=== PATIENT | male | born 1950 | race African-American/Black ===

== ENCOUNTER 2020-09-27 10:42 | Outpatient (CLI) | payer MEDICARE, OTHER, SELFPAY ==
--- NOTE | ~2020-09-27 | XR_ITS ---
EXAMINATION: XR hip RT min 2V DATE: 09/27/2020 11:05 INDICATION: Lumbar radiculopathy. TECHNIQUE: 2 views of right hip were obtained. COMPARISON: None. FINDINGS: Bone alignment is normal. No fracture. There is severe right hip osteoarthritis. IMPRESSION: 1. Severe right hip osteoarthritis. Reviewed, dictated and finalized at location A. KILN WORKER
--- NOTE | ~2020-09-27 | XR_ITS ---
EXAMINATION: XR lumbar spine min 4V DATE: 09/27/2020 11:05 INDICATION: Lumbar radiculopathy TECHNIQUE: Anteroposterior, lateral, and bilateral oblique views of the lumbar spine, and cone-down l ateral view of the lumbosacral junction were obtained. COMPARISON: None. FINDINGS: There is no fracture. There are 3 mm of anterolisthesis of L2 on L3 and 5 mm of anterolisth esis of L3 on L4. There is advanced loss of intervertebral disc space height at L4-5 and L5-S1 and mo derate loss of disc space height throughout the remainder of the lumbar spine. The vertebral body hei ghts are maintained. There is moderate multilevel facet osteoarthritis. Small degenerative osteophyte s project from the anterior endplates of multiple vertebral bodies. Advanced osteoarthritis is noted in the right hip. There is mild left hip osteoarthritis. IMPRESSION: 1. Moderate lumbar spondylosis without acute findings. 2. Advanced right hip osteoarthritis. Reviewed, dictated and finalized at location A. S MANAGER
== END 2020-09-27 10:43 | disposition home or self-care (01) ==
PROVIDERS: PCP Physician Assistant; Visit Provider Physician Assistant
DX: M16.11 Unilateral primary osteoarthritis, right hip (principal); M47.26 Other spondylosis with radiculopathy, lumbar region
CPT/HCPCS: 72110; 73502

== ENCOUNTER 2022-02-02 10:56 | Outpatient (CLI) | payer MEDICARE, OTHER, SELFPAY ==
[2022-02-02 11:25] LABS: Cholesterol 172 mg/dL (0-200); HDL Direct 93 mg/dL; Triglycerides 104 mg/dL (<150)
[2022-02-02 11:36] LABS: LDL Cholesterol Direct 44 mg/dL
== END 2022-02-02 10:57 | disposition home or self-care (01) ==
LOC: ANHLAB 11:00
PROVIDERS: PCP Family Medicine; Visit Provider Internal Medicine Cardiovascular Disease
DX: Z13.220 Encounter for screening for lipoid disorders (principal)
CPT/HCPCS: 36415; 80061

== ENCOUNTER 2022-06-29 00:10 | Emergency (ER) | payer MEDICARE, OTHER, SELFPAY ==
[2022-06-29] VITALS (24 sets, daily range): BP systolic 103–132; BP diastolic 61–80; PULSE 67–96; RESP 18–22; TEMP 36.8; O2SAT 93–100
--- NOTE | ~2022-06-29 | XR_ITS ---
EXAMINATION: XR chest 2V DATE: 06/29/2022 01:23 INDICATION: Dyspnea. Cough. TECHNIQUE: Frontal and lateral views of the chest were obtained. COMPARISON: Chest single view 11/20/2017, chest CT 06/29/2022 FINDINGS: There are airspace opacities in the lower lung zones. No pleural effusion or pneumothorax. Cardiomegaly is noted. There is a left chest wall pacer with leads in the right atrium and right vent ricle. IMPRESSION: 1. Airspace opacities in the lower lung zones, consistent with pneumonia. 2. Cardiomegaly. Reviewed, dictated and finalized at location A. RANCE ADVISOR
--- NOTE | ~2022-06-29 | CT_ITS ---
EXAMINATION: CTA chest PE protocol DATE: 06/29/2022 03:24 INDICATION: Shortness of breath. TECHNIQUE: Computed tomography angiography (CTA) of the chest was performed with 100 mL Omnipaque-350 intravenous contrast timed to evaluate the pulmonary arteries. Coronal maximum intensity projection 3D-reconstructions were created by the technologist. Automated exposure control and iterative reconst ruction technique were employed. The dose-length product was 689.44 mGy-cm. COMPARISON: Chest CT 07/09/17 FINDINGS: There are patchy airspace and groundglass opacities in right middle lobe and the lower lobe s, consistent with pneumonia. There is mild atelectasis in lingula. There is mild bronchiectasis in l ingula. A calcified left lung nodule and calcified left hilar and mediastinal lymph nodes are consist ent with old granulomatous disease. There is a trace left pleural effusion. Cardiomegaly is noted. Th ere are coronary artery calcifications. No pericardial effusion. There is a left chest pacer with marci ds in right atrium and right ventricle. There is no pulmonary embolus. There is ectasia of ascending aorta measuring 4.6 cm. There is a suture anchor in left humeral head. There are bridging endplate os teophytes at multiple levels in the spine, consistent with diffuse idiopathic skeletal hyperostosis ( DISH). IMPRESSION: 1. No pulmonary embolus. 2. Pneumonia involving the lower lobes and right middle lobe. Reviewed, dictated and finalized at location A. OFF WORKER
--- NOTE | 2022-06-29 00:13 | ECG_ITS ---
Measurements Intervals [place] Rate: 83 P: 67 IA: 255 QRS: -54 QRSD: 153 T: 72 QT: 406 QTc: 478 Interpretive Statements SINUS RHYTHM WITH FIRST DEGREE AV BLOCK WITH OCCASIONAL VENTRICULAR PREMATURE COMPLEXES LEFT AXIS DEVIATION [QRS AXIS < -30] LEFT BUNDLE BRANCH BLOCK [120+ ms QRS DURATION, 80+ ms Q/S IN V1/V2, 85+ ms R IN I/aVL/V5/V6] NO PREVIOUS ECG AVAILABLE FOR COMPARISON Electronically Signed On 06-29-2022 6:23:26 FERTILIZER LOADER by Nuno Varner M.D.
--- NOTE | 2022-06-29 00:21 | ED.SOB ---
HPI - SOB/Dyspnea General Chief Complaint: Shortness of Breath/Dyspnea Stated Complaint: SOB WHILE COUGHING Source: RN notes reviewed History of Present Illness HPI Narrative: Patient presents emergency department from home via EMS for shortness of breath. Patient states symptoms began yesterday. States he developed a cough this been nonproductive. He states that when he begins to cough she will get into coughing spells only can feel short of breath. He also notes some shortness of breath with activity he denies any fevers or chills sore throat, chest pain, abdominal pain nausea vomiting or any other symptoms. States he has been taking cough drops for the symptoms with minimal relief. The patient is currently on apixaban which he has been taking Related Data Home Medications Medication Instructions Recorded Confirmed carvedilol 25 mg tablet 25 mg PO BID 05/24/19 02/23/22 sacubitril 49 mg-valsartan 51 mg 1 tablet PO BID 03/05/21 02/23/22 tablet (Entresto) apixaban 5 mg tablet (Eliquis) 5 mg PO BID 11/11/21 02/23/22 Allergies Allergy/AdvReac Type Severity Reaction Status Date / Time No Known Allergies Allergy Verified 02/23/22 11:05 Review of Systems Review of Systems: Gen.: Denies fevers or chills ENT: Denies congestion Respiratory: See HPI CV: Denies chest pain or palpitations GI: Denies abdominal pain nausea, emesis or diarrhea denies burning, urgency, frequency or hematuria Musculoskeletal: Denies back pain or muscle pain Neuro: Denies numbness, tingling, weakness or focal weakness Skin: Denies rash Except as documented, all other systems reviewed and negative [facility] Past Medical History Medical History Cardiomyopathy CHF (congestive heart failure) Hx of angiography ICD (implantable cardioverter-defibrillator) in place Mixed hyperlipidemia Obesity (BMI 30-39.9) Surgical History Surgical History S/P cardiac cath Family History Family History Mother Diabetes mellitus Hypertension Social History Social History (Updated 02/23/22 @ 12:45 by Angely Ordonez PA-C) Smoking status: Light tobacco smoker Tobacco type: cigars Second hand tobacco smoke exposure: No Additional smoking assessment comments: Cigars on occassion. Alcohol intake: current Drinks per week: 15 Substance use: current Substance use type: marijuana Other substance usage details: 2xweek Exam Narrative: APPEARANCE: No acute distress, nontoxic, resting in bed EYES: EOMI HEENT: Normocephalic, atraumatic, OMM airway patent no erythema or exudate posterior pharynx RESPIRATORY: No respiratory distress mild wheezing upper lung george no rhonchi or rales CARDIOVASCULAR: Regular rate and rhythm without murmurs rubs or gallops. ABDOMINAL: Soft, nontender, nondistended, no rebound or guarding MUSCULOSKELETAl: Moves all extremities. No clubbing, cyanosis or edema. NEURO: Awake and alert. Following commands, speech normal, no focal deficits SKIN:: Warm, dry. No rashes lesions or abrasions PSYCHIATRIC: Normal affect/mood, Course Course Emergency Course: Patient states he is feeling much better following breathing treatment repeat lung exam clear to auscultation bilaterally. Discussed with patient his lab results and work-up he states he is had no swelling in his legs no change in shortness of breath with laying flat I believe with mild elevation of white blood cell count and CT of the chest this is more likely a pneumonia than congestive heart failure the patient does have Lasix 40 mg daily which she takes and he will take at home I will start him on antibiotics and given albuterol breathing treatment as he is feeling better following these the patient was able to get up and ambulate in the emergency department with O2 saturations of 95% on room ai
[2022-06-29 00:26] LABS: Basophils Percent Auto 0.2 % (0.2-1.2); Eosinophils Percent Auto 0.1 % (0-4.4); Hematocrit 37.9 % (42.0-52.0); Hemoglobin 12.4 g/dL (14.0-18.0); Immature Granulocyte Absolute 0.06 K/mm3 (0.00-0.031); Immature Granulocyte Percent A 0.5 % (0-0.5); Lymphocytes Absolute Auto 0.64 K/mm3 (0.9-3.2); Lymphocytes Percent Auto 5.7 % (18.3-44.2); Mean Corpuscular HGB Conc 32.7 g/dl (32-36); Mean Corpuscular Hemoglobin 31.6 pg (26-34); Mean Corpuscular Volume 96.4 fl (80-100); Mean Platelet Volume 9.3 fl (7.4-10.4); Monocytes Absolute Auto 0.6 K/mm3 (0.1-0.6); Monocytes Percent Auto 5.6 % (2.6-8.5); Neutrophils Absolute Auto 9.8 K/mm3 (1.3-6.7); Neutrophils Percent Auto 87.9 % (45.5-73.1); Platelet Count Result 230 k/mm3 (150-375); Red Blood Count 3.93 M/mm3 (4.6-6.20); White Blood Count 11.2 K/mm3 (4.5-10.0)
[2022-06-29] MEDS: IPRATROPIUM BR 0.02% INH SOLN 0.5 MG/2.5 ML VIAL INHALATION (00:39)
[2022-06-29 00:40] LABS: Alanine Aminotransferase 12 U/L (6-50); Albumin Level 4.5 g/dL (3.5-5.1); Alkaline Phosphatase 81 U/L (38-126); Anion Gap 7 mmol/L (8-16); Aspartate Amino Transferase 30 U/L (17-59); Bilirubin,Total 1.4 mg/dL (0.2-1.3); Blood Urea Nitrogen 10 mg/dL (9-20); Calcium 9.1 mg/dL (8.4-10.2); Carbon Dioxide 30 mmol/L (22-30); Chloride 101 mmol/L (98-107); Estimated CRCL calculation 93 ml/min; Estimated Glomerular Filt Rate > 60; Glucose 123 mg/dL (65-110); INR 1.4; Potassium 3.3 mmol/L (3.4-5.0); Prothrombin Time 16.3 Seconds (11.1-14.7); Sodium 138 mmol/L (137-145)
[2022-06-29] MEDS: ALBUTEROL SULFATE NEB 2.5 MG/3 ML INH 5 MG INHALATION (00:40)
[2022-06-29 00:41] LABS: Partial Thromboplastin Time 36.4 SECONDS (22.3-36.8)
[2022-06-29 00:51] LABS: NT Pro B Type Natriuretic Pept 2250 pg/mL (5-100); Troponin I 0.018 ng/mL (0.000-0.034)
[2022-06-29 01:02] LABS: Influenza A QL RT-PCR Negative (Negative); Influenza B QL RT-PCR Negative (Negative); RSV RNA, RT-PCR Negative (Negative); SARS-CoV-2 RNA PCR Negative
--- NOTE | 2022-06-29 03:25 | PC.NURSE ---
Assumed care of pt at this time .
[2022-06-29 04:11] LABS: Troponin I 0.017 ng/mL (0.000-0.034)
[2022-06-29] MEDS: POTASSIUM CHLORIDE 20 MEQ TABLET PO (05:40)
[2022-06-29] MEDS: DOXYCYCLINE HYCLATE 100 MG TABLET PO (05:40)
== END 2022-06-29 05:48 | disposition home or self-care (01) ==
PROVIDERS: Emergency Provider Emergency Medicine; PCP Family Medicine
DX: J18.9 Pneumonia, unspecified organism (principal); I50.9 Heart failure, unspecified; E78.2 Mixed hyperlipidemia; F17.290 Nicotine dependence, other tobacco product, uncomplicated; Z20.822 Contact with and (suspected) exposure to COVID-19
CPT/HCPCS: 36415; 71046; 71275; 80053; 83880; 84484; 85025; 85380; 85610; 85730; 87637; 93005; 94640; 99284; A9270; Q9967

== ENCOUNTER 2022-08-04 10:50 | Outpatient (CLI) | payer MEDICARE, OTHER, SELFPAY ==
--- NOTE | ~2022-08-04 | XR_ITS ---
XR chest 2V DATE: 08/04/2022 11:07 INDICATION: Pneumonia TECHNIQUE: PA and lateral views COMPARISON: 06/29/2022 CT pulmonary scan: Pneumonia involving the middle lobe and both lower lobes wa s reported FINDINGS: Cardiomegaly. Left AICD/pacemaker device with leads overlying right atrium and right ventri hitesh. There is thoracic aortic aneurysm and unfolding. No pulmonary infiltrate or consolidation, pleural effusion or pulmonary vascular congestion or pneumo thorax is detected. [place] devices noted overlying the left humeral head. Degenerative spurring of the thoracic and lumbar spine. IMPRESSION: Cardiomegaly Left dual-lead AICD/pacemaker device Thoracic aortic aneurysm and unfolding No active pulmonary disease Reviewed, dictated and finalized at location L. ING OFFICER
== END 2022-08-04 10:51 | disposition home or self-care (01) ==
PROVIDERS: PCP Family Medicine; Visit Provider Physician Assistant
DX: J18.9 Pneumonia, unspecified organism (principal); I51.7 Cardiomegaly; Z95.0 Presence of cardiac pacemaker; I71.20 Thoracic aortic aneurysm, without rupture, unspecified
CPT/HCPCS: 71046

== ENCOUNTER 2022-08-09 11:43 | Emergency (ER) | payer MEDICARE, OTHER, SELFPAY ==
--- NOTE | ~2022-08-09 | XR_ITS ---
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 RESULT: Lines, tubes, and devices: Left chest pacer/AICD with intact leads. Left humeral head soft tissue an chor. Lungs and pleura: Clear. Cardiomediastinal silhouette: Stable. Other: No acute osseous or upper abdominal finding. IMPRESSION: No acute cardiopulmonary process. Reviewed, dictated and finalized at location K. STMAS TREE GRADER
[2022-08-09 12:42] VITALS: BP 130/88; PULSE 97; RESP 16; TEMP 36.4; O2SAT 98
--- NOTE | 2022-08-09 14:55 | ED.URI ---
HPI - URI/Sore Throat General Chief Complaint: Upper Respiratory Infection Stated Complaint: cough Time Seen by Provider: 08/09/22 14:26 Source: patient Mode of arrival: ambulatory Limitations: no limitations History of Present Illness HPI Narrative: This is a 72 year old male that presents to the ER for cough ongoing over the last couple of days. Reports a nonproductive cough, worse at night. Reports he has been unable to sleep due to the cough. He has not taken anything for the cough. Reports some congestion. Denies fevers or shortness of breath. Related Data Home Medications Medication Instructions Recorded Confirmed carvedilol 25 mg tablet 25 mg PO BID 05/24/19 07/02/22 sacubitril 49 mg-valsartan 51 mg 1 tablet PO BID 03/05/21 07/02/22 tablet (Entresto) apixaban 5 mg tablet (Eliquis) 5 mg PO BID 11/11/21 07/02/22 Allergies Allergy/AdvReac Type Severity Reaction Status Date / Time No Known Allergies Allergy Verified 08/09/22 12:44 Review of Systems Review of Systems: CONSTITUTIONAL: Denies fever ENT: Reports congestion. Denies sore throat CARDIOVASCULAR: Denies chest pain, or edema. RESPIRATORY: Reports cough. Denies dyspnea. All systems reviewed & are unremarkable except as noted in HPI and below PMFSH Past Medical History Medical History Cardiomyopathy CHF (congestive heart failure) Hx of angiography ICD (implantable cardioverter-defibrillator) in place Mixed hyperlipidemia Obesity (BMI 30-39.9) Surgical History Surgical History S/P cardiac cath Family History Family History Mother Diabetes mellitus Hypertension Social History Social History Smoking status: Light tobacco smoker Tobacco type: cigars Second hand tobacco smoke exposure: No Additional smoking assessment comments: Cigars on occassion. Alcohol intake: current Drinks per week: 15 Substance use: current Substance use type: marijuana Other substance usage details: 2xweek Exam Narrative: GENERAL: Well-appearing, well-nourished, and in no acute distress. HEAD: Normocephalic, atraumatic. EYES: EOMI. ENT: Nares clear, no rhinorrhea or epistaxis. Mucous membranes moist. Oropharynx without tonsillar hypertrophy exudate or other lesions. Bilateral TMs pearly hickman non-bulging NECK: Supple. No adenopathy or masses. CHEST: Clear to auscultation. No respiratory distress. No wheezes rales or rhonchi HEART: Regular rate and rhythm. No murmur heard. Normal peripheral pulses. EXTREMITIES: Normal range of motion. No edema. SKIN: Warm, dry, no rash. NEURO: No focal deficits. Alert and oriented x3. PSYCH: Normal mood and affect Course Course Emergency Course: Patient and family updated on workup and agree with plan of care Vital Signs Vital signs: Vital Signs Temperature 97.5 F L 08/09/22 12:42 Pulse Rate 97 08/09/22 12:42 Respiratory Rate 16 08/09/22 12:42 Blood Pressure 130/88 08/09/22 12:42 Pulse Oximetry 98 08/09/22 12:42 Temperature 97.5 F L 08/09/22 12:42 Pulse Rate 68 08/09/22 15:33 Respiratory Rate 18 08/09/22 15:33 Blood Pressure 130/88 08/09/22 12:42 Pulse Oximetry 98 08/09/22 12:42 MDM - URI/Sore Throat MDM Narrative Medical decision making narrative: Patient presents to the emergency department for a nonproductive cough ongoing over the last couple of days. Reports it has been keeping him up at night. He has not taken anything for cough. He is afebrile and nontoxic-appearing. His lungs are clear on exam. Oxygen saturation is normal on room air. He denies any shortness of breath. CBC is without leukocytosis. Metabolic panel without concerning findings. Influenza and COVID screens are negative. Chest x-ray without acute cardiopu
[2022-08-09 15:02] LABS: Basophils Percent Auto 0.2 % (0.2-1.2); Eosinophils Absolute Auto 0.1 K/mm3 (0-0.3); Eosinophils Percent Auto 1.5 % (0-4.4); Hemoglobin 11.9 g/dL (14.0-18.0); Immature Granulocyte Absolute 0.01 K/mm3 (0.00-0.031); Immature Granulocyte Percent A 0.2 % (0-0.5); Lymphocytes Absolute Auto 0.61 K/mm3 (0.9-3.2); Lymphocytes Percent Auto 13.1 % (18.3-44.2); Mean Corpuscular HGB Conc 32.2 g/dl (32-36); Mean Corpuscular Hemoglobin 30.7 pg (26-34); Mean Corpuscular Volume 95.6 fl (80-100); Mean Platelet Volume 9.5 fl (7.4-10.4); Monocytes Absolute Auto 0.4 K/mm3 (0.1-0.6); Neutrophils Absolute Auto 3.6 K/mm3 (1.3-6.7); Platelet Count Result 166 k/mm3 (150-375); Red Blood Count 3.87 M/mm3 (4.6-6.20); Red Cell Distribution Width 15.6 % (11.5-14.5); White Blood Count 4.6 K/mm3 (4.5-10.0)
[2022-08-09 15:13] LABS: Anion Gap 6 mmol/L (8-16); Blood Urea Nitrogen 11 mg/dL (9-20); Calcium 8.8 mg/dL (8.4-10.2); Carbon Dioxide 30 mmol/L (22-30); Chloride 104 mmol/L (98-107); Estimated CRCL calculation 90 ml/min; Estimated Glomerular Filt Rate > 60; Glucose 100 mg/dL (65-110); Potassium 3.7 mmol/L (3.4-5.0); Sodium 140 mmol/L (137-145)
[2022-08-09] MEDS: ALBUTEROL SULFATE NEB 2.5 MG/3 ML INH 5 MG INHALATION (15:15)
[2022-08-09 15:16] VITALS: PULSE 60; RESP 18
[2022-08-09] MEDS: IPRATROPIUM BR 0.02% INH SOLN 0.5 MG/2.5 ML VIAL INHALATION (15:16)
[2022-08-09 15:33] VITALS: PULSE 68; RESP 18
[2022-08-09 15:38] LABS: Influenza A QL RT-PCR Negative (Negative); Influenza B QL RT-PCR Negative (Negative); SARS-CoV-2 RNA PCR Negative
[2022-08-09 16:00] VITALS: BP 126/78; PULSE 59; RESP 18; O2SAT 98
== END 2022-08-09 16:00 | disposition home or self-care (01) ==
PROVIDERS: Emergency Provider Physician Assistant; PCP Family Medicine
DX: R05.9 Cough, unspecified (principal); Z20.822 Contact with and (suspected) exposure to COVID-19; I50.9 Heart failure, unspecified; I42.9 Cardiomyopathy, unspecified; E78.2 Mixed hyperlipidemia; E66.9 Obesity, unspecified; Z68.30 Body mass index [BMI] 30.0-30.9, adult; Z95.810 Presence of automatic (implantable) cardiac defibrillator; F17.290 Nicotine dependence, other tobacco product, uncomplicated
CPT/HCPCS: 36415; 71046; 80048; 85025; 87636; 94640; 99283

== ENCOUNTER 2022-10-04 19:27 | Emergency (ER) | payer MEDICARE, OTHER, SELFPAY ==
--- NOTE | ~2022-10-04 | XR_ITS ---
EXAMINATION: XR chest 2V Exam Date/Time: 10/04/2022 20:15 CDT HISTORY: SOB, cough X 1 DAY HX CHF Comparison: 08/09/2022, 07/06/2017; CTPA 06/29/2022. RESULT: Lines, tubes, and devices: Left humeral head soft tissue anchor. Left chest AICD.. Lungs and pleura: Senescent change. Prominent pulmonary vessels. Nodular opacity projecting over the posterior costophrenic sulcus, stable since 2016. Cardiomediastinal silhouette: Stable. Other: No acute osseous or upper abdominal finding. IMPRESSION: No acute cardiopulmonary process. Reviewed, dictated and finalized at location K.
[2022-10-04 19:50] VITALS: BP 144/89; PULSE 74; RESP 20; TEMP 37.4; O2SAT 97
--- NOTE | 2022-10-04 19:53 | ECG_ITS ---
Measurements Intervals [place] Rate: 67 P: 53 NE: 258 QRS: -57 QRSD: 154 T: 50 QT: 423 QTc: 447 Interpretive Statements SINUS RHYTHM WITH FIRST DEGREE AV BLOCK VENTRICULAR PREMATURE COMPLEX LEFT AXIS DEVIATION LEFT BUNDLE BRANCH BLOCK ABNORMAL ECG COMPARED TO ECG 06/29/2022 00:15:59 NO SIGNIFICANT CHANGES Electronically Signed On 10-04-2022 21:34:19 CDT by Jase Simental D.O.
[2022-10-04 20:32] LABS: Basophils Percent Auto 0.1 % (0.2-1.2); Eosinophils Absolute Auto 0.1 K/mm3 (0-0.3); Eosinophils Percent Auto 1.7 % (0-4.4); Hematocrit 37.8 % (42.0-52.0); Hemoglobin 12.2 g/dL (14.0-18.0); Immature Granulocyte Absolute 0.03 K/mm3 (0.00-0.031); Immature Granulocyte Percent A 0.4 % (0-0.5); Lymphocytes Absolute Auto 0.47 K/mm3 (0.9-3.2); Lymphocytes Percent Auto 6.6 % (18.3-44.2); Mean Corpuscular HGB Conc 32.3 g/dl (32-36); Mean Corpuscular Hemoglobin 31.2 pg (26-34); Mean Corpuscular Volume 96.7 fl (80-100); Mean Platelet Volume 9.5 fl (7.4-10.4); Monocytes Absolute Auto 0.4 K/mm3 (0.1-0.6); Monocytes Percent Auto 6.1 % (2.6-8.5); Neutrophils Absolute Auto 6.1 K/mm3 (1.3-6.7); Neutrophils Percent Auto 85.1 % (45.5-73.1); Platelet Count Result 166 k/mm3 (150-375); Red Blood Count 3.91 M/mm3 (4.6-6.20); Red Cell Distribution Width 15.9 % (11.5-14.5); White Blood Count 7.2 K/mm3 (4.5-10.0)
[2022-10-04 20:46] LABS: Alanine Aminotransferase 15 U/L (6-50); Albumin Level 4.6 g/dL (3.5-5.1); Alkaline Phosphatase 57 U/L (38-126); Anion Gap 6 mmol/L (8-16); Aspartate Amino Transferase 33 U/L (17-59); Bilirubin,Total 1.7 mg/dL (0.2-1.3); Blood Urea Nitrogen 14 mg/dL (9-20); Calcium 9.1 mg/dL (8.4-10.2); Carbon Dioxide 28 mmol/L (22-30); Chloride 107 mmol/L (98-107); Estimated CRCL calculation 90 ml/min; Estimated Glomerular Filt Rate > 60; Glucose 113 mg/dL (65-110); Potassium 4.2 mmol/L (3.4-5.0); Sodium 141 mmol/L (137-145)
[2022-10-04 23:23] VITALS: BP 127/81; PULSE 69; RESP 18; O2SAT 96
[2022-10-05] VITALS (20 sets, daily range): BP systolic 108–120; BP diastolic 71–85; PULSE 63–83; RESP 15–24; TEMP 36.7; O2SAT 96–100
--- NOTE | 2022-10-05 02:06 | ED.GENADULT ---
HPI - General Adult General Chief complaint: Shortness of Breath/Dyspnea Stated complaint: shortness of breath Time Seen by Provider: 10/05/22 00:38 History of Present Illness HPI narrative: is a 72-year-old male presenting ED with chief complaint of shortness of breath. Over the last several months patient has had worsening shortness of breath. Starting last night he started to have coughing with shortness of breath. It did not improve when he awoke and he came to the emergency department. He was diagnosed with pneumonia since then he has been having wheezing and coughing. Patient has been in using an inhaler intermittently with some improvement in his symptoms. Patient denies fever, chills, chest pain, URI symptoms, nausea vomiting diarrhea or abdominal pain. Denies lower extremity edema and has been compliant with his Lasix And other heart failure medications. Patient is unsure of his medical history. Related Data Home Medications Medication Instructions Recorded Confirmed carvedilol 25 mg tablet 25 mg PO BID 05/24/19 07/02/22 sacubitril 49 mg-valsartan 51 mg 1 tablet PO BID 03/05/21 07/02/22 tablet (Entresto) apixaban 5 mg tablet (Eliquis) 5 mg PO BID 11/11/21 07/02/22 Allergies Allergy/AdvReac Type Severity Reaction Status Date / Time No Known Allergies Allergy Verified 10/04/22 19:27 [facility] Past Medical History Medical History Cardiomyopathy CHF (congestive heart failure) Hx of angiography ICD (implantable cardioverter-defibrillator) in place Mixed hyperlipidemia Obesity (BMI 30-39.9) Surgical History Surgical History S/P cardiac cath Family History Family History Mother Diabetes mellitus Hypertension Social History Social History Smoking status: Light tobacco smoker Tobacco type: cigars Second hand tobacco smoke exposure: No Additional smoking assessment comments: Cigars on occassion. Alcohol intake: current Drinks per week: 15 Substance use: current Substance use type: marijuana Other substance usage details: 2xweek Exam Narrative: APPEARANCE: No apparent distress. Head: atraumatic. EYES: EOMI, NOSE: Atraumatic NECK: Trachea midline RESPIRATORY: No increased rate of breathing , expiratory wheezing in all george, speaking in full sentences CARDIOVASCULAR: RRR, no peripheral edema ABDOMINAL: Non-distended soft nontender no guarding or rebound MUSCULOSKELETAl: No obvious deformities NEURO: Alert. Moving 4/4 extremities SKIN:: Warm, dry. Normal color PSYCHIATRIC: Normal affect Course Vital Signs Vital signs: Vital Signs Temperature 99.4 F 10/04/22 19:50 Pulse Rate 74 10/04/22 19:50 Respiratory Rate 20 10/04/22 19:50 Blood Pressure 144/89 H 10/04/22 19:50 Pulse Oximetry 97 10/04/22 19:50 Oxygen Delivery Room Air 10/04/22 19:50 Temperature 98.1 F 10/05/22 00:34 Pulse Rate 63 10/05/22 03:01 Respiratory Rate 15 10/05/22 03:01 Blood Pressure 118/71 10/05/22 03:01 Pulse Oximetry 99 10/05/22 03:01 Oxygen Delivery Room Air 10/05/22 00:38 Medical Decision Making MDM Narrative Medical decision making narrative: -Presentation: 72-year-old male with history of systolic heart failure with AICD and lifelong cigar use presenting with gradually worsening shortness of breath and wheezing. 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
[2022-10-05] MEDS: methylPREDNISolone SOD SUCC 125 MG VIAL IV PUSH (02:13)
[2022-10-05] MEDS: MAGNESIUM SULF 2 GM/WATER 50ML 2 GM/50 ML BAG IVPB (02:13)
[2022-10-05] MEDS: ALBUTEROL SULFATE NEB 2.5 MG/3 ML INH 5 MG INHALATION (02:24)
[2022-10-05] MEDS: IPRATROPIUM BR 0.02% INH SOLN 0.5 MG/2.5 ML VIAL 1 MG INHALATION (02:25)
--- NOTE | 2022-10-05 03:04 | PC.NURSE ---
Patients repeatedly comes to desk stating she wants to leave, states take his IV out, we are leaving. This nurse informed her that he is still getting his breathing treatment and magnesium. she states I don't care, we are leaving, we have been here long enough. ERP and charge manager notified. Patients IV removed. Patient took breathing treatment off before it was finished.
--- NOTE | 2022-10-05 03:20 | PC.NURSE ---
Patient demanding to leave, cause I've been here for so long and I am leaving. Patient and his demanded to have IV taken out, IV mag was still infusing and a small amount of breathing treatment left. Patient took his breathing treatment offon his own. ERP notified. ERP stated patient is not discharged yet. Patient and his educated that they are not discharged yet but still stated they were leaving. Patient had IV removed. Patient left before discharge paper were ready. campus safety officer and ERP notified.
== END 2022-10-05 03:21 | disposition left against medical advice (07) ==
PROVIDERS: Emergency Provider Emergency Medicine; PCP Family Medicine
DX: R06.00 Dyspnea, unspecified (principal); R06.2 Wheezing; F17.290 Nicotine dependence, other tobacco product, uncomplicated; I50.9 Heart failure, unspecified; E78.5 Hyperlipidemia, unspecified; Z95.810 Presence of automatic (implantable) cardiac defibrillator
CPT/HCPCS: 36415; 71046; 80053; 85025; 93005; 94640; 96365; 96375; 99284; J2930; J3475

== ENCOUNTER 2022-10-15 12:11 | Outpatient (CLI) | payer MEDICARE, OTHER, SELFPAY ==
--- NOTE | ~2022-10-15 | XR_ITS ---
EXAMINATION: XR finger 2nd LT min 2V INDICATION: Right second finger swelling TECHNIQUE: Four views of the right second finger are obtained. COMPARISON: None available FINDINGS: Bone alignment is normal. There is no fracture. There is moderate to severe osteoarthritis at the proximal interphalangeal joint. Mild osteoarthritis is noted in the distal interphalangeal sheryl nt. There is soft tissue swelling of the second finger. IMPRESSION: 1. Moderate to severe osteoarthritis of the proximal interphalangeal joint and soft tissue swelling o f the second finger without acute osseous findings. Reviewed, dictated and finalized at location F. IMPRESSION: 1. Moderate to severe osteoarthritis of the proximal interphalangeal joint and soft tissue swelling of the second finger without acute osseous findings.
== END 2022-10-15 12:12 | disposition home or self-care (01) ==
LOC: ANHIMG 12:18
PROVIDERS: PCP Family Medicine; Visit Provider Physician Assistant
DX: M19.042 Primary osteoarthritis, left hand (principal)
CPT/HCPCS: 73140

== ENCOUNTER 2022-11-03 10:20 | Outpatient (CLI) | payer MEDICARE, OTHER, SELFPAY ==
--- NOTE | 2022-11-04 13:37 | WPDPFTINT ---
PFT Procedure Performed PFT Procedure Performed Plethysmography (Lung Vol) Diffusing Cap (DLCO) Flow Vol Loop Spirometry w/o Bronchodil PFT Interpretation Lung volumes were measured with the body plethysmography method. The borderline total lung capacity and vital capacity could be due to underlying restrictive respiratory disease. Spirometry showed diminished expiratory flow rates and a normal FEV1 to FVC ratio 75% also compatible with restrictive respiratory disease. No post bronchodilator study carried out. Lung diffusion capacity is mildly reduced at 63% predicted. Impression: Probable mild restrictive respiratory disease. Mild reduction in lung diffusion capacity.
== END 2022-11-03 10:21 | disposition home or self-care (01) ==
LOC: ANHPFT 10:22
PROVIDERS: PCP Family Medicine; Visit Provider Physician Assistant
DX: R06.02 Shortness of breath (principal); R94.2 Abnormal results of pulmonary function studies
CPT/HCPCS: 94375; 94726; 94729

== ENCOUNTER 2023-08-10 14:26 | Outpatient (CLI) | payer MEDICARE, OTHER, SELFPAY ==
--- NOTE | 2023-08-11 08:43 | P.PCNPFT_ITS ---
PFT Procedure Performed PFT Procedure Performed Spirometry with Pre/Post Bronchodilator Plethysmography (Lung Vol) Diffusing Cap (DLCO) Flow Vol Loop PFT Interpretation Lung volumes were measured with the body plethysmography method. The hoauws-yci-sycpa diminished lung volumes are indicative of restrictive r espiratory disease. Spirometry showed diminished expiratory flow rates and a normal FEV1 to FVC ratio 70%, also consistent with restrictive respiratory disease. Following administration of a bronchodilator there was no significant increase in expiratory flow rates. Lung diffusion capacity is moderately reduced at 55% predicted. Considering the normal alveolar volume, this diminished lung diffusion capacity could be related to pulmonary vascular abnormality like pulmonary hypertension, early interstitial lung disease or anemia. Clinical correlation advised. The flow-volume loop is unremarkable. In comparison to previous study done in October of 2022, the post bronchodilator FVC and FEV 1 are each lower by approximately 0.5 L. Total lung capacity is also lower by approximately 2 L whereas the lung diffusion capacity has decreased from a 63% predicted to 55% predicted value. Impression: Moderate restrictive respiratory disease. Moderately reduced lung diffusion capacity. Pulmonary function tests were interpreted on the basis of recent ERS/ats guidelines published in 2021. Pulmonary Function Tests (PFTs) play a crucial role in evaluating respiratory function and offering insights into respiratory physiology. However, they may not always accurately diagnose specific clinical conditions. Similarly, normal PFT results do not necessarily rule out the presence of a lung disease or condition. Therefore, the diagnostic utility of PFTs should be approached with caution, as the results in isolation do not yield absolute determinations.
--- NOTE | 2023-08-11 08:57 | WPDSIXMINUTE ---
Six Minute Walk Procedure Procedure Performed Pulmonary Stress Test (6 min walk) Six Minute Walk Six Minute Walk: This 6 minute walk test was carried out with the patient breathing ambient air. The baseline pre-walk oxyhemoglobin saturation was 98%. The patient walked approximately 305 m with no stops during testing. During the walk the oxyhemoglobin saturation remained in the range of 96%-98%. Impression: No evidence of oxyhemoglobin desaturation on this testing.
== END 2023-08-10 14:27 | disposition home or self-care (01) ==
LOC: ANHPFT 14:27
PROVIDERS: PCP Family Medicine; Visit Provider Nurse Practitioner Family
DX: R06.09 Other forms of dyspnea (principal); R05.9 Cough, unspecified; R94.2 Abnormal results of pulmonary function studies
CPT/HCPCS: 94060; 94618; 94726; 94729

== ENCOUNTER 2023-08-26 11:53 | Outpatient (CLI) | payer MEDICARE, OTHER, SELFPAY ==
--- NOTE | ~2023-08-26 | CT_ITS ---
EXAMINATION: CT diagnostic chest wo con DATE: 08/26/2023 12:19 INDICATION: Cough and shortness of breath TECHNIQUE: Computed tomography (CT) of the chest was performed without intravenous contrast. The dose -length product (DLP) was 389.91 mGy-cm. Automated exposure control and iterative reconstruction tech RIB Software were employed. COMPARISON: 06/29/2022 FINDINGS: The lungs are free of acute opacities. There is mild atelectasis. Cardiomegaly is noted. A dual-lead cardiac pacemaker of the left chest wall ends with leads in expected locations. No pleural effusion or pneumothorax. There is chronic mild mediastinal lymphadenopathy, likely reactive. Calcifi ed coronary artery atherosclerosis is noted. There are bridging osteophytes at multiple levels in the spine, consistent with diffuse idiopathic skeletal hyperostosis (DISH). There is questionable wall t hickening of the gallbladder. There is stable fusiform enlargement of the ascending aorta which measu res up to 4.6 cm. IMPRESSION: 1. Cardiomegaly. 2. Possible wall thickening of the gallbladder, nonspecific. Recommend correlation for right upper qu adrant pain Reviewed, dictated and finalized at location L. MIXER OPERATOR IMPRESSION: 1. Cardiomegaly. 2. Possible wall thickening of the gallbladder, nonspecific. Recommend correlat ion for right upper quadrant pain
== END 2023-08-26 11:54 | disposition home or self-care (01) ==
PROVIDERS: PCP Physician Assistant; Visit Provider Nurse Practitioner Family
DX: J98.4 Other disorders of lung (principal); R05.3 Chronic cough; R06.09 Other forms of dyspnea; I51.7 Cardiomegaly
CPT/HCPCS: 71250

== ENCOUNTER 2024-01-06 00:32 | Day surgery (SDC) | payer MEDICARE, OTHER, SELFPAY ==
[2024-01-05 15:30] VITALS: BMI 27.1
[2024-01-06] VITALS (11 sets, daily range): BP systolic 96–118; BP diastolic 73–94; PULSE 59–71; RESP 14–24; TEMP 36.2–36.3; O2SAT 99–100
--- NOTE | 2024-01-06 08:30 | ECG_ITS ---
Test Date: 2024-01-06 08:49:05 Measurements Intervals [place] Rate: 70 P: 0 DC: 0 QRS: -69 QRSD: 239 T: 107 QT: 529 QTc: 574 Interpretive Statements ELECTRONIC VENTRICULAR PACEMAKER ATYPICAL ECG No previous ECG available for comparison Electronically Signed On 01-06-2024 15:50:29 CDT by Santy Christensen M.D.
[2024-01-06 09:35] LABS: Anion Gap 8 mmol/L (4-12); Blood Urea Nitrogen 22 mg/dL (9-20); Calcium 9.6 mg/dL (8.4-10.2); Carbon Dioxide 28 mmol/L (22-30); Chloride 105 mmol/L (98-107); Estimated CRCL calculation 54 ml/min; Estimated Glomerular Filt Rate > 60; Glucose 104 mg/dL (65-110); Magnesium 1.7 mg/dL (1.6-2.3); Potassium 3.5 mmol/L (3.4-5.0); Sodium 141 mmol/L (137-145)
--- NOTE | 2024-01-06 10:00 | ECG_ITS ---
Test Date: 2024-01-06 11:52:37 Measurements Intervals [place] Rate: 61 P: -26 UT: 337 QRS: -67 QRSD: 172 T: 107 QT: 530 QTc: 538 Interpretive Statements ELECTRONIC ATRIAL AND VENTRICULAR PACEMAKER ATYPICAL ECG ATRIAL PACING NOW PRESENT Electronically Signed On 01-06-2024 16:03:38 CDT by Santy Christensen M.D.
--- NOTE | 2024-01-06 10:53 | ECG_ITS ---
Test Date: 2024-01-06 10:56:42 Measurements Intervals [place] Rate: 70 P: 0 MI: 0 QRS: -71 QRSD: 236 T: 106 QT: 530 QTc: 572 Interpretive Statements ELECTRONIC VENTRICULAR PACEMAKER ATYPICAL ECG Compared to ECG 01/06/2024 08:49:05 No significant changes Electronically Signed On 01-06-2024 15:57:46 CDT by Santy Christensen M.D.
--- NOTE | 2024-01-06 13:39 | WPDHPUPDATE1 ---
History and Physical Update Update Date/Time: 01/06/24 13:39 History and Physical has been reviewed, including an updated exam of the patient. There are NO changes in the patient's condition. Risks, benefits, and alternatives have been discussed and questions answered. Patient agrees to proceed with procedure.
--- NOTE | 2024-01-06 13:39 | WPDMODSED ---
Moderate Sedation Note-Pt Data Patient Data Diagnosis: Atrial fibrillation Present Complaint: Atrial fibrillation Procedure to be performed/Plan: Synchronized electrical cardioversion Allergies Allergy/AdvReac Type Severity Reaction Status Date / Time No Known Allergies Allergy Verified 01/06/24 09:03 Home Medications Medication Instructions Recorded Confirmed Type sacubitril 49 mg-valsartan 51 mg 1 tablet PO BID 03/05/21 01/06/24 History tablet (Entresto) apixaban 5 mg tablet (Eliquis) 5 mg PO BID 11/11/21 01/06/24 History albuterol sulfate 2.5 mg/3 mL 2.5 mg (3 mL) inhalation Q4-6H PRN 11/12/22 01/05/24 Rx (0.083 %) solution for nebulization wheezing #180 mL furosemide 40 mg tablet 40 mg PO QAM #90 tabs 05/30/23 01/06/24 Rx allopurinol 100 mg tablet 100 mg PO DAILY #90 tabs 07/16/23 01/06/24 Rx metoprolol succinate 100 mg 100 mg PO DAILY 01/05/24 01/06/24 History tablet,extended release 24 hr pantoprazole 20 mg tablet,delayed 20 mg PO DAILY 01/05/24 01/06/24 History release spironolactone 25 mg tablet 25 mg PO DAILY 01/05/24 01/06/24 History Current Medications: Active Medications Sodium Chloride (Normal Saline Iv) 1,000 mls @ 30 mls/hr IV CONT .Q24H DIONICIO Sedation/Anesthesia: No previous sedation/anesthesia problems (including family history). [facility] Past Medical History Medical History Cardiomyopathy CHF (congestive heart failure) Hx of angiography ICD (implantable cardioverter-defibrillator) in place Mixed hyperlipidemia Obesity (BMI 30-39.9) Surgical History Surgical History S/P cardiac cath Family History Family History Mother Diabetes mellitus Hypertension Cancer Social History Social History Smoking status: Former smoker Tobacco type: cigars Second hand tobacco smoke exposure: No Additional smoking assessment comments: smoked 1 cigar per day Alcohol intake: never Drinks per week: 15 Substance use: never Substance use type: does not use Other substance usage details: 2xweek Living arrangements: with family Spiritual care concerns: No Mod Sed Physical Exam Physical Exam Pre Procedural Exam: Normal: Appearance, Lungs, Neuro Exam, Abdomen, Extremities and Skin and Variation: Heart Rate (Atrial fibrillation, ventricular paced rhythm) and Heart Rhythm (Atrial fibrillation, ventricular paced rhythm ) Hours since solid foods: 12 Hours since liquid intake: 8 Mallampati Classification: class III Internal Medicine - PN: Obj Da Vital Signs Vital Signs: Vital Signs - 24 hr 01/06/24 09:13 01/06/24 11:36 01/06/24 11:50 Temperature 36.3 C L Pulse Rate 70 71 60 Respiratory Rate 20 22 H 22 H Blood Pressure 110/89 118/94 H 100/75 Pulse Oximetry 100 99 100 Oxygen Delivery Room Air Nasal Cannula Nasal Cannula Oxygen Flow Rate 3 3 01/06/24 12:00 01/06/24 11:40 01/06/24 11:45 Temperature Pulse Rate 62 71 71 Respiratory Rate 15 21 H 24 H Blood Pressure 104/73 117/91 H 99/84 L Pulse Oximetry 100 99 100 Oxygen Delivery Nasal Cannula Nasal Cannula Nasal Cannula Oxygen Flow Rate 3 3 3 01/06/24 11:55 01/06/24 12:15 01/06/24 12:30 Temperature Pulse Rate 66 60 60 Respiratory Rate 15 15 15 Blood Pressure 96/73 L 103/79 108/85 Pulse Oximetry 100 100 100 Oxygen Delivery Nasal Cannula Nasal Cannula Room Air Oxygen Flow Rate 3 3 01/06/24 12:45 Temperature Pulse Rate 62 Respiratory Rate 16 Blood Pressure 106/84 Pulse Oximetry 99 Oxygen Delivery Room Air Oxygen Flow Rate Meds/Results Medications: Active Medications Generic Name Dose Route Start Last Admin Trade Name Freq PRN Reason Stop Dose Admin Sodium Chloride 1,000 mls @ 30 mls/hr 01/06/24 08:30 Normal Saline Iv IV CONT .Q24H DIONICIO Labs 12/18
--- NOTE | 2024-01-06 13:43 | P.PCNCVR_ITS ---
Cardioversion Cardioversion Date of procedure: 01/06/24 Procedure: Synchronized electrical cardioversion Pre-op diagnosis: Atrial fibrillation Post-op diagnosis: Other (Successful cardioversion resulting in atrial paced, ventricular paced rhythm ) Indications: Atrial fibrillation Description of procedure: Written informed consent obtained. Defibrillator pads placed in an AP position. Time out performed by RIAZ Ackerman. Total of Propofol 110mg IV was administered by me. Once patient was adequately sedated, synchronized electrical cardioversion was performed with 1 shock at 250 joules, which converted patient to an atrial-paced ventricular-paced rhythm. Patient's respiratory status and hemodynamics were monitored throughout the procedure. No periprocedural complications. Sedation: Total of Propofol 110mg IV was administered by me. Findings: Successful synchronized electrical cardioversion to an atrial-paced ventricular- paced rhythm with 1 shock at 250 joules. Conclusion: Successful synchronized electrical cardioversion to an atrial-paced ventricular- paced rhythm with 1 shock at 250 joules.
== END 2024-01-06 14:00 | disposition home or self-care (01) ==
PROVIDERS: PCP Physician Assistant; Visit Provider Internal Medicine
PROC: 5A2204Z Restoration of Cardiac Rhythm, Single (ICD-10-PCS; principal; 2024-01-06 10:00)
DX: I48.91 Unspecified atrial fibrillation (principal); E78.2 Mixed hyperlipidemia; I42.9 Cardiomyopathy, unspecified; I50.9 Heart failure, unspecified; Z95.810 Presence of automatic (implantable) cardiac defibrillator; Z79.01 Long term (current) use of anticoagulants; Z79.51 Long term (current) use of inhaled steroids; Z87.891 Personal history of nicotine dependence
CPT/HCPCS: 36415; 80048; 83735; 92960; 93005; J2704; J7030

== ENCOUNTER 2024-02-23 11:15 | Outpatient (RCR) | payer MEDICARE, OTHER, SELFPAY ==
[2023-10-26 11:48] VITALS: PULSE 79
== END 2024-02-23 23:59 | disposition home or self-care (01) ==
LOC: ANHCPREHAB 11:15
PROVIDERS: PCP Family Medicine; Visit Provider Internal Medicine Cardiovascular Disease
DX: I50.89 Other heart failure (principal)
CPT/HCPCS: 93798

== ENCOUNTER 2024-03-06 11:15 | Outpatient (RCR) | payer MEDICARE, OTHER, SELFPAY | END 2024-03-06 14:24 | disposition home or self-care (01) | LOC: ANHCPREHAB 11:15 | PROVIDERS: PCP Physician Assistant; Visit Provider Internal Medicine Cardiovascular Disease | DX: I50.9 Heart failure, unspecified (principal) | CPT/HCPCS: 93798 ==

== ENCOUNTER 2024-06-27 11:30 | Outpatient (CLI) | payer MEDICARE, SELFPAY ==
[2024-06-27 12:19] LABS: Basophils Percent Auto 0.5 % (0.2-1.2); Eosinophils Absolute Auto 0.1 K/mm3 (0-0.3); Eosinophils Percent Auto 2.9 % (0-4.4); Hematocrit 35.4 % (42.0-52.0); Hemoglobin 10.8 g/dL (14.0-18.0); Immature Granulocyte Absolute 0.01 K/mm3 (0.00-0.031); Immature Granulocyte Percent A 0.3 % (0-0.5); Lymphocytes Absolute Auto 0.84 K/mm3 (0.9-3.2); Mean Corpuscular HGB Conc 30.5 g/dl (32-36); Mean Corpuscular Volume 85.3 fl (80-100); Monocytes Absolute Auto 0.6 K/mm3 (0.1-0.6); Monocytes Percent Auto 15.2 % (2.6-8.5); Neutrophils Absolute Auto 2.3 K/mm3 (1.3-6.7); Neutrophils Percent Auto 59.1 % (45.5-73.1); Platelet Count Result 197 k/mm3 (150-375); Red Blood Count 4.15 M/mm3 (4.6-6.20); Red Cell Distribution Width 15.6 % (11.5-14.5); White Blood Count 3.8 K/mm3 (4.5-10.0)
[2024-06-27 12:30] LABS: Alanine Aminotransferase 26 U/L (6-50); Albumin Level 3.9 g/dL (3.5-5.1); Alkaline Phosphatase 92 U/L (38-126); Anion Gap 3 mmol/L (4-12); Aspartate Amino Transferase 37 U/L (17-59); Bilirubin,Total 2.3 mg/dL (0.2-1.3); Blood Urea Nitrogen 28 mg/dL (9-20); Calcium 8.7 mg/dL (8.4-10.2); Carbon Dioxide 30 mmol/L (22-30); Chloride 106 mmol/L (98-107); Cholesterol 142 mg/dL (0-200); Estimated Glomerular Filt Rate 56; Glucose 107 mg/dL (65-110); HDL Direct 53 mg/dL; Potassium 3.8 mmol/L (3.4-5.0); Sodium 139 mmol/L (137-145); Triglycerides 82 mg/dL (<150)
[2024-06-27 12:38] LABS: NT Pro B Type Natriuretic Pept 6710 pg/mL (19.9-100)
[2024-06-27 12:42] LABS: LDL Cholesterol Direct 60 mg/dL
[2024-06-27 13:00] LABS: Prostate Specific Antigen 0.7 ng/mL (< OR = 4.0)
== END 2024-06-27 11:31 | disposition home or self-care (01) ==
PROVIDERS: PCP Family Medicine; Visit Provider Family Medicine
DX: R06.00 Dyspnea, unspecified (principal); R53.83 Other fatigue; E78.2 Mixed hyperlipidemia; I10 Essential (primary) hypertension; I50.9 Heart failure, unspecified; Z12.5 Encounter for screening for malignant neoplasm of prostate
CPT/HCPCS: 36415; 80053; 80061; 83880; 84153; 84443; 85025; G0103

== ENCOUNTER 2024-08-16 11:22 | Outpatient (CLI) | payer MEDICARE, SELFPAY ==
[2024-08-16 11:50] LABS: Basophils Percent Auto 0.6 % (0.2-1.2); Eosinophils Absolute Auto 0.1 K/mm3 (0-0.3); Hematocrit 35.9 % (42.0-52.0); Hemoglobin 11.1 g/dL (14.0-18.0); Immature Granulocyte Absolute 0.01 K/mm3 (0.00-0.031); Immature Granulocyte Percent A 0.2 % (0-0.5); Lymphocytes Absolute Auto 0.87 K/mm3 (0.9-3.2); Lymphocytes Percent Auto 17.9 % (18.3-44.2); Mean Corpuscular HGB Conc 30.9 g/dl (32-36); Mean Corpuscular Hemoglobin 25.2 pg (26-34); Mean Corpuscular Volume 81.6 fl (80-100); Mean Platelet Volume 10.3 fl (7.4-10.4); Monocytes Absolute Auto 0.7 K/mm3 (0.1-0.6); Monocytes Percent Auto 13.6 % (2.6-8.5); Neutrophils Absolute Auto 3.2 K/mm3 (1.3-6.7); Neutrophils Percent Auto 66.7 % (45.5-73.1); Platelet Count Result 235 k/mm3 (150-375); Red Cell Distribution Width 18.6 % (11.5-14.5); White Blood Count 4.9 K/mm3 (4.5-10.0)
[2024-08-16 12:03] LABS: Anion Gap 11 mmol/L (4-12); Blood Urea Nitrogen 34 mg/dL (9-20); Calcium 9.1 mg/dL (8.4-10.2); Carbon Dioxide 27 mmol/L (22-30); Chloride 106 mmol/L (98-107); Estimated Glomerular Filt Rate 40; Glucose 102 mg/dL (65-110); Potassium 4.4 mmol/L (3.4-5.0); Sodium 144 mmol/L (137-145)
[2024-08-16 12:14] LABS: NT Pro B Type Natriuretic Pept 16100 pg/mL (19.9-100)
--- OUTSIDE RECORDS SUMMARY | 2024-08-16 12:42 | XMS_ITS | Referral Summary ---
Author Organization [facility] Address [address] [place] [address] Care Team Providers Care Data Governance Analyst Name Role Phone Miscellaneous, Not In File Unavailable Unava Toya Gonzalez Primary Care Provider [phone] Encounters Date Type Department Care Team Description 08/16/2024 10:30 AM ARCGIS DEVELOPER Office Visit [facility] Cardiology [address] [place] [address] Jessie Garcia NP Nonischemic cardiomyopathy (CMS/HCC) (HCC) (Primary Dx); Pulmonary HTN (HCC); Hypertension, unspecified type; ICD (implantable cardioverter-defibrill ator), dual, in situ; Aneurysm of ascending aorta without rupture (HCC); Non-rheumatic tricuspid valve insufficiency; Paroxysmal atrial fibrillation (CMS/HCC) (HCC); CHF (congestive heart failure), NYHA class II, acute on chronic, diastolic (HCC) 07/22/2024 2:40 PM ARCGIS DEVELOPER - 07/22/2024 6:43 PM [facility] Emergency [facility] Emergency Department [address] [place] [address] June Crabtree MD Acute on chronic diastolic congestive heart failure (CMS/HCC) (HCC) (Primary Dx); Dizziness; Shortness of breath Discharge Disposition: Discharge to home or self care 07/05/2024 Telephone [facility] Cardiology [address] [place] [address] Mona Petty MD lab orders 06/27/2024 11:15 AM ARCGIS DEVELOPER Procedure visit [facility] Cardiology [address] [facility] [address] [place] [address] Dyspnea, unspecified type 06/13/2024 8:30 AM ARCGIS DEVELOPER Ancillary Procedure [facility] Cardiology [facility] [address] [place] [phone] Atrial fibrillation, unspecified type (HCC) [I48.91] (Primary Dx); Nonischemic cardiomyopathy (CMS/HCC) (HCC); ICD (implantable cardioverter-defibrill ator), dual, in situ [Z95.810] 05/29/2024 12:00 PM ARCGIS DEVELOPER Office Visit [facility] Cardiology [address] [facility] [address] [place] [phone] Mona Petty MD Nonischemic cardiomyopathy (CMS/HCC) (HCC) (Primary Dx); Paroxysmal atrial fibrillation (CMS/HCC) (HCC); Primary hypertension; ICD (implantable cardioverter-defibrill ator), dual, in situ from Last 3 Months Allergies No known active allergies Medications allopurinoL (ZYLOPRIM) 100 mg tablet Take 1 tablet (100 mg total) by mouth daily Active spironolactone (ALDACTONE) 25 mg tablet Take 1 tablet (25 mg total) by mouth daily 30 tablet 11 2024 Active albuterol 2.5 mg /3 mL (0.083 %) nebulizer solution Take 3 mL (2.5 mg total) by nebulization every 4 (four) hours as needed Active Eliquis 5 mg tablet TAKE 1 TABLET BY MOUTH TWICE A DAY 60 tablet 11 Active Entresto 49-51 mg tabletIndications :Acute on chronic systolic congestive heart failure (CMS/HCC) (HCC) TAKE 1 TABLET BY MOUTH TWICE A DAY 90 tablet 3 Active tadalafiL (CIALIS) 20 mg tablet TAKE 1 TABLET BY MOUTH NEEDED FOR SEXUAL ACTIVITY, 1 HOUR PRIOR TO INTERCOURSE NEEDED Active hydrOXYzine (ATARAX) 25 mg tablet Take 1 tablet (25 mg total) by mouth every 4 (four) hours as needed Active metoprolol XL (TOPROL-XL) 100 mg 24 hr tabletIndications :Nonischemic cardiomyopathy (CMS/HCC) (HCC) Take 0.5 tablets (50 mg total) by mouth daily 15 tablet 1 025 2024 Active furosemide (LASIX) 40 mg tabletIndications :Nonischemic cardiomyopathy (CMS/HCC) (HCC),CHF (congestive heart failure), NYHA class II, acute on chronic, diastolic (HCC) Take 1 tablet (40 mg total) by mouth 2 (two) times a day 60 tablet 1 Active metOLazone (ZAROXOLYN) 2.5 mg tabletIndications :CHF (congestive heart failure), NYHA class II, acute on chronic, diastolic (HCC) Take 1 tablet (2.5 mg total) by mouth daily for 10 doses 10 tablet 025 2024 Active furosemide (LASIX) 40 mg tablet Take 1 tablet (40 mg total) by mouth daily 2024 Discontinued metoprolol XL (TOPROL-XL) 100 mg 24 hr tablet Take 1 tablet (100 mg total) by mouth daily 024 2024 Discontinued furosemide (LASIX) 40 mg tablet Take 1.5 tablets (60 mg total) by mouth daily 45 tablet 025 2024 Discontinued(R eorder) Active Problems Problem Noted Date Diagnosed Date KATHRYN (acute kidney injury) 10/08/2023 Anemia 10/08/2023 Moderate protein-calorie malnutrition (CMS/HCC) 10/08/2023 Hypokalemia 09/21/2023 Assessment & Plan (09/21/2023 10:41 AM ARCGIS DEVELOPER): Replaced Monitor BMP with IV lasix BID RSV infection 09/21/2023 Assessment & Plan (09/24/2023 2:26 PM ARCGIS DEVELOPER): Supportive care Diurese for HFrEF exacerbation Acute bronchitis due to respiratory syncytial vi justice (RSV) 09/21/2023 Assessment & Plan (09/21/2023 10:42 AM ARCGIS DEVELOPER): Supportive care. No history of lung disease Not hypoxic monitor for worsening respiratory status CHF (congestive heart failur e), NYHA class II, acute on chronic, diastolic 09/20/2023 Atrial fibrillation ([facility]/HCC) 09/15/2023 Assessment & Plan (09/21/2023 10:37 AM ARCGIS DEVELOPER): Presented with RVR 2/2 RSV infection Rate now controlled 80s with V pacing Continue Eliquis Diuresing with IV lasix for fluid overload 2/2 to RVR last few days Cardiology consulted continue metoprolol PAYAN (dyspnea on exertion) 08/12/2023 Pain in joint of left shoulder 12/24/2021 Raynaud's phenomenon without gangrene 08/04/2021 Paroxysmal atrial fibrillation ([facility]/HCC) 021 Chronic anticoagulation 04/23/2021 Ascending aortic aneurysm ([facility]) 07/22/2020 ICD (implantable cardioverter-defibrillator), brian rosado, in situ 05/23/2020 Overview (03/02/2024): Cardoza Dual Fortify Assura ICD implanted on 05/23/20 for NICM. Shama Vela Non-rheumatic tricuspid valve insufficiency 11/16 Nonischemic cardiomyopathy ([facility]/HCC) 07/09/2017 Pulmonary HTN 07/09/2017 HTN (hypertension) 07/09/2017 Resolved Problems Problem Noted Date Diagnosed Date Resolved Date Hypotension 10/07/2023 05/29/2024 Abnormal echocardiogram 07/09/201705/19 Acute on chronic systolic co ngestive heart failure ([facility]/HCC) 07/09/2017 05/29/2024 Assessment & Plan (09/24/2023 2:25 PM ARCGIS DEVELOPER): Exacerbated by Afib RVR. NT proBNP 8043. EKG AFib RVR my independent interpretation. CXR cardiomegaly, small bilateral effusions my independent interpretation. IV Lasix cardiology consulted Daily weights. TTE last in July 2022 Mild concentric left ventricular hypertrophy. Severe enlargement of left ventricle cavity. Severe global left ventricular systolic dysfunction. There is pseudonormal diastolic dysfunction Grade II. Ejection fraction is visually estimated at 25-30 %. Ejection fraction is measured at 24 %. Repeat TTE shows slightly worse EF 10-15% compared to July Continue GDMT. Add SGLT2 inhibitor and Aldactone if can tolerate and affordable/accessible Discussed with Cardiology recommend continued aggressive IV diuresis 80 mg BID likely able to discharge home with oral regimen over the weekend Immunizations Name Administration Dates Next Due Influenza, Quad, Adjuvantated, Intramuscular 07/2019 Influenza, Quadrivalent, Peyton l Culture-based MDCK, Antibiotic Free, Intramuscular 04/18/2018 Pneumococcal Conjugate PCV 13 03/04/2017 Pneumococcal Polysaccharide PPV23 03/02/2016 Tdap 11/25/2011 Social History Tobacco Use Types Packs/Day Years Used Date Smoking Tobacco: Former Cigars Smokeless Tobacco: Never Tobacco Cessation:Counseling Given: Not Answered Comments:occassional use Alcohol Use Standard Drinks/Week Comments Yes 14 (1 standard drink = 0.6 oz pu re alcohol) [facility] Philtroities Answer Date Recorded In the past 12 months has [employer], [employer] or water [employer] threatened to shut off services in your home? No 09/22/2023 Social Connection and Isolat ion Panel [NHANES] Answer Date Recorded In a typical week, how many times do you talk on the phone with family, friends, or neighbors? More than three times a week 09/22/2023 How often do you get togethe r with friends or relatives? More than three times a week 09/22/2023 How often do you attend chur ch or restorationist services? Never 09/22/2023 Do you belong to any clubs o r organizations such as mu-ism groups, unions, fraternal or athletic groups, or school groups? No 09/22/2023 How often do you attend meet ings of the clubs or organizations you belong to? Never 09/22/2023 Are you , , di vorced, , never , or living with a partner? 09/22/2023 Overall Financial Resource Strain (CARDIA) Answe r Date Recorded How hard is it for you to pa y for the very basics like food, housing, medical care, and heating? Not hard at all 09/22/2023 Hunger Vital Sign Answer Date Recorded Within the past 12 months, y ou worried that your food would run out before you got the money to buy more. Never true 09/22/19 24 Within the past 12 months, t he food you bought just didn't last and you didn't have money to get more. Never true 09/22/2023 PRAPARE - Transportation Answer Date Re corded In the past 12 months, has l ack of transportation kept you from medical appointments or from getting medications? No 12/2023 In the past 12 months, has l ack of transportation kept you from meetings, work, or from getting things needed for daily living? No 09/22/2023 Housing Stability Vital Sign Answer Onur e Recorded In the last 12 months, was t here a time when you were not able to pay the mortgage or rent on time? No 09/22/2023 In the last 12 months, how many places have you lived? 1 09/22/2023 In the last 12 months, was t here a time when you did not have a steady place to sleep or slept in a nursing home (including now)? No 09/22/2023 Personal Safety Answer Date Recorded Have you ever been in or are you currently in a harmful physical or emotional relationship or is someone making you feel afraid or unsafe? Denies 07/22/2024 Sex and Gender Information Value Date Recorded Sex Assigned at Not on file Legal Sex Male 12:42 PM CDT Gender Identity Not on file Sexual Orientation Not on file Last Filed Vital Signs Vital Sign Reading Time Taken Comments Blood Pressure 92/74 08/16/2024 10:22 AM ARCGIS DEVELOPER Pulse 72 08/16/2024 10:22 AM ARCGIS DEVELOPER Temperature 35.6 ??C (96.1 ??F) 07/22/2024 2:16 PM CS T Respiratory Rate 16 07/22/2024 6:30 PM ARCGIS DEVELOPER Oxygen Saturation 93% 08/16/2024 10:22 AM ARCGIS DEVELOPER Inhaled Oxygen Concentration - - Weight 103 kg (227 lb) 08/16/2024 10:22 AM ARCGIS DEVELOPER Height 182.9 cm (6') 08/16/2024 10:22 AM ARCGIS DEVELOPER Body Mass Index 30.79 08/16/2024 10:22 AM ARCGIS DEVELOPER Plan of Treatment Not on file Medical Devices Implanted Type Area [employer] Device Identifier Shelf Expiration Date Model / Serial / Lot [employer] [id number] Fortify Assura [id number] 2 Chamber Df4 Is-1 Connector [id number] - [id number] - [id number] Implanted:Qty: 1 on 05/23/2020 by Salbador Sesay MD at [facility] ICD [employer] [id number] 04/17/2022 [id number] / [id number] / [employer] 7120q/65 Durata 7fr 65cm 2 Coil Df-4 True Bipolar Active Fixation - [id number] - [id number] Implanted:Qty: 1 on 05/23/2020 by Salbador Sesay MD at [facility] Lead [employer] [id number] 02/15/2023 7120Q/65 / [id number] / [employer] 2088tc/52 Tendril Sts 6fr 52cm Is-1 Connector Active Fixation Bipolar Soft - [id number] - [id number] Implanted:Qty: 1 on 05/23/2020 by Salbador Sesay MD at [facility] Lead [employer] [id number] 04/17/2023 2088TC/52 / [id number] / Procedures Procedure Name Priority Date/Time Associated Diagnosis Comments TROPONIN T HIGH-SENSITIVITY 4-HR Timed 07/22/2024 6:09 PM ARCGIS DEVELOPER TROPONIN T HIGH-SENSITIVITY 2-HOUR Timed 07/22/2024 4:45 PM ARCGIS DEVELOPER XR CHEST PA LATERAL 2 VIEWS ED 07/22/2024 3:25 PM ARCGIS DEVELOPER RESPIRATORY PATHOGEN PANEL Routine 07/22/2024 3:25 PM ARCGIS DEVELOPER EGFR STAT 07/22/2024 2:28 PM ARCGIS DEVELOPER DIFFERENTIAL AUTO STAT 07/22/2024 2:2 8 PM ARCGIS DEVELOPER PRO B-TYPE NATRIURETIC PEPTIDE STAT 07/22/2024 2:28 PM ARCGIS DEVELOPER TROPONIN T HIGH-SENSITIVITY SERIES (BASELINE, 2HR, 4HR, 6HR) STAT 07/22/2024 2:28 PM ARCGIS DEVELOPER CBC WITH AUTO DIFFERENTIAL STAT 07/22/2024 2:28 PM ARCGIS DEVELOPER COMPREHENSIVE METABOLIC PANEL STAT 07/22/2024 2:28 PM ARCGIS DEVELOPER ECG 12-LEAD STAT 07/22/2024 2:13 PM ARCGIS DEVELOPER ECG 12-LEAD Routine 06/27/2024 1:17 PM ARCGIS DEVELOPER Dyspnea, unspecified type ECG 12-LEAD Routine 05/29/2024 1:02 PM ARCGIS DEVELOPER Paroxysmal atrial fibrillation (CMS/HCC) (HCC) Primary hypertension CT ABDOMEN WO CONTRAST Schedule Routine, Read Routine (OP Routine) 01/12/2018 8:43 AM CDT Hypertensive encephalopathy from Last 3 Months or Most Recently Relevant to Health Maintenance Results * (ABNORMAL) Troponin T high-sensitivity 4-hour (07/22/2024 6:09 PM ARCGIS DEVELOPER) Trop T hs 31(H) <=22 ng/L Comment: Interpretive Data For further hscTnT resources including the diagnostic algorithm and an aid in interpretation, copy and paste this link: https://nrl.testcatalog.org/show/hsTrop Current Interpretive Data last revised 2020. Trop T hs delta -5 ng/L [facility] Trop T hs interp Equivocal [facility] Blood 07/22/2024 6:09 PM ARCGIS DEVELOPER 07/22/2024 6:36 PM ARCGIS DEVELOPER us Suzette Orellana DO LAB BLOOD ORDERABLES Final Result [facility] [address] Department [place] [address] * (ABNORMAL) Troponin T high-sensitivity 2-hour (07/22/2024 4:45 PM ARCGIS DEVELOPER) Trop T hs 34(H) <=22 ng/L Comment: Interpretive Data For further hscTnT resources including the diagnostic algorithm and an aid in interpretation, copy and paste this link: https://nrl.testcatalog.org/show/hsTrop Current Interpretive Data last revised 2020. Trop T hs delta -2 ng/L [facility] Trop T hs interp Insignificant [facility] Blood 07/22/2024 4:45 PM ARCGIS DEVELOPER 07/22/2024 4:45 PM ARCGIS DEVELOPER us Suzette Orellana DO LAB BLOOD ORDERABLES Final Result [facility] [address] Department [place] [address] * XR Chest PA Lateral 2 Views (07/22/2024 3:25 PM ARCGIS DEVELOPER) Anatomical Region Laterality Modality Body, Chest N/A Computed Radiogr aphy 07/22/2024 4:40 PM ARCGIS DEVELOPER Impressions 07/22/2024 4:40 PM ARCGIS DEVELOPER Comparison is made to prior examination 10/07/2023. Left subclavian approach pacemaker defibrillator leads terminate in the right atrium and right ventricle. ??No focal consolidation. Nodular opacities in the lung bases without definite correlate on the lateral radiograph appear to been present on prior examinations and are favored to represent nipple shadows. ??This can be further evaluated with nonurgent chest CT if clinically indicated. ??Mild pulmonary edema. ??Likely trace bilateral pleural effusions. ??No pneumothorax. ??Moderate cardiomegaly. ??Unchanged healed fracture of the left clavicle. Electronically signed by: Demetrius Bourgeois M.D. Narrative 07/22/2024 4:40 PM ARCGIS DEVELOPER EXAMINATION: XR CHEST PA LATERAL 2 VIEWS Procedure Note Demetrius Bourgeois MD - 07/22/2024 EXAMINATION: XR CHEST PA LATERAL 2 VIEWS IMPRESSION: Comparison is made to prior examination 10/07/2023. Left subclavian approach pacemaker defibrillator leads terminate in the right atrium and right ventricle. No focal consolidation. Nodular opacities in the lung bases without definite correlate on the lateral radiograph appear to been present on prior examinations and are favored to represent nipple shadows. This can be further evaluated with nonurgent chest CT if clinically indicated. Mild pulmonary edema. Likely trace bilateral pleural effusions. No pneumothorax. Moderate cardiomegaly. Unchanged healed fracture of the left clavicle. Electronically signed by: Demetrius Bourgeois M.D. June Crabtree MD IMG XR PROCEDURES Final Result * Respiratory pathogen panel Nasopharyngeal (07/22/2024 3:25 PM ARCGIS DEVELOPER) Influenza A RNA Not Detected Not Detected [facility] Influenza B RNA Not Detected Not Detected [facility] RSV RNA Not Detected Not Detected [facility] COVID-19 RNA Not Detected Not Detected [facility] Coronavirus 229E RNA Not Detected Not Detected [facility] Coronavirus HKU1 RNA Not Detected Not Detected [facility] Coronavirus NL63 RNA Not Detected Not Detected [facility] Coronavirus OC43 RNA Not Detected Not Detected [facility] Adenovirus DNA Not Detected Not Detected [facility] Metapneumovirus RNA Not Detected Not Detected [facility] Rhinovirus/Enterov irus RNA Not Detected Not Detected [facility] Parainfluenza 1 RNA Not Detected Not Detected [facility] Parainfluenza 2 RNA Not Detected Not Detected [facility] Parainfluenza 3 RNA Not Detected Not Detected [facility] Parainfluenza 4 RNA Not Detected Not Detected [facility] B. pertussis DNA Not Detected Not Detected [facility] B. parapertussis DNA Not Detected Not Detected [facility] C. pneumoniae DNA Not Detected Not Detected [facility] M. pneumoniae DNA Not Detected Not Detected [facility] Comment: Interpretive Data The [employer] FilmArray Respiratory Panel (RP2.1) assay is a multiplexed real-time PCR based nucleic acid test capable of simultaneous qualitative detection and identification of multiple respiratory viral and bacterial nucleic acids, including SARS Coronavirus 2 (the causative agent of COVID-19). The following bacteria, viruses and virus subtypes can be identified using the FilmArray RP2.1 assay: Bordetella pertussis, Bordetella parapertussis, Chlamydia pneumoniae, Mycoplasma pneumoniae, Adenovirus, SARS Coronavirus 2, seasonal coronaviruses (Coronavirus HKU1, Coronavirus NL63, Coronavirus 229E, and Coronavirus OC43), Influenza A, Influenza A subtype H1, Influenza A subtype H3, Influenza A subtype 2009 H1, Influenza B, Metapneumovirus, Parainfluenza 1, Parainfluenza 2, Parainfluenza 3, Parainfluenza 4, RSV, Rhinovirus/Enterovirus. Due to the genetic similarity between human Rhinovirus and Enterovirus, the FilmArray RP2.1 assay cannot reliably differentiate them. Coronavirus OC43 may cross-react with some isolates of Coronavirus HKU1. ??A dual positive result may be due to cross-reactivity or may indicate a co-infection. The detection and identification of specific viral and bacterial nucleic acids from individuals exhibiting signs and symptoms of a respiratory infection aids in the diagnosis of respiratory infection if used in conjunction with other clinical and epidemiological information. ??The results of this test should not be used as the sole basis for diagnosis, treatment, or other management decisions. ??Negative results in the setting of a respiratory illness may be due to infection with pathogens that are not detected by this test. ??Positive results do not rule out infection/co-infection with other organisms. ??The agent(s) detected by the FilmArray RP2.1 may not be the definite cause of disease. ??Additional testing (lab, imaging, etc.) may be necessary when evaluating a patient with possible respiratory tract infection. The FilmArray RP2.1 assay has FDA clearance for testing of RHEOLOGIST swabs. ??The performance characteristics of this assay have been determined by [facility]. Current interpretive data was last revised on 2021. Nasopharyngeal 07/22/2024 3: 25 PM ARCGIS DEVELOPER 07/22/2024 4:05 PM ARCGIS DEVELOPER Silvino [facility] - 07/22/2024 5:00 PM ARCGIS DEVELOPER Is the Patient experiencing symptoms consistent with COVID?->Yes Surveillance testing for transplant patient?->No June Crabtree MD LAB MICROBIOLOGY - GENER AL ORDERABLES Final Result Performing Organization Address City/State/[facility] de Phone Number [facility] [address] Department [place] [address] MBC * (ABNORMAL) Troponin T high-sensitivity series (baseline, 2hr, 4hr, 6hr) (07/22/2024 2:28 PM ARCGIS DEVELOPER) Trop T hs 36(H) <=22 ng/L Comment: Interpretive Data For further hscTnT resources including the diagnostic algorithm and an aid in interpretation, copy and paste this link: https://nrl.testcatalog.org/show/hsTrop Current Interpretive Data last revised 2020. Blood 07/22/2024 2:28 PM ARCGIS DEVELOPER 07/22/2024 2:44 PM ARCGIS DEVELOPER June Crabtree MD LAB BLOOD ORDERABLES Fin al Result Performing Organization Address [facility] de Phone Number [facility] [address] Department [place] [address] * (ABNORMAL) eGFR (07/22/2024 2:28 PM ARCGIS DEVELOPER) Pathologist [facility] eGFR 35(L) >=60 mL/min/1. 73 m2 Comment: Interpretive Data Reference Interval Normal ?>/= 90 mL/min/1.73m2 Mildly decreased* ? 60 - 89 mL/min/1.73m2 Mildly to moderately decreased ?45 - 59 mL/min/1.73m2 Moderately to severely decreased ??30 - 44 mL/min/1.73m2 Severely decreased ?15 - 29 mL/min/1.73m2 Kidney Failure ?< 15 ??mL/min/1.73m2 *Relative to young adult level Estimated glomerular filtration rate is determined by the 2020 CKD-EPI equation recommended by the National Kidney Foundation (A Unifying Approach to GFR Estimation: Recommendations of the NKF-ASK Task Force on Reassessing the Inclusion of Race in Diagnosing Kidney Disease, JASN 2020). The CKD-EPI equation should not be used for patients with unstable renal function and has not been validated in children and those over 70. Current interpretive data was last reviewed 2021. Blood 07/22/2024 2:28 PM ARCGIS DEVELOPER 07/22/2024 2:44 PM ARCGIS DEVELOPER us Suzette Orellana DO LAB BLOOD ORDERABLES Final Result [facility] [address] Department [place] [address] * Differential, auto (07/22/2024 2:28 PM ARCGIS DEVELOPER) Neutrophil abs 2.2 1.5 - 6.5 K/cumm Imm gran abs 0.0 0.0 - 0.1 K/cumm [facility] Lymphocyte abs 0.8 0.8 - 3.3 K/cumm [facility] Monocyte abs 0.4 0.2 - 0.8 K/cumm [facility] Eosinophil abs 0.0 0.0 - 0.5 K/cumm [facility] Basophil abs 0.0 0.0 - 0.1 K/cumm [facility] Neutrophil pct 63.7 % [facility] Comment: Interpretive Data Percent cell count reference ranges are not reported, since discordance with absolute values may lead to misinterpretation of CBC data. Current Interpretive Data was last revised on 2017. Imm gran pct 0.3 % [facility] Comment: Interpretive Data Percent cell count reference ranges are not reported, since discordance with absolute values may lead to misinterpretation of CBC data. Current Interpretive Data was last revised on 2017. Lymphocyte pct 22.1 % [facility] Comment: Interpretive Data Percent cell count reference ranges are not reported, since discordance with absolute values may lead to misinterpretation of CBC data. Current Interpretive Data was last revised on 2017. Monocyte pct 11.7 % [facility] Comment: Interpretive Data Percent cell count reference ranges are not reported, since discordance with absolute values may lead to misinterpretation of CBC data. Current Interpretive Data was last revised on 2017. Eosinophil pct 1.1 % [facility] Comment: Interpretive Data Percent cell count reference ranges are not reported, since discordance with absolute values may lead to misinterpretation of CBC data. Current Interpretive Data was last revised on 2017. Basophil pct 1.1 % [facility] Comment: Interpretive Data Percent cell count reference ranges are not reported, since discordance with absolute values may lead to misinterpretation of CBC data. Current Interpretive Data was last revised on 2017. Blood 07/22/2024 2:28 PM ARCGIS DEVELOPER 07/22/2024 2:43 PM ARCGIS DEVELOPER us June Crabtree MD LAB BLOOD ORDERABLES Fin al Result [facility] [address] Department [place] [address] * (ABNORMAL) Pro B-type natriuretic peptide (07/22/2024 2:28 PM ARCGIS DEVELOPER) NT-proBNP 19,433(H) <=300 pg/mL Comment: Interpretive Comments: A. Dyspnea in Acute Care Setting All Ages: ?< 300 pg/ml, acute heart failure unlikely. < 50 yrs: ?300 - 450 pg/ml, further investigation warranted. ? > 450 pg/ml, acute heart failure likely. 50 - 74 yrs: ? 300 - 900 pg/ml, further investigation warranted. ? > 900 pg/ml, acute heart failure likely . > or = 75 yrs: ? 450 - 1800 pg/ml, further investigation warranted. ? > 1800 pg/ml, acute heart failure likely. B. Non-acute Setting < 75 yrs ? < 125 pg/ml, rules out heart failure. ? > or = 125 pg/ml, further investigation warranted. > or = 75 yrs ?< 450 pg/ml, rules out heart failure. ? > or = 450 pg/ml, further investigation warranted. - Knowledge of each individual patient's NT-proBNP range may be more useful than using similar cut-points for every patient. Please note that marked elevations in NT-proBNP levels may be observed in state other than Left Ventricular Congestive Failure, including: acute coronary syndromes, right heart strain/failure (including pulmonary embolism and cor pulmonale), critical illness, renal failure, as well as advanced age. - References: 1. Kristan RUSSO et.al. Eur Heart J. 2006:27:330-337. 2. Corrine RW, Alan JULIAN. J. AM Liliya Cardiol: Cardiovasc Imag. 2009;2: 216- 225. Interpretive Data Last Revised Date: 2018. Blood 07/22/2024 2:28 PM ARCGIS DEVELOPER 07/22/2024 2:44 PM ARCGIS DEVELOPER us June Crabtree MD LAB BLOOD ORDERABLES Fin al Result [facility] [address] Department [place] [address] * (ABNORMAL) CBC with auto differential (07/22/2024 2:28 PM ARCGIS DEVELOPER) WBC 3.5(L) 3.8 - 9.9 K/cumm Hgb 10.9(L) 13.0 - 17.5 g/dL [facility] Hct 35.6(L) 38.9 - 50.3 % [facility] Plt 284 150 - 400 K/cumm [facility] MPV 11.7 9.1 - 12.3 fL [facility] RBC 4.19(L) 4.30 - 5.80 M/cumm [facility] MCV 85.0 81.3 - 96.4 fL [facility] MCH 26.0(L) 27.1 - 33.3 pg [facility] MCHC 30.6(L) 32.3 - 35.7 g/dL [facility] RDW CV 17.4(H) 11.1 - 14.9 % [facility] RDW SD 52.1(H) 35.7 - 48.1 fL [facility] NRBC abs 0.00 0.00 - 0.01 K/cumm [facility] Blood 07/22/2024 2:28 PM ARCGIS DEVELOPER 07/22/2024 2:43 PM ARCGIS DEVELOPER us June Crabtree MD LAB BLOOD ORDERABLES Fin al Result [facility] [address] Department [place] [address] * (ABNORMAL) Comprehensive metabolic panel (07/22/2024 2:28 PM ARCGIS DEVELOPER) Sodium 137 135 - 145 mmol/L Potassium, pl 4.1 3.3 - 4.9 mmol/L [facility] Comment:Hemolyzed; potassium value may be falsely elevated by as much as 0.3 - 0.5 mmol/L. Suggest redraw and reanalysis Chloride 100 97 - 110 mmol/L [facility] CO2 23 22 - 32 mmol/L [facility] Anion gap 14 2 - 15 mmol/L [facility] BUN 31(H) 6 - 25 mg/dL [facility] Creatinine 1.97(H) 0.80 - 1.30 mg/dL [facility] Glucose 121 70 - 199 mg/dL [facility] Comment: Interpretive Data Fasting glucose >/= 126 mg/dl is diagnostic for diabetes. ?? Fasting is defined as no caloric intake for at least 8 hours. Fasting glucose between 100 mg/dl to 125 mg/dl is diagnostic of prediabetes. In a patient with classic symptoms of hyperglycemia or hyperglycemic crisis, a random glucose >/= 200 mg/dl is diagnostic for diabetes. In the absence of unequivocal hyperglycemia, results should be confirmed by repeat testing. The classification and Diagnosis of Diabetes Diabetes Care 2021; 46: S19-S40. Current interpretive data was last revised 2022. Calcium 9.5 8.5 - 10.3 mg/dL [facility] Bilirubin, total 2.4(H) 0.1 - 1.2 mg/dL [facility] Protein, pl 7.7 6.5 - 8.5 g/dL [facility] Albumin 3.9 3.5 - 5.0 g/dL [facility] Alk phos 98 40 - 130 Units/L [facility] ALT 24 7 - 55 Units/L [facility] AST 46 10 - 50 Units/L [facility] Comment:Slightly Hemolyzed S pecimen Blood 07/22/2024 2:28 PM ARCGIS DEVELOPER 07/22/2024 2:44 PM ARCGIS DEVELOPER June Crabtree MD LAB BLOOD ORDERABLES Fin al Result Performing Organization Address City/[facility]/ZIP Co de Phone Number [facility] [address] Department [place] [address] * ECG 12 lead (07/22/2024 2:13 PM ARCGIS DEVELOPER) 07/22/2024 2:13 PM ARCGIS DEVELOPER Narrative [facility] - 07/23/2024 10:26 AM ARCGIS DEVELOPER Vent Rate: 71 bpm RR Interval: 841 msec GA Interval: 172 msec QRS Duration: 174 msec QT Interval: 497 msec QTC Interval: 519 msec P-R-T [place]: -83 - 188 - 11 degrees IMPRESSION: ELECTRONIC VENTRICULAR PACEMAKER ABNORMAL RHYTHM ECG Electronically Signed By: Jovon Judd MD us June Crabtree MD ECG ORDERABLES Final Re sult [facility] [employer] [facility] * ECG 12 lead (06/27/2024 1:17 PM ARCGIS DEVELOPER) Radha Toro MD ECG ORDERABLES Final Result * ECG 12 lead (05/29/2024 1:02 PM ARCGIS DEVELOPER) Mona Petty MD ECG ORDERABLES Gunjan esparza Result * CT Abdomen WO Contrast (01/12/2018 8:43 AM CDT) Anatomical Region Laterality Modality Body N/A Computed Tomogra phy 01/12/2018 8:51 AM CDT Impressions 01/12/2018 8:[address] OF THE ABDOMEN. Electronically signed by: Griffin Esteves M.D. Narrative 01/12/2018 8:55 AM CDT RESULT: HISTORY: Portal hypertension. EXAMINATION: CT ABDOMEN WO CONTRAST DATE: 01/12/2018 7:30 AM TECHNIQUE: Transaxial computed tomographic images of the abdomen were obtained using oral contrast material only. ??Multiplanar coronal and sagittal images were reformatted. COMPARISON: None FINDINGS: Scans through the lung bases are clear. ??No evidence of a pleural effusion. ??The liver, gallbladder, pancreas and spleen appear normal. No evidence of free air or free fluid in the abdomen. ??The kidneys and adrenal glands appear normal. ??No evidence of retroperitoneal adenopathy. ??The abdominal aorta is unremarkable. ??No evidence of bowel obstruction. ??No ??inflammatory lesion is seen. Procedure Note Griffin Esteves MD - 01/12/2018 RESULT: HISTORY: Portal hypertension. EXAMINATION: CT ABDOMEN WO CONTRAST DATE: 01/12/2018 7:30 AM TECHNIQUE: Transaxial computed tomographic images of the abdomen were obtained using oral contrast material only. Multiplanar coronal and sagittal images were reformatted. COMPARISON: None FINDINGS: Scans through the lung bases are clear. No evidence of a pleural effusion. The liver, gallbladder, pancreas and spleen appear normal. No evidence of free air or free fluid in the abdomen. The kidneys and adrenal glands appear normal. No evidence of retroperitoneal adenopathy. The abdominal aorta is unremarkable. No evidence of bowel obstruction. No inflammatory lesion is seen. IMPRESSION: UNREMARKABLE CT OF THE ABDOMEN. Electronically signed by: Griffin Esteves M.D. Marcus Bob MD IMG CT PROCEDURES Final Resul t from Last 3 Months or Most Recently Relevant to Health Maintenance Insurance [employer] Member Subscriber Plan / Payer (Ef fective 2020-Present) Name:Montrell Thomas Relation to Subscriber:Self Name:Montrell Thomas Payer ID:[id number] Group ID:Not on file Type:[place] Address: [facility] [address] [place], [place] [employer] Member Subscriber Plan / Payer ( fective 2020-Present) Name:Montrell Thomas Relation to Subscriber:Self Name:Montrell Thomas Payer ID:[id number] Group ID:Not on file Type:COMMERCIAL Address: [facility] [address] [place], [place] MEDICARE MEDICARE [employer] Advance Directives For more information, please contact: [phone] * Full Code (Latest Code Status on File) Date Activated Date Inactivated Comments 10/08/2023 7:07 AM 10/08/2023 6:02 PM * Full Code Date Activated Date Inactivated Comments 09/20/2023 6:32 PM 09/24/2023 10:27 PM Care Teams Data Governance Analyst Relationship Specialty Start Date End Date Toya Sauceda PA [address] [place] [address] PCP - General Physician Foil Wrapper 08/12/23 Miscellaneous, Not In File 05/23/20
--- OUTSIDE RECORDS SUMMARY | 2024-08-16 12:42 | XMS_ITS | Encounter Summary ---
Author Organization [facility] Healthcare Address [address] [place] [address] Care Team Providers Care Electric Tape Slitter Name Role Phone Miscellaneous, Not In File Unavailable Unava ilToya Renteria Primary Care Provider [phone] Reason for Referral * Consultation (Routine) - Authorized Specialty Diagnoses / Procedures Referred By Contac t Referred To Contact Cardiology Diagnoses Nonischemic cardiomyopathy (CMS/HCC) (HCC) Jessie Garcia NP [address] [place] [address] Phone: tel: fax: Campos Delatorre MD [address] [facility] [address] [place] [address] Phone: tel: fax: Referral ID Status Reason Start Date Expiration Date Visits Requested Visits Authorized [id number] Authorized Specialty Services Required 08/16/2024 09/15/2025 1 1 Question Answer Please select the performing region: [facility] (All Locations) [[id number]] Is this referral for the Valve Clinic? No Is this referral for the Renal Denervation Clinic? No To provider: CAMPOS DELATORRE [[id number]] # of visits: 1 Comments Advanced HF clinic, EF 10-15% [employer] Reason for Visit * Reason Comments Follow-up 2 mo Encounter Details Date Type Department Care Team (Latest Contact Info) Description 08/16/2024 10:30 AM [employer] Office Visit [facility] Cardiology [address] [place] [address] Jessie Garcia NP [address] [place] [address] Nonischemic cardiomyopathy (CMS/HCC) (HCC) (Primary Dx); Pulmonary HTN (HCC); Hypertension, unspecified type; ICD (implantable cardioverter-defibrilla tor), dual, in situ; Aneurysm of ascending aorta without rupture (HCC); Non-rheumatic tricuspid valve insufficiency; Paroxysmal atrial fibrillation (CMS/HCC) (HCC); CHF (congestive heart failure), NYHA class II, acute on chronic, diastolic (HCC) Social History Tobacco Use Types Packs/Day Years Used Date Smoking Tobacco: Former Cigars Smokeless Tobacco: Never Tobacco Cessation:Counseling Given: Not Answered Comments:occassional use Alcohol Use Standard Drinks/Week Comments Yes 14 (1 standard drink = 0.6 oz pu re alcohol) [facility] Utilities Answer Date Recorded In the past 12 months has [facility], gas, oil, or water [employer] threatened to shut off services in your [...] often do you attend chur ch or restoration services? Never 09/22/2023 Do you belong to any clubs o r organizations such as scientology groups, unions, fraternal or athletic groups, or [...] place to sleep or slept in a care home (including now)? No 09/22/2023 Personal Safety [...] on file Sexual Orientation Not on file documented as of this encounter Last Filed Vital Signs Vital Sign Reading Time Taken Comments Blood Pressure 92/74 08/16/2024 10:22 AM [employer] Pulse 72 08/16/2024 10:22 AM [employer] Temperature - - Respiratory Rate - - Oxygen Saturation 93% 08/16/2024 10:22 AM [employer] Inhaled Oxygen Concentration - - Weight 103 kg (227 lb) 08/16/2024 10:22 AM [employer] Height 182.9 cm (6') 08/16/2024 10:22 AM [employer] Body Mass Index 30.79 08/16/2024 10:22 AM [employer] documented in this encounter Patient Instructions * Patient Instructions* Jessie Garcia NP - 08/16/2024 10:30 AM [employer] There are changes that could mean you are having congestive heart failure. Usually someone experiences 2 or more of the following changes: 1. Shortness of breath (usually occurs with activity, with laying flat, and/or wakes you from sleep) 2. Swelling (usually in feet, ankles, legs, abdomen, or overall rapid weight gain) 3. Persistent coughing or wheezing (sometimes with white or pink mucus) 4. Feeling more tired or fatigued with routine activities 5. Poor appetite, feeling full or bloated, or nauseated DECREASE METOPROLOL TO 50MG DAILY FOR NOW METOLAZONE ONCE DAILY X 3 DAYS PRIOR TO MORNING LASIX DOSE INCREASE LASIX TO 40MG TWICE DAILY MONITOR BLOOD PRESSURE DAILY, ABOUT 1 HR AFTER MORNING MEDICATIONS. CALL THE OFFICE WITH CONSISTENTREADINGS OF TOP NUMBER LESS THAN 95. CALL THE OFFICE ON WEDNESDAY WITH UPDATE ON SWELLING, BREATHING, AND WEIGHT. PLEASE CHECK YOUR WEIGHT DAILY IN THE MORNING BEFORE YOU EAT OR DRINK ANYTHING [employer] documented in this encounter Ordered Prescriptions Prescription Sig Dispense Quantity Refills Last Filled Start Date End Date metOLazone (ZAROXOLYN) 2.5 mg tabletIndications:CH F (congestive heart failure), NYHA class II, acute on chronic, diastolic (HCC) Take 1 tablet (2.5 mg total) by mouth daily for 10 doses 10 tablet 08/16/2024 5 furosemide (LASIX) 40 mg tabletIndications:No nischemic cardiomyopathy (CMS/HCC) (HCC),CHF (congestive heart failure), NYHA class II, acute on chronic, diastolic (HCC) Take 1 tablet (40 mg total) by mouth 2 (two) times a day 60 tablet 1 08/16/2024 metoprolol XL (TOPROL-XL) 100 mg 24 hr tabletIndications:No nischemic cardiomyopathy (CMS/HCC) (HCC) Take 0.5 tablets (50 mg total) by mouth daily 15 tablet 1 08/16/2024 5 documented in this encounter Plan of Treatment Scheduled Orders Name Type Priority Associated Diagnoses Orde r Schedule Basic metabolic panel Lab Routine CHF (congestive heart failure), NYHA class II, acute on chronic, diastolic (HCC) Expected: 08/16/2024, Expires: 08/16/2025 CBC with auto differential Lab Routine CHF (congestive heart failure), NYHA class II, acute on chronic, diastolic (HCC) Expected: 08/16/2024, Expires: 08/16/2025 Pro B-type natriuretic peptide Lab Routine CHF (congestive heart failure), NYHA class II, acute on chronic, diastolic (HCC) Expected: 08/16/2024, Expires: 08/16/2025 Scheduled Referrals Name Type Priority Associated Diagnoses Orde r Schedule Ambulatory referral to Cardiology Outpatient Referral Routine Nonischemic cardiomyopathy (CMS/HCC) (HCC) Expected: 08/30/2024 (Approximate), Expires: 08/16/2025 documented as of this encounter Visit Diagnoses Diagnosis Nonischemic cardiomyopathy (CMS/HCC) (HCC)- Primary Other primary cardiomyopathies Pulmonary HTN (HCC) Hypertension, unspecified type ICD (implantable cardioverter-defibrillator), dual, in situ Aneurysm of ascending aorta without rupture (HCC) Non-rheumatic tricuspid valve insufficiency Paroxysmal atrial fibrillation (CMS/HCC) (HCC) Atrial fibrillation CHF (congestive heart failure), NYHA class II, acute on chronic, diastolic (HCC) documented in this encounter Discontinued Medications Medication Sig Discontinue Reason Start Date End Da te metoprolol XL (TOPROL-XL) 100 mg 24 hr tablet Take 1 tablet (100 mg total) by mouth daily 10/08/2023 08/16/2024 furosemide (LASIX) 40 mg tablet Take 1.5 tablets (60 mg total) by mouth daily Reorder 07/22/2024 08/16/2024 documented as of this encounter Historical Medications * This list may reflect changes made after this encounter. hydrOXYzine (ATARAX) 25 mg tablet Take 1 tablet (25 mg total) by mouth every 4 (four) hours as needed 08/02/2024 tadalafiL (CIALIS) 20 mg tablet TAKE 1 TABLET BY MOUTH NEEDED FOR SEXUAL ACTIVITY, 1 HOUR PRIOR TO INTERCOURSE NEEDED 06/21/2024 added in this encounter Care Teams Electric Tape Slitter Relationship Specialty Start Date End Date Toya Sauceda PA [facility] [place] [address] PCP - General Physician Septic Tank Cleaner 08/12/23 Miscellaneous, Not In File 05/23/20 documented as of this encounter
--- OUTSIDE RECORDS SUMMARY | 2024-08-16 12:42 | XMS_ITS | Clinical Summary ---
Author Organization [facility] Address [address] [place], [address] [address] Phone Care Team Providers Care Molding Machine Setter Name Role Phone Juan Miguel Washington MD Primary Care Provider [phone] Ken Jarvsi DO Unavailable [phone] Allergies No known active allergies Medications Diltiazem HCl Coated Beads 360 MG CAPSULE SR 24 HR Take 360 mg by mouth daily. Active doxazosin (CARDURA) 4 MG Tablet Take 4 mg by mouth daily. Active allopurinol (ZYLOPRIM) 300 MG Tablet Take 300 mg by mouth daily. Active Multiple Vitamins-Mineral s (CENTRUM SILVER PO) Take by mouth daily. 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 Gender Identity Not on file Sexual Orientation Not on file Plan of Treatment Health Maintenance Due Date Last Done Comments Hepatitis C Virus (HCV) Screening 1950 Cologuard 2000 Immunochemical Fecal Occult Blood 2000 Zoster Immunization (1 of 2) 2000 Influenza Immunization (#1) 2024 10/0 07/2019, 04/18/2018 SARS-COV-2 Immunization ( season) 2024 07/08/2021, 10/12/2020, 09/14/2020 Respiratory Syncytial Virus (RSV) Immunization (Adult) (1 - 1-dose 75+ series) 2025 Colonoscopy 08/28/2025 08/28/2015 Colorectal Cancer Screening 08/28/2025 08/28/2015 DTaP/Tdap/Td Immunization Discontinued 11/25/2011 TdaP Immunization Completed 11/25/2011 Pneumococcal Immunization (5 0+ years) Completed 03/04/2017, 03/02/2016 Pneumococcal Immunization Combined Discontinued 03/04/2017, 03/02/2016 Hepatitis B Immunization Aged Out No longer eligible based on patient's age to complete this topic Meningococcal Immunization (ACWY) Aged Out No longer eligible based on patient's age to complete this topic Rotavirus Immunization Aged Out No lo nger eligible based on patient's age to complete this topic Procedures Procedure Name Priority Date/Time Associated Diagnosis Comments COLONOSCOPY Routine 08/28/2015 from Last 3 Months or Most Recently Relevant to Health Maintenance Results * COLONOSCOPY (08/28/2015) Juan Miguel Washington MD PROCEDURE/MINOR SURGICAL ORDE RABLES Final Result from Last 3 Months or Most Recently Relevant to Health Maintenance Care Teams Molding Machine Setter Relationship Specialty Start Date End Date Juan Miguel Washington MD [address] [place] [address] PCP - General Family Medicine 08/28/15 Ken Jarvis DO [address] [place] [address] Gastroenterology 08/28/15
--- OUTSIDE RECORDS SUMMARY | 2024-08-16 12:42 | XMS_ITS | Clinical Summary ---
Author Organization [facility] Address [address] [place] [address] Care Team Providers Care Store Stock Associate Name Role Phone Miscellaneous, Not In File Unavailable Unava Toya Gonzalez Primary Care Provider [phone] Allergies No known active allergies Medications allopurinoL (ZYLOPRIM) 100 mg tablet Take 1 tablet (100 mg total) by mouth daily 023 Active spironolactone (ALDACTONE) 25 mg tablet Take 1 tablet (25 mg total) by mouth daily 30 tablet 11 024 2024 Active albuterol 2.5 mg /3 mL (0.083 %) nebulizer solution Take 3 mL (2.5 mg total) by nebulization every 4 (four) hours as needed 024 Active Eliquis 5 mg tablet TAKE 1 TABLET BY MOUTH TWICE A DAY 60 tablet 11 024 Active Entresto 49-51 mg tabletIndications :Acute on chronic systolic congestive heart failure (CMS/HCC) (HCC) TAKE 1 TABLET BY MOUTH TWICE A DAY 90 tablet 3 024 Active tadalafiL (CIALIS) 20 mg tablet TAKE 1 TABLET BY MOUTH NEEDED FOR SEXUAL ACTIVITY, 1 HOUR PRIOR TO INTERCOURSE NEEDED 024 Active hydrOXYzine (ATARAX) 25 mg tablet Take 1 tablet (25 mg total) by mouth every 4 (four) hours as needed 025 Active metoprolol XL (TOPROL-XL) 100 mg 24 [...] (two) times a day 60 tablet 1 025 Active metOLazone (ZAROXOLYN) 2.5 mg tabletIndications :CHF [...] 09/21/2023 Assessment & Plan (09/21/2023 10:41 AM TAPE CUTTING MACHINE OPERATOR): Replaced Monitor BMP with IV lasix BID RSV infection 09/21/2023 Assessment & Plan (09/24/2023 2:26 PM TAPE CUTTING MACHINE OPERATOR): Supportive care Diurese for HFrEF exacerbation Acute bronchitis due to respiratory syncytial vi justice (RSV) 09/21/2023 Assessment & Plan (09/21/2023 10:42 AM TAPE CUTTING MACHINE OPERATOR): Supportive care. No history of lung disease Not hypoxic monitor for worsening respiratory status CHF (congestive heart failur e), NYHA class II, acute on chronic, diastolic 09/20/2023 Atrial fibrillation ([facility]/HCC) 09/15/2023 Assessment & Plan (09/21/2023 10:37 AM TAPE CUTTING MACHINE OPERATOR): Presented with RVR 2/2 RSV infection Rate now controlled 80s with V pacing Continue Eliquis Diuresing with IV lasix for fluid overload 2/2 to RVR last few days Cardiology consulted continue metoprolol PAYAN (dyspnea on exertion) 08/12/2023 Pain in joint of left shoulder 12/24/2021 Raynaud's phenomenon without gangrene 08/04/2021 Paroxysmal atrial fibrillation ([facility]/HCC) 021 Chronic anticoagulation 04/23/2021 Ascending aortic aneurysm ([facility]/HCC) 07/22/2020 ICD (implantable cardioverter-defibrillator), brian rosado, in situ 05/23/2020 Overview (03/02/2024): Cardoza Dual Fortify Assura ICD implanted on 05/23/20 for NICM. Shama Vela Non-rheumatic tricuspid valve insufficiency 11/16 Nonischemic cardiomyopathy (CMS/HCC) 07/09/2017 Pulmonary HTN 07/09/2017 HTN (hypertension) 07/09/2017 Resolved Problems Problem Noted Date Diagnosed Date Resolved Date Hypotension 10/07/2023 05/29/2024 Abnormal echocardiogram 07/09/201705/19 Acute on chronic systolic co ngestive heart failure ([facility]/HCC) 07/09/2017 05/29/2024 Assessment & Plan (09/24/2023 2:25 PM TAPE CUTTING MACHINE OPERATOR): Exacerbated by Afib RVR. NT proBNP 8043. [...] home with oral regimen over the weekend Encounters Date Type Department Care Team Description 08/16/2024 10:30 AM TAPE CUTTING MACHINE OPERATOR Office Visit [facility] Cardiology [address] [place] [address] [place] [phone] Jessie Garcia NP Nonischemic cardiomyopathy (CMS/HCC) (HCC) (Primary Dx); Pulmonary HTN (HCC); Hypertension, unspecified type; ICD (implantable cardioverter-defibrill ator), dual, in situ; Aneurysm of ascending aorta without rupture (HCC); Non-rheumatic tricuspid valve insufficiency; Paroxysmal atrial fibrillation (CMS/HCC) (HCC); CHF (congestive heart failure), NYHA class II, acute on chronic, diastolic (HCC) 07/22/2024 2:40 PM TAPE CUTTING MACHINE OPERATOR - 07/22/2024 6:43 PM TAPE CUTTING MACHINE OPERATOR Emergency [facility] Emergency Department [address] [place] [address] June Crabtree MD Acute on chronic diastolic congestive heart failure (CMS/HCC) (HCC) (Primary Dx); Dizziness; Shortness of breath Discharge Disposition: Discharge to home or self care 07/05/2024 Telephone [facility] Cardiology [address] [place] [address] [place] [phone] Mona Petty MD lab orders 06/27/2024 11:15 AM TAPE CUTTING MACHINE OPERATOR Procedure visit [facility] Cardiology [address] [place] [address] [place] [phone] Dyspnea, unspecified type 06/13/2024 8:30 AM TAPE CUTTING MACHINE OPERATOR Ancillary Procedure [facility] Cardiology [address] [facility] [address] [place] [phone] Atrial fibrillation, unspecified type (HCC) [I48.91] (Primary Dx); Nonischemic cardiomyopathy (CMS/HCC) (HCC); ICD (implantable cardioverter-defibrill ator), dual, in situ [Z95.810] 05/29/2024 12:00 PM TAPE CUTTING MACHINE OPERATOR Office Visit [facility] Cardiology [facility] [address] [place] [address] Mona Petty MD Nonischemic cardiomyopathy (CMS/HCC) (HCC) (Primary Dx); Paroxysmal atrial fibrillation (CMS/HCC) (HCC); Primary hypertension; ICD (implantable cardioverter-defibrill ator), dual, in situ from Last 3 Months Immunizations Name Administration Dates Next Due Influenza, Quad, Adjuvantated, Intramuscular 07/2019 Influenza, Quadrivalent, Peyton l Culture-based MDCK, Antibiotic Free, Intramuscular 04/18/2018 Pneumococcal Conjugate PCV 13 03/04/2017 Pneumococcal Polysaccharide PPV23 03/02/2016 Tdap 11/25/2011 Surgical History Surgery Date Site/Laterality Comments CARDIOVERSION 12/18/2023 - 01/16/2024 Medical History Medical History Date Comments Hypertension Gout Cardiomyopathy (HCC) CHF (congestive heart failure) (CMS/HCC) (HCC) Family History Medical History Relation Name Comments Cancer Mother Relation Name Status Comments Father (Age 74) Mother (Age 77) Social History Tobacco Use Types Packs/Day Years Used Date Smoking Tobacco: Former Cigars Smokeless Tobacco: Never Tobacco Cessation:Counseling Given: Not Answered Comments:occassional use Alcohol Use Standard Drinks/Week Comments Yes 14 (1 standard drink = 0.6 oz pu re alcohol) [facility] Utilities Answer Date Recorded In the past 12 months has e electric, gas, oil, or water [employer] (formerly [employer]) threatened to shut off services in your [...] often do you attend chur ch or rastafarian services? Never 09/22/2023 Do you belong to any clubs o r organizations such as sabianism groups, unions, fraternal or athletic groups, or [...] place to sleep or slept in a longterm (including now)? No 09/22/2023 Personal Safety Answer [...] on file Sexual Orientation Not on file Obstetrics History Last Filed Vital Signs Vital Sign Reading Time Taken Comments Blood Pressure 92/74 08/16/2024 10:22 AM TAPE CUTTING MACHINE OPERATOR Pulse 72 08/16/2024 10:22 AM TAPE CUTTING MACHINE OPERATOR Temperature 35.6 ??C (96.1 ??F) 07/22/2024 2:16 PM CS T Respiratory Rate 16 07/22/2024 6:30 PM TAPE CUTTING MACHINE OPERATOR Oxygen Saturation 93% 08/16/2024 10:22 AM TAPE CUTTING MACHINE OPERATOR Inhaled Oxygen Concentration - - Weight 103 kg (227 lb) 08/16/2024 10:22 AM TAPE CUTTING MACHINE OPERATOR Height 182.9 cm (6') 08/16/2024 10:22 AM TAPE CUTTING MACHINE OPERATOR Body Mass Index 30.79 08/16/2024 10:22 AM TAPE CUTTING MACHINE OPERATOR Plan of Treatment Health Maintenance Due Date Last Done Comments Colon Cancer Screening-Colonoscopy 1950 Depression Screening 1950 Hepatitis C Screening 1950 Prostate Cancer Screening-PSA 1950 Hepatitis B Screening 1968 Zoster Vaccine (1 of 2) 2000 Well Visit 65+ 2015 DTaP/Tdap/Td Vaccine (2 - Td or Tdap) 11/24/202103/2012 Covid-19 Vaccine (3 - season) 2024, 09/14/2020 Influenza Vaccine (#1) 2024 04/18/2020, 2017 Fall Risk Assessment 10/07/2024 10/08/2023 Pneumococcal vaccine 65+ Completed 03/04/2017, 02/16 Abdominal Aortic Aneurysm (AAA) Screen Completed Medical Devices Implanted Type Area Yard Coordinator Device Identifier Shelf Expiration Date Model / Serial / Lot [employer] [id number] Fortify Assura [id number] 2 Chamber Df4 Is-1 Connector [id number] - [id number] - [id number] Implanted:Qty: 1 on 05/23/2020 by Salbador Sesay MD at [facility] ICD [employer] [id number] 04/17/2022 [id number] / [id number] / [employer] 7120q/65 Durata 7fr 65cm 2 Coil Df-4 True Bipolar Active Fixation - [id number] - [id number] Implanted:Qty: 1 on 05/23/2020 by Salbador Sesay MD at [facility] Lead [employer] [id number] 02/15/2023 [id number]/65 / [id number] / [employer] 2088tc/52 Tendril Sts 6fr 52cm Is-1 Connector Active Fixation Bipolar Soft - [id number] - [id number] Implanted:Qty: 1 on 05/23/2020 by Salbador Sesay MD at [facility] Lead [employer] [id number] 04/17/2023 [id number]/52 / [id number] / Procedures Procedure Name Priority Date/Time Associated Diagnosis Comments TROPONIN T HIGH-SENSITIVITY 4-HR Timed 07/22/2024 6:09 PM TAPE CUTTING MACHINE OPERATOR TROPONIN T HIGH-SENSITIVITY 2-HOUR Timed 07/22/2024 4:45 PM TAPE CUTTING MACHINE OPERATOR XR CHEST PA LATERAL 2 VIEWS ED 07/22/2024 3:25 PM TAPE CUTTING MACHINE OPERATOR RESPIRATORY PATHOGEN PANEL Routine 07/22/2024 3:25 PM TAPE CUTTING MACHINE OPERATOR EGFR STAT 07/22/2024 2:28 PM TAPE CUTTING MACHINE OPERATOR DIFFERENTIAL AUTO STAT 07/22/2024 2:2 8 PM TAPE CUTTING MACHINE OPERATOR PRO B-TYPE NATRIURETIC PEPTIDE STAT 07/22/2024 2:28 PM TAPE CUTTING MACHINE OPERATOR TROPONIN T HIGH-SENSITIVITY SERIES (BASELINE, 2HR, 4HR, 6HR) STAT 07/22/2024 2:28 PM TAPE CUTTING MACHINE OPERATOR CBC WITH AUTO DIFFERENTIAL STAT 07/22/2024 2:28 PM TAPE CUTTING MACHINE OPERATOR COMPREHENSIVE METABOLIC PANEL STAT 07/22/2024 2:28 PM TAPE CUTTING MACHINE OPERATOR ECG 12-LEAD STAT 07/22/2024 2:13 PM TAPE CUTTING MACHINE OPERATOR ECG 12-LEAD Routine 06/27/2024 1:17 PM TAPE CUTTING MACHINE OPERATOR Dyspnea, unspecified type ECG 12-LEAD Routine 05/29/2024 1:02 PM TAPE CUTTING MACHINE OPERATOR Paroxysmal atrial fibrillation (CMS/HCC) (HCC) Primary hypertension CT ABDOMEN WO CONTRAST Schedule Routine, Read Routine (OP Routine) 01/12/2018 8:43 AM CDT Hypertensive encephalopathy from Last 3 Months or Most Recently Relevant to Health Maintenance Results * (ABNORMAL) Troponin T high-sensitivity 4-hour (07/22/2024 6:09 PM TAPE CUTTING MACHINE OPERATOR) Trop T hs 31(H) <=22 ng/L Comment: Interpretive Data For further hscTnT resources including the diagnostic algorithm and an aid in interpretation, copy and paste this link: https://nrl.testAnagear.org/show/hsTrop Current Interpretive Data last revised 2020. Trop T hs delta -5 ng/L [facility] Trop T hs interp Equivocal [facility] Blood 07/22/2024 6:09 PM TAPE CUTTING MACHINE OPERATOR 07/22/2024 6:36 PM TAPE CUTTING MACHINE OPERATOR us Suzette Orellana DO LAB BLOOD ORDERABLES Final Result Performing Organization Address [facility] Co de Phone Number [facility] [address] [place] [address] * (ABNORMAL) Troponin T high-sensitivity 2-hour (07/22/2024 4:45 PM TAPE CUTTING MACHINE OPERATOR) Trop T hs 34(H) <=22 ng/L Comment: Interpretive Data For further hscTnT resources including the diagnostic algorithm and an aid in interpretation, copy and paste this link: https://nrl.Ning.org/show/hsTrop Current Interpretive Data last revised 2020. Trop T hs delta -2 ng/L [facility] Trop T hs interp Insignificant [facility] Blood 07/22/2024 4:45 PM TAPE CUTTING MACHINE OPERATOR 07/22/2024 4:45 PM TAPE CUTTING MACHINE OPERATOR us Suzette Orellana DO LAB BLOOD ORDERABLES Final Result Performing Organization Address City/[facility]/ZIP Co de Phone Number [facility] [address] [place] [address] * XR Chest PA Lateral 2 Views (07/22/2024 3:25 PM TAPE CUTTING MACHINE OPERATOR) Anatomical Region Laterality Modality Body, Chest N/A Computed Radiogr aphy 07/22/2024 4:40 PM TAPE CUTTING MACHINE OPERATOR Impressions 07/22/2024 4:40 PM TAPE CUTTING MACHINE OPERATOR Comparison is made to prior examination 10/07/2023. [...] Demetrius Bourgeois M.D. Narrative 07/22/2024 4:40 PM TAPE CUTTING MACHINE OPERATOR EXAMINATION: XR CHEST PA LATERAL 2 VIEWS [...] Respiratory pathogen panel Nasopharyngeal (07/22/2024 3:25 PM TAPE CUTTING MACHINE OPERATOR) Influenza A RNA Not Detected Not Detected [facility] Influenza B RNA Not Detected Not Detected [facility] RSV RNA Not Detected Not Detected [facility] COVID-19 RNA Not Detected Not Detected [facility] Coronavirus 229E RNA Not Detected Not Detected [facility] Coronavirus HKU1 RNA Not Detected Not Detected [facility] Coronavirus NL63 RNA Not Detected Not Detected [facility] Coronavirus OC43 RNA Not Detected Not Detected [facility] Adenovirus DNA Not Detected Not Detected [facility] Metapneumovirus RNA Not Detected Not Detected [facility] Rhinovirus/Enterov irus RNA Not Detected Not Detected [facility] Parainfluenza 1 RNA Not Detected Not Detected [facility] Parainfluenza 2 RNA Not Detected Not Detected [facility] Parainfluenza 3 RNA Not Detected Not Detected [facility] Parainfluenza 4 RNA Not Detected Not Detected [facility] B. pertussis DNA Not Detected Not Detected [facility] B. parapertussis DNA Not Detected Not Detected [facility] C. pneumoniae DNA Not Detected Not Detected [facility] M. pneumoniae DNA Not Detected Not Detected [facility] Comment: Interpretive Data The [employer] FilmArray Respiratory Panel (RP2.1) assay is a [...] assay has FDA clearance for testing of GUIDE VISITOR swabs. ??The performance characteristics of this assay have been determined by [facility]. Current interpretive data was last revised on 2021. Nasopharyngeal 07/22/2024 3: 25 PM TAPE CUTTING MACHINE OPERATOR 07/22/2024 4:05 PM TAPE CUTTING MACHINE OPERATOR Narrative [facility] - 07/22/2024 5:00 PM TAPE CUTTING MACHINE OPERATOR Is the Patient experiencing symptoms consistent with COVID?->Yes Surveillance testing for transplant patient?->No June Crabtree MD LAB MICROBIOLOGY - GENER AL ORDERABLES Final Result Performing Organization Address [facility] de Phone Number [facility] [address] Department [place] [address] MBC * (ABNORMAL) Troponin T high-sensitivity series (baseline, 2hr, 4hr, 6hr) (07/22/2024 2:28 PM TAPE CUTTING MACHINE OPERATOR) Trop T hs 36(H) <=22 ng/L Comment: Interpretive Data For further hscTnT resources including the diagnostic algorithm and an aid in interpretation, copy and paste this link: https://nrl.testcatalog.org/show/hsTrop Current Interpretive Data last revised 2020. Blood 07/22/2024 2:28 PM TAPE CUTTING MACHINE OPERATOR 07/22/2024 2:44 PM TAPE CUTTING MACHINE OPERATOR June Crabtree MD LAB BLOOD ORDERABLES Fin al Result Performing Organization Address City/[facility] Co de Phone Number [facility] [address] Department [place] [address] * (ABNORMAL) eGFR (07/22/2024 2:28 PM TAPE CUTTING MACHINE OPERATOR) [facility] eGFR 35(L) >=60 mL/min/1. 73 m2 Comment: [...] last reviewed 2021. Blood 07/22/2024 2:28 PM TAPE CUTTING MACHINE OPERATOR 07/22/2024 2:44 PM TAPE CUTTING MACHINE OPERATOR us Suzette Orellana DO LAB BLOOD ORDERABLES Final Result [facility] [address] Department [place] [address] * Differential, auto (07/22/2024 2:28 PM TAPE CUTTING MACHINE OPERATOR) [facility] Neutrophil abs 2.2 1.5 - 6.5 K/cumm Imm gran abs 0.0 0.0 - 0.1 K/cumm [facility] Lymphocyte abs 0.8 0.8 - 3.3 K/cumm [facility] Monocyte abs 0.4 0.2 - 0.8 K/cumm [facility] Eosinophil abs 0.0 0.0 - 0.5 K/cumm [facility] Basophil abs 0.0 0.0 - 0.1 K/cumm [facility] Neutrophil pct 63.7 % [facility] Comment: Interpretive Data Percent cell count reference ranges are not reported, since discordance with absolute values may lead to misinterpretation of CBC data. Current Interpretive Data was last revised on 2017. Imm gran pct 0.3 % [facility] Comment: Interpretive Data Percent cell count reference ranges are not reported, since discordance with absolute values may lead to misinterpretation of CBC data. Current Interpretive Data was last revised on 2017. Lymphocyte pct 22.1 % [facility] Comment: Interpretive Data Percent cell count reference ranges are not reported, since discordance with absolute values may lead to misinterpretation of CBC data. Current Interpretive Data was last revised on 2017. Monocyte pct 11.7 % [facility] Comment: Interpretive Data Percent cell count reference ranges are not reported, since discordance with absolute values may lead to misinterpretation of CBC data. Current Interpretive Data was last revised on 2017. Eosinophil pct 1.1 % [facility] Comment: Interpretive Data Percent cell count reference ranges are not reported, since discordance with absolute values may lead to misinterpretation of CBC data. Current Interpretive Data was last revised on 2017. Basophil pct 1.1 % [facility] Comment: Interpretive Data Percent cell count reference ranges are not reported, since discordance with absolute values may lead to misinterpretation of CBC data. Current Interpretive Data was last revised on 2017. Blood 07/22/2024 2:28 PM TAPE CUTTING MACHINE OPERATOR 07/22/2024 2:43 PM TAPE CUTTING MACHINE OPERATOR us June Crabtree MD LAB BLOOD ORDERABLES Fin al Result [facility] [address] Department of Laboratories [place], [place] [id number] * (ABNORMAL) Pro B-type natriuretic peptide (07/22/2024 2:28 PM TAPE CUTTING MACHINE OPERATOR) NT-proBNP 19,433(H) <=300 pg/mL Comment: Interpretive Comments: [...] Revised Date: 2018. Blood 07/22/2024 2:28 PM TAPE CUTTING MACHINE OPERATOR 07/22/2024 2:44 PM TAPE CUTTING MACHINE OPERATOR June Crabtree MD LAB BLOOD ORDERABLES Fin al Result Performing Organization Address [facility] Co de Phone Number [facility] [address] [employer] [place], [place] [id number] * (ABNORMAL) CBC with auto differential (07/22/2024 2:28 PM TAPE CUTTING MACHINE OPERATOR) [facility] WBC 3.5(L) 3.8 - 9.9 K/cumm Hgb 10.9(L) 13.0 - 17.5 g/dL [facility] Hct 35.6(L) 38.9 - 50.3 % [facility] Plt 284 150 - 400 K/cumm [facility] MPV 11.7 9.1 - 12.3 fL [facility] RBC 4.19(L) 4.30 - 5.80 M/cumm [facility] MCV 85.0 81.3 - 96.4 fL [facility] MCH 26.0(L) 27.1 - 33.3 pg [facility] MCHC 30.6(L) 32.3 - 35.7 g/dL [facility] RDW CV 17.4(H) 11.1 - 14.9 % [facility] RDW SD 52.1(H) 35.7 - 48.1 fL [facility] NRBC abs 0.00 0.00 - 0.01 K/cumm [facility] Blood 07/22/2024 2:28 PM TAPE CUTTING MACHINE OPERATOR 07/22/2024 2:43 PM TAPE CUTTING MACHINE OPERATOR June Crabtree MD LAB BLOOD ORDERABLES Fin al Result Performing Organization Address [facility]/ZIP Co de Phone Number [facility] [address] [employer] [place], [place] [id number] * (ABNORMAL) Comprehensive metabolic panel (07/22/2024 2:28 PM TAPE CUTTING MACHINE OPERATOR) Sodium 137 135 - 145 mmol/L Potassium, pl 4.1 3.3 - 4.9 mmol/L [facility] Comment:Hemolyzed; potassium value may be falsely elevated by as much as 0.3 - 0.5 mmol/L. Suggest redraw and reanalysis Chloride 100 97 - 110 mmol/L [facility] CO2 23 22 - 32 mmol/L [facility] Anion gap 14 2 - 15 mmol/L [facility] BUN 31(H) 6 - 25 mg/dL [facility] Creatinine 1.97(H) 0.80 - 1.30 mg/dL [facility] Glucose 121 70 - 199 mg/dL [facility] Comment: Interpretive Data Fasting glucose >/= 126 [...] classification and Diagnosis of Diabetes Diabetes Care 202; 46: S19-S40. Current interpretive data was last revised 2022. Calcium 9.5 8.5 - 10.3 mg/dL [facility] Bilirubin, total 2.4(H) 0.1 - 1.2 mg/dL [facility] Protein, pl 7.7 6.5 - 8.5 g/dL [facility] Albumin 3.9 3.5 - 5.0 g/dL [facility] Alk phos 98 40 - 130 Units/L [facility] ALT 24 7 - 55 Units/L [facility] AST 46 10 - 50 Units/L [facility] Comment:Slightly Hemolyzed S pecimen Blood 07/22/2024 2:28 PM TAPE CUTTING MACHINE OPERATOR 07/22/2024 2:44 PM TAPE CUTTING MACHINE OPERATOR June Crabtree MD LAB BLOOD ORDERABLES Fin al Result Performing Organization Address City/State/[facility] Co de Phone Number [facility] [address] Department [place] [address] * ECG 12 lead (07/22/2024 2:13 PM TAPE CUTTING MACHINE OPERATOR) 07/22/2024 2:13 PM TAPE CUTTING MACHINE OPERATOR Narrative [facility] - 07/23/2024 10:26 AM TAPE CUTTING MACHINE OPERATOR Vent Rate: 71 bpm RR Interval: 841 msec [place] Interval: 172 msec QRS Duration: 174 msec QT Interval: 497 msec QTC Interval: 519 msec P-R-T [facility]: -83 - 188 - 11 degrees IMPRESSION: ELECTRONIC VENTRICULAR PACEMAKER ABNORMAL RHYTHM ECG Electronically Signed By: Jovon Judd MD us June Crabtree MD ECG ORDERABLES Final Re sult Performing Organization Address [facility] de Phone Number [facility] * ECG 12 lead (06/27/2024 1:17 PM TAPE CUTTING MACHINE OPERATOR) us Radha Toro MD ECG ORDERABLES Final Result * ECG 12 lead (05/29/2024 1:02 PM TAPE CUTTING MACHINE OPERATOR) us Mona Petty MD ECG ORDERABLES Gunjan l Result * CT Abdomen WO Contrast (01/12/2018 [...] Most Recently Relevant to Health Maintenance Insurance MEDICARE [facility] Member Subscriber Plan / Payer (Ef fective 2020-Present) Name:Montrell Thomas Relation to Subscriber:Self Name:Montrell Thomas Payer ID:[id number] Group ID:Not on file Type:COMMERCIAL Address: [facility] [address] [place], [place] Member Subscriber Plan / Payer (Ef fective 2020-Present) Name:Montrell Thomas Relation to Subscriber:Self Name:Montrell Thomas Payer ID:[id number] Group ID:Not on file Type:COMMERCIAL Address: [facility] [address] [place], [place] MEDICARE MEDICARE [employer] Member Subscriber Plan / Payer (Ef fective 2020-Present) Name:Montrell Thomas Relation to Subscriber:Self Name:Montrell Thomas Payer ID:[id number] Group ID:Not on file Type:COMMERCIAL Address: [facility] [address] [place] Advance Directives For more information, please contact: [phone] * Full Code (Latest Code Status on File) Date Activated Date Inactivated Comments 10/08/2023 7:07 AM 10/08/2023 6:02 PM * Full Code Date Activated Date Inactivated Comments 09/20/2023 6:32 PM 09/24/2023 10:27 PM Care Teams Store Stock Associate Relationship Specialty Start Date End Date Toya Sauceda PA [address] [place] [id number] PCP - General Physician Chick Sexer 08/12/23 Miscellaneous, Not In File 05/23/20
== END 2024-08-16 11:23 | disposition home or self-care (01) ==
PROVIDERS: PCP Family Medicine; Visit Provider Nurse Practitioner
DX: I50.33 Acute on chronic diastolic (congestive) heart failure (principal)
CPT/HCPCS: 36415; 80048; 83880; 85025

== ENCOUNTER 2024-08-30 14:15 | Outpatient (CLI) | payer MEDICARE, SELFPAY ==
--- OUTSIDE RECORDS SUMMARY | 2024-08-30 14:21 | XMS_ITS | Encounter Summary ---
Author Organization [facility] Healthcare Address [address] [place] [address] Care Team Providers Care Program/Music Director Name Role Phone Miscellaneous, Not In File Unavailable Unava Toya Gonzalez Primary Care Provider [phone] Reason for Visit * Reason Comments Follow-up 2 wk Encounter Details Date Type Department Care Team (Latest Contact Info) Description 08/30/2024 1:30 PM CRUSHER LOADER OPERATOR Office Visit [facility] Medical Group Cardiology [address] [place] [address] Jessie Garcia NP [address] [place] [address] Lipid screening (Primary Dx); Nonischemic cardiomyopathy (CMS/HCC) (HCC); CHF (congestive heart failure), NYHA class II, acute on chronic, systolic Social History Tobacco Use Types Packs/Day Years Used Date Smoking Tobacco: Former Cigars Smokeless Tobacco: Never Tobacco Cessation:Counseling Given: Not Answered Comments:occassional use Alcohol Use Standard Drinks/Week Comments Yes 14 (1 standard drink = 0.6 oz pu re alcohol) [facility] Utilities Answer Date Recorded In the past 12 months has [employer]Dialog, gas, oil, or water [employer] threatened to shut off services in your [...] often do you attend chur ch or hoahaoism services? Never 09/22/2023 Do you belong to any clubs o r organizations such as shinto groups, unions, fraternal or athletic groups, or [...] place to sleep or slept in a jail (including now)? No 09/22/2023 Personal Safety Answer [...] Sign Reading Time Taken Comments Blood Pressure 90/46 08/30/2024 1:36 PM CRUSHER LOADER OPERATOR Pulse 74 08/30/2024 1:36 PM CRUSHER LOADER OPERATOR Temperature - - Respiratory Rate - - Oxygen Saturation - - Inhaled Oxygen Concentration - - Weight 90.7 kg (200 lb) 08/30/2024 1:36 PM CRUSHER LOADER OPERATOR Height 182.9 cm (6') 08/30/2024 1:36 PM CRUSHER LOADER OPERATOR Body Mass Index 27.12 08/30/2024 1:36 PM CRUSHER LOADER OPERATOR documented in this encounter Patient Instructions * Patient Instructions* Jessie Garcia NP - 08/30/2024 1:30 PM CRUSHER LOADER OPERATOR There are changes that could mean you [...] appetite, feeling full or bloated, or nauseated Discontinue metolazone Resume furosemide 40mg daily Continue lower dose of metoprolol 50mg daily HER LOADER OPERATOR HER LOADER OPERATOR HER LOADER OPERATOR documented in this encounter Ordered Prescriptions Prescription Sig Dispense Quantity Refills Last Filled Start Date End Date furosemide (LASIX) 40 mg tabletIndications:No nischemic cardiomyopathy (CMS/HCC) (HCC),CHF (congestive heart failure), NYHA class II, acute on chronic, diastolic (HCC) Take 1 tablet (40 mg total) by mouth daily 30 tablet 1 08/30/2024 documented in this encounter Progress Notes * Jessie Garcia NP - 08/30/2024 1:30 PM CST [facility] Medical Group Cardiology [address] [place] [address] Date of Visit: 08/30/2024 Patient ID: Montrell Thomas [id number] Chief Complaint: Montrell Thomas is a 74 y.o. male who comes to the office for routine follow up for atrial fibrillation, nonischemic cardiomyopathy, ICD History of Present Illness: Montrell Thomas is a 74 y.o. male with severe nonischemic cardiomyopathy, EF 10- 15%, paroxysmal atrial fibrillation, AICD, hypertension. This is a patient who was previously followed by Dr. Arambula and has transitioned his care to Dr. Petty. He was initially diagnosed with cardiomyopathy in 2017. Underwent left and right heart catheterization at [facility] that showed normal coronaries, EF30%, mean PA 33mmHg, LVEDP 22-24 mmHg CO ([place]) 2.3 L/min/m2, severe LV enlargement. He has been onguideline directed medical therapy since that time. Underwent ICD placement in 2019. He did well for a number of years on medical therapy. However, recently he has been experiencing symptoms of decomp ensated heart failure and had an emergency room visit at [facility] earlier this month and was treated for heart failure. 08/16/2024 Hospital follow-up with PROVID[facility] SCR[facility]E - Montrell Thomas comes to the office today for a follow up visit. He is complaining of dyspnea with exertion, edema, and abdominal fullness. He states he went [facility] at the beginning of the month and was treated for CHF, felt much better after receiving IV lasix, but quickly began to develop shortness of breath following discharge. He has been compliant withhis medical regimen and adheres to a low sodium diet. States he is only able to walk a short distance before he needs to stop and take a break. 08/30/2024 follow-up with [facility] - Montrell Thomas returns for short interval follow up. He is feeling much better and has lost 27 lbs. His lower extremity swelling has resolved. He states at his last visit he had to take the shuttle in from the parking lot but today he walked in from the parking lot without having to take any breaks and without any shortness of breath. Unfortunately he did not adhere to verbal and written instructions to take metolazone for 3 days then call the office with an update. Rather, he took the metolazone for 10 days. Records that I personally reviewed on the day of this visit include: (the interpretation is outlined in the HPI above) I have also reviewed: allergies, current medications, past family history, past medical history, past social history, past surgical history and problem list Review of Systems Constitutional: Positive for decreased appetite. Negative for fever, malaise/fatigue, night sweats,weight gain and weight loss. HENT: Negative for hearing loss. Eyes: Negative for blurred vision and visual disturbance. Cardiovascular: Negative for chest pain, claudication, dyspnea on exertion, irregular heartbeat, leg swelling, near-syncope, orthopnea, palpitations, paroxysmal nocturnal dyspnea and syncope. Respiratory: Negative for shortness of breath, sleep disturbances due to breathing, snoring and wheezing. Hematologic/Lymphatic: Negative for bleeding problem. Skin: Positive for itching. Musculoskeletal: Negative for muscle cramps and muscle weakness. Gastrointestinal: Negative for abdominal pain, change in bowel habit, diarrhea, nausea and vomiting. Genitourinary: Negative for hematuria. Neurological: Negative for dizziness and headaches. Vital Signs: BP 90/46 (BP Location: Right arm, Patient Position: Sitting) Pulse 74 Ht 182.9 cm (6') Wt 90.7 kg (200 lb) BMI 27.12 kg/m?? Body mass index is 27.12 kg/m??. Physical Exam Vitals reviewed. Constitutional: General: He is not in acute distress. Appearance: Normal appearance. HENT: Head: Normocephalic and atraumatic. Eyes: Extraocular Movements: Extraocular movements intact. Conjunctiva/sclera: Conjunctivae normal. Neck: Comments: No JVD Cardiovascular: Rate and Rhythm: Normal rate and regular rhythm. Heart sounds: Normal heart sounds. Pulmonary: Effort: Pulmonary effort is normal. No respiratory distress. Breath sounds: Normal breath sounds. No rales. Abdominal: General: Bowel sounds are normal. Palpations: Abdomen is soft. Musculoskeletal: General: Normal range of motion. Cervical back: Normal range of motion and neck supple. Right lower leg: No edema. Left lower leg: No edema. Skin: General: Skin is warm and dry. Capillary Refill: Capillary refill takes 2 to 3 seconds. Neurological: Mental Status: He is alert and oriented to person, place, and time. No Known Allergies Current Outpatient Medications: albuterol 2.5 mg /3 mL (0.083 %) nebulizer solution, Take 3 mL (2.5 mg total) by nebulization every4 (four) hours as needed, Disp: , Rfl: allopurinoL (ZYLOPRIM) 100 mg tablet, Take 1 tablet (100 mg total) by mouth daily, Disp: , Rfl: Eliquis 5 mg tablet, TAKE 1 TABLET BY MOUTH TWICE A DAY, Disp: 60 tablet, Rfl: 11 Entresto 49-51 mg tablet, TAKE 1 TABLET BY MOUTH TWICE A DAY, Disp: 90 tablet, Rfl: 3 hydrOXYzine (ATARAX) 25 mg tablet, Take 1 tablet (25 mg total) by mouth every 4 (four) hours as needed, Disp: , Rfl: metoprolol XL (TOPROL-XL) 100 mg 24 hr tablet, Take 0.5 tablets (50 mg total) by mouth daily, Disp:15 tablet, Rfl: 1 spironolactone (ALDACTONE) 25 mg tablet, Take 1 tablet (25 mg total) by mouth daily, Disp: 30 tablet, Rfl: 11 tadalafiL (CIALIS) 20 mg tablet, TAKE 1 TABLET BY MOUTH NEEDED FOR SEXUAL ACTIVITY, 1 HOUR PRIORTO INTERCOURSE NEEDED, Disp: , Rfl: furosemide (LASIX) 40 mg tablet, Take 1 tablet (40 mg total) by mouth daily, Disp: 30 tablet, Rfl: 1 Lab Results Component Value Date POTASSIUM 4.1 07/22/2024 BUNSER 31 (H) 07/22/2024 CREATININE 1.97 (H) 07/22/2024 CHOL 172 10/07/2023 TRIG 96 10/07/2023 LDLCALC 114 10/07/2023 HDL 39 (L) 10/07/2023 Assessment: Diagnoses and all orders for this visit: Lipid screening (Primary) - POCT lipid panel Nonischemic cardiomyopathy (CMS/HCC) (HCC) - furosemide (LASIX) 40 mg tablet; Take 1 tablet (40 mg total) by mouth daily - Basic metabolic panel; Future - Pro B-type natriuretic peptide; Future CHF (congestive heart failure), NYHA class II, acute on chronic, systolic - furosemide (LASIX) 40 mg tablet; Take 1 tablet (40 mg total) by mouth daily - Basic metabolic panel; Future - Pro B-type natriuretic peptide; Future He has had significant clinical improvements since his office visit two weeks ago and now appears to be euvolemic, if not a little dry, on exam. I am going to decrease his lasix to 40mg daily. Metolazone discontinued. He will continue with 50mg metoprolol for the time being as he is hypotensive. Continue the remainder of his medical regimen without change. In regards to his previous referral to the heart failure clinic at [place], he states he does not wish to pursue referral at this time. Will repeat BMP and BNP today. He should return to the office to see Dr. Petty in 1 month or earlier if needed. Jessie Garcia ANP- Nurse Practitioner with [facility] [place] This note is dictated and transcribed using [employer] Direct Software. Tanker Driver variancesmay occur. Despite proofreading, typographical errors may occur. HER LOADER OPERATOR documented in this encounter Plan of Treatment Scheduled Orders Name Type Priority Associated Diagnoses Orde r Schedule Basic metabolic panel Lab Routine Nonischemic cardiomyopathy (CMS/HCC) (HCC) CHF (congestive heart failure), NYHA class II, acute on chronic, systolic Expected: 09/02/2024, Expires: 08/30/2025 Pro B-type natriuretic peptide Lab Routine Nonischemic cardiomyopathy (CMS/HCC) (HCC) CHF (congestive heart failure), NYHA class II, acute on chronic, systolic Expected: 09/02/2024, Expires: 08/30/2025 documented as of this encounter Procedures Procedure Name Priority Date/Time Associated Diagnosis Comments POCT LIPID PANEL Routine 08/30/2024 1:43 PM CRUSHER LOADER OPERATOR Lipid screening documented in this encounter Results * POCT lipid panel (08/30/2024 1:43 PM CRUSHER LOADER OPERATOR) Cholesterol, POC 166 mg/dL HDL, POC 56 mg/dL Triglycerides, POC 81 mg/dL LDL Cholesterol POC 94 mg/dL Chol/HDL Ratio, POC 1.7 Non-HDL Cholesterol, POC 111 mg/dL Cholesterol Total, POC 166 mg/dL Capillary blood 08/30/2024 1 :43 PM CRUSHER LOADER OPERATOR Jessie Garcia PROVIDER SCR[facility] POINT OF CARE TEST ORDERABLE S Final Result documented in this encounter Visit Diagnoses Diagnosis Lipid screening- Primary Screening for lipoid disorders Nonischemic cardiomyopathy (CMS/HCC) (HCC) Other primary cardiomyopathies CHF (congestive heart failure), NYHA class II, acute on chronic, systolic documented in this encounter Discontinued Medications Medication Sig Discontinue Reason Start Date End Da te metOLazone (ZAROXOLYN) 2.5 mg tabletIndications:CHF (congestive heart failure), NYHA class II, acute on chronic, diastolic (HCC) Take 1 tablet (2.5 mg total) by mouth daily for 10 doses Therapy completed 08/16/2024 08/30/2024 furosemide (LASIX) 40 mg tabletIndications:Nonische kecia cardiomyopathy (CMS/HCC) (HCC),CHF (congestive heart failure), NYHA class II, acute on chronic, diastolic (HCC) Take 1 tablet (40 mg total) by mouth 2 (two) times a day 08/16/2024 08/30/2024 documented as of this encounter Care Teams Program/Music Director Relationship Specialty Start Date End Date Toya Sauceda PA [address] [place] [id number] PCP - General Physician Knitting Machine Operator Helper 08/12/23 Miscellaneous, Not In File 05/23/20 documented as of this encounter
--- OUTSIDE RECORDS SUMMARY | 2024-08-30 14:22 | XMS_ITS | Referral Summary ---
Author Organization [facility] Address [address] [place] [address] Care Team Providers Care Sales Exhibitor Name Role Phone Miscellaneous, Not In File Unavailable Unava Toya Gonzalez Primary Care Provider [phone] Encounters Date Type Department Care Team Description 08/30/2024 1:30 PM DIE CAST DIE MAKER Office Visit [facility] Cardiology [address] [place] [address] Jessie Garcia NP Lipid screening (Primary Dx); Nonischemic cardiomyopathy (CMS/HCC) (HCC); CHF (congestive heart failure), NYHA class II, acute on chronic, systolic 08/16/2024 10:30 AM DIE CAST DIE MAKER Office Visit [facility] Cardiology [address] [place] [address] Jessie Garcia NP Nonischemic cardiomyopathy (CMS/HCC) (HCC) (Primary Dx); CHF (congestive heart failure), NYHA class II, acute on chronic, systolic; Paroxysmal atrial fibrillation (CMS/HCC) (HCC); Hypertension, unspecified type; ICD (implantable cardioverter-defibrill ator), dual, in situ; Non-rheumatic tricuspid valve insufficiency 07/22/2024 2:40 PM DIE CAST DIE MAKER - 07/22/2024 6:43 PM [facility] Emergency [facility] Emergency Department [address] [place] [address] June Crabtree MD Acute on chronic diastolic congestive heart failure (CMS/HCC) ([facility]) (Primary Dx); Dizziness; Shortness of breath Discharge Disposition: Discharge to home or self care 07/05/2024 Telephone [facility] Cardiology [address] [facility] [address] [place] [address] Mona Petty MD lab orders 06/27/2024 11:15 AM DIE CAST DIE MAKER Procedure visit [facility] Cardiology [address] [facility] [address] [place] [address] Dyspnea, unspecified type 06/13/2024 8:30 AM DIE CAST DIE MAKER Ancillary Procedure [facility] Cardiology [address] [facility] [address], [place] [address] Atrial fibrillation, unspecified type ([facility]) [I48.91] (Primary Dx); Nonischemic cardiomyopathy (CMS/HCC) ([facility]); ICD (implantable cardioverter-defibrill ator), dual, in situ [Z95.810] from Last 3 Months Allergies No known [...] on chronic systolic congestive heart failure (CMS/HCC) ([facility]) TAKE 1 TABLET BY MOUTH TWICE A [...] total) by mouth daily 30 tablet 1 025 Active metoprolol XL (TOPROL-XL) 100 mg 24 hr tablet Take 1 tablet (100 mg total) by mouth daily 024 2024 Discontinued furosemide (LASIX) 40 mg tablet Take 1.5 tablets (60 mg total) by mouth daily 45 tablet 025 2024 Discontinued(R eorder) furosemide (LASIX) 40 mg tabletIndications :Nonischemic cardiomyopathy (CMS/HCC) (HCC),CHF (congestive heart failure), NYHA class II, acute on chronic, diastolic (HCC) Take 1 tablet (40 mg total) by mouth 2 (two) times a day 60 tablet 1 025 2024 Discontinued metOLazone (ZAROXOLYN) 2.5 mg tabletIndications :CHF (congestive heart failure), NYHA class II, acute on chronic, diastolic (HCC) Take 1 tablet (2.5 mg total) by mouth daily for 10 doses 10 tablet 025 2024 Discontinued(T herapy completed) Active Problems Problem Noted Date Diagnosed Date KATHRYN (acute kidney injury) 10/08/2023 Anemia 10/08/2023 Moderate protein-calorie malnutrition (CMS/HCC) 10/08/2023 Hypokalemia 09/21/2023 Assessment & Plan (09/21/2023 10:41 AM DIE CAST DIE MAKER): Replaced Monitor BMP with IV lasix BID RSV infection 09/21/2023 Assessment & Plan (09/24/2023 2:26 PM DIE CAST DIE MAKER): Supportive care Diurese for HFrEF exacerbation Acute bronchitis due to respiratory syncytial vi justice (RSV) 09/21/2023 Assessment & Plan (09/21/2023 10:42 AM DIE CAST DIE MAKER): Supportive care. No history of lung disease Not hypoxic monitor for worsening respiratory status CHF (congestive heart failur e), NYHA class II, acute on chronic, diastolic 09/20/2023 Atrial fibrillation ([facility]/HCC) 09/15/2023 Assessment & Plan (09/21/2023 10:37 AM DIE CAST DIE MAKER): Presented with RVR 2/2 RSV infection Rate now controlled 80s with V pacing Continue Eliquis Diuresing with IV lasix for fluid overload 2/2 to RVR last few days Cardiology consulted continue metoprolol PAYAN (dyspnea on exertion) 08/12/2023 Pain in joint of left shoulder 12/24/2021 Raynaud's phenomenon without gangrene 08/04/2021 Paroxysmal atrial fibrillation ([facility]/HCC) 021 Chronic anticoagulation 04/23/2021 Ascending aortic aneurysm ([facility]) 07/22/2020 ICD (implantable cardioverter-defibrillator), brian rosado, in situ 05/23/2020 Overview (03/02/2024): Cardoza Dual Fortify Assura ICD implanted on 05/23/20 for NICM. Shama - Dane Non-rheumatic tricuspid valve insufficiency 11/16 Nonischemic cardiomyopathy ([facility]/HCC) 07/09/2017 Pulmonary HTN 07/09/2017 HTN (hypertension) 07/09/2017 Resolved Problems Problem Noted Date Diagnosed Date Resolved Date Hypotension 10/07/2023 05/29/2024 Abnormal echocardiogram 07/09/201705/19 Acute on chronic systolic co ngestive heart failure ([facility]/HCC) 07/09/2017 05/29/2024 Assessment & Plan (09/24/2023 2:25 PM DIE CAST DIE MAKER): Exacerbated by Afib RVR. NT proBNP 8043. [...] shows slightly worse EF 10-15% compared to Loren Continue GDMT. Add SGLT2 inhibitor and Aldactone [...] drink = 0.6 oz pu re alcohol) [employer] Answer Date Recorded In the past 12 months has [employer], gas, oil, or water [employer] ([employer]) threatened to shut off services in your [...] often do you attend chur ch or congregation services? Never 09/22/2023 Do you belong to any clubs o r organizations such as orthodoxy groups, unions, fraternal or athletic groups, or [...] place to sleep or slept in a mcc (including now)? No 09/22/2023 Personal Safety Answer [...] Comments Blood Pressure 90/46 08/30/2024 1:36 PM DIE CAST DIE MAKER Pulse 74 08/30/2024 1:36 PM DIE CAST DIE MAKER Temperature 35.6 C (96.1 F) 07/22/2024 2:16 PM DIE CAST DIE MAKER Respiratory Rate 16 07/22/2024 6:30 PM DIE CAST DIE MAKER Oxygen Saturation 93% 08/16/2024 10:22 AM DIE CAST DIE MAKER Inhaled Oxygen Concentration - - Weight 90.7 kg (200 lb) 08/30/2024 1:36 PM DIE CAST DIE MAKER Height 182.9 cm (6') 08/30/2024 1:36 PM DIE CAST DIE MAKER Body Mass Index 27.12 08/30/2024 1:36 PM DIE CAST DIE MAKER Plan of Treatment Not on file Medical Devices Implanted Type Area Canopy Stringer Device Identifier Shelf Expiration Date Model / Serial / Lot [employer] [id number] Fortify Assura [id number] 2 Chamber Df4 Is-1 Connector [id number] - [id number] - [id number] Implanted:Qty: 1 on 05/23/2020 by Salbador Sesay MD at [facility] ICD [employer] [id number] 04/17/2022 [id number] / [id number] / [employer] 7120q/65 Durata 7fr 65cm 2 Coil Df-4 True Bipolar Active Fixation - [id number] - [id number] Implanted:Qty: 1 on 05/23/2020 by Salbador Sesay MD at [facility] Lead [employer] [id number] 02/15/2023 7120Q/65 / [id number] / [employer] 8tc/52 Tendril Sts 6fr 52cm Is-1 Connector Active Fixation Bipolar Soft - [id number] - [id number] Implanted:Qty: 1 on 05/23/2020 by Salbador Sesay MD at [facility] Lead [employer] [id number] 04/17/2023 2088TC/52 / [id number] / Procedures Procedure Name Priority Date/Time Associated Diagnosis Comments POCT LIPID PANEL Routine 08/30/2024 1:43 PM DIE CAST DIE MAKER Lipid screening TROPONIN T HIGH-SENSITIVITY 4-HR Timed 07/22/2024 6:09 PM DIE CAST DIE MAKER TROPONIN T HIGH-SENSITIVITY 2-HOUR Timed 07/22/2024 4:45 PM DIE CAST DIE MAKER XR CHEST PA LATERAL 2 VIEWS ED 07/22/2024 3:25 PM DIE CAST DIE MAKER RESPIRATORY PATHOGEN PANEL Routine 07/22/2024 3:25 PM DIE CAST DIE MAKER EGFR STAT 07/22/2024 2:28 PM DIE CAST DIE MAKER DIFFERENTIAL AUTO STAT 07/22/2024 2:2 8 PM DIE CAST DIE MAKER PRO B-TYPE NATRIURETIC PEPTIDE STAT 07/22/2024 2:28 PM DIE CAST DIE MAKER TROPONIN T HIGH-SENSITIVITY SERIES (BASELINE, 2HR, 4HR, 6HR) STAT 07/22/2024 2:28 PM DIE CAST DIE MAKER CBC WITH AUTO DIFFERENTIAL STAT 07/22/2024 2:28 PM DIE CAST DIE MAKER COMPREHENSIVE METABOLIC PANEL STAT 07/22/2024 2:28 PM DIE CAST DIE MAKER ECG 12-LEAD STAT 07/22/2024 2:13 PM DIE CAST DIE MAKER ECG 12-LEAD Routine 06/27/2024 1:17 PM DIE CAST DIE MAKER Dyspnea, unspecified type DEVICE CHECK - REMOTE Routine 06/13/2024 3:15 PM DIE CAST DIE MAKER Nonischemic cardiomyopathy (CMS/HCC) (HCC) CT ABDOMEN WO CONTRAST Schedule Routine, Read Routine (OP Routine) 01/12/2018 8:43 AM CDT Hypertensive encephalopathy from Last 3 Months or Most Recently Relevant to Health Maintenance Results * POCT lipid panel (08/30/2024 1:43 PM DIE CAST DIE MAKER) Cholesterol, POC 166 mg/dL HDL, POC 56 mg/dL Triglycerides, POC 81 mg/dL LDL Cholesterol POC 94 mg/dL Chol/HDL Ratio, POC 1.7 Non-HDL Cholesterol, POC 111 mg/dL Cholesterol Total, POC 166 mg/dL Capillary blood 08/30/2024 1 :43 PM DIE CAST DIE MAKER Jessie Garcia NP POINT OF CARE TEST ORDERABLE S Final Result * (ABNORMAL) Troponin T high-sensitivity 4-hour (07/22/2024 6:09 PM DIE CAST DIE MAKER) Trop T hs 31(H) <=22 ng/L Comment: Interpretive Data For further hscTnT resources including the diagnostic algorithm and an aid in interpretation, copy and paste this link: https://nrl.testcatNfoshare.org/show/hsTrop Current Interpretive Data last revised 2020. Trop T hs delta -5 ng/L [facility] Trop T hs interp Equivocal [facility] Blood 07/22/2024 6:09 PM DIE CAST DIE MAKER 07/22/2024 6:36 PM DIE CAST DIE MAKER Suzette Orellana DO LAB BLOOD ORDERABLES Final Result Performing Organization Address City/[facility]/ZIP Co de Phone Number [facility] [address] [place] [address] * (ABNORMAL) Troponin T high-sensitivity 2-hour (07/22/2024 4:45 PM DIE CAST DIE MAKER) Trop T hs 34(H) <=22 ng/L Comment: Interpretive Data For further hscTnT resources including the diagnostic algorithm and an aid in interpretation, copy and paste this link: https://nrl.testcatNfoshare.org/show/hsTrop Current Interpretive Data last revised 2020. Trop T hs delta -2 ng/L [facility] Trop T hs interp Insignificant [facility] Blood 07/22/2024 4:45 PM DIE CAST DIE MAKER 07/22/2024 4:45 PM DIE CAST DIE MAKER Suzette Orellana DO LAB BLOOD ORDERABLES Final Result Performing Organization Address City/[facility]/ZIP Co de Phone Number [facility] [address] [place] [address] * XR Chest PA Lateral 2 Views (07/22/2024 3:25 PM DIE CAST DIE MAKER) Anatomical Region Laterality Modality Body, Chest N/A Computed Radiogr aphy 07/22/2024 4:40 PM DIE CAST DIE MAKER Impressions 07/22/2024 4:40 PM DIE CAST DIE MAKER Comparison is made to prior examination 10/07/2023. [...] Demetrius Bourgeois M.D. Narrative 07/22/2024 4:40 PM DIE CAST DIE MAKER EXAMINATION: XR CHEST PA LATERAL 2 VIEWS [...] Respiratory pathogen panel Nasopharyngeal (07/22/2024 3:25 PM DIE CAST DIE MAKER) Pathologist [facility] Influenza A RNA Not Detected Not Detected [facility] Influenza B RNA Not Detected Not Detected [facility] RSV RNA Not Detected Not Detected [facility] COVID-19 RNA Not Detected Not Detected [facility] Coronavirus 229E RNA Not Detected Not Detected [facility] Coronavirus HKU1 RNA Not Detected Not Detected [facility] Coronavirus NL63 RNA Not Detected Not Detected [facility] Coronavirus OC43 RNA Not Detected Not Detected [facility] Adenovirus DNA Not Detected Not Detected [facility] Metapneumovirus RNA Not Detected Not Detected [facility] Rhinovirus/Enterov irus RNA Not Detected Not Detected [facility] Parainfluenza 1 RNA Not Detected Not Detected [facility] Parainfluenza 2 RNA Not Detected Not Detected [facility] Parainfluenza 3 RNA Not Detected Not Detected [facility] Parainfluenza 4 RNA Not Detected Not Detected [facility] B. pertussis DNA Not Detected Not Detected [facility] B. parapertussis DNA Not Detected Not Detected [facility] C. pneumoniae DNA Not Detected Not Detected [facility] M. pneumoniae DNA Not Detected Not Detected [facility] Comment: Interpretive Data The Resource Data FilmArray Respiratory Panel (RP2.1) assay is a [...] cross-react with some isolates of Coronavirus HKU1. A dual positive result may be due to cross-reactivity or may indicate a co- infection. The detection and identification of specific viral and bacterial nucleic acids from individuals exhibiting signs and symptoms of a respiratory infection aids in the diagnosis of respiratory infection if used in conjunction with other clinical and epidemiological information. The results of this test should not be used as the sole basis for diagnosis, treatment, or other management decisions. Negative results in the setting of a respiratory illness may be due to infection with pathogens that are not detected by this test. Positive results do not rule out infection/co-infection with other organisms. The agent(s) detected by the FilmArray RP2.1 may not be the definite cause of disease. Additional testing (lab, imaging, etc.) may be necessary when evaluating a patient with possible respiratory tract infection. The FilmArray RP2.1 assay has FDA clearance for testing of GLUE MAKER BONE swabs. The performance characteristics of this assay have been determined by [facility]. Current interpretive data was last revised on 2021. Nasopharyngeal 07/22/2024 3: 25 PM DIE CAST DIE MAKER 07/22/2024 4:05 PM DIE CAST DIE MAKER Narrative [facility] - 07/22/2024 5:00 PM DIE CAST DIE MAKER Is the Patient experiencing symptoms consistent with COVID?->Yes Surveillance testing for transplant patient?->No June Crabtree MD LAB MICROBIOLOGY - GENER AL ORDERABLES Final Result Performing Organization Address [facility] Co de Phone Number [facility] [address] [place] [address] MBC * (ABNORMAL) Troponin T high-sensitivity series (baseline, 2hr, 4hr, 6hr) (07/22/2024 2:28 PM DIE CAST DIE MAKER) Pathologist [facility] Trop T hs 36(H) <=22 ng/L Comment: Interpretive Data For further hscTnT resources including the diagnostic algorithm and an aid in interpretation, copy and paste this link: https://nrl.testcatalog.org/show/hsTrop Current Interpretive Data last revised 2020. Blood 07/22/2024 2:28 PM DIE CAST DIE MAKER 07/22/2024 2:44 PM DIE CAST DIE MAKER June Crabtree MD LAB BLOOD ORDERABLES Fin al Result Performing Organization Address [facility] Co de Phone Number [facility] [address] [place] [address] * (ABNORMAL) eGFR (07/22/2024 2:28 PM DIE CAST DIE MAKER) eGFR 35(L) >=60 mL/min/1. 73 m2 Comment: Interpretive Data Reference Interval Normal >/= 90 mL/min/1.73m2 Mildly decreased* 60 - 89 mL/min/1.73m2 Mildly to moderately decreased 45 - 59 mL/min/1.73m2 Moderately to severely decreased 30 - 44 mL/min/1.73m2 Severely decreased 15 - 29 mL/min/1.73m2 Kidney Failure < 15 mL/min/1.73m2 *Relative to young adult level Estimated glomerular [...] last reviewed 2021. Blood 07/22/2024 2:28 PM DIE CAST DIE MAKER 07/22/2024 2:44 PM DIE CAST DIE MAKER us Suzette Orellana DO LAB BLOOD ORDERABLES Final Result [facility] [address] Department [place] [address] * Differential, auto (07/22/2024 2:28 PM DIE CAST DIE MAKER) Neutrophil abs 2.2 1.5 - 6.5 K/cumm Imm gran abs 0.0 0.0 - 0.1 K/cumm [facility] Lymphocyte abs 0.8 0.8 - 3.3 K/cumm [facility] Monocyte abs 0.4 0.2 - 0.8 K/cumm [facility] Eosinophil abs 0.0 0.0 - 0.5 K/cumm [facility] Basophil abs 0.0 0.0 - 0.1 K/cumm [facility] Neutrophil pct 63.7 % [facility] Comment: Interpretive Data Percent cell count reference ranges are not reported, since discordance with absolute values may lead to misinterpretation of CBC data. Current Interpretive Data was last revised on 2017. Imm gran pct 0.3 % [facility] Comment: Interpretive Data Percent cell count reference ranges are not reported, since discordance with absolute values may lead to misinterpretation of CBC data. Current Interpretive Data was last revised on 2017. Lymphocyte pct 22.1 % [facility] Comment: Interpretive Data Percent cell count reference ranges are not reported, since discordance with absolute values may lead to misinterpretation of CBC data. Current Interpretive Data was last revised on 2017. Monocyte pct 11.7 % [facility] Comment: Interpretive Data Percent cell count reference ranges are not reported, since discordance with absolute values may lead to misinterpretation of CBC data. Current Interpretive Data was last revised on 2017. Eosinophil pct 1.1 % [facility] Comment: Interpretive Data Percent cell count reference ranges are not reported, since discordance with absolute values may lead to misinterpretation of CBC data. Current Interpretive Data was last revised on 2017. Basophil pct 1.1 % [facility] Comment: Interpretive Data Percent cell count reference ranges are not reported, since discordance with absolute values may lead to misinterpretation of CBC data. Current Interpretive Data was last revised on 2017. Blood 07/22/2024 2:28 PM DIE CAST DIE MAKER 07/22/2024 2:43 PM DIE CAST DIE MAKER us June Crabtree MD LAB BLOOD ORDERABLES Fin al Result [facility] [address] Department [place] [address] * (ABNORMAL) Pro B-type natriuretic peptide (07/22/2024 2:28 PM DIE CAST DIE MAKER) NT-proBNP 19,433(H) <=300 pg/mL Comment: Interpretive Comments: A. Dyspnea in Acute Care Setting All Ages: < 300 pg/ml, acute heart failure unlikely. < 50 yrs: 300 - 450 pg/ml, further investigation warranted. > 450 pg/ml, acute heart failure likely. 50 - 74 yrs: 300 - 900 pg/ml, further investigation warranted. > 900 pg/ml, acute heart failure likely . > or = 75 yrs: 450 - 1800 pg/ml, further investigation warranted. > 1800 pg/ml, acute heart failure likely. B. Non-acute Setting < 75 yrs < 125 pg/ml, rules out heart failure. > or = 125 pg/ml, further investigation warranted. > or = 75 yrs < 450 pg/ml, rules out heart failure. > or = 450 pg/ml, further investigation [...] as advanced age. - References: 1. Kristan JL et.al. Eur Heart J. 2006:27:330-337. 2. Corrine BROOKS, Alan JULIAN. J. AM Liliya Cardiol: Cardiovasc Imag. 2009;2: 216- 225. Interpretive Data Last Revised Date: 2018. Blood 07/22/2024 2:28 PM DIE CAST DIE MAKER 07/22/2024 2:44 PM DIE CAST DIE MAKER us June Crabtree MD LAB BLOOD ORDERABLES Fin al Result [facility] [address] Department [place] [address] * (ABNORMAL) CBC with auto differential (07/22/2024 2:28 PM DIE CAST DIE MAKER) WBC 3.5(L) 3.8 - 9.9 K/cumm Hgb 10.9(L) 13.0 - 17.5 g/dL [facility] Hct 35.6(L) 38.9 - 50.3 % [facility] Plt 284 150 - 400 K/cumm [facility] MPV 11.7 9.1 - 12.3 fL [facility] RBC 4.19(L) 4.30 - 5.80 M/cumm [facility] MCV 85.0 81.3 - 96.4 fL [facility] MCH 26.0(L) 27.1 - 33.3 pg [facility] MCHC 30.6(L) 32.3 - 35.7 g/dL [facility] RDW CV 17.4(H) 11.1 - 14.9 % [facility] RDW SD 52.1(H) 35.7 - 48.1 fL [facility] NRBC abs 0.00 0.00 - 0.01 K/cumm [facility] Blood 07/22/2024 2:28 PM DIE CAST DIE MAKER 07/22/2024 2:43 PM DIE CAST DIE MAKER us June Crabtree MD LAB BLOOD ORDERABLES Fin al Result [facility] [address] Department [place] [address] * (ABNORMAL) Comprehensive metabolic panel (07/22/2024 2:28 PM DIE CAST DIE MAKER) Sodium 137 135 - 145 mmol/L Potassium, pl 4.1 3.3 - 4.9 mmol/L [facility] Comment:Hemolyzed; potassium value may be falsely elevated by as much as 0.3 - 0.5 mmol/L. Suggest redraw and reanalysis Chloride 100 97 - 110 mmol/L [facility] CO2 23 22 - 32 mmol/L [facility] Anion gap 14 2 - 15 mmol/L [facility] BUN 31(H) 6 - 25 mg/dL [facility] Creatinine 1.97(H) 0.80 - 1.30 mg/dL [facility] Glucose 121 70 - 199 mg/dL [facility] Comment: Interpretive Data Fasting glucose >/= 126 mg/dl is diagnostic for diabetes. Fasting is defined as no caloric intake [...] 2022. Calcium 9.5 8.5 - 10.3 mg/dL [facility] Bilirubin, total 2.4(H) 0.1 - 1.2 mg/dL [facility] Protein, pl 7.7 6.5 - 8.5 g/dL [facility] Albumin 3.9 3.5 - 5.0 g/dL [facility] Alk phos 98 40 - 130 Units/L [facility] ALT 24 7 - 55 Units/L [facility] AST 46 10 - 50 Units/L [facility] Comment:Slightly Hemolyzed S pecimen Blood 07/22/2024 2:28 PM DIE CAST DIE MAKER 07/22/2024 2:44 PM DIE CAST DIE MAKER Result [facility] June Crabtree MD LAB BLOOD ORDERABLES Fin al Result Performing Organization Address [facility] Co de Phone Number [facility] [address] [place] [address] * ECG 12 lead (07/22/2024 2:13 PM DIE CAST DIE MAKER) 07/22/2024 2:13 PM DIE CAST DIE MAKER Narrative [facility] - 07/23/2024 10:26 AM DIE CAST DIE MAKER Vent Rate: 71 bpm RR Interval: 841 msec MT Interval: 172 msec QRS Duration: 174 msec QT Interval: 497 msec QTC Interval: 519 msec P-R-T [place]: -83 - 188 - 11 degrees IMPRESSION: ELECTRONIC VENTRICULAR PACEMAKER ABNORMAL RHYTHM ECG Electronically Signed By: Jovon Judd MD June Crabtree MD ECG ORDERABLES Final Re sult Performing Organization Address City/[facility]/ZIP Co de Phone Number [facility] [employer] [facility] * ECG 12 lead (06/27/2024 1:17 PM DIE CAST DIE MAKER) Radha Toro MD ECG ORDERABLES Final Result * DEVICE CHECK - REMOTE (06/13/2024 3:15 PM DIE CAST DIE MAKER) Anatomical Region Laterality Modality Other Narrative 08/16/2024 1:48 PM DIE CAST DIE MAKER Cardoza Dual Fortify Assura ICD implanted on 05/23/20-Shama for NICM, Afib. [facility]. Routine DDD ICD Remote. Transmission attached. Battery status Ok, 4.2 years remaining battery life to RAMON. Stable Charge time and Shock impedance. Stable lead impedances, pacing, and sensing threshold. Presenting rhythm: Afib Vpaced. AP-<1 %, PHLEBOTOMIST SUPERVISOR/INSTRUCTOR-87 %. (3) AT/AF episodes noted. AF burden >99%. (No) Ventricular tachy arrhythmias detected. Medication: Eliquis, Toprol XL. Follow up: office device f/u due 9-12 months. [place] remote 09/19/2024. Radha Curry RN us Ralph Fang MD [facility] CARD[facility] SERVICES PRO CEDURES Final Result * CT Abdomen WO Contrast (01/12/2018 [...] bowel obstruction. No inflammatory lesion is seen. Procedure Note Griffin Esteves [...] Recently Relevant to Health Maintenance Insurance [employer] Member Subscriber Plan / Payer (Ef fective 2020-Present) Name:Montrell Thomas Relation to Subscriber:Self Name:Montrell Thomas Payer ID:[id number] Group ID:Not on file Type:[employer] Address: [address] [place] MEDICARE MEDICARE [facility] [employer] Member Subscriber Plan / Payer (Ef fective 2020-Present) Name:William Montrell Lucius Relation to Subscriber:Self Name:Montrell Thomas Payer ID:[id number] Group ID:Not on file Type:COMMERCIAL Address: [address] [place] Advance Directives For more information, please contact: [phone] * Full Code (Latest Code Status on File) Date Activated Date Inactivated Comments 10/08/2023 7:07 AM 10/08/2023 6:02 PM * Full Code Date Activated Date Inactivated Comments 09/20/2023 6:32 PM 09/24/2023 10:27 PM Care Teams Sales Exhibitor Relationship Specialty Start Date End Date Toya Sauceda PA [address] [place] [address] PCP - General Physician Fleet Maintenance Foreman 08/12/23 Miscellaneous, Not In File 05/23/20
--- OUTSIDE RECORDS SUMMARY | 2024-08-30 14:22 | XMS_ITS | Clinical Summary ---
Author Organization 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
--- OUTSIDE RECORDS SUMMARY | 2024-08-30 14:22 | XMS_ITS | Clinical Summary ---
Author Organization [facility] Address [address] [place] [address] Care Team Providers Care Commissioner Of Conciliation Name Role Phone Miscellaneous, Not In File Unavailable Unava Toya Gonzalez Primary Care Provider [phone] Allergies No known active allergies Medications allopurinoL [...] 09/21/2023 Assessment & Plan (09/21/2023 10:41 AM BAG LOADER MACHINE OPERATOR): Replaced Monitor BMP with IV lasix BID RSV infection 09/21/2023 Assessment & Plan (09/24/2023 2:26 PM BAG LOADER MACHINE OPERATOR): Supportive care Diurese for HFrEF exacerbation Acute bronchitis due to respiratory syncytial vi justice (RSV) 09/21/2023 Assessment & Plan (09/21/2023 10:42 AM BAG LOADER MACHINE OPERATOR): Supportive care. No history of lung disease Not hypoxic monitor for worsening respiratory status CHF (congestive heart failur e), NYHA class II, acute on chronic, diastolic 09/20/2023 Atrial fibrillation ([facility]) 09/15/2023 Assessment & Plan (09/21/2023 10:37 AM BAG LOADER MACHINE OPERATOR): Presented with RVR 2/2 RSV infection Rate now controlled 80s with V pacing Continue Eliquis Diuresing with IV lasix for fluid overload 2/2 to RVR last few days Cardiology consulted continue metoprolol PAYAN (dyspnea on exertion) 08/12/2023 Pain in joint of left shoulder 12/24/2021 Raynaud's phenomenon without gangrene 08/04/2021 Paroxysmal atrial fibrillation ([facility]) 021 Chronic anticoagulation 04/23/2021 Ascending aortic aneurysm ([facility]) 07/22/2020 ICD (implantable cardioverter-defibrillator), brian rosado, in situ 05/23/2020 Overview (03/02/2024): Cardoza Dual Fortify Assura ICD implanted on 05/23/20 for NICM. Shama Vela Non-rheumatic tricuspid valve insufficiency 11/16 Nonischemic cardiomyopathy ([facility]) 07/09/2017 Pulmonary HTN 07/09/2017 HTN (hypertension) 07/09/2017 Resolved Problems Problem Noted Date Diagnosed Date Resolved Date Hypotension 10/07/2023 05/29/2024 Abnormal echocardiogram 07/09/201705/19 Acute on chronic systolic co ngestive heart failure ([facility]) 07/09/2017 05/29/2024 Assessment & Plan (09/24/2023 2:25 PM BAG LOADER MACHINE OPERATOR): Exacerbated by Afib RVR. NT [...] Department Care Team Description 08/30/2024 1:30 PM BAG LOADER MACHINE OPERATOR Office Visit [facility] Cardiology [address] [place] [address] [place] [phone] Jessie Garcia NP Lipid screening (Primary Dx); Nonischemic cardiomyopathy (CMS/HCC) (HCC); CHF (congestive heart failure), NYHA class II, acute on chronic, systolic 08/16/2024 10:30 AM BAG LOADER MACHINE OPERATOR Office Visit [place] [address] [place] [address] [phone] Jessie Garcia NP Nonischemic cardiomyopathy (CMS/HCC) (HCC) (Primary Dx); CHF (congestive heart failure), NYHA class II, acute on chronic, systolic; Paroxysmal atrial fibrillation (CMS/HCC) (HCC); Hypertension, unspecified type; ICD (implantable cardioverter-defibrill ator), dual, in situ; Non-rheumatic tricuspid valve insufficiency 07/22/2024 2:40 PM BAG LOADER MACHINE OPERATOR - 07/22/2024 6:43 PM [facility] Emergency [facility] Emergency Department [facility] [place] [address] June Crabtree MD Acute on chronic diastolic congestive heart failure (CMS/HCC) (HCC) (Primary Dx); Dizziness; Shortness of breath Discharge Disposition: Discharge to home or self care 07/05/2024 Telephone [facility] Cardiology [address] [place] [address] [place] [address] [phone] Mona Petty MD lab orders 06/27/2024 11:15 AM BAG LOADER MACHINE OPERATOR Procedure visit [facility]iology [address] [place] [address] [place] [phone] Dyspnea, unspecified type 06/13/2024 8:30 AM BAG LOADER MACHINE OPERATOR Ancillary Procedure [facility] Cardiology [address] [place] [address] [place] [phone] Atrial fibrillation, unspecified type (HCC) [I48.91] (Primary Dx); Nonischemic cardiomyopathy (CMS/HCC) (HCC); ICD (implantable cardioverter-defibrill ator), dual, in situ [Z95.810] from Last 3 Months Immunizations Name Administration [...] drink = 0.6 oz pu re alcohol) [facility] Utilities Answer Date Recorded In the past 12 months has [employer], gas, oil, or water [employer] threatened to shut off services in your [...] often do you attend chur ch or anabaptist services? Never 09/22/2023 Do you belong to any clubs o r organizations such as lutheran groups, unions, fraternal or athletic groups, or [...] place to sleep or slept in a fpc (including now)? No 09/22/2023 Personal Safety Answer [...] Comments Blood Pressure 90/46 08/30/2024 1:36 PM BAG LOADER MACHINE OPERATOR Pulse 74 08/30/2024 1:36 PM BAG LOADER MACHINE OPERATOR Temperature 35.6 C (96.1 F) 07/22/2024 2:16 PM BAG LOADER MACHINE OPERATOR Respiratory Rate 16 07/22/2024 6:30 PM BAG LOADER MACHINE OPERATOR Oxygen Saturation 93% 08/16/2024 10:22 AM BAG LOADER MACHINE OPERATOR Inhaled Oxygen Concentration - - Weight 90.7 kg (200 lb) 08/30/2024 1:36 PM BAG LOADER MACHINE OPERATOR Height 182.9 cm (6') 08/30/2024 1:36 PM BAG LOADER MACHINE OPERATOR Body Mass Index 27.12 08/30/2024 1:36 PM BAG LOADER MACHINE OPERATOR Plan of Treatment Health Maintenance [...] Screen Completed Medical Devices Implanted Type Area [employer] Counselor Device Identifier Shelf Expiration Date Model / Serial / Lot [employer] [id number] Fortify Assura [id number] 2 Chamber Df4 Is-1 Connector [id number] - [id number] - [id number] Implanted:Qty: 1 on 05/23/2020 by Salbador Sesay MD at [facility] ICD [employer] [id number] 04/17/2022 [id number] / [id number] / [employer] 7120q/65 Durata 7fr 65cm 2 Coil Df-4 True Bipolar Active Fixation - [id number] - [id number] Implanted:Qty: 1 on 05/23/2020 by Salbador Sesay MD at [facility] Lead [employer] [id number] 02/15/2023 7120Q/65 / [id number] / [employer] Tendril Sts 6fr 52cm Is-1 Connector Active Fixation Bipolar Soft - [id number] - [id number] Implanted:Qty: 1 on 05/23/2020 by Salbador Sesay MD at [facility] Lead [employer] [id number] 04/17/20232087TC/52 / [id number] / Procedures Procedure Name Priority Date/Time Associated Diagnosis Comments POCT LIPID PANEL Routine 08/30/2024 1:43 PM BAG LOADER MACHINE OPERATOR Lipid screening TROPONIN T HIGH-SENSITIVITY 4-HR Timed 07/22/2024 6:09 PM BAG LOADER MACHINE OPERATOR TROPONIN T HIGH-SENSITIVITY 2-HOUR Timed 07/22/2024 4:45 PM BAG LOADER MACHINE OPERATOR XR CHEST PA LATERAL 2 VIEWS ED 07/22/2024 3:25 PM BAG LOADER MACHINE OPERATOR RESPIRATORY PATHOGEN PANEL Routine 07/22/2024 3:25 PM BAG LOADER MACHINE OPERATOR EGFR STAT 07/22/2024 2:28 PM BAG LOADER MACHINE OPERATOR DIFFERENTIAL AUTO STAT 07/22/2024 2:2 8 PM BAG LOADER MACHINE OPERATOR PRO B-TYPE NATRIURETIC PEPTIDE STAT 07/22/2024 2:28 PM BAG LOADER MACHINE OPERATOR TROPONIN T HIGH-SENSITIVITY SERIES (BASELINE, 2HR, 4HR, 6HR) STAT 07/22/2024 2:28 PM BAG LOADER MACHINE OPERATOR CBC WITH AUTO DIFFERENTIAL STAT 07/22/2024 2:28 PM BAG LOADER MACHINE OPERATOR COMPREHENSIVE METABOLIC PANEL STAT 07/22/2024 2:28 PM BAG LOADER MACHINE OPERATOR ECG 12-LEAD STAT 07/22/2024 2:13 PM BAG LOADER MACHINE OPERATOR ECG 12-LEAD Routine 06/27/2024 1:17 PM BAG LOADER MACHINE OPERATOR Dyspnea, unspecified type DEVICE CHECK - REMOTE Routine 06/13/2024 3:15 PM BAG LOADER MACHINE OPERATOR Nonischemic cardiomyopathy (CMS/HCC) (HCC) CT ABDOMEN WO CONTRAST Schedule Routine, Read Routine (OP Routine) 01/12/2018 8:43 AM CDT Hypertensive encephalopathy from Last 3 Months or Most Recently Relevant to Health Maintenance Results * POCT lipid panel (08/30/2024 1:43 PM BAG LOADER MACHINE OPERATOR) Cholesterol, POC 166 mg/dL HDL, POC 56 mg/dL Triglycerides, POC 81 mg/dL LDL Cholesterol POC 94 mg/dL Chol/HDL Ratio, POC 1.7 Non-HDL Cholesterol, POC 111 mg/dL Cholesterol Total, POC 166 mg/dL Capillary blood 08/30/2024 1 :43 PM BAG LOADER MACHINE OPERATOR us Jessie Garcia NP POINT OF CARE TEST ORDERABLE S Final Result * (ABNORMAL) Troponin T high-sensitivity 4-hour (07/22/2024 6:09 PM BAG LOADER MACHINE OPERATOR) Pathologist [facility] Trop T hs 31(H) <=22 ng/L Comment: Interpretive Data For further hscTnT resources including the diagnostic algorithm and an aid in interpretation, copy and paste this link: https://nrl.testcatalog.org/show/hsTrop Current Interpretive Data last revised 2020. Trop T hs delta -5 ng/L [facility] Trop T hs interp Equivocal [facility] Blood 07/22/2024 6:09 PM BAG LOADER MACHINE OPERATOR 07/22/2024 6:36 PM BAG LOADER MACHINE OPERATOR us Suzette Orellana DO LAB BLOOD ORDERABLES Final Result [facility] [address] Department [place] [address] * (ABNORMAL) Troponin T high-sensitivity 2-hour (07/22/2024 4:45 PM BAG LOADER MACHINE OPERATOR) Trop T hs 34(H) <=22 ng/L Comment: Interpretive Data For further hscTnT resources including the diagnostic algorithm and an aid in interpretation, copy and paste this link: https://nrl.testcatalog.org/show/hsTrop Current Interpretive Data last revised 2020. Trop T hs delta -2 ng/L [facility] Trop T hs interp Insignificant [facility] Blood 07/22/2024 4:45 PM BAG LOADER MACHINE OPERATOR 07/22/2024 4:45 PM BAG LOADER MACHINE OPERATOR us Suzette Orellana DO LAB BLOOD ORDERABLES Final Result [facility] [address] Department [place] [address] * XR Chest PA Lateral 2 Views (07/22/2024 3:25 PM BAG LOADER MACHINE OPERATOR) Anatomical Region Laterality Modality Body, Chest N/A Computed Radiogr aphy 07/22/2024 4:40 PM BAG LOADER MACHINE OPERATOR Impressions 07/22/2024 4:40 PM BAG LOADER MACHINE OPERATOR Comparison is made to prior [...] Demetrius Bourgeois M.D. Narrative 07/22/2024 4:40 PM BAG LOADER MACHINE OPERATOR EXAMINATION: XR CHEST PA LATERAL [...] Respiratory pathogen panel Nasopharyngeal (07/22/2024 3:25 PM BAG LOADER MACHINE OPERATOR) Pathologist [facility] Influenza A RNA Not Detected Not Detected [facility] Influenza B RNA Not Detected Not Detected [facility] RSV RNA Not Detected Not Detected [facility] COVID-19 RNA Not Detected Not Detected [facility] Coronavirus 229E RNA Not Detected Not Detected [facility] Coronavirus HKU1 RNA Not Detected Not Detected [facility] Coronavirus NL63 RNA Not Detected Not Detected [facility] Coronavirus OC43 RNA Not Detected Not Detected [facility] Adenovirus DNA Not Detected Not Detected [facility] Metapneumovirus RNA Not Detected Not Detected [facility] Rhinovirus/Enterov irus RNA Not Detected Not Detected [facility] Parainfluenza 1 RNA Not Detected Not Detected [facility] Parainfluenza 2 RNA Not Detected Not Detected [facility] Parainfluenza 3 RNA Not Detected Not Detected [facility] Parainfluenza 4 RNA Not Detected Not Detected [facility] B. pertussis DNA Not Detected Not Detected [facility] B. parapertussis DNA Not Detected Not Detected [facility] C. pneumoniae DNA Not Detected Not Detected [facility] M. pneumoniae DNA Not Detected Not Detected [facility] Comment: Interpretive Data The [employer](BHI) FilmArray Respiratory Panel (RP2.1) assay is a [...] assay has FDA clearance for testing of MANAGER VALUATION swabs. The performance characteristics of this assay have been determined by [facility]. Current interpretive data was last revised on 2021. Nasopharyngeal 07/22/2024 3: 25 PM BAG LOADER MACHINE OPERATOR 07/22/2024 4:05 PM BAG LOADER MACHINE OPERATOR Narrative [facility] - 07/22/2024 5:00 PM BAG LOADER MACHINE OPERATOR Is the Patient experiencing symptoms consistent with COVID?->Yes Surveillance testing for transplant patient?->No us June Crabtree MD LAB MICROBIOLOGY - GENER AL ORDERABLES Final Result [facility] [address] Department of Laboratories [place], [place] [id number] [facility] * (ABNORMAL) Troponin T high-sensitivity series (baseline, 2hr, 4hr, 6hr) (07/22/2024 2:28 PM BAG LOADER MACHINE OPERATOR) Trop T hs 36(H) <=22 ng/L Comment: Interpretive Data For further hscTnT resources including the diagnostic algorithm and an aid in interpretation, copy and paste this link: https://nrl.testcatalog.org/show/hsTrop Current Interpretive Data last revised 2020. Blood 07/22/2024 2:28 PM BAG LOADER MACHINE OPERATOR 07/22/2024 2:44 PM BAG LOADER MACHINE OPERATOR us June Crabtree MD LAB BLOOD ORDERABLES Fin al Result [facility] [address] Department [place] [address] * (ABNORMAL) eGFR (07/22/2024 2:28 PM BAG LOADER MACHINE OPERATOR) Pathologist [facility] eGFR 35(L) >=60 mL/min/1. 73 m2 Comment: [...] last reviewed 2021. Blood 07/22/2024 2:28 PM BAG LOADER MACHINE OPERATOR 07/22/2024 2:44 PM BAG LOADER MACHINE OPERATOR us Suzette Orellana DO LAB BLOOD ORDERABLES Final Result [facility] [address] Department [place] [address] * Differential, auto (07/22/2024 2:28 PM BAG LOADER MACHINE OPERATOR) Neutrophil abs 2.2 1.5 - 6.5 K/cumm Imm gran abs 0.0 0.0 - 0.1 K/cumm [facility] Lymphocyte abs 0.8 0.8 - 3.3 K/cumm [facility] Monocyte abs 0.4 0.2 - 0.8 K/cumm [facility] Eosinophil abs 0.0 0.0 - 0.5 K/cumm [facility] Basophil abs 0.0 0.0 - 0.1 K/cumm [facility] Neutrophil pct 63.7 % [facility] Comment: Interpretive Data Percent cell count reference ranges are not reported, since discordance with absolute values may lead to misinterpretation of CBC data. Current Interpretive Data was last revised on 2017. Imm gran pct 0.3 % [facility] Comment: Interpretive Data Percent cell count reference ranges are not reported, since discordance with absolute values may lead to misinterpretation of CBC data. Current Interpretive Data was last revised on 2017. Lymphocyte pct 22.1 % [facility] Comment: Interpretive Data Percent cell count reference ranges are not reported, since discordance with absolute values may lead to misinterpretation of CBC data. Current Interpretive Data was last revised on 2017. Monocyte pct 11.7 % [facility] Comment: Interpretive Data Percent cell count reference ranges are not reported, since discordance with absolute values may lead to misinterpretation of CBC data. Current Interpretive Data was last revised on 2017. Eosinophil pct 1.1 % [facility] Comment: Interpretive Data Percent cell count reference ranges are not reported, since discordance with absolute values may lead to misinterpretation of CBC data. Current Interpretive Data was last revised on 2017. Basophil pct 1.1 % [facility] Comment: Interpretive Data Percent cell count reference ranges are not reported, since discordance with absolute values may lead to misinterpretation of CBC data. Current Interpretive Data was last revised on 2017. Blood 07/22/2024 2:28 PM BAG LOADER MACHINE OPERATOR 07/22/2024 2:43 PM BAG LOADER MACHINE OPERATOR us June Crabtree MD LAB BLOOD ORDERABLES Fin al Result [facility] [address] Department [place] [address] * (ABNORMAL) Pro B-type natriuretic peptide (07/22/2024 2:28 PM BAG LOADER MACHINE OPERATOR) NT-proBNP 19,433(H) <=300 pg/mL Comment: [...] Revised Date: 2018. Blood 07/22/2024 2:28 PM BAG LOADER MACHINE OPERATOR 07/22/2024 2:44 PM BAG LOADER MACHINE OPERATOR June Crabtree MD LAB BLOOD ORDERABLES Fin al Result Performing Organization Address [facility] Co de Phone Number [facility] [address] [place] [address] * (ABNORMAL) CBC with auto differential (07/22/2024 2:28 PM BAG LOADER MACHINE OPERATOR) Pathologist [facility] WBC 3.5(L) 3.8 - 9.9 K/cumm Hgb 10.9(L) 13.0 - 17.5 g/dL [facility] Hct 35.6(L) 38.9 - 50.3 % [facility] Plt 284 150 - 400 K/cumm [facility] MPV 11.7 9.1 - 12.3 fL [facility] RBC 4.19(L) 4.30 - 5.80 M/cumm [facility] MCV 85.0 81.3 - 96.4 fL [facility] MCH 26.0(L) 27.1 - 33.3 pg [facility] MCHC 30.6(L) 32.3 - 35.7 g/dL [facility] RDW CV 17.4(H) 11.1 - 14.9 % [facility] RDW SD 52.1(H) 35.7 - 48.1 fL [facility] NRBC abs 0.00 0.00 - 0.01 K/cumm [facility] Blood 07/22/2024 2:28 PM BAG LOADER MACHINE OPERATOR 07/22/2024 2:43 PM BAG LOADER MACHINE OPERATOR June Crabtree MD LAB BLOOD ORDERABLES Fin al Result Performing Organization Address City/[facility]/ZIP Co de Phone Number [facility] [address] Department [place], [place] [id number] * (ABNORMAL) Comprehensive metabolic panel (07/22/2024 2:28 PM BAG LOADER MACHINE OPERATOR) Pathologist [facility] Sodium 137 135 - 145 mmol/L Potassium, pl 4.1 3.3 - 4.9 mmol/L [facility] Comment:Hemolyzed; potassium value may be falsely elevated by as much as 0.3 - 0.5 mmol/L. Suggest redraw and reanalysis Chloride 100 97 - 110 mmol/L [facility] CO2 23 22 - 32 mmol/L [facility] Anion gap 14 2 - 15 mmol/L [facility] BUN 31(H) 6 - 25 mg/dL [facility] Creatinine 1.97(H) 0.80 - 1.30 mg/dL [facility] Glucose 121 70 - 199 mg/dL [facility] Comment: Interpretive Data Fasting glucose >/= 126 [...] 2022. Calcium 9.5 8.5 - 10.3 mg/dL [facility] Bilirubin, total 2.4(H) 0.1 - 1.2 mg/dL [facility] Protein, pl 7.7 6.5 - 8.5 g/dL [facility] Albumin 3.9 3.5 - 5.0 g/dL [facility] Alk phos 98 40 - 130 Units/L [facility] ALT 24 7 - 55 Units/L [facility] AST 46 10 - 50 Units/L [facility] Comment:Slightly Hemolyzed S pecimen Blood 07/22/2024 2:28 PM BAG LOADER MACHINE OPERATOR 07/22/2024 2:44 PM BAG LOADER MACHINE OPERATOR us June Crabtree MD LAB BLOOD ORDERABLES Fin al Result [facility] [address] Department [place] [address] * ECG 12 lead (07/22/2024 2:13 PM BAG LOADER MACHINE OPERATOR) 07/22/2024 2:13 PM BAG LOADER MACHINE OPERATOR Narrative [facility] - 07/23/2024 10:26 AM BAG LOADER MACHINE OPERATOR Vent Rate: 71 bpm RR Interval: 841 msec LA Interval: 172 msec QRS Duration: 174 msec QT Interval: 497 msec QTC Interval: 519 msec P-R-T Wheeler: -83 - 188 - 11 degrees IMPRESSION: ELECTRONIC VENTRICULAR PACEMAKER ABNORMAL RHYTHM ECG Electronically Signed By: Jovon Judd MD us June Crabtree MD ECG ORDERABLES Final Re sult [facility] * ECG 12 lead (06/27/2024 1:17 PM BAG LOADER MACHINE OPERATOR) us Radha Toro MD ECG ORDERABLES Final Result * DEVICE CHECK - REMOTE (06/13/2024 3:15 PM BAG LOADER MACHINE OPERATOR) Anatomical Region Laterality Modality Other Narrative 08/16/2024 1:48 PM BAG LOADER MACHINE OPERATOR Cardoza Dual Fortify Assura ICD implanted on 05/23/20-Shama for NICM, Afib. [facility]. Routine DDD ICD Remote. Transmission attached. Battery status Ok, 4.2 years remaining battery life to RAMON. Stable Charge time and Shock impedance. Stable lead impedances, pacing, and sensing threshold. Presenting rhythm: Afib Vpaced. AP-<1 %, ESL TUTOR-87 %. (3) AT/AF episodes noted. AF burden >99%. (No) Ventricular tachy arrhythmias detected. Medication: Eliquis, Toprol XL. Follow up: office device f/u due 9-12 months. Dane remote 09/19/2024. Radha Curry, RIAZ us Ralph Fang MD [facility] [...] Insurance [employer] Member Subscriber Plan / Payer (Ef fective 2020-Present) Name:William, Montrell Lucius Relation to Subscriber:Self Name:Montrell Thomas Lucius Payer ID:[id number] Group ID:Not on file Type:ShopIt Address: [facility] [address] [place], [place] [employer] Member Subscriber Plan / Payer (Ef fective 2020-Present) Name:Montrell Thomas Relation to Subscriber:Self Name:Montrell Thomas Lucius Payer ID:[id number] Group ID:Not on file Type:ShopIt Address: [facility] [address] [place], [place] MEDICARE MEDICARE [employer] Advance Directives For more information, please contact: [phone] * Full Code (Latest Code Status on File) Date Activated Date Inactivated Comments 10/08/2023 7:07 AM 10/08/2023 6:02 PM * Full Code Date Activated Date Inactivated Comments 09/20/2023 6:32 PM 09/24/2023 10:27 PM Care Teams Commissioner Of Conciliation Relationship Specialty Start Date End Date Toya Sauceda PA [facility] [place] [address] PCP - General Physician Turkey Picker 08/12/23 Miscellaneous, Not In File 05/23/20
[2024-08-30 14:41] LABS: Anion Gap 9 mmol/L (4-12); Blood Urea Nitrogen 35 mg/dL (9-20); Calcium 9.2 mg/dL (8.4-10.2); Carbon Dioxide 33 mmol/L (22-30); Chloride 95 mmol/L (98-107); Estimated Glomerular Filt Rate 33; Glucose 109 mg/dL (65-110); Potassium 4.2 mmol/L (3.4-5.0); Sodium 137 mmol/L (137-145)
[2024-08-30 14:50] LABS: NT Pro B Type Natriuretic Pept 11200 pg/mL (19.9-100)
== END 2024-08-30 14:16 | disposition home or self-care (01) ==
LOC: ANHLAB 14:20
PROVIDERS: PCP Family Medicine; Visit Provider Nurse Practitioner
DX: I42.8 Other cardiomyopathies (principal); I50.33 Acute on chronic diastolic (congestive) heart failure
CPT/HCPCS: 36415; 80048; 83880

== ENCOUNTER 2024-09-10 16:47 | Inpatient (IN) | payer MEDICARE, SELFPAY ==
[2024-09-10] VITALS (55 sets, daily range): BP systolic 67–110; BP diastolic 50–91; PULSE 75–103; RESP 14–36; TEMP 36.7–37.1; O2SAT 92–100
--- NOTE | ~2024-09-10 | XR_ITS ---
CHEST RADIOGRAPH CLINICAL HISTORY: chest pain . COMPARISON: 10/04/2022 TECHNIQUE: Single portable view of the chest. FINDINGS The left mid lung is partially obscured due to AICD generator. Wires project over the right atrium and right ventricle. The remainder of the cardiomediastinal silhouette is enlarged, unchanged, and otherwise unremarkable. The lungs are clear. IMPRESSION: No focal infiltrate or effusion. Reviewed, dictated and finalized at location A. LIFT WHEEL LOADER
--- NOTE | ~2024-09-10 | CT_ITS ---
CLINICAL INDICATION: Back pain and hypertension COMPARISON: 08/26/2023) CT examination of the chest). TECHNIQUE: Multiple contiguous axial images of the chest, abdomen and pelvis were performed without t he administration of intravenous contrast The dose-length product (DLP) was 644.51 mGy-cm. Automated exposure control and iterative reconstruction technique were employed. FINDINGS/OBSERVATIONS: LUNG: Left basilar atelectasis. The remainder of the lungs are clear. MEDIASTINUM: Limited evaluation without intravenous contrast. HEART: The heart is markedly enlarged, without pericardial effusion. SOFT TISSUES OF THE CHEST: Unremarkable Liver: The liver demonstrates homogeneous attenuation and is not enlarged measuring 16 cm in longitudinal di mension. Gallbladder and biliary system: The gallbladder is only minimally distended, and otherwise unremarkable. Pancreas: Limited evaluation of the pancreas secondary to the lack of intravenous contrast. Spleen: The spleen demonstrates homogeneous attenuation and is not enlarged measuring 9 cm in longitudinal di mension. Kidneys: The bilateral kidneys are unremarkable, without hydronephrosis or renal calculi. Adrenal glands: Unremarkable. Gastrointestinal tract: Colonic diverticulosis without surrounding inflammatory change. Appendix: The appendix is not definitively visualized. However, no pericecal inflammatory change is identified suggest the presence of acute appendicitis. Vasculature: Densely calcified atherosclerotic disease. Lymph nodes: Limited evaluation without intravenous contrast. Pelvic structures: The bladder is decompressed, demonstrating thickened stubbs. The prostate gland is mildly enlarged. Body wall and musculoskeletal: Small fat-containing umbilical hernia. Heterogeneous appearance of the bone marrow is identified, likely representing systemic disease for w hich clinical correlation is needed. Degenerative disease is also noted, with osteophyte formation, disc space narrowing, endplate changes , vacuum phenomena and facet arthropathy. IMPRESSION: Heterogeneous appearance of the bone marrow for which a systemic disease is suspected and for which c linical correlation is needed. No acute findings within the chest, abdomen or pelvis to account for patient's presenting symptoms. Reviewed, dictated and finalized at location A. ONATION EQUIPMENT TENDER IMPRESSION: Heterogeneous appearance of the bone marrow for which a systemic disease is isak pected and for which clinical correlation is needed. No acute findings within the chest, abdomen or pelvis to account for patient's presenting symptoms.
--- NOTE | ~2024-09-10 | CT_ITS ---
Clinical Indication: Dissection, hypotension CT Scan of the Chest, Abdomen, and Pelvis with Contrast: Technique: Contiguous sections were acquired throughout the chest, abdomen, and pelvis after intraven ous administration of 100 cc of Omnipaque 350. Dose reduction technique was used on this scan by patricio gonzalez automated exposure control and iterative reconstruction technique. The dose-length product (DL P) was 1675.65 mGy-cm. Comparison: 09/10/2024 Findings: There is no evidence of any significant mediastinal, hilar or axillary lymphadenopathy. No pulmonary embolus seen. No aortic dissection. Ascending aorta measures 4.4 cm in diameter. Cardiomegaly noted.. There is no evidence of pleural or pericardial effusion. The lungs are clear. No pulmonary nodules or infiltrates are noted. The liver, spleen, pancreas, gallbladder, adrenals and kidneys are within normal limits. No evidence of aortic aneurysm. No lymphadenopathy. No bowel obstruction or bowel wall thickening. There is no evidence to suggest acute appendicitis. Urinary bladder is unremarkable. No pelvic mass seen. No ascites. Impression: 4.4 cm ascending aortic aneurysm. No aortic dissection. Reviewed, dictated and finalized at [facility]. OPERATIVE ASSISTANT Impression: 4.4 cm ascending aortic aneurysm. No aortic dissection.
--- NOTE | ~2024-09-10 | US_ITS ---
EXAMINATION: US renal BI DATE: 09/11/2024 11:20 INDICATION: Acute kidney injury. TECHNIQUE: Multiple ultrasound grayscale images of the kidneys were obtained. COMPARISON: CT 09/10/2024 FINDINGS: The right kidney measures 9.6 x 5.3 x 5.3 cm. The left kidney measures 9.6 x 5.7 x 5.4 cm. The kidney s demonstrate normal parenchymal echogenicity. There is no hydronephrosis. The bladder is normal. IMPRESSION: 1. Normal kidneys. No hydronephrosis. Reviewed, dictated and finalized at location A. ICATIONS WRITER
--- NOTE | 2024-09-10 16:47 | ECG_ITS ---
Test Date: 2024-09-10 16:52:26 Measurements Intervals [place] Rate: 87 P: 0 MT: 0 QRS: -77 QRSD: 161 T: 89 QT: 443 QTc: 534 Interpretive Statements ATRIAL FIBRILLATION IVCD, WITH FEATURES OF BOTH RIGHT BUNDLE BRANCH BLOCK AND LBBB BASELINE ARTIFACT- I, II, AVR ABNORMAL ECG Compared to ECG 01/06/2024 11:52:37 ATRIAL PACEMAKER NO LONGER PRESENT Electronically Signed On 09-10-2024 16:56:34 MARKETING AND OUTREACH COORDINATOR by Jase Simental D.O.
--- OUTSIDE RECORDS SUMMARY | 2024-09-10 16:47 | XMS_ITS | Clinical Summary ---
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
[2024-09-10] MEDS: SODIUM CHLORIDE 0.9% IV 250 ML BAG 500 ML IVPB (17:21)
[2024-09-10 17:24] LABS: Basophils Percent Auto 0.3 % (0.2-1.2); Eosinophils Percent Auto 0.2 % (0-4.4); Hematocrit 41.3 % (42.0-52.0); Hemoglobin 13.1 g/dL (14.0-18.0); Immature Granulocyte Absolute 0.02 K/mm3 (0.00-0.031); Immature Granulocyte Percent A 0.3 % (0-0.5); Lymphocytes Absolute Auto 0.69 K/mm3 (0.9-3.2); Lymphocytes Percent Auto 10.4 % (18.3-44.2); Mean Corpuscular HGB Conc 31.7 g/dl (32-36); Mean Corpuscular Hemoglobin 24.8 pg (26-34); Mean Corpuscular Volume 78.2 fl (80-100); Mean Platelet Volume 9.8 fl (7.4-10.4); Monocytes Absolute Auto 0.6 K/mm3 (0.1-0.6); Monocytes Percent Auto 9.7 % (2.6-8.5); Neutrophils Absolute Auto 5.2 K/mm3 (1.3-6.7); Neutrophils Percent Auto 79.1 % (45.5-73.1); Platelet Count Result 265 k/mm3 (150-375); Red Blood Count 5.28 M/mm3 (4.6-6.20); Red Cell Distribution Width 21.7 % (11.5-14.5); White Blood Count 6.6 K/mm3 (4.5-10.0)
[2024-09-10 17:34] LABS: Alanine Aminotransferase 19 U/L (6-50); Albumin Level 4.1 g/dL (3.5-5.1); Alkaline Phosphatase 124 U/L (38-126); Anion Gap 11 mmol/L (4-12); Aspartate Amino Transferase 37 U/L (17-59); Bilirubin,Total 2.9 mg/dL (0.2-1.3); Blood Urea Nitrogen 43 mg/dL (9-20); Calcium 9.5 mg/dL (8.4-10.2); Carbon Dioxide 27 mmol/L (22-30); Chloride 98 mmol/L (98-107); Estimated CRCL calculation 24 ml/min; Estimated Glomerular Filt Rate 23; Glucose 121 mg/dL (65-110); Lipase 312 U/L (23-300); Potassium 4.6 mmol/L (3.4-5.0); Sodium 136 mmol/L (137-145)
[2024-09-10 17:40] LABS: INR 1.4; Prothrombin Time 17.4 Seconds (11.1-14.7)
[2024-09-10] MEDS: fentaNYL CITRATE INJ (*CRX) 100 MCG/2 ML VIAL 25 MCG IV PUSH (17:40)
[2024-09-10 17:41] LABS: Partial Thromboplastin Time 34.1 Seconds (22.3-36.8)
[2024-09-10 17:45] LABS: Magnesium 1.7 mg/dL (1.6-2.3)
[2024-09-10 17:50] LABS: Troponin I 0.038 ng/mL (0.000-0.034)
--- OUTSIDE RECORDS SUMMARY | 2024-09-10 17:53 | XMS_ITS | Referral Summary ---
Author Organization [facility] Address [address] [place] [address] Care Team Providers Care Tunnel Man Name Role Phone Miscellaneous, Not In File Unavailable Unava Toya Gonzalez Primary Care Provider [phone] Encounters Date Type Department Care Team Description 08/30/2024 1:30 PM SAGGER PREPARER Office Visit [facility] Cardiology [address] [place] [phone] Jessie Garcia NP Lipid screening (Primary Dx); Nonischemic cardiomyopathy (CMS/HCC) (HCC); CHF (congestive heart failure), NYHA class II, acute on chronic, systolic 08/16/2024 10:30 AM SAGGER PREPARER Office Visit [facility] Cardiology [address] [place] [address] Jessie Garcia NP Nonischemic cardiomyopathy (CMS/HCC) (HCC) (Primary Dx); CHF (congestive heart failure), NYHA class II, acute on chronic, systolic; Paroxysmal atrial fibrillation (CMS/HCC) (HCC); Hypertension, unspecified type; ICD (implantable cardioverter-defibrill ator), dual, in situ; Non-rheumatic tricuspid valve insufficiency 07/22/2024 2:40 PM SAGGER PREPARER - 07/22/2024 6:[address] [facility] Emergency [facility] Emergency Department [address] [place] [address] June Crabtree MD Acute on chronic diastolic congestive heart failure (CMS/HCC) ([facility]) (Primary Dx); Dizziness; Shortness of breath Discharge Disposition: Discharge to home or self care 07/05/2024 Telephone [facility] Cardiology [address] [place] [address] Mona Petty MD lab orders 06/27/2024 11:15 AM SAGGER PREPARER Procedure visit [facility] Cardiology [address] [place] [address] Dyspnea, unspecified type 06/13/2024 8:30 AM SAGGER PREPARER Ancillary Procedure [facility] Cardiology [address], [place] [address] Atrial fibrillation, unspecified type ([facility]) [I48.91] (Primary Dx); Nonischemic cardiomyopathy (CMS/HCC) ([facility]); ICD (implantable cardioverter-defibrill ator), dual, in situ [...] on chronic systolic congestive heart failure (CMS/HCC) ([facility]) TAKE 1 TABLET BY MOUTH TWICE A [...] 09/21/2023 Assessment & Plan (09/21/2023 10:41 AM SAGGER PREPARER): Replaced Monitor BMP with IV lasix BID RSV infection 09/21/2023 Assessment & Plan (09/24/2023 2:26 PM SAGGER PREPARER): Supportive care Diurese for HFrEF exacerbation Acute bronchitis due to respiratory syncytial vi justice (RSV) 09/21/2023 Assessment & Plan (09/21/2023 10:42 AM SAGGER PREPARER): Supportive care. No history of lung disease Not hypoxic monitor for worsening respiratory status CHF (congestive heart failur e), NYHA class II, acute on chronic, diastolic 09/20/2023 Atrial fibrillation ([facility]/HCC) 09/15/2023 Assessment & Plan (09/21/2023 10:37 AM SAGGER PREPARER): Presented with RVR 2/2 RSV infection Rate now controlled 80s with V pacing Continue Eliquis Diuresing with IV lasix for fluid overload 2/2 to RVR last few days Cardiology consulted continue metoprolol PAYAN (dyspnea on exertion) 08/12/2023 Pain in joint of left shoulder 12/24/2021 Raynaud's phenomenon without gangrene 08/04/2021 Paroxysmal atrial fibrillation ([facility]/HCC) 021 Chronic anticoagulation 04/23/2021 Ascending aortic aneurysm ([facility]) 07/22/2020 ICD (implantable cardioverter-defibrillator), brian rosado, in situ 05/23/2020 Overview (03/02/2024): Cardoza Dual Fortify Assura ICD implanted on 05/23/20 for NICM. Shama - Dane Non-rheumatic tricuspid valve insufficiency 11/16 Nonischemic cardiomyopathy ([facility]/HCC) 07/09/2017 Pulmonary HTN 07/09/2017 HTN (hypertension) 07/09/2017 Resolved Problems Problem Noted Date Diagnosed Date Resolved Date Hypotension 10/07/2023 05/29/2024 Abnormal echocardiogram 07/09/201705/19 Acute on chronic systolic co ngestive heart failure ([facility]/HCC) 07/09/2017 05/29/2024 Assessment & Plan (09/24/2023 2:25 PM SAGGER PREPARER): Exacerbated by Afib RVR. NT proBNP 8043. [...] shows slightly worse EF 10-15% compared to Lroen Continue GDMT. Add SGLT2 inhibitor and Aldactone if can tolerate and affordable/accessible Discussed with Cardiology recommend continued aggressive IV diuresis 80 mg BID likely able to discharge home with oral regimen over the weekend Immunizations Immunization Administration Dates Next Due Influenza, Quad, Adjuvantated, [...] drink = 0.6 oz pu re alcohol) [employer] Answer Date Recorded In the past 12 months has [employer], oil, or water [employer] threatened to shut off services in your [...] often do you attend chur ch or yazdanism services? Never 09/22/2023 Do you belong to any clubs o r organizations such as rastafari groups, unions, fraternal or athletic groups, or [...] place to sleep or slept in a [place] facility (including now)? No 09/22/2023 Personal Safety Answer [...] Comments Blood Pressure 90/46 08/30/2024 1:36 PM SAGGER PREPARER Pulse 74 08/30/2024 1:36 PM SAGGER PREPARER Temperature 35.6 C (96.1 F) 07/22/2024 2:16 PM SAGGER PREPARER Respiratory Rate 16 07/22/2024 6:30 PM SAGGER PREPARER Oxygen Saturation 93% 08/16/2024 10:22 AM SAGGER PREPARER Inhaled Oxygen Concentration - - Weight 90.7 kg (200 lb) 08/30/2024 1:36 PM SAGGER PREPARER Height 182.9 cm (6') 08/30/2024 1:36 PM SAGGER PREPARER Body Mass Index 27.12 08/30/2024 1:36 PM SAGGER PREPARER Plan of Treatment Not on file Medical Devices Implanted Type Area Energy Audit Advisor Device Identifier Shelf Expiration Date Model / Serial / Lot [employer] [id number] Fortify Assura [id number] 2 Chamber Df4 Is-1 Connector [id number] - [id number] - [id number] Implanted:Qty: 1 on 05/23/2020 by Salbador Sesay MD at [facility] ICD [employer] [id number] 04/17/2022 [id number] / [id number] / [employer] 7120q/65 Durata 7fr 65cm 2 Coil Df-4 True Bipolar Active Fixation - [id number] - [id number] Implanted:Qty: 1 on 05/23/2020 by Salbador Sesay MD at [facility] Lead [employer] [id number] 02/15/2023 [id number]/65 / [id number] / [employer] 2087tc/52 Tendril Sts 6fr 52cm Is-1 Connector Active Fixation Bipolar Soft - [id number] - [id number] Implanted:Qty: 1 on 05/23/2020 by Salbador Sesay MD at [facility] Lead [employer] [id number] 04/17/2023 [id number]/52 / [id number] / Procedures Procedure Name Priority Date/Time Associated Diagnosis Comments POCT LIPID PANEL Routine 08/30/2024 1:43 PM SAGGER PREPARER Lipid screening PRO B-TYPE NATRIURETIC PEPTIDE Routine 08/16/2024 Nonischemic cardiomyopathy (CMS/HCC) (HCC) CHF (congestive heart failure), NYHA class II, acute on chronic, systolic BASIC METABOLIC PANEL Routine 08/16/2024 Nonischemic cardiomyopathy (CMS/HCC) (HCC) CHF (congestive heart failure), NYHA class II, acute on chronic, systolic PRO B-TYPE NATRIURETIC PEPTIDE Routine 08/16/2024 CHF (congestive heart failure), NYHA class II, acute on chronic, systolic CBC WITH AUTO DIFFERENTIAL Routine 08/16/2024 CHF (congestive heart failure), NYHA class II, acute on chronic, systolic BASIC METABOLIC PANEL Routine 08/16/2024 CHF (congestive heart failure), NYHA class II, acute on chronic, systolic TROPONIN T HIGH-SENSITIVITY 4-HR Timed 07/22/2024 6:09 PM SAGGER PREPARER TROPONIN T HIGH-SENSITIVITY 2-HOUR Timed 07/22/2024 4:45 PM SAGGER PREPARER XR CHEST PA LATERAL 2 VIEWS ED 07/22/2024 3:25 PM SAGGER PREPARER RESPIRATORY PATHOGEN PANEL Routine 07/22/2024 3:25 PM SAGGER PREPARER EGFR STAT 07/22/2024 2:28 PM SAGGER PREPARER DIFFERENTIAL AUTO STAT 07/22/2024 2:2 8 PM SAGGER PREPARER PRO B-TYPE NATRIURETIC PEPTIDE STAT 07/22/2024 2:28 PM SAGGER PREPARER TROPONIN T HIGH-SENSITIVITY SERIES (BASELINE, 2HR, 4HR, 6HR) STAT 07/22/2024 2:28 PM SAGGER PREPARER CBC WITH AUTO DIFFERENTIAL STAT 07/22/2024 2:28 PM SAGGER PREPARER COMPREHENSIVE METABOLIC PANEL STAT 07/22/2024 2:28 PM SAGGER PREPARER ECG 12-LEAD STAT 07/22/2024 2:13 PM SAGGER PREPARER ECG 12-LEAD Routine 06/27/2024 1:17 PM SAGGER PREPARER Dyspnea, unspecified type DEVICE CHECK - REMOTE Routine 06/13/2024 3:15 PM SAGGER PREPARER Nonischemic cardiomyopathy (CMS/HCC) (HCC) CT ABDOMEN WO CONTRAST Schedule Routine, Read Routine (OP Routine) 01/12/2018 8:43 AM CDT Hypertensive encephalopathy from Last 3 Months or Most Recently Relevant to Health Maintenance Results * POCT lipid panel (08/30/2024 1:43 PM SAGGER PREPARER) Cholesterol, POC 166 mg/dL HDL, POC 56 mg/dL Triglycerides, POC 81 mg/dL LDL Cholesterol POC 94 mg/dL Chol/HDL Ratio, POC 1.7 Non-HDL Cholesterol, POC 111 mg/dL Cholesterol Total, POC 166 mg/dL Capillary blood 08/30/2024 1 :43 PM SAGGER PREPARER Jessie Garcia NP POINT OF CARE TEST ORDERABLE S Final Result * Pro B-type natriuretic peptide (08/16/2024) SCRIBED NT PROBNP 16,100 EXTERNAL LAB Blood 08/16/2024 Jessie Garcia NP LAB BLOOD ORDERABLES Final R esult Performing Organization Address [facility] Co de Phone Number EXTERNAL LAB * Pro B-type natriuretic peptide (08/16/2024) SCRIBED NT PROBNP 16,100 EXTERNAL LAB Blood 08/16/2024 Jessie Garcia NP LAB BLOOD ORDERABLES Final R esult Performing Organization Address [facility] Co de Phone Number EXTERNAL LAB * CBC with auto differential (08/16/2024) Blood 08/16/2024 Jessie Garcia NP LAB BLOOD ORDERABLES Final R esult EXTERNAL LAB * Basic metabolic panel (08/16/2024) Blood 08/16/2024 Jessie Garcia NP LAB BLOOD ORDERABLES Final R esult Performing Organization Address [facility]/ZIP Co de Phone Number EXTERNAL LAB * Basic metabolic panel (08/16/2024) Blood 08/16/2024 us Jessie Garcia BEAN WEIGHER LAB BLOOD ORDERABLES Final R esult EXTERNAL LAB * (ABNORMAL) Troponin T high-sensitivity 4-hour (07/22/2024 6:09 PM SAGGER PREPARER) Trop T hs 31(H) <=22 ng/L Comment: Interpretive Data For further hscTnT resources including the diagnostic algorithm and an aid in interpretation, copy and paste this link: [email or web address]/show/[email or web address] Current Interpretive Data last revised 2020. Trop T hs delta -5 ng/L [facility] Trop T hs interp Equivocal [facility] Blood 07/22/2024 6:09 PM SAGGER PREPARER 07/22/2024 6:36 PM SAGGER PREPARER us Suzette Orellana DO LAB BLOOD ORDERABLES Final Result Performing Organization Address [facility]/ZIP Co de Phone Number [facility] [address] Department [place] [address] * (ABNORMAL) Troponin T high-sensitivity 2-hour (07/22/2024 4:45 PM SAGGER PREPARER) Trop T hs 34(H) <=22 ng/L Comment: Interpretive Data For further hscTnT resources including the diagnostic algorithm and an aid in interpretation, copy and paste this link: [email or web address]/show/[email or web address] Current Interpretive Data last revised 2020. Trop T hs delta -2 ng/L [facility] Trop T hs interp Insignificant [facility] Blood 07/22/2024 4:45 PM SAGGER PREPARER 07/22/2024 4:45 PM SAGGER PREPARER us Suzette Orellana DO LAB BLOOD ORDERABLES Final Result [facility] [address] Department [place] [address] * XR Chest PA Lateral 2 Views (07/22/2024 3:25 PM SAGGER PREPARER) Anatomical Region Laterality Modality Body, Chest N/A Computed Radiogr aphy 07/22/2024 4:40 PM SAGGER PREPARER Impressions 07/22/2024 4:40 PM SAGGER PREPARER Comparison is made to prior examination 10/07/2023. [...] Demetrius Bourgeois M.D. Narrative 07/22/2024 4:40 PM SAGGER PREPARER EXAMINATION: XR CHEST PA LATERAL 2 VIEWS [...] Respiratory pathogen panel Nasopharyngeal (07/22/2024 3:25 PM SAGGER PREPARER) Influenza A RNA Not Detected Not Detected MBC Influenza B RNA Not Detected Not Detected [facility] RSV RNA Not Detected Not Detected [facility] COVID-19 RNA Not Detected Not Detected [facility] Coronavirus 229E RNA Not Detected Not Detected [facility] Coronavirus HKU1 RNA Not Detected Not Detected [facility] Coronavirus NL63 RNA Not Detected Not Detected [facility] Coronavirus OC43 RNA Not Detected Not Detected [facility] Adenovirus DNA Not Detected Not Detected [facility] Metapneumovirus RNA Not Detected Not Detected [facility] Rhinovirus/Enterov irus RNA Not Detected Not Detected [facility] Parainfluenza 1 RNA Not Detected Not Detected [facility] Parainfluenza 2 RNA Not Detected Not Detected [facility] Parainfluenza 3 RNA Not Detected Not Detected [facility] Parainfluenza 4 RNA Not Detected Not Detected [facility] B. pertussis DNA Not Detected Not Detected [facility] B. parapertussis DNA Not Detected Not Detected [facility] C. pneumoniae DNA Not Detected Not Detected [facility] M. pneumoniae DNA Not Detected Not Detected [facility] Comment: Interpretive Data The [employer] FilmArray Respiratory Panel (RP2.1) assay is a [...] assay has FDA clearance for testing of BEAN WEIGHER swabs. The performance characteristics of this assay have been determined by [facility]. Current interpretive data was last revised on 2021. Nasopharyngeal 07/22/2024 3: 25 PM SAGGER PREPARER 07/22/2024 4:05 PM SAGGER PREPARER Narrative [facility] - 07/22/2024 5:00 PM SAGGER PREPARER Is the Patient experiencing symptoms consistent with COVID?->Yes Surveillance testing for transplant patient?->No June Crabtree MD LAB MICROBIOLOGY - [facility] AL ORDERABLES Final Result [facility] [address] Department [place] [address] [facility] * (ABNORMAL) Troponin T high-sensitivity series (baseline, 2hr, 4hr, 6hr) (07/22/2024 2:28 PM SAGGER PREPARER) Trop T hs 36(H) <=22 ng/L Comment: Interpretive Data For further hscTnT resources including the diagnostic algorithm and an aid in interpretation, copy and paste this link: [email or web address].testcatalog.org/show/[email or web address] Current Interpretive Data last revised 2020. Blood 07/22/2024 2:28 PM SAGGER PREPARER 07/22/2024 2:44 PM SAGGER PREPARER us June Crabtree MD LAB BLOOD ORDERABLES Fin al Result Performing Organization Address [facility]/ZIP Co de Phone Number [facility] [address] Department [place] [address] * (ABNORMAL) eGFR (07/22/2024 2:28 PM SAGGER PREPARER) Pathologist [facility] eGFR 35(L) >=60 mL/min/1. 73 m2 Comment: [...] last reviewed 2021. Blood 07/22/2024 2:28 PM SAGGER PREPARER 07/22/2024 2:44 PM SAGGER PREPARER us Suzette Orellana DO LAB BLOOD ORDERABLES Final Result [facility] [address] Department [place] [address] * Differential, auto (07/22/2024 2:28 PM SAGGER PREPARER) Pathologist [facility] Neutrophil abs 2.2 1.5 - 6.5 K/cumm Imm gran abs 0.0 0.0 - 0.1 K/cumm [facility] Lymphocyte abs 0.8 0.8 - 3.3 K/cumm [facility] Monocyte abs 0.4 0.2 - 0.8 K/cumm [facility] Eosinophil abs 0.0 0.0 - 0.5 K/cumm [facility] Basophil abs 0.0 0.0 - 0.1 K/cumm [facility] Neutrophil pct 63.7 % [facility] Comment: Interpretive Data Percent cell count reference ranges are not reported, since discordance with absolute values may lead to misinterpretation of CBC data. Current Interpretive Data was last revised on 2017. Imm gran pct 0.3 % [facility] Comment: Interpretive Data Percent cell count reference ranges are not reported, since discordance with absolute values may lead to misinterpretation of CBC data. Current Interpretive Data was last revised on 2017. Lymphocyte pct 22.1 % [facility] Comment: Interpretive Data Percent cell count reference ranges are not reported, since discordance with absolute values may lead to misinterpretation of CBC data. Current Interpretive Data was last revised on 2017. Monocyte pct 11.7 % [facility] Comment: Interpretive Data Percent cell count reference ranges are not reported, since discordance with absolute values may lead to misinterpretation of CBC data. Current Interpretive Data was last revised on 2017. Eosinophil pct 1.1 % [facility] Comment: Interpretive Data Percent cell count reference ranges are not reported, since discordance with absolute values may lead to misinterpretation of CBC data. Current Interpretive Data was last revised on 2017. Basophil pct 1.1 % [facility] Comment: Interpretive Data Percent cell count reference ranges are not reported, since discordance with absolute values may lead to misinterpretation of CBC data. Current Interpretive Data was last revised on 2017. Blood 07/22/2024 2:28 PM SAGGER PREPARER 07/22/2024 2:43 PM SAGGER PREPARER us June Crabtree MD LAB BLOOD ORDERABLES Fin al Result [facility] [address] Department [place] [address] * (ABNORMAL) Pro B-type natriuretic peptide (07/22/2024 2:28 PM SAGGER PREPARER) Pathologist [facility] NT-proBNP 19,433(H) <=300 pg/mL Comment: Interpretive Comments: [...] Revised Date: 2018. Blood 07/22/2024 2:28 PM SAGGER PREPARER 07/22/2024 2:44 PM SAGGER PREPARER us June Crabtree MD LAB BLOOD ORDERABLES Fin al Result [facility] [address] Department [place] [address] * (ABNORMAL) CBC with auto differential (07/22/2024 2:28 PM SAGGER PREPARER) [facility] WBC 3.5(L) 3.8 - 9.9 K/cumm Hgb 10.9(L) 13.0 - 17.5 g/dL [facility] Hct 35.6(L) 38.9 - 50.3 % [facility] Plt 284 150 - 400 K/cumm [facility] MPV 11.7 9.1 - 12.3 fL [facility] RBC 4.19(L) 4.30 - 5.80 M/cumm [facility] MCV 85.0 81.3 - 96.4 fL [facility] MCH 26.0(L) 27.1 - 33.3 pg [facility] MCHC 30.6(L) 32.3 - 35.7 g/dL [facility] RDW CV 17.4(H) 11.1 - 14.9 % [facility] RDW SD 52.1(H) 35.7 - 48.1 fL [facility] NRBC abs 0.00 0.00 - 0.01 K/cumm [facility] Blood 07/22/2024 2:28 PM SAGGER PREPARER 07/22/2024 2:43 PM SAGGER PREPARER us June Crabtree MD LAB BLOOD ORDERABLES Fin al Result [facility] [address] Department [place] [address] * (ABNORMAL) Comprehensive metabolic panel (07/22/2024 2:28 PM SAGGER PREPARER) Sodium 137 135 - 145 mmol/L Potassium, pl 4.1 3.3 - 4.9 mmol/L [facility] Comment:Hemolyzed; potassium value may be falsely elevated by as much as 0.3 - 0.5 mmol/L. Suggest redraw and reanalysis Chloride 100 97 - 110 mmol/L [facility] CO2 23 22 - 32 mmol/L [facility] Anion gap 14 2 - 15 mmol/L [facility] BUN 31(H) 6 - 25 mg/dL [facility] Creatinine 1.97(H) 0.80 - 1.30 mg/dL [facility] Glucose 121 70 - 199 mg/dL [facility] Comment: Interpretive Data Fasting glucose [...] 2022. Calcium 9.5 8.5 - 10.3 mg/dL [facility] Bilirubin, total 2.4(H) 0.1 - 1.2 mg/dL [facility] Protein, pl 7.7 6.5 - 8.5 g/dL [facility] Albumin 3.9 3.5 - 5.0 g/dL [facility] Alk phos 98 40 - 130 Units/L [facility] ALT 24 7 - 55 Units/L [facility] AST 46 10 - 50 Units/L [facility] Comment:Slightly Hemolyzed S pecimen Blood 07/22/2024 2:28 PM SAGGER PREPARER 07/22/2024 2:44 PM SAGGER PREPARER Result [facility] June Crabtree MD LAB BLOOD ORDERABLES Fin al Result Performing Organization Address City/State/[facility] Co nc Phone Number [facility] [address] Department [place] [address] * ECG 12 lead (07/22/2024 2:13 PM SAGGER PREPARER) 07/22/2024 2:13 PM SAGGER PREPARER Narrative [facility] - 07/23/2024 10:26 AM SAGGER PREPARER Vent Rate: 71 bpm RR Interval: 841 msec FL Interval: 172 msec QRS Duration: 174 msec QT Interval: 497 msec QTC Interval: 519 msec P-R-T Gorman: -83 - 188 - 11 degrees IMPRESSION: ELECTRONIC VENTRICULAR PACEMAKER ABNORMAL RHYTHM ECG Electronically Signed By: Jovon Judd MD June Crabtree MD ECG ORDERABLES Final Re sult [facility] * ECG 12 lead (06/27/2024 1:17 PM SAGGER PREPARER) us Radha Toro MD ECG ORDERABLES Final Result * DEVICE CHECK - REMOTE (06/13/2024 3:15 PM SAGGER PREPARER) Anatomical Region Laterality Modality Other Narrative 08/16/2024 1:48 PM SAGGER PREPARER Cardoza Dual Fortify Assura ICD implanted on 05/23/20-[facility] for NICM, Afib. [facility]- [place]. Routine DDD ICD Remote. Transmission attached. Battery status Ok, 4.2 years remaining battery life to RAMON. Stable Charge time and Shock impedance. Stable lead impedances, pacing, and sensing threshold. Presenting rhythm: Afib Vpaced. AP-<1 %, CUSTOMER SOLUTIONS COORDINATOR-87 %. (3) AT/AF episodes noted. AF burden >99%. (No) Ventricular tachy arrhythmias detected. Medication: Eliquis, Toprol XL. Follow up: office device f/u due 9-12 months. Castella remote 09/19/2024. Radha Curry RN us Ralph [...] Recently Relevant to Health Maintenance Insurance MEDICARE [facility] Member Subscriber Plan / Payer (Ef fective 2020-Present) Name:Montrell Thomas Relation to Subscriber:Self Name:Montrell Thomas Payer ID:[id number] Group ID:Not on file Type:COMMERCIAL Address: [facility] [address] [place], [place] [employer] Member Subscriber Plan / Payer (Ef fective 2020-Present) Name:Montrell Thomas Relation to Subscriber:Self Name:Montrell Thomas Payer ID:[id number] Group ID:Not on file Type:COMMERCIAL Address: [facility] [address] [place], [place] MEDICARE MEDICARE [employer] Advance Directives For more information, please contact: [phone] * Full Code (Latest Code Status on File) Date Activated Date Inactivated Comments 10/08/2023 7:07 AM 10/08/2023 6:02 PM * Full Code Date Activated Date Inactivated Comments 09/20/2023 6:32 PM 09/24/2023 10:27 PM Care Teams Tunnel Man Relationship Specialty Start Date End Date Toya Sauceda PA [address] [place] [address] PCP - General Physician Brand Protection Manager 08/12/23 Miscellaneous, Not In File 05/23/20
--- OUTSIDE RECORDS SUMMARY | 2024-09-10 17:53 | XMS_ITS | Clinical Summary ---
Author Organization [facility] Address [address] [place] [address] Care Team Providers Care Supervisor Instrument Repair Name Role Phone Miscellaneous, Not In File Unavailable Unava Toya Gonzalez Primary Care Provider [phone] Allergies No known active allergies Medications allopurinoL [...] 09/21/2023 Assessment & Plan (09/21/2023 10:41 AM TRAP OPERATOR): Replaced Monitor BMP with IV lasix BID RSV infection 09/21/2023 Assessment & Plan (09/24/2023 2:26 PM TRAP OPERATOR): Supportive care Diurese for HFrEF exacerbation Acute bronchitis due to respiratory syncytial vi justice (RSV) 09/21/2023 Assessment & Plan (09/21/2023 10:42 AM TRAP OPERATOR): Supportive care. No history of lung disease Not hypoxic monitor for worsening respiratory status CHF (congestive heart failur e), NYHA class II, acute on chronic, diastolic 09/20/2023 Atrial fibrillation ([facility]) 09/15/2023 Assessment & Plan (09/21/2023 10:37 AM TRAP OPERATOR): Presented with RVR 2/2 RSV infection Rate now controlled 80s with V pacing Continue Eliquis Diuresing with IV lasix for fluid overload 2/2 to RVR last few days Cardiology consulted continue metoprolol PAYAN (dyspnea on exertion) 08/12/2023 Pain in joint of left shoulder 12/24/2021 Raynaud's phenomenon without gangrene 08/04/2021 Paroxysmal atrial fibrillation ([facility]) 021 Chronic anticoagulation 04/23/2021 Ascending aortic aneurysm ([facility]) 07/22/2020 ICD (implantable cardioverter-defibrillator), brian rosado, in situ 05/23/2020 Overview (03/02/2024): Cardoza Dual Fortify Assura ICD implanted on 05/23/20 for NICM. Shama Vela Non-rheumatic tricuspid valve insufficiency 11/16 Nonischemic cardiomyopathy ([facility]/HCC) 07/09/2017 Pulmonary HTN 07/09/2017 HTN (hypertension) 07/09/2017 Resolved Problems Problem Noted Date Diagnosed Date Resolved Date Hypotension 10/07/2023 05/29/2024 Abnormal echocardiogram 07/09/201705/19 Acute on chronic systolic co ngestive heart failure ([facility]/HCC) 07/09/2017 05/29/2024 Assessment & Plan (09/24/2023 2:25 PM TRAP OPERATOR): Exacerbated by Afib RVR. NT proBNP [...] Department Care Team Description 08/30/2024 1:30 PM TRAP OPERATOR Office Visit [facility] [address] [place] [address] [place] [phone] Jessie Garcia NP Lipid screening (Primary Dx); Nonischemic cardiomyopathy (CMS/HCC) (HCC); CHF (congestive heart failure), NYHA class II, acute on chronic, systolic 08/16/2024 10:30 AM TRAP OPERATOR Office Visit [place] [address] [place] [phone] Jessie Garcia NP Nonischemic cardiomyopathy (CMS/HCC) (HCC) (Primary Dx); CHF (congestive heart failure), NYHA class II, acute on chronic, systolic; Paroxysmal atrial fibrillation (CMS/HCC) (HCC); Hypertension, unspecified type; ICD (implantable cardioverter-defibrill ator), dual, in situ; Non-rheumatic tricuspid valve insufficiency 07/22/2024 2:40 PM TRAP OPERATOR - 07/22/2024 6:43 PM [facility] Emergency [facility] Emergency Department [facility] [place] [address] June Crabtree MD Acute on chronic diastolic congestive heart failure (CMS/HCC) (HCC) (Primary Dx); Dizziness; Shortness of breath Discharge Disposition: Discharge to home or self care 07/05/2024 Telephone [facility] [address] [place] [address] [place] [phone] Mona Petty MD lab orders 06/27/2024 11:15 AM TRAP OPERATOR Procedure visit [facility] [address] [place] [address] [place] [phone] Dyspnea, unspecified type 06/13/2024 8:30 AM TRAP OPERATOR Ancillary Procedure [facility] [address] [place] [address] [place] [phone] Atrial fibrillation, unspecified type (HCC) [I48.91] (Primary Dx); Nonischemic cardiomyopathy (CMS/HCC) (HCC); ICD (implantable cardioverter-defibrill ator), dual, in situ [Z95.810] from Last 3 Months Immunizations Immunization Administration Dates Next Due Influenza, [...] 0.6 oz pu re alcohol) [facility] Utilities Answer Date Recorded In the past 12 months has [employer], gas, oil, or water [employer] threatened to shut off services in your [...] often do you attend chur ch or latter day services? Never 09/22/2023 Do you belong to any clubs o r organizations such as anabaptism groups, unions, fraternal or athletic groups, or [...] place to sleep or slept in a intermediate (including now)? No 09/22/2023 Personal Safety Answer [...] Comments Blood Pressure 90/46 08/30/2024 1:36 PM TRAP OPERATOR Pulse 74 08/30/2024 1:36 PM TRAP OPERATOR Temperature 35.6 C (96.1 F) 07/22/2024 2:16 PM TRAP OPERATOR Respiratory Rate 16 07/22/2024 6:30 PM TRAP OPERATOR Oxygen Saturation 93% 08/16/2024 10:22 AM TRAP OPERATOR Inhaled Oxygen Concentration - - Weight 90.7 kg (200 lb) 08/30/2024 1:36 PM TRAP OPERATOR Height 182.9 cm (6') 08/30/2024 1:36 PM TRAP OPERATOR Body Mass Index 27.12 08/30/2024 1:36 PM TRAP OPERATOR Plan of Treatment Health Maintenance Due [...] Screen Completed Medical Devices Implanted Type Area Forge Tender Device Identifier Shelf Expiration Date Model / Serial / Lot [employer] [id number] Fortify Assura [id number] 2 Chamber Df4 Is-1 Connector [id number] - [id number] - [id number] Implanted:Qty: 1 on 05/23/2020 by Salbador Sesay MD at [facility] ICD [employer] [id number] 04/17/2022 [id number] / [id number] / [employer] 7120q/65 Durata 7fr 65cm 2 Coil Df-4 True Bipolar Active Fixation - [id number] - [id number] Implanted:Qty: 1 on 05/23/2020 by Salbador Sesay MD at [facility] Lead [employer] [id number] 02/15/2023 7120Q/65 / [id number] / [employer] Tendril Sts 6fr 52cm Is-1 Connector Active Fixation Bipolar Soft - [id number] - [id number] Implanted:Qty: 1 on 05/23/2020 by Salbador Sesay MD at [facility] Lead [employer] [id number] 04/17/20232087TC/52 / [id number] / Procedures Procedure Name Priority Date/Time Associated Diagnosis Comments POCT LIPID PANEL Routine 08/30/2024 1:43 PM TRAP OPERATOR Lipid screening PRO B-TYPE NATRIURETIC PEPTIDE Routine [...] T HIGH-SENSITIVITY 4-HR Timed 07/22/2024 6:09 PM TRAP OPERATOR TROPONIN T HIGH-SENSITIVITY 2-HOUR Timed 07/22/2024 4:45 PM TRAP OPERATOR XR CHEST PA LATERAL 2 VIEWS ED 07/22/2024 3:25 PM TRAP OPERATOR RESPIRATORY PATHOGEN PANEL Routine 07/22/2024 3:25 PM TRAP OPERATOR EGFR STAT 07/22/2024 2:28 PM TRAP OPERATOR DIFFERENTIAL AUTO STAT 07/22/2024 2:2 8 PM TRAP OPERATOR PRO B-TYPE NATRIURETIC PEPTIDE STAT 07/22/2024 2:28 PM TRAP OPERATOR TROPONIN T HIGH-SENSITIVITY SERIES (BASELINE, 2HR, 4HR, 6HR) STAT 07/22/2024 2:28 PM TRAP OPERATOR CBC WITH AUTO DIFFERENTIAL STAT 07/22/2024 2:28 PM TRAP OPERATOR COMPREHENSIVE METABOLIC PANEL STAT 07/22/2024 2:28 PM TRAP OPERATOR ECG 12-LEAD STAT 07/22/2024 2:13 PM TRAP OPERATOR ECG 12-LEAD Routine 06/27/2024 1:17 PM TRAP OPERATOR Dyspnea, unspecified type DEVICE CHECK - REMOTE Routine 06/13/2024 3:15 PM TRAP OPERATOR Nonischemic cardiomyopathy (CMS/HCC) (HCC) CT ABDOMEN WO CONTRAST Schedule Routine, Read Routine (OP Routine) 01/12/2018 8:43 AM CDT Hypertensive encephalopathy from Last 3 Months or Most Recently Relevant to Health Maintenance Results * POCT lipid panel (08/30/2024 1:43 PM TRAP OPERATOR) Cholesterol, POC 166 mg/dL HDL, POC 56 mg/dL Triglycerides, POC 81 mg/dL LDL Cholesterol POC 94 mg/dL Chol/HDL Ratio, POC 1.7 Non-HDL Cholesterol, POC 111 mg/dL Cholesterol Total, POC 166 mg/dL Capillary blood 08/30/2024 1 :43 PM TRAP OPERATOR Jessie Garcia NP POINT OF CARE TEST ORDERABLE S Final Result * Pro B-type natriuretic peptide (08/16/2024) SCRIBED NT PROBNP 16,100 EXTERNAL LAB Blood 08/16/2024 Jessie Garcia NP LAB BLOOD ORDERABLES Final R esult EXTERNAL LAB * Pro B-type natriuretic peptide (08/16/2024) SCRIBED NT PROBNP 16,100 EXTERNAL LAB Blood 08/16/2024 Jessie Garcia FARM TRUCK DRIVER LAB BLOOD ORDERABLES Final R esult Performing Organization Address [facility] de Phone Number EXTERNAL LAB * CBC with auto differential (08/16/2024) Blood 08/16/2024 Jessie Garcia NP LAB BLOOD ORDERABLES Final R esult Performing Organization Address [facility] de Phone Number EXTERNAL LAB * Basic metabolic panel (08/16/2024) Blood 08/16/2024 Jessie Garcia NP LAB BLOOD ORDERABLES Final R esult Performing Organization Address [facility] de Phone Number EXTERNAL LAB * Basic metabolic panel (08/16/2024) Blood 08/16/2024 Jessie Garcia NP LAB BLOOD ORDERABLES Final R esult Performing Organization Address [facility] de Phone Number EXTERNAL LAB * (ABNORMAL) Troponin T high-sensitivity 4-hour (07/22/2024 6:09 PM TRAP OPERATOR) Trop T hs 31(H) <=22 ng/L Comment: Interpretive Data For further hscTnT resources including the diagnostic algorithm and an aid in interpretation, copy and paste this link: https://nrl.testcatalog.org/show/hsTrop Current Interpretive Data last revised 2020. Trop T hs delta -5 ng/L [facility] Trop T hs interp Equivocal [facility] Blood 07/22/2024 6:09 PM TRAP OPERATOR 07/22/2024 6:36 PM TRAP OPERATOR Suzette Orellana DO LAB BLOOD ORDERABLES Final Result Performing Organization Address [facility] Co de Phone Number [facility] [address] Department [place] [address] * (ABNORMAL) Troponin T high-sensitivity 2-hour (07/22/2024 4:45 PM TRAP OPERATOR) Trop T hs 34(H) <=22 ng/L Comment: Interpretive Data For further hscTnT resources including the diagnostic algorithm and an aid in interpretation, copy and paste this link: https://nrl.testcatalog.org/show/hsTrop Current Interpretive Data last revised 2020. Trop T hs delta -2 ng/L [facility] Trop T hs interp Insignificant [facility] Blood 07/22/2024 4:45 PM TRAP OPERATOR 07/22/2024 4:45 PM TRAP OPERATOR Suzette Orellana DO LAB BLOOD ORDERABLES Final Result Performing Organization Address [facility] Co de Phone Number [facility] [address] [place] [address] * XR Chest PA Lateral 2 Views (07/22/2024 3:25 PM TRAP OPERATOR) Anatomical Region Laterality Modality Body, Chest N/A Computed Radiogr aphy 07/22/2024 4:40 PM TRAP OPERATOR Impressions 07/22/2024 4:40 PM TRAP OPERATOR Comparison is made to prior examination [...] Demetrius Bourgeois M.D. Narrative 07/22/2024 4:40 PM TRAP OPERATOR EXAMINATION: XR CHEST PA LATERAL 2 [...] Respiratory pathogen panel Nasopharyngeal (07/22/2024 3:25 PM TRAP OPERATOR) Influenza A RNA Not Detected Not Detected [facility] Influenza B RNA Not Detected Not Detected [facility] RSV RNA Not Detected Not Detected [facility] COVID-19 RNA Not Detected Not Detected [facility] Coronavirus 229E RNA Not Detected Not Detected [facility] Coronavirus HKU1 RNA Not Detected Not Detected [facility] Coronavirus NL63 RNA Not Detected Not Detected [facility] Coronavirus OC43 RNA Not Detected Not Detected [facility] Adenovirus DNA Not Detected Not Detected [facility] Metapneumovirus RNA Not Detected Not Detected [facility] Rhinovirus/Enterov irus RNA Not Detected Not Detected [facility] Parainfluenza 1 RNA Not Detected Not Detected [facility] Parainfluenza 2 RNA Not Detected Not Detected [facility] Parainfluenza 3 RNA Not Detected Not Detected [facility] Parainfluenza 4 RNA Not Detected Not Detected [facility] B. pertussis DNA Not Detected Not Detected [facility] B. parapertussis DNA Not Detected Not Detected [facility] C. pneumoniae DNA Not Detected Not Detected [facility] M. pneumoniae DNA Not Detected Not Detected [facility] Comment: Interpretive Data The myThings FilmArray Respiratory Panel (RP2.1) assay is a [...] assay has FDA clearance for testing of FARM TRUCK DRIVER swabs. The performance characteristics of this assay have been determined by [facility]. Current interpretive data was last revised on 2021. Nasopharyngeal 07/22/2024 3: 25 PM TRAP OPERATOR 07/22/2024 4:05 PM TRAP OPERATOR Narrative [facility] - 07/22/2024 5:00 PM TRAP OPERATOR Is the Patient experiencing symptoms consistent with COVID?->Yes Surveillance testing for transplant patient?->No Result [facility] June Crabtree MD LAB MICROBIOLOGY - GENER AL ORDERABLES Final Result Performing Organization Address [facility] Co de Phone Number [facility] [address] Department [place] [address] MBC * (ABNORMAL) Troponin T high-sensitivity series (baseline, 2hr, 4hr, 6hr) (07/22/2024 2:28 PM TRAP OPERATOR) Pathologist [facility] Trop T hs 36(H) <=22 ng/L Comment: Interpretive Data For further hscTnT resources including the diagnostic algorithm and an aid in interpretation, copy and paste this link: https://nrl.testcatalog.org/show/hsTrop Current Interpretive Data last revised 2020. Blood 07/22/2024 2:28 PM TRAP OPERATOR 07/22/2024 2:44 PM TRAP OPERATOR Result [facility] June Crabtree MD LAB BLOOD ORDERABLES Fin al Result Performing Organization Address [facility] Co de Phone Number [facility] [address] Department [place] [address] * (ABNORMAL) eGFR (07/22/2024 2:28 PM TRAP OPERATOR) eGFR 35(L) >=60 mL/min/1. 73 m2 Comment: [...] last reviewed 2021. Blood 07/22/2024 2:28 PM TRAP OPERATOR 07/22/2024 2:44 PM TRAP OPERATOR us Suzette Orellana DO LAB BLOOD ORDERABLES Final Result [facility] [address] Department [place] [address] * Differential, auto (07/22/2024 2:28 PM TRAP OPERATOR) Neutrophil abs 2.2 1.5 - 6.5 K/cumm Imm gran abs 0.0 0.0 - 0.1 K/cumm [facility] Lymphocyte abs 0.8 0.8 - 3.3 K/cumm [facility] Monocyte abs 0.4 0.2 - 0.8 K/cumm [facility] Eosinophil abs 0.0 0.0 - 0.5 K/cumm [facility] Basophil abs 0.0 0.0 - 0.1 K/cumm [facility] Neutrophil pct 63.7 % [facility] Comment: Interpretive Data Percent cell count reference ranges are not reported, since discordance with absolute values may lead to misinterpretation of CBC data. Current Interpretive Data was last revised on 2017. Imm gran pct 0.3 % [facility] Comment: Interpretive Data Percent cell count reference ranges are not reported, since discordance with absolute values may lead to misinterpretation of CBC data. Current Interpretive Data was last revised on 2017. Lymphocyte pct 22.1 % [facility] Comment: Interpretive Data Percent cell count reference ranges are not reported, since discordance with absolute values may lead to misinterpretation of CBC data. Current Interpretive Data was last revised on 2017. Monocyte pct 11.7 % [facility] Comment: Interpretive Data Percent cell count reference ranges are not reported, since discordance with absolute values may lead to misinterpretation of CBC data. Current Interpretive Data was last revised on 2017. Eosinophil pct 1.1 % [facility] Comment: Interpretive Data Percent cell count reference ranges are not reported, since discordance with absolute values may lead to misinterpretation of CBC data. Current Interpretive Data was last revised on 2017. Basophil pct 1.1 % [facility] Comment: Interpretive Data Percent cell count reference ranges are not reported, since discordance with absolute values may lead to misinterpretation of CBC data. Current Interpretive Data was last revised on 2017. Blood 07/22/2024 2:28 PM TRAP OPERATOR 07/22/2024 2:43 PM TRAP OPERATOR us June Crabtree MD LAB BLOOD ORDERABLES Fin al Result [facility] [address] Department [place] [address] * (ABNORMAL) Pro B-type natriuretic peptide (07/22/2024 2:28 PM TRAP OPERATOR) NT-proBNP 19,433(H) <=300 pg/mL Comment: Interpretive [...] Revised Date: 2018. Blood 07/22/2024 2:28 PM TRAP OPERATOR 07/22/2024 2:44 PM TRAP OPERATOR us June Crabtree MD LAB BLOOD ORDERABLES Fin al Result [facility] [address] Department [place] [address] * (ABNORMAL) CBC with auto differential (07/22/2024 2:28 PM TRAP OPERATOR) Pathologist [facility] WBC 3.5(L) 3.8 - 9.9 K/cumm Hgb 10.9(L) 13.0 - 17.5 g/dL [facility] Hct 35.6(L) 38.9 - 50.3 % [facility] Plt 284 150 - 400 K/cumm [facility] MPV 11.7 9.1 - 12.3 fL [facility] RBC 4.19(L) 4.30 - 5.80 M/cumm [facility] MCV 85.0 81.3 - 96.4 fL [facility] MCH 26.0(L) 27.1 - 33.3 pg [facility] MCHC 30.6(L) 32.3 - 35.7 g/dL [facility] RDW CV 17.4(H) 11.1 - 14.9 % [facility] RDW SD 52.1(H) 35.7 - 48.1 fL [facility] NRBC abs 0.00 0.00 - 0.01 K/cumm [facility] Blood 07/22/2024 2:28 PM TRAP OPERATOR 07/22/2024 2:43 PM TRAP OPERATOR us June Crabtree MD LAB BLOOD ORDERABLES Fin al Result [facility] [address] Department [place] [address] * (ABNORMAL) Comprehensive metabolic panel (07/22/2024 2:28 PM TRAP OPERATOR) [facility] Sodium 137 135 - 145 mmol/L Potassium, pl 4.1 3.3 - 4.9 mmol/L [facility] Comment:Hemolyzed; potassium value may be falsely elevated by as much as 0.3 - 0.5 mmol/L. Suggest redraw and reanalysis Chloride 100 97 - 110 mmol/L [facility] CO2 23 22 - 32 mmol/L [facility] Anion gap 14 2 - 15 mmol/L [facility] BUN 31(H) 6 - 25 mg/dL [facility] Creatinine 1.97(H) 0.80 - 1.30 mg/dL [facility] Glucose 121 70 - 199 mg/dL [facility] Comment: Interpretive Data Fasting glucose >/= [...] 2022. Calcium 9.5 8.5 - 10.3 mg/dL [facility] Bilirubin, total 2.4(H) 0.1 - 1.2 mg/dL [facility] Protein, pl 7.7 6.5 - 8.5 g/dL [facility] Albumin 3.9 3.5 - 5.0 g/dL [facility] Alk phos 98 40 - 130 Units/L [facility] ALT 24 7 - 55 Units/L [facility] AST 46 10 - 50 Units/L [facility] Comment:Slightly Hemolyzed S pecimen Blood 07/22/2024 2:28 PM TRAP OPERATOR 07/22/2024 2:44 PM TRAP OPERATOR Result [facility] June Crabtree MD LAB BLOOD ORDERABLES Fin al Result Performing Organization Address City/[facility]/ZIP Co de Phone Number [facility] [address] [place] [address] * ECG 12 lead (07/22/2024 2:13 PM TRAP OPERATOR) 07/22/2024 2:13 PM TRAP OPERATOR Narrative [facility] - 07/23/2024 10:26 AM TRAP OPERATOR Vent Rate: 71 bpm RR Interval: 841 msec AL Interval: 172 msec QRS Duration: 174 msec QT Interval: 497 msec QTC Interval: 519 msec P-R-T [place]: -83 - 188 - 11 degrees IMPRESSION: ELECTRONIC VENTRICULAR PACEMAKER ABNORMAL RHYTHM ECG Electronically Signed By: Jovon Judd MD June Crabtree MD ECG ORDERABLES Final Re sult Performing Organization Address [facility] Phone Number [facility] [employer] [facility] * ECG 12 lead (06/27/2024 1:17 PM TRAP OPERATOR) Radha Toro MD ECG ORDERABLES Final Result * DEVICE CHECK - REMOTE (06/13/2024 3:15 PM TRAP OPERATOR) Anatomical Region Laterality Modality Other Narrative 08/16/2024 1:48 PM TRAP OPERATOR Cardoza Dual Fortify Assura ICD implanted on 05/23/20-Shama for NICM, Afib. Yoel-Lizet Vela. Routine DDD ICD Remote. Transmission attached. Battery status Ok, 4.2 years remaining battery life to RAMON. Stable Charge time and Shock impedance. Stable lead impedances, pacing, and sensing threshold. Presenting rhythm: Afib Vpaced. AP-<1 %, MOLYBDENUM STEAMER OPERATOR-87 %. (3) AT/AF episodes noted. AF burden >99%. (No) Ventricular tachy arrhythmias detected. Medication: Eliquis, Toprol XL. Follow up: office device f/u due 9-12 months. [facility] 09/19/2024. Radha Curry RN us Ralph Fang MD CV CARDIAC SERVICES PRO CEDURES Final Result * CT Abdomen WO Contrast (01/12/2018 8:43 AM CDT) Anatomical Region Laterality Modality Body N/A Computed Tomogra phy 01/12/2018 8:51 AM CDT Impressions 01/12/2018 8:[address] OF THE ABDOMEN. Electronically signed by: Arsalan Mei 01/12/2018 8:55 AM CDT RESULT: HISTORY: Portal [...] Thomas Relation to Subscriber:Self Name:Montrell Thomas Payer ID:[id number] Group ID:Not on file Type:Shahiya Address: [facility] [address] [place], [place] [employer] Member Subscriber Plan / Payer (Ef fective 2020-Present) Name:Montrell Thomas Relation to Subscriber:Self Name:Montrell Thomas Payer ID:[id number] Group ID:Not on file Type:Shahiya Address: [facility] [address] [place], [place] MEDICARE MEDICARE [employer] Advance Directives For more information, please contact: [phone] * Full Code (Latest Code Status on File) Date Activated Date Inactivated Comments 10/08/2023 7:07 AM 10/08/2023 6:02 PM * Full Code Date Activated Date Inactivated Comments 09/20/2023 6:32 PM 09/24/2023 10:27 PM Care Teams Supervisor Instrument Repair Relationship Specialty Start Date End Date Toya Sauceda PA [address] [place] [id number] PCP - General Physician Co Founder And Cto 08/12/23 Miscellaneous, Not In File 05/23/20
--- NOTE | 2024-09-10 17:54 | ED_ITS ---
HPI - General Adult General Chief complaint: Chest Pain <Ricky Styles MD - Last Filed: 09/10/24 18:57> Stated complaint: CP <Ricky Styles MD - Last Filed: 09/10/24 18:57> Time Seen by Provider: 09/10/24 17:09 <Ricky Styles MD - Last Filed: 09/10/24 18:57> History of Present Illness HPI narrative: Patient 74-year-old gentleman presents emergency department with chief complaint of chest and back pain the patient reports he has history of congestive heart failure is followed by cardiology with [facility] the patient states that recently he did have extra fluid on his body he was given additional Lasix by his primary cardiology team. The patient states that he started having pain between his shoulder blades reports that it is an aching like sensation denies shortness of breath reports that his edema has resolved. The patient states that his blood pressure does report normally run somewhat low <Ricky Styles MD - Last Filed: 09/10/24 18:57> Related Data Home medications: Home Medications ?Medication ?Instructions ?Recorded ?Confirmed ?Last Taken ?Type sacubitril 49 mg-valsartan 51 mg 1 tablet PO BID 03/05/21 08/02/24 01/06/24 History tablet (Entresto) apixaban 5 mg tablet (Eliquis) 5 mg PO BID 11/11/21 08/02/24 01/06/24 History metoprolol succinate 100 mg 100 mg PO DAILY 01/05/24 09/10/24 01/06/24 History tablet,extended release 24 hr pantoprazole 20 mg tablet,delayed 20 mg PO DAILY 01/05/24 08/02/24 01/06/24 History release spironolactone 25 mg tablet 25 mg PO DAILY 01/05/24 08/02/24 01/06/24 History <Ricky Styles MD - Last Filed: 09/10/24 18:57> Allergies/adverse reactions: Allergies Allergy/AdvReac Type Severity Reaction Status Date / Time No Known Allergies Allergy Verified 09/10/24 16:59 <Ricky Styles MD - Last Filed: 09/10/24 18:57> Review of Systems 2 Review of Systems: A 10 system review of systems was completed on the patient and is negative except for what is stated in the HPI. Nursing and ancillary documentation was reviewed. <Ricky Styles MD - Last Filed: 09/10/24 18:57> PMFSH Past Medical History Medical History: Medical History SOB (shortness of breath) Obesity (BMI 30-39.9) Mixed hyperlipidemia ICD (implantable cardioverter-defibrillator) in place Hx of angiography Cardiomyopathy CHF (congestive heart failure) <Ricky Styles MD - Last Filed: 09/10/24 18:57> Surgical History Surgical History: Surgical History S/P cardiac cath <Ricky Styles MD - Last Filed: 09/10/24 18:57> Family History Family History: Family History Mother Diabetes mellitus Hypertension Cancer <Ricky Styles MD - Last Filed: 09/10/24 18:57> Social History Social History: Social History Smoking status: Former smoker Tobacco type: cigars Second hand tobacco smoke exposure: No Additional smoking assessment comments: smoked 1 cigar per day Alcohol intake: never Drinks per week: 15 Substance use: never Substance use type: does not use Other substance usage details: 2xweek Living arrangements: with family Spiritual care concerns: No <iRcky Styles MD - Last Filed: 09/10/24 18:57> Exam 2 Narrative: GENERAL: Well-appearing, well-nourished, and in no acute distress. HEAD: Normocephalic, atraumatic. EYES: PERRLA and EOMI. ENT: Nares clear, no rhinorrhea or epistaxis. Mucous membranes moist. NECK: Supple. CHEST: Clear to auscultation. No respiratory distress. HEART: Regular rate and rhythm. No murmur heard. Normal peripheral pulses. ABDOMEN: Soft, nontender, nondistended, normal active bowel sounds. EXTREMITIES: Normal range of motion. No edema. SKIN: Warm, dry, no rash. NEURO: No focal deficits. Alert and oriented x3. PSYCH: Normal mood and affect. <Ricky Styles MD - Last Filed: 09/10/24 18:57> Course Vital Signs Vital signs: Vital Signs Temperature 37.1 C 09/10/24 16:48 Respiratory Rate 16 09/10/24 16:48 Blood Pressure 69/58 L 09/10/24 16:48 Pulse Oximetry 95 09/10/24 16:48 Oxygen Delivery Room Air 09/10/24 16:48 Temperature 36.7 C 09/10/24 19:13 Pulse Rate 78 09/10/24 20:27 Respiratory Rate 15 09/10/24 20:19 Blood Pressure 92/55 L 09/10/24 23:04 Pulse Oximetry 100 09/10/24 20:19 Oxygen Delivery Room Air 09/10/24 17:23 <Ricky Styles MD - Last Filed: 09/10/24 18:57> Vital Signs Temperature 37.1 C 09/10/24 16:48 Respiratory Rate 16 09/10/24 16:48 Blood Pressure 69/58 L 09/10/24 16:48 Pulse Oximetry 95 09/10/24 16:48 Oxygen Delivery Room Air 09/10/24 16:48 Temperature 36.7 C 09/10/24 19:13 Pulse Rate 78 09/10/24 20:27 Respiratory Rate 15 09/10/24 20:19 Blood Pressure 92/55 L 09/10/24 23:04 Pulse Oximetry 100 09/10/24 20:19 Oxygen Delivery Room Air 09/10/24 17:23 <Wale Campbell MD - Last Filed: 09/10/24 23:13> Medical Decision Making MDM Narrative Medical decision making narrative: 74-year-old male with congestive heart failure, followed by Cardiology at [facility], presenting to the emergency room with chief complaint of pain in his shoulder blades and in his chest. Recently had medication changes with his cardiology team to increase Lasix and Entresto. Patient was found to be hypotensive at 69/58, maintaining good mentation, answer all questions appropriately, not any acute distress. Examination is relatively benign with dry mucous membranes, no signs of edema in his legs or JVD. Normal well- perfused extremities, 2+ radial pulses. Patient was provided fluid boluses for suspicion for over-diuresis after medication changes including Lasix and Entresto. Patient was signed out to me by previous provider pending CT scan of his chest abdomen pelvis. Ordered CT angiography to include contrast studies of his chest abdomen pelvis to rule out aortic process such as dissection or aneurysmal dilatation worsened his known baseline. Workup at this time shows no leukocytosis, hemoglobin of 13.1, normal platelet count. Mildly elevated troponin that down trended on repeat, normal electrolytes, BUN and creatinine are elevated 43 and 2.72. Normal glucose, mildly elevated bilirubin. BNP elevated 8880. Negative lipase. Negative procalcitonin. Urinalysis without infection, COVID flu and RSV swab negative. CT angiography read by stat read shows an ectatic aorta at 4.5 cm but no aneurysm dilatation, no dissection, no evidence of pulmonary embolism, stable cardiomegaly, trace pericardial effusion, left-sided AICD pacemaker placement. Abdomen pelvis shows no aneurysm or dissection, patent aortic vessels, unremarkable abdominal organs. Repeat EKG shows stable atrial fibrillation with evidence of a bifascicular block but no evidence of an acute ischemic event with negative Sgarbossa criteria. Spoke to the hospitalist service who accepted the patient to the intermediate care unit floor after completion of workup. Blood pressure improved to 92/55 with gentle fluid hydration. Hospitalist recommended adding midodrine additionally with potential concern for his Entresto causing his symptomatology. Ten t.i.d. measuring was ordered and scheduled and patient was admitted to the hospital. Patient comfortable with plan of care. He was provided Tylenol for his pain with improvement. Patient remains awake alert oriented and clinically stable at this time. <Wale Campbell MD - Last Filed: 09/10/24 23:13> Medical Records Medical records reviewed: Yes I reviewed the external patient's medical records. <Wale Campbell MD - Last Filed: 09/10/24 23:13> Vital Signs Vital Signs: Vital Signs Temperature 37.1 C 09/10/24 16:48 Respiratory Rate 16 09/10/24 16:48 Blood Pressure 69/58 L 09/10/24 16:48 Pulse Oximetry 95 09/10/24 16:48 Oxygen Delivery Room Air 09/10/24 16:48 Temperature 36.7 C 09/10/24 19:13 Pulse Rate 78 09/10/24 20:27 Respiratory Rate 15 09/10/24 20:19 Blood Pressure 92/55 L 09/10/24 23:04 Pulse Oximetry 100 09/10/24 20:19 Oxygen Delivery Room Air 09/10/24 17:23 <Ricky Styles MD - Last Filed: 09/10/24 18:57> Vital Signs Temperature 37.1 C 09/10/24 16:48 Respiratory Rate 16 09/10/24 16:48 Blood Pressure 69/58 L 09/10/24 16:48 Pulse Oximetry 95 09/10/24 16:48 Oxygen Delivery Room Air 09/10/24 16:48 Temperature 36.7 C 09/10/24 19:13 Pulse Rate 78 09/10/24 20:27 Respiratory Rate 15 09/10/24 20:19 Blood Pressure 92/55 L 09/10/24 23:04 Pulse Oximetry 100 09/10/24 20:19 Oxygen Delivery Room Air 09/10/24 17:23 <Wale Campbell MD - Last Filed: 09/10/24 23:13> Lab Data Lab results reviewed: Yes I reviewed the patient's lab results. <Wale Campbell MD - Last Filed: 09/10/24 23:13> Result diagrams: 09/10/24 17:15 09/10/24 17:15 <Ricky Styles MD - Last Filed: 09/10/24 18:57> Labs: Lab Results 09/10/24 09/10/24 09/10/24 Range/Units 17:14 17:15 18:04 WBC 6.6 (4.5-10.0) K/mm3 RBC 5.28 (4.6-6.20) M/mm3 Hgb 13.1 L (14.0-18.0) g/dL Hct 41.3 L (42.0-52.0) % MCV 78.2 L (80-100) fl MCH 24.8 L (26-34) pg MCHC 31.7 L (32-36) g/dl RDW 21.7 H (11.5-14.5) % Plt Count 265 (150-375) k/mm3 MPV 9.8 (7.4-10.4) fl Immature Gran % (Auto) 0.3 (0-0.5) % Neut % (Auto) 79.1 H (45.5-73.1) % Lymph % (Auto) 10.4 L (18.3-44.2) % [place] % (Auto) 9.7 H (2.6-8.5) % Eos % (Auto) 0.2 (0-4.4) % Baso % (Auto) 0.3 (0.2-1.2) % Lymph # (Auto) 0.69 L (0.9-3.2) K/mm3 [place] # (Auto) 0.6 (0.1-0.6) K/mm3 Eos # (Auto) 0.0 (0-0.3) K/mm3 Baso # (Auto) 0.0 (0.0-0.1) K/mm3 Abs Immat Gran (auto) 0.02 (0.00-0.031) K/mm3 Absolute Neuts (auto) 5.2 (1.3-6.7) K/mm3 Absolute Nucleated RBC 0.000 (0.0-0.012) K/mm3 Nucleated RBC % 0.0 (0.0-0.2) % PT 17.4 H (11.1-14.7) Seconds INR 1.4 APTT 34.1 (22.3-36.8) Seconds Sodium 136 L (137-145) mmol/L Potassium 4.6 (3.4-5.0) mmol/L Chloride 98 (98-107) mmol/L Carbon Dioxide 27 (22-30) mmol/L Anion Gap 11 (4-12) mmol/L BUN 43 H (9-20) mg/dL Creatinine 2.72 H (0.7-1.3) mg/dL Estim Creat Clear Calc 24 ml/min Estimated GFR 23 L (59 - ) Glucose 121 H (65-110) mg/dL Calcium 9.5 (8.4-10.2) mg/dL Magnesium 1.7 (1.6-2.3) mg/dL Total Bilirubin 2.9 H (0.2-1.3) mg/dL AST 37 (17-59) U/L ALT 19 (6-50) U/L Alkaline Phosphatase 124 (38-126) U/L Troponin I 0.038 H* (0.000-0.034) ng/mL NT-Pro-B Natriuret Pep 8850 H (19.9-100) pg/mL Total Protein 9.0 H (6.3-8.2) g/dL Albumin 4.1 (3.5-5.1) g/dL Lipase 312 H (23-300) U/L Procalcitonin 0.5 ng/mL Urine Color Urine Appearance Urine pH Ur Specific [place] Urine Protein Urine Glucose (UA) Urine Ketones Ur Blood (Man) Urine Nitrate Urine Bilirubin Urine Urobilinogen Leukocyte Esterase Rfl Influenza A (RT-PCR) Negative (Negative) Influenza B (RT-PCR) Negative (Negative) RSV (RT-PCR) Negative (Negative) SARS-CoV-2 RNA (RT-PCR) Negative (Negative) 09/10/24 09/10/24 Range/Units 20:10 22:54 WBC (4.5-10.0) K/mm3 RBC (4.6-6.20) M/mm3 Hgb (14.0-18.0) g/dL Hct (42.0-52.0) % MCV (80-100) fl MCH (26-34) pg MCHC (32-36) g/dl RDW (11.5-14.5) % Plt Count (150-375) k/mm3 MPV (7.4-10.4) fl Immature Gran % (Auto) (0-0.5) % Neut % (Auto) (45.5-73.1) % Lymph % (Auto) (18.3-44.2) % [place] % (Auto) (2.6-8.5) % Eos % (Auto) (0-4.4) % Baso % (Auto) (0.2-1.2) % Lymph # (Auto) (0.9-3.2) K/mm3 [place] # (Auto) (0.1-0.6) K/mm3 Eos # (Auto) (0-0.3) K/mm3 Baso # (Auto) (0.0-0.1) K/mm3 Abs Immat Gran (auto) (0.00-0.031) K/mm3 Absolute Neuts (auto) (1.3-6.7) K/mm3 Absolute Nucleated RBC (0.0-0.012) K/mm3 Nucleated RBC % (0.0-0.2) % PT (11.1-14.7) Seconds INR APTT (22.3-36.8) Seconds Sodium (137-145) mmol/L Potassium (3.4-5.0) mmol/L Chloride (98-107) mmol/L Carbon Dioxide (22-30) mmol/L Anion Gap (4-12) mmol/L BUN (9-20) mg/dL Creatinine (0.7-1.3) mg/dL Estim Creat Clear Calc ml/min Estimated GFR (59 - ) Glucose (65-110) mg/dL Calcium (8.4-10.2) mg/dL Magnesium (1.6-2.3) mg/dL Total Bilirubin (0.2-1.3) mg/dL AST (17-59) U/L ALT (6-50) U/L Alkaline Phosphatase (38-126) U/L Troponin I 0.030 D Pending (0.000-0.034) ng/mL NT-Pro-B Natriuret Pep (19.9-100) pg/mL Total Protein (6.3-8.2) g/dL Albumin (3.5-5.1) g/dL Lipase (23-300) U/L Procalcitonin ng/mL Urine Color Pending Urine Appearance Pending Urine pH Pending Ur Specific [place] Pending Urine Protein Pending Urine Glucose (UA) Pending Urine Ketones Pending Ur Blood (Man) Pending Urine Nitrate Pending Urine Bilirubin Pending Urine Urobilinogen Pending Leukocyte Esterase Rfl Pending Influenza A (RT-PCR) (Negative) Influenza B (RT-PCR) (Negative) RSV (RT-PCR) (Negative) SARS-CoV-2 RNA (RT-PCR) (Negative) <Ricky Styles MD - Last Filed: 09/10/24 18:57> Lab Results 09/10/24 09/10/24 09/10/24 Range/Units 17:14 17:15 18:04 WBC 6.6 (4.5-10.0) K/mm3 RBC 5.28 (4.6-6.20) M/mm3 Hgb 13.1 L (14.0-18.0) g/dL Hct 41.3 L (42.0-52.0) % MCV 78.2 L (80-100) fl MCH 24.8 L (26-34) pg MCHC 31.7 L (32-36) g/dl RDW 21.7 H (11.5-14.5) % Plt Count 265 (150-375) k/mm3 MPV 9.8 (7.4-10.4) fl Immature Gran % (Auto) 0.3 (0-0.5) % Neut % (Auto) 79.1 H (45.5-73.1) % Lymph % (Auto) 10.4 L (18.3-44.2) % [place] % (Auto) 9.7 H (2.6-8.5) % Eos % (Auto) 0.2 (0-4.4) % Baso % (Auto) 0.3 (0.2-1.2) % Lymph # (Auto) 0.69 L (0.9-3.2) K/mm3 [place] # (Auto) 0.6 (0.1-0.6) K/mm3 Eos # (Auto) 0.0 (0-0.3) K/mm3 Baso # (Auto) 0.0 (0.0-0.1) K/mm3 Abs Immat Gran (auto) 0.02 (0.00-0.031) K/mm3 Absolute Neuts (auto) 5.2 (1.3-6.7) K/mm3 Absolute Nucleated RBC 0.000 (0.0-0.012) K/mm3 Nucleated RBC % 0.0 (0.0-0.2) % PT 17.4 H (11.1-14.7) Seconds INR 1.4 APTT 34.1 (22.3-36.8) Seconds Sodium 136 L (137-145) mmol/L Potassium 4.6 (3.4-5.0) mmol/L Chloride 98 (98-107) mmol/L Carbon Dioxide 27 (22-30) mmol/L Anion Gap 11 (4-12) mmol/L BUN 43 H (9-20) mg/dL Creatinine 2.72 H (0.7-1.3) mg/dL Estim Creat Clear Calc 24 ml/min Estimated GFR 23 L (59 - ) Glucose 121 H (65-110) mg/dL Calcium 9.5 (8.4-10.2) mg/dL Magnesium 1.7 (1.6-2.3) mg/dL Total Bilirubin 2.9 H (0.2-1.3) mg/dL AST 37 (17-59) U/L ALT 19 (6-50) U/L Alkaline Phosphatase 124 (38-126) U/L Troponin I 0.038 H* (0.000-0.034) ng/mL NT-Pro-B Natriuret Pep 8850 H (19.9-100) pg/mL Total Protein 9.0 H (6.3-8.2) g/dL Albumin 4.1 (3.5-5.1) g/dL Lipase 312 H (23-300) U/L Procalcitonin 0.5 ng/mL Urine Color Urine Appearance Urine pH Ur Specific [place] Urine Protein Urine Glucose (UA) Urine Ketones Ur Blood (Man) Urine Nitrate Urine Bilirubin Urine Urobilinogen Leukocyte Esterase Rfl Influenza A (RT-PCR) Negative (Negative) Influenza B (RT-PCR) Negative (Negative) RSV (RT-PCR) Negative (Negative) SARS-CoV-2 RNA (RT-PCR) Negative (Negative) 09/10/24 09/10/24 Range/Units 20:10 22:54 WBC (4.5-10.0) K/mm3 RBC (4.6-6.20) M/mm3 Hgb (14.0-18.0) g/dL Hct (42.0-52.0) % MCV (80-100) fl MCH (26-34) pg MCHC (32-36) g/dl RDW (11.5-14.5) % Plt Count (150-375) k/mm3 MPV (7.4-10.4) fl Immature Gran % (Auto) (0-0.5) % Neut % (Auto) (45.5-73.1) % Lymph % (Auto) (18.3-44.2) % [place] % (Auto) (2.6-8.5) % Eos % (Auto) (0-4.4) % Baso % (Auto) (0.2-1.2) % Lymph # (Auto) (0.9-3.2) K/mm3 [place] # (Auto) (0.1-0.6) K/mm3 Eos # (Auto) (0-0.3) K/mm3 Baso # (Auto) (0.0-0.1) K/mm3 Abs Immat Gran (auto) (0.00-0.031) K/mm3 Absolute Neuts (auto) (1.3-6.7) K/mm3 Absolute Nucleated RBC (0.0-0.012) K/mm3 Nucleated RBC % (0.0-0.2) % PT (11.1-14.7) Seconds INR APTT (22.3-36.8) Seconds Sodium (137-145) mmol/L Potassium (3.4-5.0) mmol/L Chloride (98-107) mmol/L Carbon Dioxide (22-30) mmol/L Anion Gap (4-12) mmol/L BUN (9-20) mg/dL Creatinine (0.7-1.3) mg/dL Estim Creat Clear Calc ml/min Estimated GFR (59 - ) Glucose (65-110) mg/dL Calcium (8.4-10.2) mg/dL Magnesium (1.6-2.3) mg/dL Total Bilirubin (0.2-1.3) mg/dL AST (17-59) U/L ALT (6-50) U/L Alkaline Phosphatase (38-126) U/L Troponin I 0.030 D Pending (0.000-0.034) ng/mL NT-Pro-B Natriuret Pep (19.9-100) pg/mL Total Protein (6.3-8.2) g/dL Albumin (3.5-5.1) g/dL Lipase (23-300) U/L Procalcitonin ng/mL Urine Color Pending Urine Appearance Pending Urine pH Pending Ur Specific [place] Pending Urine Protein Pending Urine Glucose (UA) Pending Urine Ketones Pending Ur Blood (Man) Pending Urine Nitrate Pending Urine Bilirubin Pending Urine Urobilinogen Pending Leukocyte Esterase Rfl Pending Influenza A (RT-PCR) (Negative) Influenza B (RT-PCR) (Negative) RSV (RT-PCR) (Negative) SARS-CoV-2 RNA (RT-PCR) (Negative) <Wale Campbell MD - Last Filed: 09/10/24 23:13> Imaging Data Attestation: I personally reviewed and interpreted this imaging study as follows: < Wale Campbell MD - Last Filed: 09/10/24 23:13> My impression: CT angiography with no evidence of dissection or aneurysmal dilatation. No intra-abdominal process. Impressions Chest X-Ray 09/10/24 17:35 IMPRESSION: No focal infiltrate or effusion. Chest/Abdomen/Pelvis CT 09/10/24 20:24 IMPRESSION: Heterogeneous appearance of the bone marrow for which a systemic disease is suspected and for which clinical correlation is needed. No acute findings within the chest, abdomen or pelvis to account for patient's presenting symptoms. <Wale Campbell MD - Last Filed: 09/10/24 23:13> Discharge Plan Discharge Clinical Impression: Back pain, Chest pain, Acute kidney injury, Acute hypotension, Congestive heart failure, AICD (automatic cardioverter/defibrillator) present, Ectatic thoracic aorta <Ricky Styles MD - Last Filed: 09/10/24 18:57> Patient Disposition: Still a Patient <Ricky Styles MD - Last Filed: 09/10/24 18:57> Condition: Stable <Ricky Styles MD - Last Filed: 09/10/24 18:57> Patient Language: [place]an <Ricky Styles MD - Last Filed: 09/10/24 18:57> Prescriptions: No Action Eliquis 5 mg tablet 5 mg PO BID Entresto 49-51 mg tablet 1 tablet PO BID tadalafil [Cialis] 20 mg tablet 20 mg PO .COMPLEX PRN (Reason: sexual activity) Qty: 18 6RF Rx Instructions: 20 mg PO QD 1 hour prior to intercourse PRN; metoprolol succinate 100 mg tablet extended release 24 hr 100 mg PO DAILY spironolactone 25 mg tablet 25 mg PO DAILY pantoprazole 20 mg tablet,delayed release (DR/EC) 20 mg PO DAILY albuterol sulfate 2.5 mg /3 mL (0.083 %) solution for nebulization 2.5 mg inhalation Q4-6H PRN (Reason: wheezing) Qty: 180 1RF furosemide 40 mg tablet 40 mg PO QAM Qty: 90 2RF allopurinol 100 mg tablet 100 mg PO DAILY Qty: 90 1RF hydroxyzine HCl 25 mg tablet 25 mg PO DAILY PRN (Reason: itching) Qty: 30 0RF <Ricky Styles MD - Last Filed: 09/10/24 18:57> Follow-up/Referrals: Radha Toro MD [Primary Care Provider] - <Ricky Styles MD - Last Filed: 09/10/24 18:57> Time of Disposition: 23:13 <Ricky Styles MD - Last Filed: 09/10/24 18:57> 23:13 <Wale Campbell MD - Last Filed: 09/10/24 23:13>
[2024-09-10 17:55] LABS: NT Pro B Type Natriuretic Pept 8850 pg/mL (19.9-100)
[2024-09-10 18:11] LABS: Procalcitonin 0.5 ng/mL
[2024-09-10] MEDS: fentaNYL CITRATE INJ (*CRX) 100 MCG/2 ML VIAL 50 MCG IV PUSH (18:33)
[2024-09-10] MEDS: SODIUM CHLORIDE 0.9% IV 500 ML 999 ML IV CONT (18:33)
[2024-09-10 18:45] LABS: Influenza A QL RT-PCR Negative (Negative); Influenza B QL RT-PCR Negative (Negative); RSV RNA, RT-PCR Negative (Negative); SARS-CoV-2 RNA PCR Negative (Negative)
--- NOTE | 2024-09-10 20:04 | ECG_ITS ---
Test Date: 2024-09-10 22:58:14 Measurements Intervals [place] Rate: 91 P: 0 VA: 0 QRS: -73 QRSD: 166 T: 75 QT: 449 QTc: 555 Interpretive Statements ATRIAL FIBRILLATION LEFT AXIS DEVIATION IVCD, WITH FEATURES OF BOTH RIGHT BUNDLE BRANCH BLOCK AND LBBB BASELINE ARTIFACT- I, II, III, AVR, AVL,A VF, V1-V2 ABNORMAL ECG Compared to ECG 09/10/2024 16:52:26 NO SIGNIFICANT CHANGE Electronically Signed On 09-11-2024 06:35:54 CHEMICAL INSTRUMENTATION OFFICER by Jase Simental D.O.
[2024-09-10] MEDS: SODIUM CHLORIDE 0.9% IV 1,000 ML 999 ML IV CONT (20:09)
--- NOTE | 2024-09-10 21:02 | PC.NURSE ---
Patient moved from room 22 to room 5. Report received from RIAZ Mcdowell. Assumed care of patient at this time.
--- NOTE | 2024-09-10 21:54 | PC.NURSE ---
Patient being taken to CT via stretcher at this time. Patient taken while on monitor.
--- NOTE | 2024-09-10 22:42 | PC.NURSE ---
Patient requesting tylenol for pain, water and food. ERP notified. VORB to give 1000mg tyenol PO with water, nothing to eat at this time until CT report is resulted. Orders placed.
--- NOTE | 2024-09-10 22:44 | PC.NURSE ---
CT results are in at this time, ERP states patient can eat now.
[2024-09-10] MEDS: ACETAMINOPHEN 500 MG TABLET 1000 MG PO (22:51)
--- NOTE | 2024-09-10 22:54 | ECG_ITS ---
Test Date: 2024-09-10 20:09:13 Measurements Intervals [place] Rate: 83 P: 0 IA: 0 QRS: -76 QRSD: 164 T: 91 QT: 440 QTc: 520 Interpretive Statements ATRIAL FIBRILLATION IVCD, WITH FEATURES OF BOTH LEFT BUNDLE BRANCH BLOCK AND RBBB BASELINE ARTIFACT- I, II, III, AVR, AVL, AVF, V1-V6 ABNORMAL ECG Compared to ECG 09/10/2024 16:52:26 NO SIGNIFICANT CHANGE Electronically Signed On 09-11-2024 09:42:42 [employer] MANAGER by Jase Simental D.O.
[2024-09-10 23:08] LABS: Add Urine Microscopic? YES; Appearance Urine Clear (Clear); Bacteria Urine None Seen /hpf; Bilirubin Urine 1+ (Negative); Blood Urine Negative (Negative); Color Urine Dark Yellow (Yellow); Glucose Urine UA 1+ mg/dL (Negative); Ketones Urine Trace mg/dL (Negative); Leukocyte Esterase Ur Trace LEU/UL (Negative); Nitrate Urine Negative (Negative); Protein Urine 1+ mg/dL (Negative); RBC Urine 0-2 /hpf (0-2); Specific Grav Ur 1.022 (1.001-1.035); Squamous Epithelial Cell Urine Occasional /hpf (Few); WBC Urine 0-5 /hpf (0-3); pH Urine 5.5 (5.0-9.0)
[2024-09-10] MEDS: MIDODRINE HCL 10 MG TABLET PO (23:13)
--- NOTE | 2024-09-10 23:21 | PM.IMHP ---
H&P: HPI History of Present Illness Date/Time: 09/11/24 01:21 Chief Complaint: 1. Neck pain; 2. Left arm pain Narrative: Montrell Thomas is a 74-year-old male with a medical history significant for CHF with reduced ejection fraction, GERD, COPD, AFib Who presents after experiencing neck/back pain, he was advised to visit the ER after he spoke with his PCP. He describes the pain around his neck/back as sharp, aggravated by certain neck movements, but limited by immobility, positive with anxiety, malaise, restriction of his ADLs. He denies shortness of breath, PND, orthopnea, palpitations, pedal swellings, hemoptysis, He does not smoke/chew tobacco, drink alcohol, or contusion recreational/illicit drugs. Work-up findings: WBC 12.2, HGB 11.8, PLT 223 Na 136, K 4.8, Cl 103, CO2 22, HGB 11, BUN 41, CR 2.24 Troponin: 0.038> > 0.030> > 0.035 BNP 8850 CTAP: Heterogeneous appearance of the bone marrow for which a systemic disease is suspected and for which clinical correlation is needed. No acute findings within the chest, abdomen or pelvis to account for patient's presenting symptoms ECG: A-fib, HR 87; RBBB and LBBB Montrell Thomas will be admitted, evaluated and managed for NsTEMi, chest pain and hypotension Review of Systems Review of Systems: All systems reviewed & are unremarkable except as noted in HPI and below PMFSH Past Medical History Medical History SOB (shortness of breath) Obesity (BMI 30-39.9) Mixed hyperlipidemia ICD (implantable cardioverter-defibrillator) in place Hx of angiography Cardiomyopathy CHF (congestive heart failure) Surgical History Surgical History S/P cardiac cath Family History Family History Mother Diabetes mellitus Hypertension Cancer Social History Social History Smoking status: Never smoker Tobacco type: cigars Second hand tobacco smoke exposure: Yes Additional smoking assessment comments: smoked 1 cigar per day Alcohol intake: never Drinks per week: 15 Substance use: never Substance use type: does not use Other substance usage details: 2xweek Do You Feel Safe in your Home?: Yes Lack of Transportation: No Lack of Food: Never True Current Housing: I Have Housing Concerned About Future Housing: No Difficulty Paying Gas/Electric Bills: No Difficulty Paying for Meds: YES Currently Unemployed: No Education: Grade School Difficulty w/ Childcare or Family Care: No Living arrangements: with family Spiritual care concerns: No Meds Home Medications and Allergies Home Medications ?Medication ?Instructions ?Recorded ?Confirmed ?Type sacubitril 49 mg-valsartan 51 mg 1 tablet PO BID 03/05/21 09/11/24 History tablet (Entresto) apixaban 5 mg tablet (Eliquis) 5 mg PO BID 11/11/21 09/11/24 History albuterol sulfate 2.5 mg/3 mL 2.5 mg (3 mL) inhalation Q4-6H PRN 11/12/22 09/11/24 Rx (0.083 %) solution for nebulization wheezing #180 mL metoprolol succinate 100 mg 100 mg PO DAILY 01/05/24 09/11/24 History tablet,extended release 24 hr pantoprazole 20 mg tablet,delayed 20 mg PO DAILY 01/05/24 09/11/24 History release spironolactone 25 mg tablet 25 mg PO DAILY 01/05/24 09/11/24 History furosemide 40 mg tablet 40 mg PO QAM #90 tabs 03/13/24 09/11/24 Rx tadalafil 20 mg tablet (Cialis) 20 mg PO .COMPLEX PRN sexual 06/21/24 09/11/24 Rx activity #18 tabs allopurinol 100 mg tablet 100 mg PO DAILY #90 tabs 07/21/24 09/11/24 Rx hydroxyzine HCl 25 mg tablet 25 mg PO DAILY PRN itching #30 tabs 08/28/24 09/11/24 Rx acetaminophen 500 mg tablet 1,000 mg PO Q6H PRN fever or pain 09/11/24 09/11/24 History (Acetaminophen Extra Strength) Allergies Allergy/AdvReac Type Severity Reaction Status Date / Time No Known Allergies Allergy Verified 09/11/24 02:02 Vital Signs Vital Signs - 24 hr 09/10/24 16:48 09/10/24 17:01 09/10/24 17:06 Temperature 98.8 F Pulse Rate 94 83 Respiratory Rate 16 17 20 Blood Pressure 69/58 L 73/58 L Pulse Oximetry 95 97 Oxygen Delivery Room Air 09/10/24 17:07 09/10/24 17:11 09/10/24 17:15 Temperature Pulse Rate 82 89 86 Respiratory Rate 22 H 20 23 H Blood Pressure 67/55 L 69/50 L Pulse Oximetry Oxygen Delivery 09/10/24 17:22 09/10/24 17:23 09/10/24 17:29 Temperature Pulse Rate 77 82 Respiratory Rate 18 20 Blood Pressure 84/57 L 84/57 L Pulse Oximetry 98 Oxygen Delivery Room Air 09/10/24 17:31 09/10/24 17:43 09/10/24 17:51 Temperature Pulse Rate 85 79 79 Respiratory Rate 20 22 H 18 Blood Pressure 98/85 L 87/67 L 84/68 L Pulse Oximetry Oxygen Delivery 09/10/24 18:01 09/10/24 18:11 09/10/24 18:21 Temperature Pulse Rate 76 78 75 Respiratory Rate 21 H 22 H 21 H Blood Pressure 86/58 L 90/67 L 81/65 L Pulse Oximetry Oxygen Delivery 09/10/24 18:31 09/10/24 18:42 09/10/24 18:51 Temperature Pulse Rate 80 79 Respiratory Rate 20 22 H Blood Pressure 85/61 L 85/66 L Pulse Oximetry 100 Oxygen Delivery 09/10/24 18:51 09/10/24 19:00 09/10/24 19:01 Temperature Pulse Rate 88 90 88 Respiratory Rate 22 H 24 H 25 H Blood Pressure 89/57 L 84/68 L Pulse Oximetry Oxygen Delivery 09/10/24 19:10 09/10/24 19:11 09/10/24 19:12 Temperature Pulse Rate 80 80 77 Respiratory Rate 20 20 Blood Pressure 88/74 L 89/72 L Pulse Oximetry Oxygen Delivery 09/10/24 19:13 09/10/24 19:15 09/10/24 19:21 Temperature 98.1 F Pulse Rate 77 82 92 Respiratory Rate 17 24 H 23 H Blood Pressure 89/72 L 110/91 H Pulse Oximetry 94 Oxygen Delivery 09/10/24 19:40 09/10/24 19:43 09/10/24 19:45 Temperature Pulse Rate 91 86 82 Respiratory Rate 20 20 19 Blood Pressure Pulse Oximetry Oxygen Delivery 09/10/24 20:00 09/10/24 20:11 09/10/24 20:15 Temperature Pulse Rate 83 86 97 Respiratory Rate 24 H 27 H 20 Blood Pressure 83/58 L Pulse Oximetry Oxygen Delivery 09/10/24 20:19 09/10/24 20:26 09/10/24 20:27 Temperature Pulse Rate 79 85 78 Respiratory Rate 15 29 H Blood Pressure 83/58 L 80/62 L Pulse Oximetry 100 Oxygen Delivery 09/10/24 20:30 09/10/24 20:32 09/10/24 20:36 Temperature Pulse Rate 84 79 82 Respiratory Rate 33 H 26 H 29 H Blood Pressure 83/54 L 84/50 L Pulse Oximetry Oxygen Delivery 09/10/24 20:41 09/10/24 20:45 09/10/24 20:46 Temperature Pulse Rate 87 90 83 Respiratory Rate 26 H 36 H 26 H Blood Pressure 81/59 L 91/55 L Pulse Oximetry 92 100 Oxygen Delivery 09/10/24 20:51 09/10/24 20:56 09/10/24 21:00 Temperature Pulse Rate 82 91 87 Respiratory Rate 28 H 27 H 25 H Blood Pressure 75/62 L 84/52 L Pulse Oximetry Oxygen Delivery 09/10/24 21:53 09/10/24 22:00 09/10/24 22:02 Temperature Pulse Rate 86 Respiratory Rate 23 H Blood Pressure 73/59 L 73/59 L Pulse Oximetry Oxygen Delivery 09/10/24 22:23 09/10/24 22:34 09/10/24 23:03 Temperature Pulse Rate 101 H 86 Respiratory Rate 14 20 Blood Pressure 84/59 L Pulse Oximetry Oxygen Delivery 09/10/24 23:03 09/10/24 23:04 09/10/24 23:04 Temperature Pulse Rate 91 94 Respiratory Rate 16 21 H Blood Pressure 92/55 L 92/55 L Pulse Oximetry Oxygen Delivery 09/10/24 23:15 09/10/24 23:23 09/10/24 23:30 Temperature Pulse Rate 87 103 H 85 Respiratory Rate 29 H 26 H 30 H Blood Pressure 78/54 L Pulse Oximetry 100 Oxygen Delivery 09/10/24 23:45 09/11/24 00:00 09/11/24 00:01 Temperature Pulse Rate 81 104 H 98 Respiratory Rate 23 H 32 H 26 H Blood Pressure 93/61 L Pulse Oximetry Oxygen Delivery 09/11/24 00:15 09/11/24 01:11 09/11/24 01:12 Temperature 98 F Pulse Rate 75 76 74 Respiratory Rate 22 H 18 20 Blood Pressure 64/52 L 127/61 Pulse Oximetry 98 100 100 Oxygen Delivery Exam Const: General: comfortable HENMT: Ears: TM's normal bilaterally Face/Nose/Sinus: Normal nares present Eyes: General: appearance normal, both eyes and all related structures Neck: Neck: supple and no JVD Resp: Effort & Inspection: normal respiratory effort Cardio: Rate: regular rate GI: Inspection: distended : General: Yes bladder normal to palpation Skin: General skin exam: normal color Neuro: General: gait normal and deep tendon reflexes 2+ bilaterally Speech: normal speech Motor exam (neuro): 5/5 motor strength present throughout Psych: Mental Status: mental status grossly normal H&P: Results Labs Labs: Short CBC 09/10/24 Range/Units 17:15 WBC 6.6 (4.5-10.0) K/mm3 Hgb 13.1 L (14.0-18.0) g/dL Hct 41.3 L (42.0-52.0) % Plt Count 265 (150-375) k/mm3 BMP 09/10/24 17:15 Sodium 136 L Potassium 4.6 Chloride 98 Carbon Dioxide 27 BUN 43 H Creatinine 2.72 H Glucose 121 H Calcium 9.5 Cardiac Enzymes 09/10/24 09/10/24 09/10/24 Range/Units 17:15 20:10 22:54 Troponin I 0.038 H* 0.030 D 0.030 (0.000-0.034) ng/mL Liver Function 09/10/24 Range/Units 17:15 Total Bilirubin 2.9 H (0.2-1.3) mg/dL AST 37 (17-59) U/L ALT 19 (6-50) U/L Alkaline Phosphatase 124 (38-126) U/L Albumin 4.1 (3.5-5.1) g/dL Urine 09/10/24 Range/Units 22:54 Urine Color Dark yellow (Yellow) Urine Appearance Clear (Clear) Urine pH 5.5 (5.0-9.0) Ur Specific [place] 1.022 (1.001-1.035) Urine Protein 1+ H (Negative) mg/dL Urine Glucose (UA) 1+ H (Negative) mg/dL Assessment and Plan Assessment and plan (1) Acute hypotension: Code(s): I95.9 - Hypotension, unspecified Status: Acute (2) Chest pain: Code(s): R07.9 - Chest pain, unspecified Status: Acute Plan Acute and principal conditions 1. Hypotension. 2. Chest pain 3. NSTEMI 4. Neck pain Rx: IVF bolus Telemetry monitoring Analgesia Cardiology consulted Hold Entresto, diuretic Rx Midodrine; may need pressor support Chronic and stable conditions 1. CHFrEF. s/p AICD. 2. COPD. 3. Chronic A-fib. on Metoprolol, Apixaban 4. GERD. on PPI Miscellaneous care. 1. Code status. Full 2. Nutrition. heart healthy 3. VTE prophylaxis Hospitalist [facility] Advance Care Plan I have confirmed that the patient's Advanced Care Plan is present, code status is documented, or surrogate decision maker is listed in patient medical record.: Yes Medication Reconciliation I have utilized all available resources to obtain, update and review the patients current medications (includes all prescriptions, OTC, herbals, cannabis, and nutritional supplements).: Yes The patient is not eligible for med reconciliation; the patient is in a emergent medical situation where delaying treatment would jeopardize the patients health.: Yes
[2024-09-11] VITALS (57 sets, daily range): BP systolic 64–132; BP diastolic 42–92; PULSE 69–104; RESP 16–32; TEMP 36.3–37; O2SAT 86–100; BMI 26.5
--- NOTE | 2024-09-11 | ECHO_ITS ---
Patient Info Name: Montrell Thomas Age: 74 years : 1950 Gender: Male Ht: 72 in Wt: 195 lbs BSA: 2.13 m2 HR: 72 bpm BP: 85 / 59 mmHg Technical Quality: Poor Exam Date: 09/11/2024 10:02 AM Exam Location: Echo Lab Patient Status: Inpatient Admit Date: 09/10/2024 Staff Ordering Physician: Dominik De La Cruz MD Junior Brand Manager: Nannette Philip RDCS Attending Provider: David Banda MD Referring Physician: Jono PUENTE; Exam Type: CA echo dop color flow w con Study Info Indications - HEART FAILURE Complete two-dimensional, color flow and Doppler transthoracic echocardiogram is performed with contrast to opacify the left ventricle and to improve the deliniation of the left ventricle endocardial borders. Contrast/Agitated Saline Contrast/Ag. Saline: Definity Amount: 2.00 ml Existing IV Access: Yes Reason for Poor Study: poor echocardiographic windows Summary 1. Left ventricular chamber dimension is severely enlarged. 2. There is mildly increased left ventricular wall thickness. 3. Left ventricular systolic function is severely reduced, estimated at 20-25%. 4. Right ventricular chamber dimension is mildly enlarged. 5. Right ventricular systolic function is normal. 6. Left atrial chamber dimension is severely enlarged. 7. Right atrial chamber dimension is severely enlarged. 8. There is mild mitral valve regurgitation. 9. There is moderate tricuspid valve regurgitation. 10. Pulmonary hypertension. Estimated pulmonary arterial systolic pressure is 55 mmHg. 11. The prox ascending aorta size is mildly dilated. 12. Dilated inferior vena cava with <50% collapse upon inspiration consistent with elevated right atrial pressure, 15 mmHg. Left Ventricle Left ventricular chamber dimension is severely enlarged. Left ventricular systolic function is severely reduced, estimated at 20-25%. There is mildly increased left ventricular wall thickness. Left ventricular septal wall motion is abnormal with septal motion related to bundle branch block. The left ventricular diastolic function is abnormal. Right Ventricle Linear artifact in right ventricle suggestive of catheter(s), pacemaker lead(s), or ICD lead(s). Right ventricular chamber dimension is mildly enlarged. Right ventricular systolic function is normal. Left Atria Left atrial chamber dimension is severely enlarged. Right Atria Linear artifact in the right atrium suggestive of catheter(s), pacemaker lead(s), or ICD lead(s). Right atrial chamber dimension is severely enlarged. Atrial Septum Intact interatrial septum visualized by color flow imaging. Aortic Valve The aortic valve is probable trileaflet. There is no aortic valve stenosis. There is no aortic valve regurgitation. Pulmonic Valve The pulmonic valve is not well visualized. Mitral Valve There is mild mitral valve regurgitation. Tricuspid Valve There is moderate tricuspid valve regurgitation. Pulmonary hypertension. Estimated pulmonary arterial systolic pressure is 55 mmHg. Pericardium/Pleural There is no pericardial effusion. Inferior Vena Cava Dilated inferior vena cava with <50% collapse upon inspiration consistent with elevated right atrial pressure, 15 mmHg. Aorta The aortic root size at the sinus of Valsalva is normal. The prox ascending aorta size is mildly dilated. Left Ventricular Outflow Tract Name Value Normal LVOT 2D LVOT Diameter 1.81 cm LVOT Doppler LVOT Peak Gradient 2 mmHg LVOT Mean Gradient 1 mmHg LVOT VTI 11.67 cm LVOT VTI/AV VTI Ratio 0.59 LVOT Stroke Volume 29.90 ml LVOT CO 6.66 l/min LVOT CI 3.12 L/min/m2 Pulmonic Valve Name Value Normal RVOT Doppler RVOT Peak Gradient 1 mmHg PV Doppler PV Peak Gradient 1 mmHg Mitral Valve Name Value Normal MV Doppler MV Peak Gradient 3 mmHg MV Mean Gradient 1 mmHg MV Decel Gooding 629.91 cm/s2 MV PHT 0 s MV Area (PHT) 6.63 cm2 4.00-5.00 MV Area (Cont Eq VTI) 1.20 cm2 MV Diastolic Function MV E Peak Velocity 72.10 cm/s MV Decel Time 0 s MV Annular TDI MV E/e' (Septal) 17.96 <=8.00 MV E/e' (Lateral) 7.39 <=8.00 MV E/e' (Average) 12.67 Tricuspid Valve Name Value Normal TV Regurgitation Doppler TR Peak Velocity 314.40 cm/s TR Peak Gradient 30 mmHg Estimated PAP/RSVP RA Pressure 15 mmHg <=5 PA Systolic Pressure 55 mmHg <36 RV Systolic Pressure 55 mmHg <36 Aorta Name Value Normal Ascending Aorta Ao Root Diameter (MM) 4.57 cm Ao Root Diam Index (MM) 2.15 cm/m2 Aortic Valve Name Value Normal AV Doppler AV Peak Velocity 116.06 cm/s AV Peak Gradient 5 mmHg AV Mean Gradient 3 mmHg AV VTI 19.80 cm AV Area (Cont Eq VTI) 1.51 cm2 >=3.00 AV Area (Cont Eq Jorge A) 1.36 cm2 AV Regurgitation 2D LVOT Area 2.56 cm2 Ventricles Name Value Normal LV Dimensions 2D/MM IVS Diastolic Thickness (2D) 1.10 cm 0.60-1.00 LVID Diastole (2D) 6.02 cm 4.20-5.80 LVIW Diastolic Thickness (2D) 1.71 cm 0.60-1.00 LVID Systole (2D) 5.41 cm 2.50-4.00 LVOT Diameter 1.81 cm LV Mass (2D Cubed) 391.40 g 88.00-224.00 LV Mass Index (2D Cubed) 0.02 g/cm2 0.00-0.01 Relative Wall Thickness (2D) 0.57 LV Fractional Shortening/Ejection Fraction 2D/MM LV Fractional Shortening (2D) 15 % 25-43 LV EF (2D Teicholz) 31 % 52-72 LV Diastolic Volume (4C MOD) 114.38 ml LV EF (4C MOD) 13 % LV Diastolic Volume (2C MOD) 124.47 ml LV EF (2C MOD) 33 % LV Diastolic Volume (BP MOD) 123.18 ml 62.00-150.00 LV Diastolic Volume Index (BP MOD) 0.06 l/m2 0.03-0.07 LV Systolic Volume (BP MOD) 91.43 ml 21.00-61.00 LV Systolic Volume Index (BP MOD) 0.04 l/m2 0.01-0.03 LV EF (BP MOD) 26 % 52-72 LV Diastolic Length (4C) 8.43 cm LV Systolic Length (4C) 7.58 cm LV Stroke Volume (4C MOD) 14.53 ml Atria Name Value Normal LA Dimensions LA Dimension (MM) 5.16 cm 3.00-4.10 LA Volume (4C A-L) 196.15 ml LA Volume (BP A-L) 192.04 ml RA Dimensions RA Area (4C) 31.17 cm2 <=18.00 Report Signatures
--- NOTE | 2024-09-11 00:57 | ADMGEN ---
This patient, Montrell Thomas, was admitted to IMU Room 202-01 on 09/11/24 at 0050. Patient/family oriented to hospital policies and general routines including ID bracelet, bed and alarms, visiting hours, pain management, procedures, bathroom and other care routines, personal items, smoking policy, room service/diet, and visiting hours. Information on how to activate the Rapid Response Team has been discussed. Patient/Family are encouraged to report perceived risks to care and to ask questions if they do not understand what they are told or what they should do.
[2024-09-11 02:11] LABS: Basophils Percent Auto 0.2 % (0.2-1.2); Hematocrit 38.2 % (42.0-52.0); Hemoglobin 11.8 g/dL (14.0-18.0); Immature Granulocyte Absolute 0.11 K/mm3 (0.00-0.031); Immature Granulocyte Percent A 0.9 % (0-0.5); Lymphocytes Absolute Auto 0.73 K/mm3 (0.9-3.2); Mean Corpuscular HGB Conc 30.9 g/dl (32-36); Mean Corpuscular Hemoglobin 24.5 pg (26-34); Mean Corpuscular Volume 79.4 fl (80-100); Mean Platelet Volume 9.5 fl (7.4-10.4); Monocytes Absolute Auto 0.9 K/mm3 (0.1-0.6); Monocytes Percent Auto 7.7 % (2.6-8.5); Neutrophils Absolute Auto 10.4 K/mm3 (1.3-6.7); Neutrophils Percent Auto 85.2 % (45.5-73.1); Platelet Count Result 223 k/mm3 (150-375); Red Blood Count 4.81 M/mm3 (4.6-6.20); Red Cell Distribution Width 21.9 % (11.5-14.5); White Blood Count 12.2 K/mm3 (4.5-10.0)
[2024-09-11 02:24] LABS: Alanine Aminotransferase 17 U/L (6-50); Albumin Level 3.3 g/dL (3.5-5.1); Alkaline Phosphatase 96 U/L (38-126); Anion Gap 11 mmol/L (4-12); Aspartate Amino Transferase 28 U/L (17-59); Blood Urea Nitrogen 41 mg/dL (9-20); Calcium 8.8 mg/dL (8.4-10.2); Carbon Dioxide 22 mmol/L (22-30); Chloride 103 mmol/L (98-107); Estimated CRCL calculation 29 ml/min; Estimated Glomerular Filt Rate 29; Glucose 94 mg/dL (65-110); Potassium 4.8 mmol/L (3.4-5.0); Sodium 136 mmol/L (137-145)
[2024-09-11] MEDS: ONDANSETRON INJ 4 MG/2 ML VIAL IV PUSH (02:38)
[2024-09-11 02:40] LABS: Troponin I 0.035 ng/mL (0.000-0.034)
[2024-09-11] MEDS: SODIUM CHLORIDE 0.9% IV 500 ML 999 ML IV CONT (03:32)
[2024-09-11] MEDS: MIDODRINE HCL 10 MG TABLET PO ×4 (03:37→20:25)
[2024-09-11 06:03] LABS: Lactic Acid Reflex 1.3 mmol/L (0.7-2.0)
--- NOTE | 2024-09-11 07:02 | PC.NURSE ---
This patient, Montrell Thomas, was received from IMU 202 on 09/11/24 at 0658. Bedside report recieved from Clara Andino RN. Patient/family oriented to unit policies and routines. Patient states he will call his family to notify them of his transfer
--- NOTE | 2024-09-11 07:12 | PC.NURSE ---
This patient, Montrell Thomas, was transferred to ICU-4 on 09/11/24 at 0650. Personal belongings sent with patient. Report given to RIAZ Sheth and RIAZ Mcclure. Appropriate documentation sent with patient.
[2024-09-11] MEDS: PHENYLEPHRINE HCL INJ 50 MG in DEXTROSE 5% IN WATER 250 ML/245 ML BAG 12 ML IV CONT (07:15)
[2024-09-11] MEDS: APIXABAN 5 MG TABLET PO ×2 (09:01→20:25)
--- NOTE | 2024-09-11 09:28 | WPDCNINT ---
Assessment and Plan Assessment and plan (1) Acute hypotension: Code(s): I95.9 - Hypotension, unspecified Status: Acute Assessment and Plan: Patient initially presented with left shoulder pain, neck pain posteriorly and pain between his shoulder blades -he was found to be hypotensive in the ER -states he had taken his Entresto the day of admission. He has been taking his Lasix but just not on the day of admission. -his blood pressures were in the 60s systolic -patient was given 2.5 L IV fluid bolus, sent to the intermediate Unit, he was again hypotensive over there and was sent over to the ICU -was started on peripheral Mark-Synephrine -patient currently on room air, will give additional 5 her IV fluid bolus and start him on some albumin for intravascular volume expansion -patient has been started on midodrine -states that his systolic blood pressures are < 100s -will have Cardiology evaluate the patient -no signs of infection, UA, CT scan of chest, abdomen, pelvis were negative for any acute infectious cause. Procalcitonin levels were normal, WBC count on admission was normal, afebrile -will evaluate after IV fluid bolus and albumin, if the blood pressures remain low, will place central line (2) Acute kidney injury: Code(s): N17.9 - Acute kidney failure, unspecified Status: Acute Assessment and Plan: Patient with acute kidney injury, Creatinine is down to 2.24 this morning (2.72 on admission. Baseline creatinine 0.8-1.20) -will check urine lytes, urine eosinophils, CK level -check renal ultrasound for obstructive uropathy -could be related to Entresto causing hypotension, recent increase in diuretics -patient also received contrast on admission, will continue to monitor was NISHANT -nephrology has been consulted -continue to monitor (3) Congestive heart failure: Code(s): I50.9 - Heart failure, unspecified Status: Acute Assessment and Plan: History of congestive heart failure, cardiomyopathy, AICD placed -will check echocardiogram -proBNP was 8850, -CT chest was clear (4) AICD (automatic cardioverter/defibrillator) present: Code(s): Z95.810 - Presence of automatic (implantable) cardiac defibrillator Status: Acute (5) Mixed hyperlipidemia: Code(s): E78.2 - Mixed hyperlipidemia Status: Acute Assessment and Plan: Will check lipid panel (6) Left shoulder pain: Code(s): M25.512 - Pain in left shoulder Status: Acute Assessment and Plan: Left shoulder pain, neck pain posteriorly and pain between the shoulder blade -CTA chest abdomen and pelvis showed 4.4 cm ascending aortic aneurysm, no aortic dissection -cardiology will evaluate the patient -will have to have serial monitoring of the aneurysm (7) Aortic aneurysm: Code(s): I71.9 - Aortic aneurysm of unspecified site, without rupture Status: Acute Assessment and Plan: CTA chest abdomen pelvis showed 4.4 cm ascending aortic aneurysm, no aortic dissection, cardiology has been consulted Plan DVT prophylaxis: Apixaban Stress ulcer prophylaxis: Protonix Nutrition: Heart healthy diet Code Status: Full Critical Care Time Spent: 47 minutes Discussed with patient updated with his condition and plan of care. I answered all his questions. He is aware that cardiology will be evaluating Due to a high probability of clinically significant, life threatening deterioration, the patient required my highest level of preparedness to intervene emergently and I personally spent this critical care time directly and personally managing the patient. This critical care time included obtaining a history; examining the patient; pulse oximetry; ordering and review of studies; arranging urgent treatment with development of a management plan; evaluation of patient's response to treatment; frequent reassessment; and discussions with other providers. It was exclusive of separately billable procedures and treating other patients and teaching time. Please see Assessment and Plan section and the rest of the note for further information on patient assessment and treatment This dictation may have been done utilizing a voice recognition system. Attempts have been made to correct errors. However, there may be uncorrected grammatical, spelling, and recognitions errors present. [employer] Consult Note Consult date: 09/11/24 Reason for consult: Hypotension HPI: Montrell Thomas is a 74 year old male with past medical history of congestive heart failure, cardiomyopathy, history of angiography, AICD in place, hyperlipidemia presented to the ED on 09/10/2024 with complains of left shoulder pain, neck pain posteriorly, pain between his shoulder blades for 1 day. Patient did state that he has the similar pain 2 weeks ago which improved with a back rub and Tylenol. This time the back upper Tylenol did not help which prompted the patient to come to the ED. patient stated that he has some recent changes in his medications, Lasix was increased ill Entresto was added. Patient stated that he did not take his Lasix on the day of admission but did take his Entresto. He was found to be hypotensive with the ER with blood pressures 69/58. Patient was mentating fine, answered all questions, in no acute distress. No signs of sepsis, procalcitonin this is normal, WBC count was normal on admission. He according the ER notes patient did show signs of hypovolemia. Patient was given IV fluid bolus and transferred to the intermediate unit. Early this morning patient was hypotensive again and was transferred to the ICU. Started on peripheral Mark-Synephrine for now. He was also started on midodrine. WBC count this morning is 12.2 (6.6 on admission). Hemoglobin of 11.8, INR 1.4. Creatinine is down to 2.24 (2.72 on admission. Baseline creatinine 0.8-1.20). UA was negative. Influenza, RSV and SARS-CoV-2 PCR were negative. Troponins was 0.038--> 0.030--> 0.030--> 0.035 02: CTA chest abdomen and pelvis showed 4.4 cm ascending aortic aneurysm, no aortic dissection 09/10: CT chest abdomen and pelvis: No acute findings within the chest, abdomen or pelvis to account for patient's presenting symptoms Patient seen and examined the ICU, is awake, alert, oriented, nonfocal. States his normal blood pressures are less than 100 mmHg. He does follow with the [facility] heart care group here at [facility], was recently started on Entresto Ed increased his dose of Lasix. Patient denies any tobacco, illicit drug or alcohol use. Patient is awake, alert, oriented x3. Denies any dizziness, shortness of breath, chest pain, abdominal pain, nausea vomiting at this time. He states his neck pain improved with Tylenol x2 tabs pain Review of Systems Review of Systems: All systems reviewed & are unremarkable except as noted in HPI and below PMFSH Past Medical History Medical History SOB (shortness of breath) Obesity (BMI 30-39.9) Mixed hyperlipidemia ICD (implantable cardioverter-defibrillator) in place Hx of angiography Cardiomyopathy CHF (congestive heart failure) Surgical History Surgical History S/P cardiac cath Family History Family History Mother Diabetes mellitus Hypertension Cancer Social History Social History Smoking status: Never smoker Tobacco type: cigars Second hand tobacco smoke exposure: Yes Additional smoking assessment comments: smoked 1 cigar per day Alcohol intake: never Drinks per week: 15 Substance use: never Substance use type: does not use Other substance usage details: 2xweek Do You Feel Safe in your Home?: Yes Lack of Transportation: No Lack of Food: Never True Current Housing: I Have Housing Concerned About Future Housing: No Difficulty Paying Gas/Electric Bills: No Difficulty Paying for Meds: YES Currently Unemployed: No Education: Grade School Difficulty w/ Childcare or Family Care: No Living arrangements: with family Spiritual care concerns: No Meds Home Medications and Allergies Home Medications ?Medication ?Instructions ?Recorded ?Confirmed ?Type sacubitril 49 mg-valsartan 51 mg 1 tablet PO BID 03/05/21 09/11/24 History tablet (Entresto) apixaban 5 mg tablet (Eliquis) 5 mg PO BID 11/11/21 09/11/24 History albuterol sulfate 2.5 mg/3 mL 2.5 mg (3 mL) inhalation Q4-6H PRN 11/12/22 09/11/24 Rx (0.083 %) solution for nebulization wheezing #180 mL metoprolol succinate 100 mg 100 mg PO DAILY 01/05/24 09/11/24 History tablet,extended release 24 hr pantoprazole 20 mg tablet,delayed 20 mg PO DAILY 01/05/24 09/11/24 History release spironolactone 25 mg tablet 25 mg PO DAILY 01/05/24 09/11/24 History furosemide 40 mg tablet 40 mg PO QAM #90 tabs 03/13/24 09/11/24 Rx tadalafil 20 mg tablet (Cialis) 20 mg PO .COMPLEX PRN sexual 06/21/24 09/11/24 Rx activity #18 tabs allopurinol 100 mg tablet 100 mg PO DAILY #90 tabs 07/21/24 09/11/24 Rx hydroxyzine HCl 25 mg tablet 25 mg PO DAILY PRN itching #30 tabs 08/28/24 09/11/24 Rx acetaminophen 500 mg tablet 1,000 mg PO Q6H PRN fever or pain 09/11/24 09/11/24 History (Acetaminophen Extra Strength) Allergies Allergy/AdvReac Type Severity Reaction Status Date / Time No Known Allergies Allergy Verified 09/11/24 02:02 Vital Signs Vital Signs - 24 hr 09/10/24 16:48 09/10/24 17:01 09/10/24 17:06 Temperature 98.8 F Pulse Rate 94 83 Respiratory Rate 16 17 20 Blood Pressure 69/58 L 73/58 L Pulse Oximetry 95 97 Oxygen Delivery Room Air 09/10/24 17:07 09/10/24 17:11 09/10/24 17:15 Temperature Pulse Rate 82 89 86 Respiratory Rate 22 H 20 23 H Blood Pressure 67/55 L 69/50 L Pulse Oximetry Oxygen Delivery 09/10/24 17:22 09/10/24 17:23 09/10/24 17:29 Temperature Pulse Rate 77 82 Respiratory Rate 18 20 Blood Pressure 84/57 L 84/57 L Pulse Oximetry 98 Oxygen Delivery Room Air 09/10/24 17:31 09/10/24 17:43 09/10/24 17:51 Temperature Pulse Rate 85 79 79 Respiratory Rate 20 22 H 18 Blood Pressure 98/85 L 87/67 L 84/68 L Pulse Oximetry Oxygen Delivery 09/10/24 18:01 09/10/24 18:11 09/10/24 18:21 Temperature Pulse Rate 76 78 75 Respiratory Rate 21 H 22 H 21 H Blood Pressure 86/58 L 90/67 L 81/65 L Pulse Oximetry Oxygen Delivery 09/10/24 18:31 09/10/24 18:42 09/10/24 18:51 Temperature Pulse Rate 80 79 Respiratory Rate 20 22 H Blood Pressure 85/61 L 85/66 L Pulse Oximetry 100 Oxygen Delivery 09/10/24 18:51 09/10/24 19:00 09/10/24 19:01 Temperature Pulse Rate 88 90 88 Respiratory Rate 22 H 24 H 25 H Blood Pressure 89/57 L 84/68 L Pulse Oximetry Oxygen Delivery 09/10/24 19:10 09/10/24 19:11 09/10/24 19:12 Temperature Pulse Rate 80 80 77 Respiratory Rate 20 20 Blood Pressure 88/74 L 89/72 L Pulse Oximetry Oxygen Delivery 09/10/24 19:13 09/10/24 19:15 09/10/24 19:21 Temperature 98.1 F Pulse Rate 77 82 92 Respiratory Rate 17 24 H 23 H Blood Pressure 89/72 L 110/91 H Pulse Oximetry 94 Oxygen Delivery 09/10/24 19:40 09/10/24 19:43 09/10/24 19:45 Temperature Pulse Rate 91 86 82 Respiratory Rate 20 20 19 Blood Pressure Pulse Oximetry Oxygen Delivery 09/10/24 20:00 09/10/24 20:11 09/10/24 20:15 Temperature Pulse Rate 83 86 97 Respiratory Rate 24 H 27 H 20 Blood Pressure 83/58 L Pulse Oximetry Oxygen Delivery 09/10/24 20:19 09/10/24 20:26 09/10/24 20:27 Temperature Pulse Rate 79 85 78 Respiratory Rate 15 29 H Blood Pressure 83/58 L 80/62 L Pulse Oximetry 100 Oxygen Delivery 09/10/24 20:30 09/10/24 20:32 09/10/24 20:36 Temperature Pulse Rate 84 79 82 Respiratory Rate 33 H 26 H 29 H Blood Pressure 83/54 L 84/50 L Pulse Oximetry Oxygen Delivery 09/10/24 20:41 09/10/24 20:45 09/10/24 20:46 Temperature Pulse Rate 87 90 83 Respiratory Rate 26 H 36 H 26 H Blood Pressure 81/59 L 91/55 L Pulse Oximetry 92 100 Oxygen Delivery 09/10/24 20:51 09/10/24 20:56 09/10/24 21:00 Temperature Pulse Rate 82 91 87 Respiratory Rate 28 H 27 H 25 H Blood Pressure 75/62 L 84/52 L Pulse Oximetry Oxygen Delivery 09/10/24 21:53 09/10/24 22:00 09/10/24 22:02 Temperature Pulse Rate 86 Respiratory Rate 23 H Blood Pressure 73/59 L 73/59 L Pulse Oximetry Oxygen Delivery 09/10/24 22:23 09/10/24 22:34 09/10/24 23:03 Temperature Pulse Rate 101 H 86 Respiratory Rate 14 20 Blood Pressure 84/59 L Pulse Oximetry Oxygen Delivery 09/10/24 23:03 09/10/24 23:04 09/10/24 23:04 Temperature Pulse Rate 91 94 Respiratory Rate 16 21 H Blood Pressure 92/55 L 92/55 L Pulse Oximetry Oxygen Delivery 09/10/24 23:15 09/10/24 23:23 09/10/24 23:30 Temperature Pulse Rate 87 103 H 85 Respiratory Rate 29 H 26 H 30 H Blood Pressure 78/54 L Pulse Oximetry 100 Oxygen Delivery 09/10/24 23:45 09/11/24 00:00 09/11/24 00:01 Temperature Pulse Rate 81 104 H 98 Respiratory Rate 23 H 32 H 26 H Blood Pressure 93/61 L Pulse Oximetry Oxygen Delivery 09/11/24 00:15 09/11/24 00:52 09/11/24 00:58 Temperature Pulse Rate 75 71 74 Respiratory Rate 22 H 20 Blood Pressure Pulse Oximetry 98 100 Oxygen Delivery Room Air 09/11/24 01:11 09/11/24 01:12 09/11/24 01:51 Temperature 98 F Pulse Rate 76 74 Respiratory Rate 18 20 Blood Pressure 64/52 L 127/61 78/45 L Pulse Oximetry 100 100 Oxygen Delivery 09/11/24 02:00 09/11/24 02:58 09/11/24 02:59 Temperature Pulse Rate 76 Respiratory Rate Blood Pressure 72/47 L 80/52 L Pulse Oximetry Oxygen Delivery 09/11/24 03:57 09/11/24 04:00 09/11/24 04:00 Temperature 98.6 F Pulse Rate 82 82 70 Respiratory Rate 20 20 Blood Pressure 132/92 H Pulse Oximetry 98 98 Oxygen Delivery Room Air 09/11/24 05:00 09/11/24 05:01 09/11/24 05:01 Temperature Pulse Rate Respiratory Rate Blood Pressure 69/52 L 71/54 L 79/48 L Pulse Oximetry Oxygen Delivery 09/11/24 05:01 09/11/24 05:55 09/11/24 07:00 Temperature Pulse Rate 71 72 Respiratory Rate 20 Blood Pressure 82/51 L 69/54 L Pulse Oximetry 99 Oxygen Delivery 09/11/24 07:15 09/11/24 08:00 09/11/24 08:00 Temperature 98.1 F Pulse Rate 71 70 72 Respiratory Rate 20 Blood Pressure 106/87 85/59 L 85/59 L Pulse Oximetry 91 Oxygen Delivery 09/11/24 08:00 09/11/24 08:00 Temperature Pulse Rate 72 72 Respiratory Rate 20 Blood Pressure Pulse Oximetry 91 Oxygen Delivery Room Air Exam Narrative: General: Pleasant gentleman in no acute distress HEENT:? Pupils are equal and react, sclera is clear, moist oral mucosa Neck:? Supple Respiratory:? Clear to auscultation bilaterally, no wheezing, adequate air entry Cardiac:? Paced rhythm Abdomen:? Soft, nontender, nondistended, normoactive bowel sounds Extremities:? No edema, palpable pedal pulses Neuro:? Patient is awake, alert, oriented x3, nonfocal Skin:? No lesions noted, warm and dry Psych:? Normal mentation and affect Results Labs 09/11/24 02:05 09/11/24 02:05 Labs: Short CBC 09/10/24 09/11/24 Range/Units 17:15 02:05 WBC 6.6 12.2 H (4.5-10.0) K/mm3 Hgb 13.1 L 11.8 L (14.0-18.0) g/dL Hct 41.3 L 38.2 L (42.0-52.0) % Plt Count 265 223 (150-375) k/mm3 BMP 09/10/24 09/11/24 17:15 02:05 Sodium 136 L 136 L Potassium 4.6 4.8 Chloride 98 103 Carbon Dioxide 27 22 BUN 43 H 41 H Creatinine 2.72 H 2.24 H Glucose 121 H 94 Calcium 9.5 8.8 Cardiac Enzymes 09/10/24 09/10/24 09/10/24 Range/Units 17:15 20:10 22:54 Troponin I 0.038 H* 0.030 D 0.030 (0.000-0.034) ng/mL 09/11/24 Range/Units 02:05 Troponin I 0.035 H* (0.000-0.034) ng/mL Liver Function 09/10/24 09/11/24 Range/Units 17:15 02:05 Total Bilirubin 2.9 H 3.0 H (0.2-1.3) mg/dL AST 37 28 (17-59) U/L ALT 19 17 (6-50) U/L Alkaline Phosphatase 124 96 (38-126) U/L Albumin 4.1 3.3 L (3.5-5.1) g/dL Urine 09/10/24 Range/Units 22:54 Urine Color Dark yellow (Yellow) Urine Appearance Clear (Clear) Urine pH 5.5 (5.0-9.0) Ur Specific [place] 1.022 (1.001-1.035) Urine Protein 1+ H (Negative) mg/dL Urine Glucose (UA) 1+ H (Negative) mg/dL
[2024-09-11 09:57] LABS: Creatine Kinase 63 U/L (55-170)
[2024-09-11] MEDS: PERFLUTREN LIPID MICROSPHERES 1.5 ML VIAL DILUTED TO 10 ML TOTAL VOLUME IV PUSH (10:30)
[2024-09-11] MEDS: LACTATED RINGERS 500 ML IV CONT (10:35)
[2024-09-11] MEDS: PANTOPRAZOLE SOD SESQUIHYDRATE 20 MG TAB PO (10:35)
[2024-09-11] MEDS: allopurinoL 100 MG TABLET PO (10:35)
[2024-09-11] MEDS: ALBUMIN HUMAN 25% 25 GM/100 ML 100 ML IVPB ×3 (10:36→23:33)
--- NOTE | 2024-09-11 11:23 | P.CONNP_ITS ---
Assessment and Plan Assessment and plan (1) Acute kidney injury: Code(s): N17.9 - Acute kidney failure, unspecified Status: Acute Assessment and Plan: * normal renal function up until June 2024 * June 2024 -- creatinine up to 1.5mg/dl * July 2024-- creatinine up to 1.97mg/ld * early Februrary 2024 -- creatinine up to 2.34mg/dl * creatinine 2.7mg/dl on admission -- down to 2.24mg/dl today * multifactorial etiology: * profound hypotension/hemodynamic instability * prerenal factors * known cardiomyopathy/depressed EF * Entresto and diuretic therapy [employer] * other(?) * follow-up on renal ultrasound and urine studies * CPK normal * contrast exposure may hamper recovery * follow trend of repeat labs and UOP (2) Acute hypotension: Code(s): I95.9 - Hypotension, unspecified Status: Acute Assessment and Plan: * quite significant on presentation - systolic BP in the high 60s range * possibly precipitated by recent increase in outpatient diuretic therapy + Entresto initiation * s/p IVFs in the ER and on medical floor prior to transfer to ICU * however, his hypotension persisted * transferred to ICU and initiated on vasopressor therapy * further IVFs given as well as IV Albumin * started on midodrine therapy * holding antibiotic therapy since no evidence of infection (3) Congestive heart failure: Code(s): I50.9 - Heart failure, unspecified Status: Acute Assessment and Plan: * appears compensated despite elevated BNP in ER * known history with associated cardiomyopathy * AICD in place * recheck Echo * recent CT imaging without evidence of volume overload or heart failure * Cardiology consulted I will continue to follow the patient with you while he remains hospitalized and make further recommendations as deemed necessary. Thank you for allowing me to participate in the care of this patient. L History of Present Illness Reason for Consult Consult date: 09/11/24 Reason for consult: acute renal failure (on chronic kidney disease?)) Chief Complaint Chief complaint: Hypotension, congestive heart failure, back pain History of Present Illness Narrative: The patient is a 74-year-old male with a past medical history as outlined who presented to [facility] with complaints of left shoulder pain, neck pain, and pain between his shoulder blades. The patient reports that he had the same pain about 2 weeks ago but this seemed to improve with just generalized massage and Tylenol. This time however, his pain persisted despite conservative therapy. The patient cannot recall what caused or precipitated this pain and the only real change that he can recall is that his recent medications for his cardiomyopathy were adjusted included higher dose of Lasix and the addition Entresto. As the pain continued to persist in seem to worsen, he presented to the emergency room for further assessment. Workup and evaluation emergency room demonstrated the patient be quite hypotensive in the 60 systolic range but was afebrile. He was otherwise mentating reasonably well and did not appear to be in any acute distress other than the a for mentioned back pain. Subsequent testing demonstrated normal white blood cell count and procalcitonin but his chemistry showed a marked decline in his renal function with a creatinine of 2.7 to mg/dL on admission. he was given IV fluid boluses in an attempt to improve his blood pressure which did seem to help. He did not demonstrate any signs of or reported dehydration her ER notes. Further testing included a urinalysis that was negative viral testing for RSV, COVID, and influenza which were negative. His troponins were mildly elevated but flat and a subsequent CTA of his chest abdomen pelvis was only significant for a 4.4 cm ascending aortic aneurysm with no evidence of dissection and no other intra-abdominal findings. He was subsequently admitted to the hospital for further evaluation and therapy. Earlier this morning he was hypotensive again and was not responding to IV fluid boluses. He was subsequently transferred to the ICU and initiated on vasopressor therapy in effort to optimize his hemodynamics. Repeat testing this morning show some mild improvement in his renal function. Renal consultation was requested due to evidence of his acute kidney injury/acute renal failure possibly on top of some baseline renal insufficiency. from review his records, the patient had normal renal function up until June of 2024. It was noted at that time his creatinine went up to 1.5 mg/dL. Subsequent testing in July 2024 demonstrated clinical 1.97 mg/dL in early August 2024 his creatinine was up to 2.34 per dL and than as noted above on admission to the his creatinine was 2 7 mg/dL. His creatinine has come down to 2.24 mg/dL labs done this morning. Is difficult to say how much the insult to his kidneys is acute as he does have risk factors for underlying renal insufficiency/ kidney disease. However, suspicion is that his recent medication changes with regard to his diuretics and initiation of Entresto coupled with his profound hypotension likely to blame with regard to his renal function at this time. Upon further questioning, he does report his normal blood pressure runs around 90s - 100s systolic. Currently the time my evaluation, he appears to be in no acute distress. Review of Systems 2 Review of Systems: As per HPI. [facility] Past Medical History Medical History SOB (shortness of breath) Obesity (BMI 30-39.9) Mixed hyperlipidemia ICD (implantable cardioverter-defibrillator) in place Hx of angiography Cardiomyopathy CHF (congestive heart failure) Surgical History Surgical History S/P cardiac cath Family History Family History Mother Ovarian cancer Diabetes mellitus Cancer Father Unknown family medical history Sibling ESRD on dialysis Hypertension Sibling Unknown family medical history Sibling No active medical problems Sibling No active medical problems Sibling Heart problem Sibling Unknown family medical history Sibling Unknown family medical history Sibling Unknown family medical history Sibling Unknown family medical history Sibling Unknown family medical history Social History Social History Smoking status: Never smoker Tobacco type: cigars Second hand tobacco smoke exposure: Yes Additional smoking assessment comments: smoked 1 cigar per day Alcohol intake: never Drinks per week: 15 Substance use: never Substance use type: does not use Other substance usage details: 2xweek Do You Feel Safe in your Home?: Yes Lack of Transportation: No Lack of Food: Never True Current Housing: I Have Housing Concerned About Future Housing: No Difficulty Paying Gas/Electric Bills: No Difficulty Paying for Meds: YES Currently Unemployed: No Education: Grade School Difficulty w/ Childcare or Family Care: No Living arrangements: with family Spiritual care concerns: No Meds Home Medications and Allergies Home Medications ?Medication ?Instructions ?Recorded ?Confirmed ?Type sacubitril 49 mg-valsartan 51 mg 1 tablet PO BID 03/05/21 09/11/24 History tablet (Entresto) apixaban 5 mg tablet (Eliquis) 5 mg PO BID 11/11/21 09/11/24 History albuterol sulfate 2.5 mg/3 mL 2.5 mg (3 mL) inhalation Q4-6H PRN 11/12/22 09/11/24 Rx (0.083 %) solution for nebulization wheezing #180 mL metoprolol succinate 100 mg 100 mg PO DAILY 01/05/24 09/11/24 History tablet,extended release 24 hr pantoprazole 20 mg tablet,delayed 20 mg PO DAILY 01/05/24 09/11/24 History release spironolactone 25 mg tablet 25 mg PO DAILY 01/05/24 09/11/24 History furosemide 40 mg tablet 40 mg PO QAM #90 tabs 03/13/24 09/11/24 Rx tadalafil 20 mg tablet (Cialis) 20 mg PO .COMPLEX PRN sexual 06/21/24 09/11/24 Rx activity #18 tabs allopurinol 100 mg tablet 100 mg PO DAILY #90 tabs 07/21/24 09/11/24 Rx hydroxyzine HCl 25 mg tablet 25 mg PO DAILY PRN itching #30 tabs 08/28/24 09/11/24 Rx acetaminophen 500 mg tablet 1,000 mg PO Q6H PRN fever or pain 09/11/24 09/11/24 History (Acetaminophen Extra Strength) Allergies Allergy/AdvReac Type Severity Reaction Status Date / Time No Known Allergies Allergy Verified 09/11/24 02:02 Vital Signs Vital Signs Temp Pulse Resp BP Pulse Ox O2 Del Method 09/11/24 10:00 70 25 H 80/64 L 98 09/11/24 08:00 72 09/11/24 08:00 72 20 91 Room Air 09/11/24 08:00 98.1 F 72 20 85/59 L 91 09/11/24 08:00 70 85/59 L 09/11/24 07:15 71 106/87 09/11/24 07:00 72 20 69/54 L 99 09/11/24 05:55 71 09/11/24 05:01 82/51 L 09/11/24 05:01 79/48 L 09/11/24 05:01 71/54 L 09/11/24 05:00 69/52 L 09/11/24 04:00 70 09/11/24 04:00 82 20 98 Room Air 09/11/24 03:57 98.6 F 82 20 132/92 H 98 09/11/24 02:59 80/52 L 09/11/24 02:58 72/47 L 09/11/24 02:51 78/45 L 09/11/24 02:00 76 09/11/24 01:12 98 F 74 20 127/61 100 09/11/24 01:11 76 18 64/52 L 100 09/11/24 00:58 74 20 100 Room Air 09/11/24 00:52 71 09/11/24 00:15 75 22 H 98 09/11/24 00:01 98 26 H 93/61 L 09/11/24 00:00 104 H 32 H 09/10/24 23:45 81 23 H 09/10/24 23:30 85 30 H 09/10/24 23:23 103 H 26 H 78/54 L 09/10/24 23:15 87 29 H 100 09/10/24 23:04 94 21 H 09/10/24 23:04 92/55 L 09/10/24 23:03 91 16 92/55 L 09/10/24 23:03 84/59 L 09/10/24 22:34 86 20 09/10/24 22:23 101 H 14 09/10/24 22:02 73/59 L 09/10/24 22:00 73/59 L 09/10/24 21:53 86 23 H 09/10/24 21:00 87 25 H 09/10/24 20:56 91 27 H 84/52 L 09/10/24 20:51 82 28 H 75/62 L 09/10/24 20:46 83 26 H 91/55 L 100 09/10/24 20:45 90 36 H 09/10/24 20:41 87 26 H 81/59 L 92 09/10/24 20:36 82 29 H 84/50 L 09/10/24 20:32 79 26 H 83/54 L 09/10/24 20:30 84 33 H 09/10/24 20:27 78 09/10/24 20:26 85 29 H 80/62 L 09/10/24 20:19 79 15 83/58 L 100 09/10/24 20:15 97 20 09/10/24 20:11 86 27 H 83/58 L 09/10/24 20:00 83 24 H 09/10/24 19:45 82 19 09/10/24 19:43 86 20 09/10/24 19:40 91 20 09/10/24 19:21 92 23 H 110/91 H 09/10/24 19:15 82 24 H 09/10/24 19:13 98.1 F 77 17 89/72 L 94 09/10/24 19:12 77 09/10/24 19:11 80 20 89/72 L 09/10/24 19:10 80 20 88/74 L 09/10/24 19:01 88 25 H 84/68 L 09/10/24 19:00 90 24 H 09/10/24 18:51 88 22 H 89/57 L 09/10/24 18:51 100 09/10/24 18:42 79 22 H 85/66 L 09/10/24 18:31 80 20 85/61 L 09/10/24 18:21 75 21 H 81/65 L 09/10/24 18:11 78 22 H 90/67 L 09/10/24 18:01 76 21 H 86/58 L 09/10/24 17:51 79 18 84/68 L 09/10/24 17:43 79 22 H 87/67 L 09/10/24 17:31 85 20 98/85 L 09/10/24 17:29 82 20 84/57 L Exam 2 Narrative: GENERAL APPEARANCE: elderly male in no acute distress HEENT: normocephalic, atraumatic, normal conjunctiva and sclera, nares patient NECK: no lymphadenopathy, thyromegaly, or JVD MOUTH: normal lips, teeth, and gums CARDIOVASCULAR: RRR, normal S1 and S2, no rub RESPIRATORY: clear to auscultation anteriorly ABDOMEN: soft, nontender, nondistended, positive bowel sounds present EXTREMITIES: no evidence of cyanosis, clubbing, or edema NEUROLOGICAL: alert and oriented x 3; CN II - XII intact bilaterally; no focal deficits noted Results Lab Results 09/15/24 03:24 09/15/24 03:24 Lab results: Most recent lab results Calcium 8.8 mg/dL (8.4-10.2) 09/11/24 02:05 Magnesium 1.7 mg/dL (1.6-2.3) 09/10/24 17:14 Urine Creatinine 182.4 mg/dL 09/11/24 11:30
--- NOTE | 2024-09-11 12:04 | IVDEFINITY ---
Prior to administration of IV Definity the patient was educated on the risks and benefits of the imaging enhancing agent including potential adverse side effects. The patient verbalized understanding. Allergies were verified. No exclusion criteria were identified and at least one of the following inclusion criteria were met: 1) physician request, 2) patient technically difficult to image (per the [place] [employer] guidelines of two or more segments not discernable within the apical view), or 3) questionable left ventricular function. ?
[2024-09-11 12:17] LABS: Creatinine Urine 182.4 mg/dL; Sodium Urine Random 9 meq/L
[2024-09-11 12:18] LABS: Potassium Urine Random 88.7 meq/L
[2024-09-11 12:45] LABS: Eosinophil Urine None Seen % (None Seen)
[2024-09-11 13:13] LABS: Urine Eos QC 2nd Tech Confirmed
--- NOTE | 2024-09-11 16:05 | PCPTNOTE ---
Per Nursing, pt has been trying to get up on his own and started pulling his IV out. Nursing requested to hold therapy at this time.
--- NOTE | 2024-09-11 16:16 | PCCPR ---
Spoke with Montrell at bedside. He is familiar with Cardiac rehab as a former pt last year. Reviewed the program and sounded interested in attending after his dc as a review of signs and symptoms to look for.
--- NOTE | 2024-09-11 16:56 | P.CONCA_ITS ---
Assessment and Plan Assessment and plan (1) Acute hypotension: Code(s): I95.9 - Hypotension, unspecified Status: Acute (2) Nonischemic cardiomyopathy: Code(s): I42.8 - Other cardiomyopathies Status: Acute (3) ICD (implantable cardioverter-defibrillator) in place: Code(s): Z95.810 - Presence of automatic (implantable) cardiac defibrillator Status: Acute (4) Atrial fibrillation: Code(s): I48.91 - Unspecified atrial fibrillation Status: Acute (5) Aortic aneurysm: Code(s): I71.9 - Aortic aneurysm of unspecified site, without rupture Status: Acute (6) HTN (hypertension): Qualifiers: Hypertension type: essential hypertension Qualified Code(s): I10 - Essential (primary) hypertension Code(s): I10 - Essential (primary) hypertension Status: Acute (7) Obesity (BMI 30-39.9): Code(s): E66.9 - Obesity, unspecified Status: Acute (8) Acute kidney injury: Code(s): N17.9 - Acute kidney failure, unspecified Status: Acute (9) Anemia: Code(s): D64.9 - Anemia, unspecified Status: Acute (10) Back pain: Code(s): M54.9 - Dorsalgia, unspecified Status: Acute (11) Left shoulder pain: Code(s): M25.512 - Pain in left shoulder Status: Acute Plan 1. Nonischemic cardiomyopathy with LVEF 25-30% by echo in 2022 2. Severe hypotension most likely secondary to meds 3. Hypovolemia most likely secondary to Lasix in the setting of low LVEF 4. Chronic atrial fibrillation on apixaban for anticoagulation; EKG shows atrial fibrillation 5. Hypovolemic hyponatremia 6. Ascending aortic aneurysm of 4.4 cm 7. Elevated troponin most likely secondary to KATHRYN; chest pain appears noncardiac given increases with inspiration 8. Posterior neck left shoulder pain with radiation to anterior chest-appear noncardiac given sharp nature of pain and pain increases with deep inspiration -unable to administer guideline directed medical therapy for NICM due to hypotension -agree with holding home meds metoprolol, Entresto, spironolactone until SBP greater than 100 mm Hg. Resume GDMT as tolerated when SBP>100mmHg -currently on midodrine and Mark-Synephrine to maintain blood pressure -continue apixaban at home does -hold diuretics due to hypotension -check and replace electrolytes as needed keeping K greater than 4 and magnesium greater than 2 -check weight, ins and outs daily -IV fluids and monitor renal function daily -monitor size of aortic aneurysm with repeat CT in 3-6 months -workup for noncardiac etiology of neck shoulder and anterior chest pain -management of other medical problems per primary team History of Present Illness History of Present Illness Consult date/time: 09/11/24 16:56 Reason For Visit: Hypotension, congestive heart failure, back pain Narrative: Montrell Thomas is a 74 year old male with past medical history of HFrEF s/p AICD, hyperlipidemia, chronic atrial fibrillation on apixaban for anticoagulation, COPD, aortic aneurysm who presented to the ED on 09/10/2024 with posterior neck pain. He describes the pain as sharp with radiation to his left shoulder and forwards into his anterior chest. The pain in his chest got worse with deep breaths. He states that this pain decreased with 2 Tylenol tablets that were administered en route to the ER. He reports similar pain about 2 weeks prior to this presentation which resolved with Tylenol. In the ER he was noted to be hypotensive with blood pressure of 69/58 mm Hg. He did not have any altered mental status or chest pressure with this blood pressure. Patient states that his blood pressure is very sensitive to medication changes. Recently, the dose of his Lasix was increased to b.i.d. at which time he was having to use the bathroom multiple times in the night and he became weak and lost his appetite. The dose of Lasix was then decreased to once a day after which he feels better. He also states that he is taking Entresto twice a day and he was advised to take it once a day due to low blood pressure. His baseline blood pressure is low with SBP in the 100s. In the ER, he appeared to be hypotensive and was administered IV fluids and that admitted to the ICU. He was started on Mark-Synephrine and midodrine. He denies shortness of breath, chest pressure, palpitations, dizziness, presyncopal, syncopal, nausea, emesis, abdominal pain, headache, weakness. Workup showed troponin was mildly elevated 0.038--> 0.030--> 0.030--> 0.035, creatinine is elevated to 2.72 on admission (baseline 0.8-1.20), hemoglobin was 11.8, CTA chest abdomen and pelvis showed 4.4 cm ascending aortic aneurysm and no aortic dissection. Review of Systems 2 Review of Systems: A complete review of systems was performed and negative other than those mentioned in HPI. [facility] Past Medical History Medical History SOB (shortness of breath) Obesity (BMI 30-39.9) Mixed hyperlipidemia ICD (implantable cardioverter-defibrillator) in place Hx of angiography Cardiomyopathy CHF (congestive heart failure) Surgical History Surgical History S/P cardiac cath Family History Family History Mother Ovarian cancer Diabetes mellitus Cancer Father Unknown family medical history Sibling ESRD on dialysis Hypertension Sibling Unknown family medical history Sibling No active medical problems Sibling No active medical problems Sibling Heart problem Sibling Unknown family medical history Sibling Unknown family medical history Sibling Unknown family medical history Sibling Unknown family medical history Sibling Unknown family medical history Social History Social History Smoking status: Never smoker Tobacco type: cigars Second hand tobacco smoke exposure: Yes Additional smoking assessment comments: smoked 1 cigar per day Alcohol intake: never Drinks per week: 15 Substance use: never Substance use type: does not use Other substance usage details: 2xweek Do You Feel Safe in your Home?: Yes Lack of Transportation: No Lack of Food: Never True Current Housing: I Have Housing Concerned About Future Housing: No Difficulty Paying Gas/Electric Bills: No Difficulty Paying for Meds: YES Currently Unemployed: No Education: Grade School Difficulty w/ Childcare or Family Care: No Living arrangements: with family Spiritual care concerns: No Meds Home Medications and Allergies Home Medications ?Medication ?Instructions ?Recorded ?Confirmed ?Type sacubitril 49 mg-valsartan 51 mg 1 tablet PO BID 03/05/21 09/11/24 History tablet (Entresto) apixaban 5 mg tablet (Eliquis) 5 mg PO BID 11/11/21 09/11/24 History albuterol sulfate 2.5 mg/3 mL 2.5 mg (3 mL) inhalation Q4-6H PRN 11/12/22 09/11/24 Rx (0.083 %) solution for nebulization wheezing #180 mL metoprolol succinate 100 mg 100 mg PO DAILY 01/05/24 09/11/24 History tablet,extended release 24 hr pantoprazole 20 mg tablet,delayed 20 mg PO DAILY 01/05/24 09/11/24 History release spironolactone 25 mg tablet 25 mg PO DAILY 01/05/24 09/11/24 History furosemide 40 mg tablet 40 mg PO QAM #90 tabs 03/13/24 09/11/24 Rx tadalafil 20 mg tablet (Cialis) 20 mg PO .COMPLEX PRN sexual 06/21/24 09/11/24 Rx activity #18 tabs allopurinol 100 mg tablet 100 mg PO DAILY #90 tabs 07/21/24 09/11/24 Rx hydroxyzine HCl 25 mg tablet 25 mg PO DAILY PRN itching #30 tabs 08/28/24 09/11/24 Rx acetaminophen 500 mg tablet 1,000 mg PO Q6H PRN fever or pain 09/11/24 09/11/24 History (Acetaminophen Extra Strength) Allergies Allergy/AdvReac Type Severity Reaction Status Date / Time No Known Allergies Allergy Verified 09/11/24 02:02 Vital Signs Vital Signs - 24 hr 09/10/24 17:01 09/10/24 17:06 09/10/24 17:07 Temperature Pulse Rate 94 83 82 Respiratory Rate 17 20 22 H Blood Pressure 73/58 L 67/55 L Pulse Oximetry 97 Oxygen Delivery 09/10/24 17:11 09/10/24 17:15 09/10/24 17:22 Temperature Pulse Rate 89 86 77 Respiratory Rate 20 23 H 18 Blood Pressure 69/50 L 84/57 L Pulse Oximetry Oxygen Delivery 09/10/24 17:23 09/10/24 17:29 09/10/24 17:31 Temperature Pulse Rate 82 85 Respiratory Rate 20 20 Blood Pressure 84/57 L 98/85 L Pulse Oximetry 98 Oxygen Delivery Room Air 09/10/24 17:43 09/10/24 17:51 09/10/24 18:01 Temperature Pulse Rate 79 79 76 Respiratory Rate 22 H 18 21 H Blood Pressure 87/67 L 84/68 L 86/58 L Pulse Oximetry Oxygen Delivery 09/10/24 18:11 09/10/24 18:21 09/10/24 18:31 Temperature Pulse Rate 78 75 80 Respiratory Rate 22 H 21 H 20 Blood Pressure 90/67 L 81/65 L 85/61 L Pulse Oximetry Oxygen Delivery 09/10/24 18:42 09/10/24 18:51 09/10/24 18:51 Temperature Pulse Rate 79 88 Respiratory Rate 22 H 22 H Blood Pressure 85/66 L 89/57 L Pulse Oximetry 100 Oxygen Delivery 09/10/24 19:00 09/10/24 19:01 09/10/24 19:10 Temperature Pulse Rate 90 88 80 Respiratory Rate 24 H 25 H 20 Blood Pressure 84/68 L 88/74 L Pulse Oximetry Oxygen Delivery 09/10/24 19:11 09/10/24 19:12 09/10/24 19:13 Temperature 36.7 C Pulse Rate 80 77 77 Respiratory Rate 20 17 Blood Pressure 89/72 L 89/72 L Pulse Oximetry 94 Oxygen Delivery 09/10/24 19:15 09/10/24 19:21 09/10/24 19:40 Temperature Pulse Rate 82 92 91 Respiratory Rate 24 H 23 H 20 Blood Pressure 110/91 H Pulse Oximetry Oxygen Delivery 09/10/24 19:43 09/10/24 19:45 09/10/24 20:00 Temperature Pulse Rate 86 82 83 Respiratory Rate 20 19 24 H Blood Pressure Pulse Oximetry Oxygen Delivery 09/10/24 20:11 09/10/24 20:15 09/10/24 20:19 Temperature Pulse Rate 86 97 79 Respiratory Rate 27 H 20 15 Blood Pressure 83/58 L 83/58 L Pulse Oximetry 100 Oxygen Delivery 09/10/24 20:26 09/10/24 20:27 09/10/24 20:30 Temperature Pulse Rate 85 78 84 Respiratory Rate 29 H 33 H Blood Pressure 80/62 L Pulse Oximetry Oxygen Delivery 09/10/24 20:32 09/10/24 20:36 09/10/24 20:41 Temperature Pulse Rate 79 82 87 Respiratory Rate 26 H 29 H 26 H Blood Pressure 83/54 L 84/50 L 81/59 L Pulse Oximetry 92 Oxygen Delivery 09/10/24 20:45 09/10/24 20:46 09/10/24 20:51 Temperature Pulse Rate 90 83 82 Respiratory Rate 36 H 26 H 28 H Blood Pressure 91/55 L 75/62 L Pulse Oximetry 100 Oxygen Delivery 09/10/24 20:56 09/10/24 21:00 09/10/24 21:53 Temperature Pulse Rate 91 87 86 Respiratory Rate 27 H 25 H 23 H Blood Pressure 84/52 L Pulse Oximetry Oxygen Delivery 09/10/24 22:00 09/10/24 22:02 09/10/24 22:23 Temperature Pulse Rate 101 H Respiratory Rate 14 Blood Pressure 73/59 L 73/59 L Pulse Oximetry Oxygen Delivery 09/10/24 22:34 09/10/24 23:03 09/10/24 23:03 Temperature Pulse Rate 86 91 Respiratory Rate 20 16 Blood Pressure 84/59 L 92/55 L Pulse Oximetry Oxygen Delivery 09/10/24 23:04 09/10/24 23:04 09/10/24 23:15 Temperature Pulse Rate 94 87 Respiratory Rate 21 H 29 H Blood Pressure 92/55 L Pulse Oximetry 100 Oxygen Delivery 09/10/24 23:23 09/10/24 23:30 09/10/24 23:45 Temperature Pulse Rate 103 H 85 81 Respiratory Rate 26 H 30 H 23 H Blood Pressure 78/54 L Pulse Oximetry Oxygen Delivery 09/11/24 00:00 09/11/24 00:01 09/11/24 00:15 Temperature Pulse Rate 104 H 98 75 Respiratory Rate 32 H 26 H 22 H Blood Pressure 93/61 L Pulse Oximetry 98 Oxygen Delivery 09/11/24 00:52 09/11/24 00:58 09/11/24 01:11 Temperature Pulse Rate 71 74 76 Respiratory Rate 20 18 Blood Pressure 64/52 L Pulse Oximetry 100 100 Oxygen Delivery Room Air 09/11/24 01:12 09/11/24 02:00 09/11/24 02:51 Temperature 36.6 C Pulse Rate 74 76 Respiratory Rate 20 Blood Pressure 127/61 78/45 L Pulse Oximetry 100 Oxygen Delivery 09/11/24 02:58 09/11/24 02:59 09/11/24 03:57 Temperature 37.0 C Pulse Rate 82 Respiratory Rate 20 Blood Pressure 72/47 L 80/52 L 132/92 H Pulse Oximetry 98 Oxygen Delivery 09/11/24 04:00 09/11/24 04:00 09/11/24 05:00 Temperature Pulse Rate 82 70 Respiratory Rate 20 Blood Pressure 69/52 L Pulse Oximetry 98 Oxygen Delivery Room Air 09/11/24 05:01 09/11/24 05:01 09/11/24 05:01 Temperature Pulse Rate Respiratory Rate Blood Pressure 71/54 L 79/48 L 82/51 L Pulse Oximetry Oxygen Delivery 09/11/24 05:55 09/11/24 07:00 09/11/24 07:15 Temperature Pulse Rate 71 72 71 Respiratory Rate 20 Blood Pressure 69/54 L 106/87 Pulse Oximetry 99 Oxygen Delivery 09/11/24 08:00 09/11/24 08:00 09/11/24 08:00 Temperature 36.7 C Pulse Rate 70 72 72 Respiratory Rate 20 20 Blood Pressure 85/59 L 85/59 L Pulse Oximetry 91 91 Oxygen Delivery Room Air 09/11/24 08:00 09/11/24 10:00 09/11/24 10:00 Temperature Pulse Rate 72 70 70 Respiratory Rate 25 H Blood Pressure 80/64 L Pulse Oximetry 98 Oxygen Delivery 09/11/24 10:00 09/11/24 12:00 09/11/24 12:00 Temperature Pulse Rate 73 72 73 Respiratory Rate 25 H Blood Pressure 80/64 L Pulse Oximetry 90 Oxygen Delivery Room Air 09/11/24 12:00 09/11/24 12:00 09/11/24 14:00 Temperature 36.9 C Pulse Rate 98 70 70 Respiratory Rate 25 H 18 Blood Pressure 90/71 L 90/71 L 97/69 L Pulse Oximetry 90 94 Oxygen Delivery 09/11/24 14:00 09/11/24 14:00 09/11/24 16:00 Temperature Pulse Rate 70 70 73 Respiratory Rate 18 Blood Pressure 93/59 L Pulse Oximetry 90 Oxygen Delivery Room Air 09/11/24 16:00 09/11/24 16:00 Temperature 36.7 C Pulse Rate 73 72 Respiratory Rate 22 H Blood Pressure 83/63 L Pulse Oximetry 94 Oxygen Delivery Exam 2 Narrative: General: Alert oriented x3, no acute distress Neck: Supple, no JVD Chest: Bilaterally clear to auscultation, no rales or rhonchi Cardiac: S1, S2 +, regular rate, regular rhythm, no murmurs or rubs Extremities: No pedal edema, no skin rash Neurologic: Alert and oriented x3, no focal neurological deficits Results Labs and Meds 09/11/24 02:05 09/11/24 02:05 Lab results: Cardiac Enzymes 09/10/24 09/10/24 09/10/24 Range/Units 17:15 20:10 22:54 AST 37 (17-59) U/L Troponin I 0.038 H* 0.030 D 0.030 (0.000-0.034) ng/mL 09/11/24 Range/Units 02:05 AST 28 (17-59) U/L Troponin I 0.035 H* (0.000-0.034) ng/mL Coagulation 09/10/24 Range/Units 17:15 PT 17.4 H (11.1-14.7) Seconds APTT 34.1 (22.3-36.8) Seconds CBC 09/10/24 09/11/24 Range/Units 17:15 02:05 WBC 6.6 12.2 H (4.5-10.0) K/mm3 RBC 5.28 4.81 (4.6-6.20) M/mm3 Hgb 13.1 L 11.8 L (14.0-18.0) g/dL Hct 41.3 L 38.2 L (42.0-52.0) % Plt Count 265 223 (150-375) k/mm3 Lymph # (Auto) 0.69 L 0.73 L (0.9-3.2) K/mm3 [place] # (Auto) 0.6 0.9 H (0.1-0.6) K/mm3 Eos # (Auto) 0.0 0.0 (0-0.3) K/mm3 Baso # (Auto) 0.0 0.0 (0.0-0.1) K/mm3 Comprehensive Metabolic Panel 09/10/24 09/11/24 Range/Units 17:15 02:05 Sodium 136 L 136 L (137-145) mmol/L Potassium 4.6 4.8 (3.4-5.0) mmol/L Chloride 98 103 (98-107) mmol/L Carbon Dioxide 27 22 (22-30) mmol/L BUN 43 H 41 H (9-20) mg/dL Creatinine 2.72 H 2.24 H (0.7-1.3) mg/dL Glucose 121 H 94 (65-110) mg/dL Calcium 9.5 8.8 (8.4-10.2) mg/dL AST 37 28 (17-59) U/L ALT 19 17 (6-50) U/L Alkaline Phosphatase 124 96 (38-126) U/L Total Protein 9.0 H 7.0 (6.3-8.2) g/dL Albumin 4.1 3.3 L (3.5-5.1) g/dL Intake and Output 09/11/24 09/11/24 09/11/24 07:59 15:59 23:59 Intake Total 800 661 Output Total 225 Balance 575 661 Intake: IV 500 181 Phenylephrine HCl Inj 50 mg In 81 Dextrose 5% in Water 250 ml In 245 ml @ 40 MCG/MIN 12 mls/hr IV CONT .[id number] [facility] Rx#: [id number] Sodium Chloride 0.9% IV 500 ml 500 @ 999 mls/hr IV CONT .Q31M ONE Rx#:[id number] Albumin Human 25% 25 gm/100 ml 100 100 ml @ 60 mls/hr IVPB Q6HR [facility] Rx#:[id number] Oral 300 480 Output: Urine 225 Other: # Unmeasured Voids 1 Patient Weight 09/11/24 23:59 Weight 88.7 kg EKG Interpretation EKG shows: atrial fibrillation
[2024-09-12] VITALS (68 sets, daily range): BP systolic 69–116; BP diastolic 54–84; PULSE 70–95; RESP 13–29; TEMP 36.6–37.1; O2SAT 80–100
[2024-09-12] MEDS: PHENYLEPHRINE HCL INJ 50 MG in DEXTROSE 5% IN WATER 250 ML/245 ML BAG 27 ML IV CONT (01:48)
[2024-09-12 04:59] LABS: Basophils Percent Auto 0.3 % (0.2-1.2); Eosinophils Percent Auto 0.3 % (0-4.4); Hematocrit 33.5 % (42.0-52.0); Hemoglobin 10.4 g/dL (14.0-18.0); Immature Granulocyte Absolute 0.03 K/mm3 (0.00-0.031); Immature Granulocyte Percent A 0.4 % (0-0.5); Lymphocytes Absolute Auto 1.35 K/mm3 (0.9-3.2); Lymphocytes Percent Auto 17.2 % (18.3-44.2); Mean Corpuscular Hemoglobin 24.6 pg (26-34); Mean Corpuscular Volume 79.4 fl (80-100); Mean Platelet Volume 10.2 fl (7.4-10.4); Monocytes Absolute Auto 1.1 K/mm3 (0.1-0.6); Monocytes Percent Auto 14.3 % (2.6-8.5); Neutrophils Absolute Auto 5.3 K/mm3 (1.3-6.7); Neutrophils Percent Auto 67.5 % (45.5-73.1); Platelet Count Result 196 k/mm3 (150-375); Red Blood Count 4.22 M/mm3 (4.6-6.20); Red Cell Distribution Width 21.6 % (11.5-14.5); White Blood Count 7.8 K/mm3 (4.5-10.0)
[2024-09-12 05:19] LABS: Cholesterol 126 mg/dL (0-200); HDL Direct 59 mg/dL; Triglycerides 69 mg/dL (<150)
[2024-09-12 05:30] LABS: LDL Cholesterol Direct 38 mg/dL
[2024-09-12 05:32] LABS: Alanine Aminotransferase 17 U/L (6-50); Albumin Level 3.9 g/dL (3.5-5.1); Alkaline Phosphatase 96 U/L (38-126); Anion Gap 15 mmol/L (4-12); Aspartate Amino Transferase 33 U/L (17-59); Bilirubin,Total 4.8 mg/dL (0.2-1.3); Blood Urea Nitrogen 47 mg/dL (9-20); Calcium 9.4 mg/dL (8.4-10.2); Carbon Dioxide 21 mmol/L (22-30); Chloride 101 mmol/L (98-107); Estimated CRCL calculation 28 ml/min; Estimated Glomerular Filt Rate 28; Glucose 98 mg/dL (65-110); Magnesium 1.8 mg/dL (1.6-2.3); Phosphorus 3.8 mg/dL (2.5-4.5); Potassium 4.9 mmol/L (3.4-5.0); Sodium 137 mmol/L (137-145)
[2024-09-12] MEDS: ALBUMIN HUMAN 25% 25 GM/100 ML 100 ML IVPB (06:01)
[2024-09-12] MEDS: PANTOPRAZOLE SOD SESQUIHYDRATE 20 MG TAB PO (08:28)
[2024-09-12] MEDS: APIXABAN 5 MG TABLET PO ×2 (08:28→20:51)
[2024-09-12] MEDS: MIDODRINE HCL 10 MG TABLET PO ×3 (08:28→17:10)
[2024-09-12] MEDS: allopurinoL 100 MG TABLET PO (08:28)
--- NOTE | 2024-09-12 08:42 | PCPTNOTE ---
HOLD PT per RN and hospitalist in ICU--decreased medical status. 84
[2024-09-12] MEDS: SODIUM CHLORIDE 0.9% IV 1,000 ML 100 ML IV CONT (08:44)
--- NOTE | 2024-09-12 09:00 | P.PNNP_ITS ---
Progress Note: A&P Assessment and Plan (1) Acute kidney injury: Code(s): N17.9 - Acute kidney failure, unspecified Status: Acute Assessment and Plan: * normal renal function up until June 2024 * June 2024 -- creatinine up to 1.5mg/dl * July 2024-- creatinine up to 1.97mg/ld * early [id number] -- creatinine up to 2.34mg/dl * creatinine 2.7mg/dl on admission * suspect multifactorial etiology: * profound hypotension/hemodynamic instability * prerenal factors * known cardiomyopathy/depressed EF * Entresto and diuretic therapy PMP * contrast exposure (but creatinine was already elevated prior to this -- however, this might hamper recovery) * other(?) * evaluation to date noted: * renal ultrasound normal * CPK normal * urine eosinophils negative * urine electrolytes prerenal (but his could be a manifestation of his cardiomyopathy/depressed EF as well) * UA with 1+ protein * follow trend of repeat labs and UOP (2) Acute hypotension: Code(s): I95.9 - Hypotension, unspecified Status: Acute Assessment and Plan: * quite significant on presentation - systolic BP in the high 60s range * possibly precipitated by recent increase in outpatient diuretic therapy + Entresto initiation * s/p IVFs in the ER and on medical floor prior to transfer to ICU * however, his hypotension persisted * transferred to ICU and initiated on vasopressor therapy * s/p volume expansion IV Albumin * started on midodrine therapy as well * holding antibiotic therapy since no evidence of infection (3) Congestive heart failure: Code(s): I50.9 - Heart failure, unspecified Status: Acute Assessment and Plan: * appears compensated despite elevated BNP in ER * known history with associated cardiomyopathy * AICD in place * recheck Echo * recent CT imaging without evidence of volume overload or heart failure * Cardiology recommendations noted (4) Aortic aneurysm: Code(s): I71.9 - Aortic aneurysm of unspecified site, without rupture Status: Acute Assessment and Plan: * CTA chest abdomen pelvis showed 4.4 cm ascending aortic aneurysm but no aortic dissection * Cardiology recommendations noted Will continue to follow. L Subjective Date/time seen: 09/12/24 09:00 Interval history: Follow-up for acute kidney injury/acute renal failure (on chronic kidney disease?). No apparent distress noted at the time of my visit; remains on vasopressor therapy to maintain his blood pressure/MAP; no other acute complaints voiced; no other issues/events overnight or earlier this morning. Exam 2 Narrative: General: elderly but WD/WN male in NAD Heart: normal S1 and S2; no rub Lungs: clear to auscultation Abdomen: soft, nontender, nondistended, positive bowel sounds Extremities: no cyanosis or clubbing; no edema Skin: warm and dry Objective Data Vital Signs Vital Signs: Vital Signs Temp Pulse Resp BP Pulse Ox O2 Del Method 09/12/24 08:40 72 88/65 L 09/12/24 08:26 70 97/83 L 09/12/24 08:00 98.3 F 72 21 H 96/76 L 98 09/12/24 07:35 70 96/70 L 09/12/24 07:19 74 93/73 L 09/12/24 06:46 70 26 H 92 09/12/24 06:46 71 24 H 96/70 L 92 09/12/24 06:46 72 09/12/24 06:45 70 24 H 96/70 L 93 09/12/24 06:36 71 27 H 93/68 L 96 09/12/24 06:35 70 93/68 L 09/12/24 06:30 76 18 97 09/12/24 06:15 74 20 97 09/12/24 06:00 95 25 H 100 09/12/24 05:55 81 92/70 L 09/12/24 05:46 77 26 H 96 09/12/24 05:45 87 24 H 92/70 L 98 09/12/24 05:31 73 21 H 83 L 09/12/24 05:30 74 13 90/75 L 98 09/12/24 05:16 76 27 H 92 09/12/24 05:15 76 25 H 88/76 L 92 09/12/24 05:01 72 22 H 83 L 09/12/24 05:00 71 24 H 92/74 L 85 L 09/12/24 04:59 71 95/81 L 09/12/24 04:46 70 15 95 09/12/24 04:45 73 17 95/81 L 96 09/12/24 04:31 70 20 93/74 L 94 09/12/24 04:16 72 23 H 93/79 L 96 09/12/24 04:15 70 25 H 94 09/12/24 04:01 74 28 H 104/68 96 09/12/24 04:00 72 23 H 94 09/12/24 04:00 74 09/12/24 03:46 70 19 92/68 L 96 09/12/24 03:45 70 27 H 94 09/12/24 03:36 98.8 F 70 24 H 116/84 96 09/12/24 03:36 96 Room Air 09/12/24 03:36 80 116/84 09/12/24 03:31 75 20 116/84 95 09/12/24 03:30 80 22 H 09/12/24 03:27 91 25 H 90/77 L 09/12/24 03:15 93 22 H 80 L 09/12/24 03:02 72 20 96 09/12/24 03:01 70 23 H 109/82 95 09/12/24 02:46 86 29 H 95/61 L 98 09/12/24 02:45 82 25 H 96 09/12/24 02:31 71 13 92/66 L 98 09/12/24 02:30 84 18 98 09/12/24 02:16 72 27 H 99/77 L 97 09/12/24 02:15 70 25 H 98 09/12/24 02:06 87 104/77 09/12/24 02:01 70 20 104/77 86 L 09/12/24 02:00 71 17 09/12/24 02:00 74 20 104/77 96 09/12/24 02:00 74 09/12/24 01:48 70 69/54 L 09/12/24 01:48 70 69/54 L 09/12/24 01:46 70 21 H 69/54 L 93 09/12/24 01:45 70 20 93 09/12/24 01:31 72 20 87/76 L 99 09/12/24 01:30 70 13 98 09/12/24 01:22 74 21 H 99 09/12/24 00:10 22 H 102/76 93 09/12/24 00:00 70 09/11/24 23:46 97.4 F L 71 24 H 83/67 L 96 09/11/24 23:46 80 26 H 93 Room Air 09/11/24 23:31 70 65/49 L 09/11/24 23:16 70 24 H 93 09/11/24 23:06 75 79/57 L 09/11/24 23:01 72 20 95 09/11/24 23:00 77 22 H 79/57 L 96 09/11/24 22:54 74 18 92/71 L 94 09/11/24 22:46 75 25 H 74/42 L 09/11/24 22:45 76 24 H 09/11/24 22:31 73 21 H 97 09/11/24 22:30 71 18 81/63 L 98 09/11/24 22:19 71 75/55 L 09/11/24 22:16 71 21 H 75/55 L 97 09/11/24 22:16 71 09/11/24 22:15 70 21 H 96 09/11/24 22:02 69 26 H 98 09/11/24 22:01 87/66 L 97 09/11/24 22:00 82 22 H 76/61 L 98 09/11/24 22:00 70 09/11/24 22:00 70 24 H 87/66 L 96 09/11/24 22:00 74 87/66 L 09/11/24 21:46 70 20 98 09/11/24 21:45 70 23 H 82/63 L 98 09/11/24 21:33 73 18 92/62 L 97 09/11/24 21:30 72 24 H 09/11/24 21:15 79 24 H 09/11/24 21:00 82 22 H 91 09/11/24 20:45 72 26 H 93 09/11/24 20:30 73 22 H 88 L 09/11/24 20:26 81 22 H 86/67 L 90 09/11/24 20:25 98.4 F 09/11/24 20:25 88 25 H Room Air 09/11/24 20:15 70 25 H 86 L 09/11/24 20:00 78 16 09/11/24 19:52 72 23 H 95 09/11/24 19:45 71 95/72 L 09/11/24 19:01 70 23 H 95 09/11/24 18:00 72 88/72 L 09/11/24 18:00 71 18 85/67 L 99 09/11/24 18:00 71 09/11/24 17:40 95 Room Air 09/11/24 16:00 71 85/68 L 09/11/24 16:00 98.1 F 72 22 H 83/63 L 94 09/11/24 16:00 73 09/11/24 16:00 73 18 90 Room Air 09/11/24 14:00 70 09/11/24 14:00 70 93/59 L 09/11/24 14:00 70 18 97/69 L 94 09/11/24 12:00 70 90/71 L 09/11/24 12:00 98.5 F 98 25 H 90/71 L 90 09/11/24 12:00 73 09/11/24 12:00 72 25 H 90 Room Air Intake/Output Intake/Output: Intake & Output 09/09/24 09/10/24 09/11/24 09/12/24 23:59 23:59 23:59 23:59 Intake Total 1500 2056.5 310.5 Output Total 750 75 Balance 1500 1306.5 235.5 Meds/Results Medications: Active Medications Generic Name Dose Route Start Last Admin Trade Name Freq PRN Reason Stop Dose Admin Acetaminophen 650 mg 09/11/24 01:19 Acetaminophen 325 Mg Tablet PO Q4H PRN Mild Pain (1-3) or Fever Hydrocodone Bitart/Acetaminophen 1 tab 09/11/24 01:19 Hydrocodone/Acetaminophen (*Crx) 5-325 Mg Tablet PO Q4H PRN Moderate Pain (4-6) Albuterol 2.5 mg 09/11/24 03:21 Albuterol Sulfate Neb 2.5 Mg/3 Ml Inh INHALATION Q4-6H PRN wheezing Allopurinol 100 mg 09/11/24 08:00 09/12/24 08:28 Allopurinol 100 Mg Tablet PO 100 mg DAILY@0800 [facility] Administration Apixaban 5 mg 09/11/24 09:00 09/12/24 08:28 Apixaban 5 Mg Tablet PO 5 mg Q12HR [facility] Administration Fentanyl Citrate 50 mcg 09/10/24 23:13 Fentanyl Citrate Inj (*Crx) 100 Mcg/2 Ml Vial IV PUSH Q2H PRN Pain Rated 7-10 Phenylephrine HCl 50 mg/ 250 ml in 250 mls @ 9 mls/hr 09/11/24 06:45 09/12/24 09:45 Dextrose IV CONT 20 mcg/min .[id number] [facility] 6 mls/hr Titration Protocol 30 MCG/MIN Sodium Chloride 1,000 mls @ 100 mls/hr 09/12/24 08:35 09/12/24 08:44 Normal Saline Iv IV CONT 09/12/24 18:34 100 mls/hr .Q10H [facility] Administration Melatonin 5 mg 09/11/24 01:19 Melatonin 5 Mg Tablet PO HS PRN Insomnia Midodrine 10 mg 09/10/24 23:00 09/12/24 08:28 Midodrine Hcl 10 Mg Tablet PO 10 mg TID [facility] Administration Ondansetron HCl 4 mg 09/10/24 23:13 09/11/24 02:38 Ondansetron Inj 4 Mg/2 Ml Vial IV PUSH 4 mg Q4H PRN Administration Nausea Pantoprazole Sodium 20 mg 09/11/24 09:00 09/12/24 08:28 Pantoprazole Sod Sesquihydrate 20 Mg Tab PO 20 mg DAILY [facility] Administration Prochlorperazine Edisylate 10 mg 09/11/24 01:19 Prochlorperazine Edisylate 10 Mg/2 Ml Vial IV PUSH Q6H PRN Nausea And Vomiting Radiology Results: ITS Impressions Chest X-Ray 09/10/24 17:35 IMPRESSION: No focal infiltrate or effusion. Chest/Abdomen/Pelvis CT 09/10/24 20:24 IMPRESSION: Heterogeneous appearance of the bone marrow for which a systemic disease is suspected and for which clinical correlation is needed. No acute findings within the chest, abdomen or pelvis to account for patient's presenting symptoms. Chest/Abdomen/Pelvis CTA 09/11/24 05:37 Impression: 4.4 cm ascending aortic aneurysm. No aortic dissection. Renal Ultrasound 09/11/24 11:20 IMPRESSION: 1. Normal kidneys. No hydronephrosis. Labs Labs: Laboratory Tests 09/12/24 04:30 09/12/24 04:30 Calcium 9.4 Phosphorus 3.8 Magnesium 1.8 Total Bilirubin 4.8 H AST 33 ALT 17 Alkaline Phosphatase 96 Total Protein 7.0 Albumin 3.9 Triglycerides 69 Cholesterol 126 LDL Cholesterol Direct 38 HDL Direct 59
--- NOTE | 2024-09-12 09:04 | P.PNCA_ITS ---
Progress Note: A&P Assessment and Plan (1) Nonischemic cardiomyopathy: Code(s): I42.8 - Other cardiomyopathies Status: Acute (2) AICD (automatic cardioverter/defibrillator) present: Code(s): Z95.810 - Presence of automatic (implantable) cardiac defibrillator Status: Acute (3) Ascending aortic aneurysm: Code(s): I71.21 - Aneurysm of the ascending aorta, without rupture Status: Acute (4) HTN (hypertension): Qualifiers: Hypertension type: essential hypertension Qualified Code(s): I10 - Essential (primary) hypertension Code(s): I10 - Essential (primary) hypertension Status: Acute (5) Acute hypotension: Code(s): I95.9 - Hypotension, unspecified Status: Acute (6) Atrial fibrillation: Code(s): I48.91 - Unspecified atrial fibrillation Status: Acute (7) Mixed hyperlipidemia: Code(s): E78.2 - Mixed hyperlipidemia Status: Acute (8) Obesity (BMI 30-39.9): Code(s): E66.9 - Obesity, unspecified Status: Acute (9) Chronic renal insufficiency, stage III (moderate): Code(s): N18.30 - Chronic kidney disease, stage 3 unspecified Status: Acute (10) Acute kidney injury: Code(s): N17.9 - Acute kidney failure, unspecified Status: Acute (11) Anemia: Code(s): D64.9 - Anemia, unspecified Status: Acute Plan 1. Nonischemic cardiomyopathy with LVEF 25-30% by echo in 2022; cardiac catheterization in 2017 showed normal coronaries 2. Severe hypotension most likely secondary to meds- remains hypotensive with SBP in the 80s-90s while on midodrine and peripheral mark-synephrine 3. Hypovolemia most likely secondary to meds (lasix)- lasix held, IV fluids administered 4. Chronic atrial fibrillation on apixaban for anticoagulation; EKG shows atrial fibrillation 5. Hypovolemic hyponatremia 6. Ascending aortic aneurysm of 4.4 cm 7. Elevated troponin (0.038--> 0.030--> 0.030) most likely secondary to hypotension and acute on chronic renal failure; chest pain appears noncardiac given increases with inspiration -stop IV fluids given dilated IVC on echo. Monitor renal function daily -unable to administer GDMT due to hypotension. Resume GDMT (metoprolol, Entresto, spironolactone in that order) as tolerated when SBP>100mmHg -hold Lasix due to hypotension (patient appears hypovolemic) -currently on midodrine and Mark-Synephrine for maintaining blood pressure. Can wean Mark-Synephrine keeping SBP greater than 80 mm Hg -continue apixaban at home dose -check and replace electrolytes as needed keeping K greater than 4 and magnesium greater than 2 -check weight, ins and outs daily -monitor size of aortic aneurysm with repeat CT in 3-6 months Subjective Date/time seen: 09/12/24 09:04 Interval history: Reason for encounter: Hypotension Relevant history: Montrell Thomas is a 74 year old male with past medical history of HFrEF s/p AICD, hyperlipidemia, chronic atrial fibrillation on apixaban for anticoagulation, COPD, aortic aneurysm who presented to the ED on 09/10/2024 with posterior neck pain with radiation to his left shoulder and forward into his anterior chest. The pain in his chest got worse with deep breaths indicating it was noncardiac in nature. The pain resolved with administration of Tylenol in the ER. He was hypotensive at presentation with SBP in the 60s. His home cardiac meds including metoprolol, Entresto, spironolactone were held and he was started on midodrine and Mark-Synephrine with SBP in the 80s to 90s range. Patient remains asymptomatic from this blood pressure. Workup showed troponin was mildly elevated 0.038--> 0.030--> 0.030--> 0.035, creatinine elevated to 2.72 on admission (baseline 0.8-1.20), hemoglobin was 11.8, CTA chest abdomen and pelvis showed 4.4 cm ascending aortic aneurysm and no aortic dissection. Interval history: No chest pain, shortness of breath, diaphoresis, palpitations, dizziness, lightheadedness, nausea, emesis. Pain in the back of his neck and shoulder has resolved. His SBP remains in the 80s to 90s range. TTE: Severely depressed left ventricular ejection fraction of 20-25% (same as before). Moderate tricuspid regurgitation. Pulmonary hypertension with estimated pulmonary artery systolic pressure of 55 mm Hg. Inferior vena cava is dilated with less than 50% collapse on inspiration. Review of Systems Review of Systems: A complete review of systems was performed and pertinent positives are noted in the HPI Exam Narrative: General: Alert oriented x3, no acute distress Neck: Supple, no JVD Chest: Bilaterally clear to auscultation, no rales or rhonchi Cardiac: S1, S2 +, regular rate, regular rhythm, no murmurs or rubs Extremities: No pedal edema, no skin rash Neurologic: Alert and oriented x3, no focal neurological deficits Objective Data Vital Signs Vital Signs: Vital Signs - 24 hr 09/11/24 10:00 09/11/24 10:00 09/11/24 10:00 Temperature Pulse Rate 70 70 73 Respiratory Rate 25 H Blood Pressure 80/64 L 80/64 L Pulse Oximetry 98 Oxygen Delivery 09/11/24 12:00 09/11/24 12:00 09/11/24 12:00 Temperature 36.9 C Pulse Rate 72 73 98 Respiratory Rate 25 H 25 H Blood Pressure 90/71 L Pulse Oximetry 90 90 Oxygen Delivery Room Air 09/11/24 12:00 09/11/24 14:00 09/11/24 14:00 Temperature Pulse Rate 70 70 70 Respiratory Rate 18 Blood Pressure 90/71 L 97/69 L 93/59 L Pulse Oximetry 94 Oxygen Delivery 09/11/24 14:00 09/11/24 16:00 09/11/24 16:00 Temperature Pulse Rate 70 73 73 Respiratory Rate 18 Blood Pressure Pulse Oximetry 90 Oxygen Delivery Room Air 09/11/24 16:00 09/11/24 16:00 09/11/24 17:40 Temperature 36.7 C Pulse Rate 72 71 Respiratory Rate 22 H Blood Pressure 83/63 L 85/68 L Pulse Oximetry 94 95 Oxygen Delivery Room Air 09/11/24 18:00 09/11/24 18:00 09/11/24 18:00 Temperature Pulse Rate 71 71 72 Respiratory Rate 18 Blood Pressure 85/67 L 88/72 L Pulse Oximetry 99 Oxygen Delivery 09/11/24 19:01 09/11/24 19:45 09/11/24 19:52 Temperature Pulse Rate 70 71 72 Respiratory Rate 23 H 23 H Blood Pressure 95/72 L Pulse Oximetry 95 95 Oxygen Delivery 09/11/24 20:00 09/11/24 20:15 09/11/24 20:25 Temperature Pulse Rate 78 70 88 Respiratory Rate 16 25 H 25 H Blood Pressure Pulse Oximetry 86 L Oxygen Delivery Room Air 09/11/24 20:25 09/11/24 20:26 09/11/24 20:30 Temperature 36.9 C Pulse Rate 81 73 Respiratory Rate 22 H 22 H Blood Pressure 86/67 L Pulse Oximetry 90 88 L Oxygen Delivery 09/11/24 20:45 09/11/24 21:00 09/11/24 21:15 Temperature Pulse Rate 72 82 79 Respiratory Rate 26 H 22 H 24 H Blood Pressure Pulse Oximetry 93 91 Oxygen Delivery 09/11/24 21:30 09/11/24 21:33 09/11/24 21:45 Temperature Pulse Rate 72 73 70 Respiratory Rate 24 H 18 23 H Blood Pressure 92/62 L 82/63 L Pulse Oximetry 97 98 Oxygen Delivery 09/11/24 21:46 09/11/24 22:00 09/11/24 22:00 Temperature Pulse Rate 70 74 70 Respiratory Rate 20 24 H Blood Pressure 87/66 L 87/66 L Pulse Oximetry 98 96 Oxygen Delivery 09/11/24 22:00 09/11/24 22:00 09/11/24 22:01 Temperature Pulse Rate 70 82 Respiratory Rate 22 H Blood Pressure 76/61 L 87/66 L Pulse Oximetry 98 97 Oxygen Delivery 09/11/24 22:02 09/11/24 22:15 09/11/24 22:16 Temperature Pulse Rate 69 70 71 Respiratory Rate 26 H 21 H Blood Pressure Pulse Oximetry 98 96 Oxygen Delivery 09/11/24 22:16 09/11/24 22:19 09/11/24 22:30 Temperature Pulse Rate 71 71 71 Respiratory Rate 21 H 18 Blood Pressure 75/55 L 75/55 L 81/63 L Pulse Oximetry 97 98 Oxygen Delivery 09/11/24 22:31 09/11/24 22:45 09/11/24 22:46 Temperature Pulse Rate 73 76 75 Respiratory Rate 21 H 24 H 25 H Blood Pressure 74/42 L Pulse Oximetry 97 Oxygen Delivery 09/11/24 22:54 09/11/24 23:00 09/11/24 23:01 Temperature Pulse Rate 74 77 72 Respiratory Rate 18 22 H 20 Blood Pressure 92/71 L 79/57 L Pulse Oximetry 94 96 95 Oxygen Delivery 09/11/24 23:06 09/11/24 23:16 09/11/24 23:31 Temperature Pulse Rate 75 70 70 Respiratory Rate 24 H Blood Pressure 79/57 L 65/49 L Pulse Oximetry 93 Oxygen Delivery 09/11/24 23:46 09/11/24 23:46 09/12/24 00:00 Temperature 36.3 C L Pulse Rate 80 71 70 Respiratory Rate 26 H 24 H Blood Pressure 83/67 L Pulse Oximetry 93 96 Oxygen Delivery Room Air 09/12/24 00:10 09/12/24 01:22 09/12/24 01:30 Temperature Pulse Rate 74 70 Respiratory Rate 22 H 21 H 13 Blood Pressure 102/76 Pulse Oximetry 93 99 98 Oxygen Delivery 09/12/24 01:31 09/12/24 01:45 09/12/24 01:46 Temperature Pulse Rate 72 70 70 Respiratory Rate 20 20 21 H Blood Pressure 87/76 L 69/54 L Pulse Oximetry 99 93 93 Oxygen Delivery 09/12/24 01:48 09/12/24 01:48 09/12/24 02:00 Temperature Pulse Rate 70 70 74 Respiratory Rate Blood Pressure 69/54 L 69/54 L Pulse Oximetry Oxygen Delivery 09/12/24 02:00 09/12/24 02:00 09/12/24 02:01 Temperature Pulse Rate 74 71 70 Respiratory Rate 20 17 20 Blood Pressure 104/77 104/77 Pulse Oximetry 96 86 L Oxygen Delivery 09/12/24 02:06 09/12/24 02:15 09/12/24 02:16 Temperature Pulse Rate 87 70 72 Respiratory Rate 25 H 27 H Blood Pressure 104/77 99/77 L Pulse Oximetry 98 97 Oxygen Delivery 09/12/24 02:30 09/12/24 02:31 09/12/24 02:45 Temperature Pulse Rate 84 71 82 Respiratory Rate 18 13 25 H Blood Pressure 92/66 L Pulse Oximetry 98 98 96 Oxygen Delivery 09/12/24 02:46 09/12/24 03:01 09/12/24 03:02 Temperature Pulse Rate 86 70 72 Respiratory Rate 29 H 23 H 20 Blood Pressure 95/61 L 109/82 Pulse Oximetry 98 95 96 Oxygen Delivery 09/12/24 03:15 09/12/24 03:27 09/12/24 03:30 Temperature Pulse Rate 93 91 80 Respiratory Rate 22 H 25 H 22 H Blood Pressure 90/77 L Pulse Oximetry 80 L Oxygen Delivery 09/12/24 03:31 09/12/24 03:36 09/12/24 03:36 Temperature Pulse Rate 75 80 Respiratory Rate 20 Blood Pressure 116/84 116/84 Pulse Oximetry 95 96 Oxygen Delivery Room Air 09/12/24 03:36 09/12/24 03:45 09/12/24 03:46 Temperature 37.1 C Pulse Rate 70 70 70 Respiratory Rate 24 H 27 H 19 Blood Pressure 116/84 92/68 L Pulse Oximetry 96 94 96 Oxygen Delivery 09/12/24 04:00 09/12/24 04:00 09/12/24 04:01 Temperature Pulse Rate 74 72 74 Respiratory Rate 23 H 28 H Blood Pressure 104/68 Pulse Oximetry 94 96 Oxygen Delivery 09/12/24 04:15 09/12/24 04:16 09/12/24 04:31 Temperature Pulse Rate 70 72 70 Respiratory Rate 25 H 23 H 20 Blood Pressure 93/79 L 93/74 L Pulse Oximetry 94 96 94 Oxygen Delivery 09/12/24 04:45 09/12/24 04:46 09/12/24 04:59 Temperature Pulse Rate 73 70 71 Respiratory Rate 17 15 Blood Pressure 95/81 L 95/81 L Pulse Oximetry 96 95 Oxygen Delivery 09/12/24 05:00 09/12/24 05:01 09/12/24 05:15 Temperature Pulse Rate 71 72 76 Respiratory Rate 24 H 22 H 25 H Blood Pressure 92/74 L 88/76 L Pulse Oximetry 85 L 83 L 92 Oxygen Delivery 09/12/24 05:16 09/12/24 05:30 09/12/24 05:31 Temperature Pulse Rate 76 74 73 Respiratory Rate 27 H 13 21 H Blood Pressure 90/75 L Pulse Oximetry 92 98 83 L Oxygen Delivery 09/12/24 05:45 09/12/24 05:46 09/12/24 05:55 Temperature Pulse Rate 87 77 81 Respiratory Rate 24 H 26 H Blood Pressure 92/70 L 92/70 L Pulse Oximetry 98 96 Oxygen Delivery 09/12/24 06:00 09/12/24 06:15 09/12/24 06:30 Temperature Pulse Rate 95 74 76 Respiratory Rate 25 H 20 18 Blood Pressure Pulse Oximetry 100 97 97 Oxygen Delivery 09/12/24 06:35 09/12/24 06:36 09/12/24 06:45 Temperature Pulse Rate 70 71 70 Respiratory Rate 27 H 24 H Blood Pressure 93/68 L 93/68 L 96/70 L Pulse Oximetry 96 93 Oxygen Delivery 09/12/24 06:46 09/12/24 06:46 09/12/24 06:46 Temperature Pulse Rate 72 71 70 Respiratory Rate 24 H 26 H Blood Pressure 96/70 L Pulse Oximetry 92 92 Oxygen Delivery 09/12/24 07:19 09/12/24 07:35 09/12/24 08:00 Temperature 36.8 C Pulse Rate 74 70 72 Respiratory Rate 21 H Blood Pressure 93/73 L 96/70 L 96/76 L Pulse Oximetry 98 Oxygen Delivery 09/12/24 08:26 Temperature Pulse Rate 70 Respiratory Rate Blood Pressure 97/83 L Pulse Oximetry Oxygen Delivery Intake/Output Intake/Output: Intake & Output 09/09/24 09/10/24 09/11/24 09/12/24 23:59 23:59 23:59 23:59 Intake Total 1500 2056.5 299.4 Output Total 750 75 Balance 1500 1306.5 224.4 Meds/Results Medications: Active Medications Generic Name Dose Route Start Last Admin Trade Name Freq PRN Reason Stop Dose Admin Acetaminophen 650 mg 09/11/24 01:19 Acetaminophen 325 Mg Tablet PO Q4H PRN Mild Pain (1-3) or Fever Hydrocodone Bitart/Acetaminophen 1 tab 09/11/24 01:19 Hydrocodone/Acetaminophen (*Crx) 5-325 Mg Tablet PO Q4H PRN Moderate Pain (4-6) Albuterol 2.5 mg 09/11/24 03:21 Albuterol Sulfate Neb 2.5 Mg/3 Ml Inh INHALATION Q4-6H PRN wheezing Allopurinol 100 mg 09/11/24 08:00 09/12/24 08:28 Allopurinol 100 Mg Tablet PO 100 mg DAILY@0800 [facility] Administration Apixaban 5 mg 09/11/24 09:00 09/12/24 08:28 Apixaban 5 Mg Tablet PO 5 mg Q12HR DIONICIO Administration Fentanyl Citrate 50 mcg 09/10/24 23:13 Fentanyl Citrate Inj (*Crx) 100 Mcg/2 Ml Vial IV PUSH Q2H PRN Pain Rated 7-10 Phenylephrine HCl 50 mg/ 250 ml in 250 mls @ 9 mls/hr 09/11/24 06:45 09/12/24 08:26 Dextrose IV CONT 30 mcg/min .[id number] DIONICIO 9 mls/hr Titration Protocol 30 MCG/MIN Sodium Chloride 1,000 mls @ 100 mls/hr 09/12/24 08:35 09/12/24 08:44 Normal Saline Iv IV CONT 09/12/24 18:34 100 mls/hr .Q10H DIONICIO Administration Melatonin 5 mg 09/11/24 01:19 Melatonin 5 Mg Tablet PO HS PRN Insomnia Midodrine 10 mg 09/10/24 23:00 09/12/24 08:28 Midodrine Hcl 10 Mg Tablet PO 10 mg TID DIONICIO Administration Ondansetron HCl 4 mg 09/10/24 23:13 09/11/24 02:38 Ondansetron Inj 4 Mg/2 Ml Vial IV PUSH 4 mg Q4H PRN Administration Nausea Pantoprazole Sodium 20 mg 09/11/24 09:00 09/12/24 08:28 Pantoprazole Sod Sesquihydrate 20 Mg Tab PO 20 mg DAILY DIONICIO Administration Prochlorperazine Edisylate 10 mg 09/11/24 01:19 Prochlorperazine Edisylate 10 Mg/2 Ml Vial IV PUSH Q6H PRN Nausea And Vomiting Radiology Results: ITS Impressions Chest X-Ray 09/10/24 17:35 IMPRESSION: No focal infiltrate or effusion. Chest/Abdomen/Pelvis CT 09/10/24 20:24 IMPRESSION: Heterogeneous appearance of the bone marrow for which a systemic disease is suspected and for which clinical correlation is needed. No acute findings within the chest, abdomen or pelvis to account for patient's presenting symptoms. Chest/Abdomen/Pelvis CTA 09/11/24 05:37 Impression: 4.4 cm ascending aortic aneurysm. No aortic dissection. Renal Ultrasound 09/11/24 11:20 IMPRESSION: 1. Normal kidneys. No hydronephrosis. Labs Labs: Laboratory Results - last 24 hr 09/11/24 09/11/24 09/12/24 05:42 11:30 04:30 WBC 7.8 RBC 4.22 L Hgb 10.4 L Hct 33.5 L MCV 79.4 L MCH 24.6 L MCHC 31.0 L RDW 21.6 H Plt Count 196 MPV 10.2 Immature Gran % (Auto) 0.4 Neut % (Auto) 67.5 Lymph % (Auto) 17.2 L Smyth % (Auto) 14.3 H Eos % (Auto) 0.3 Baso % (Auto) 0.3 Lymph # (Auto) 1.35 Smyth # (Auto) 1.1 H Eos # (Auto) 0.0 Baso # (Auto) 0.0 Abs Immat Gran (auto) 0.03 Absolute Neuts (auto) 5.3 Absolute Nucleated RBC 0.000 Nucleated RBC % 0.0 Sodium 137 Potassium 4.9 Chloride 101 Carbon Dioxide 21 L Anion Gap 15 H BUN 47 H Creatinine 2.32 H Estim Creat Clear Calc 28 Estimated GFR 28 L Glucose 98 Calcium 9.4 Phosphorus 3.8 Magnesium 1.8 Total Bilirubin 4.8 H AST 33 ALT 17 Alkaline Phosphatase 96 Total Creatine Kinase 63 Total Protein 7.0 Albumin 3.9 Triglycerides 69 Cholesterol 126 LDL Cholesterol Direct 38 HDL Direct 59 Urine Eosinophils None seen Ur Random Sodium 9 Ur Random Potassium 88.7 Urine Creatinine 182.4
--- NOTE | 2024-09-12 09:48 | P.PNINT_ITS ---
Progress Note: A&P Assessment and Plan (1) Acute hypotension: Code(s): I95.9 - Hypotension, unspecified Status: Acute Assessment and Plan: Patient initially presented with left shoulder pain, neck pain posteriorly and pain between his shoulder blades -he was found to be hypotensive in the ER -states he had taken his Entresto the day of admission. He has been taking his Lasix but just not on the day of admission. -his blood pressures were in the 60s systolic. Hold Entresto and Lasix and all antihypertensive -patient was given 2.5 L IV fluid bolus, sent to the intermediate Unit, he was again hypotensive over there and was sent over to the ICU -was started on peripheral Mark-Synephrine -09/11: patient currently on room air, will give additional 500ml IV fluid bolus and start him on some albumin for intravascular volume expansion -09/11: patient has been started on midodrine -states that his systolic blood pressures are < 100s -appreciate Cardiology evaluation and recommendation -no signs of infection, UA, CT scan of chest, abdomen, pelvis were negative for any acute infectious cause. Procalcitonin levels were normal, WBC count on admission was normal, afebrile -09/12: will give additional IV fluids normal saline at 100 mL/hour for for a total of 1000 mL (2) Acute kidney injury: Code(s): N17.9 - Acute kidney failure, unspecified Status: Acute Assessment and Plan: Patient with acute kidney injury, Creatinine is down to 2.24 this morning (2.72 on admission. Baseline creatinine 0.8-1.20) -will check urine lytes, urine eosinophils, CK level -check renal ultrasound for obstructive uropathy -could be related to Entresto causing hypotension, recent increase in diuretics -patient also received contrast on admission, will continue to monitor was NISHANT -nephrology has been consulted -continue to monitor (3) Congestive heart failure: Code(s): I50.9 - Heart failure, unspecified Status: Acute Assessment and Plan: History of congestive heart failure, cardiomyopathy, AICD placed -nonischemic cardiomyopathy with LVEF of 25-30% by echo in 2022, cardiac catheterization in 2017 showed normal coronaries -troponins were flat most likely related to hypotension, acute kidney injury -proBNP was 8850, -CT chest was clear -not on GDMT at this time due to hypotension -hold Lasix and Entresto for now (4) AICD (automatic cardioverter/defibrillator) present: Code(s): Z95.810 - Presence of automatic (implantable) cardiac defibrillator Status: Acute Assessment and Plan: Nonischemic Cardiomyopathy with EF of 25-30% by echo in 2022 -AICD in place (5) Mixed hyperlipidemia: Code(s): E78.2 - Mixed hyperlipidemia Status: Acute Assessment and Plan: Lipid panel within normal limits, LDL of 38, total cholesterol 126, HDL 59 (6) Left shoulder pain: Code(s): M25.512 - Pain in left shoulder Status: Acute Assessment and Plan: Left shoulder pain, neck pain posteriorly and pain between the shoulder blade -CTA chest abdomen and pelvis showed 4.4 cm ascending aortic aneurysm, no aortic dissection -cardiology will evaluate the patient -will have to have serial monitoring of the aneurysm (7) Aortic aneurysm: Code(s): I71.9 - Aortic aneurysm of unspecified site, without rupture Status: Acute Assessment and Plan: CTA chest abdomen pelvis showed 4.4 cm ascending aortic aneurysm, no aortic di ssection, cardiology has been consulted Plan DVT prophylaxis: Apixaban Stress ulcer prophylaxis: Protonix Nutrition: Heart healthy diet Code Status: Full Critical Care Time Spent: 32 minutes Discussed with patient updated with his condition and plan of care. I answered all his questions. Due to a high probability of clinically significant, life threatening deterioration, the patient required my highest level of preparedness to intervene emergently and I personally spent this critical care time directly and personally managing the patient. This critical care time included obtaining a history; examining the patient; pulse oximetry; ordering and review of studies; arranging urgent treatment with development of a management plan; evaluation of patient's response to treatment; frequent reassessment; and discussions with other providers. It was exclusive of separately billable procedures and treating other patients and teaching time. Please see Assessment and Plan section and the rest of the note for further information on patient assessment and treatment This dictation may have been done utilizing a voice recognition system. Attempts have been made to correct errors. However, there may be uncorrected grammatical, spelling, and recognitions errors present. Subjective Date/time seen: 09/12/24 09:48 Interval history: Reason for consult: Hypotension, hypovolemia, acute kidney injury, cardiomyopat hy 09/12/2024: Patient seen and examined the ICU this morning, pleasant gentleman in no acute distress. Is awake, alert, oriented. Remains on Mark-Synephrine at 30 mcg/min. Patient denies any shortness of breath, chest pain, abdominal pain, nausea, vomiting. Afebrile Review of Systems Review of Systems: All systems reviewed & are unremarkable except as noted in HPI and below Exam Narrative: General: Pleasant gentleman in no acute distress HEENT:? Pupils are equal and react, sclera is clear, moist oral mucosa Neck:? Supple Respiratory:? Clear to auscultation bilaterally, no wheezing, adequate air entry Cardiac:? Paced rhythm Abdomen:? Soft, nontender, nondistended, normoactive bowel sounds Extremities:? No edema, palpable pedal pulses Neuro:? Patient is awake, alert, oriented x3, nonfocal Skin:? No lesions noted, warm and dry Psych:? Normal mentation and affect Objective Data Vital Signs Vital Signs: Vital Signs - 24 hr 09/11/24 10:00 09/11/24 10:00 09/11/24 10:00 Temperature Pulse Rate 70 70 73 Respiratory Rate 25 H Blood Pressure 80/64 L 80/64 L Pulse Oximetry 98 Oxygen Delivery 09/11/24 12:00 09/11/24 12:00 09/11/24 12:00 Temperature 98.5 F Pulse Rate 72 73 98 Respiratory Rate 25 H 25 H Blood Pressure 90/71 L Pulse Oximetry 90 90 Oxygen Delivery Room Air 09/11/24 12:00 09/11/24 14:00 09/11/24 14:00 Temperature Pulse Rate 70 70 70 Respiratory Rate 18 Blood Pressure 90/71 L 97/69 L 93/59 L Pulse Oximetry 94 Oxygen Delivery 09/11/24 14:00 09/11/24 16:00 09/11/24 16:00 Temperature Pulse Rate 70 73 73 Respiratory Rate 18 Blood Pressure Pulse Oximetry 90 Oxygen Delivery Room Air 09/11/24 16:00 09/11/24 16:00 09/11/24 17:40 Temperature 98.1 F Pulse Rate 72 71 Respiratory Rate 22 H Blood Pressure 83/63 L 85/68 L Pulse Oximetry 94 95 Oxygen Delivery Room Air 09/11/24 18:00 09/11/24 18:00 09/11/24 18:00 Temperature Pulse Rate 71 71 72 Respiratory Rate 18 Blood Pressure 85/67 L 88/72 L Pulse Oximetry 99 Oxygen Delivery 09/11/24 19:01 09/11/24 19:45 09/11/24 19:52 Temperature Pulse Rate 70 71 72 Respiratory Rate 23 H 23 H Blood Pressure 95/72 L Pulse Oximetry 95 95 Oxygen Delivery 09/11/24 20:00 09/11/24 20:15 09/11/24 20:25 Temperature Pulse Rate 78 70 88 Respiratory Rate 16 25 H 25 H Blood Pressure Pulse Oximetry 86 L Oxygen Delivery Room Air 09/11/24 20:25 09/11/24 20:26 09/11/24 20:30 Temperature 98.4 F Pulse Rate 81 73 Respiratory Rate 22 H 22 H Blood Pressure 86/67 L Pulse Oximetry 90 88 L Oxygen Delivery 09/11/24 20:45 09/11/24 21:00 09/11/24 21:15 Temperature Pulse Rate 72 82 79 Respiratory Rate 26 H 22 H 24 H Blood Pressure Pulse Oximetry 93 91 Oxygen Delivery 09/11/24 21:30 09/11/24 21:33 09/11/24 21:45 Temperature Pulse Rate 72 73 70 Respiratory Rate 24 H 18 23 H Blood Pressure 92/62 L 82/63 L Pulse Oximetry 97 98 Oxygen Delivery 09/11/24 21:46 09/11/24 22:00 09/11/24 22:00 Temperature Pulse Rate 70 74 70 Respiratory Rate 20 24 H Blood Pressure 87/66 L 87/66 L Pulse Oximetry 98 96 Oxygen Delivery 09/11/24 22:00 09/11/24 22:00 09/11/24 22:01 Temperature Pulse Rate 70 82 Respiratory Rate 22 H Blood Pressure 76/61 L 87/66 L Pulse Oximetry 98 97 Oxygen Delivery 09/11/24 22:02 09/11/24 22:15 09/11/24 22:16 Temperature Pulse Rate 69 70 71 Respiratory Rate 26 H 21 H Blood Pressure Pulse Oximetry 98 96 Oxygen Delivery 09/11/24 22:16 09/11/24 22:19 09/11/24 22:30 Temperature Pulse Rate 71 71 71 Respiratory Rate 21 H 18 Blood Pressure 75/55 L 75/55 L 81/63 L Pulse Oximetry 97 98 Oxygen Delivery 09/11/24 22:31 09/11/24 22:45 09/11/24 22:46 Temperature Pulse Rate 73 76 75 Respiratory Rate 21 H 24 H 25 H Blood Pressure 74/42 L Pulse Oximetry 97 Oxygen Delivery 09/11/24 22:54 09/11/24 23:00 09/11/24 23:01 Temperature Pulse Rate 74 77 72 Respiratory Rate 18 22 H 20 Blood Pressure 92/71 L 79/57 L Pulse Oximetry 94 96 95 Oxygen Delivery 09/11/24 23:06 09/11/24 23:16 09/11/24 23:31 Temperature Pulse Rate 75 70 70 Respiratory Rate 24 H Blood Pressure 79/57 L 65/49 L Pulse Oximetry 93 Oxygen Delivery 09/11/24 23:46 09/11/24 23:46 09/12/24 00:00 Temperature 97.4 F L Pulse Rate 80 71 70 Respiratory Rate 26 H 24 H Blood Pressure 83/67 L Pulse Oximetry 93 96 Oxygen Delivery Room Air 09/12/24 00:10 09/12/24 01:22 09/12/24 01:30 Temperature Pulse Rate 74 70 Respiratory Rate 22 H 21 H 13 Blood Pressure 102/76 Pulse Oximetry 93 99 98 Oxygen Delivery 09/12/24 01:31 09/12/24 01:45 09/12/24 01:46 Temperature Pulse Rate 72 70 70 Respiratory Rate 20 20 21 H Blood Pressure 87/76 L 69/54 L Pulse Oximetry 99 93 93 Oxygen Delivery 09/12/24 01:48 09/12/24 01:48 09/12/24 02:00 Temperature Pulse Rate 70 70 74 Respiratory Rate Blood Pressure 69/54 L 69/54 L Pulse Oximetry Oxygen Delivery 09/12/24 02:00 09/12/24 02:00 09/12/24 02:01 Temperature Pulse Rate 74 71 70 Respiratory Rate 20 17 20 Blood Pressure 104/77 104/77 Pulse Oximetry 96 86 L Oxygen Delivery 09/12/24 02:06 09/12/24 02:15 09/12/24 02:16 Temperature Pulse Rate 87 70 72 Respiratory Rate 25 H 27 H Blood Pressure 104/77 99/77 L Pulse Oximetry 98 97 Oxygen Delivery 09/12/24 02:30 09/12/24 02:31 09/12/24 02:45 Temperature Pulse Rate 84 71 82 Respiratory Rate 18 13 25 H Blood Pressure 92/66 L Pulse Oximetry 98 98 96 Oxygen Delivery 09/12/24 02:46 09/12/24 03:01 09/12/24 03:02 Temperature Pulse Rate 86 70 72 Respiratory Rate 29 H 23 H 20 Blood Pressure 95/61 L 109/82 Pulse Oximetry 98 95 96 Oxygen Delivery 09/12/24 03:15 09/12/24 03:27 09/12/24 03:30 Temperature Pulse Rate 93 91 80 Respiratory Rate 22 H 25 H 22 H Blood Pressure 90/77 L Pulse Oximetry 80 L Oxygen Delivery 09/12/24 03:31 09/12/24 03:36 09/12/24 03:36 Temperature Pulse Rate 75 80 Respiratory Rate 20 Blood Pressure 116/84 116/84 Pulse Oximetry 95 96 Oxygen Delivery Room Air 09/12/24 03:36 09/12/24 03:45 09/12/24 03:46 Temperature 98.8 F Pulse Rate 70 70 70 Respiratory Rate 24 H 27 H 19 Blood Pressure 116/84 92/68 L Pulse Oximetry 96 94 96 Oxygen Delivery 09/12/24 04:00 09/12/24 04:00 09/12/24 04:01 Temperature Pulse Rate 74 72 74 Respiratory Rate 23 H 28 H Blood Pressure 104/68 Pulse Oximetry 94 96 Oxygen Delivery 09/12/24 04:15 09/12/24 04:16 09/12/24 04:31 Temperature Pulse Rate 70 72 70 Respiratory Rate 25 H 23 H 20 Blood Pressure 93/79 L 93/74 L Pulse Oximetry 94 96 94 Oxygen Delivery 09/12/24 04:45 09/12/24 04:46 09/12/24 04:59 Temperature Pulse Rate 73 70 71 Respiratory Rate 17 15 Blood Pressure 95/81 L 95/81 L Pulse Oximetry 96 95 Oxygen Delivery 09/12/24 05:00 09/12/24 05:01 09/12/24 05:15 Temperature Pulse Rate 71 72 76 Respiratory Rate 24 H 22 H 25 H Blood Pressure 92/74 L 88/76 L Pulse Oximetry 85 L 83 L 92 Oxygen Delivery 09/12/24 05:16 09/12/24 05:30 09/12/24 05:31 Temperature Pulse Rate 76 74 73 Respiratory Rate 27 H 13 21 H Blood Pressure 90/75 L Pulse Oximetry 92 98 83 L Oxygen Delivery 09/12/24 05:45 09/12/24 05:46 09/12/24 05:55 Temperature Pulse Rate 87 77 81 Respiratory Rate 24 H 26 H Blood Pressure 92/70 L 92/70 L Pulse Oximetry 98 96 Oxygen Delivery 09/12/24 06:00 09/12/24 06:15 09/12/24 06:30 Temperature Pulse Rate 95 74 76 Respiratory Rate 25 H 20 18 Blood Pressure Pulse Oximetry 100 97 97 Oxygen Delivery 09/12/24 06:35 09/12/24 06:36 09/12/24 06:45 Temperature Pulse Rate 70 71 70 Respiratory Rate 27 H 24 H Blood Pressure 93/68 L 93/68 L 96/70 L Pulse Oximetry 96 93 Oxygen Delivery 09/12/24 06:46 09/12/24 06:46 09/12/24 06:46 Temperature Pulse Rate 72 71 70 Respiratory Rate 24 H 26 H Blood Pressure 96/70 L Pulse Oximetry 92 92 Oxygen Delivery 09/12/24 07:19 09/12/24 07:35 09/12/24 08:00 Temperature 98.3 F Pulse Rate 74 70 72 Respiratory Rate 21 H Blood Pressure 93/73 L 96/70 L 96/76 L Pulse Oximetry 98 Oxygen Delivery 09/12/24 08:26 Temperature Pulse Rate 70 Respiratory Rate Blood Pressure 97/83 L Pulse Oximetry Oxygen Delivery Intake/Output Intake/Output: Intake & Output 09/09/24 09/10/24 09/11/24 09/12/24 23:59 23:59 23:59 23:59 Intake Total 1500 2056.5 299.4 Output Total 750 75 Balance 1500 1306.5 224.4 Meds/Results Medications: Active Medications Generic Name Dose Route Start Last Admin Trade Name Freq PRN Reason Stop Dose Admin Acetaminophen 650 mg 09/11/24 01:19 Acetaminophen 325 Mg Tablet PO Q4H PRN Mild Pain (1-3) or Fever Hydrocodone Bitart/Acetaminophen 1 tab 09/11/24 01:19 Hydrocodone/Acetaminophen (*Crx) 5-325 Mg Tablet PO Q4H PRN Moderate Pain (4-6) Albuterol 2.5 mg 09/11/24 03:21 Albuterol Sulfate Neb 2.5 Mg/3 Ml Inh INHALATION Q4-6H PRN wheezing Allopurinol 100 mg 09/11/24 08:00 09/12/24 08:28 Allopurinol 100 Mg Tablet PO 100 mg DAILY@0800 DIONICIO Administration Apixaban 5 mg 09/11/24 09:00 09/12/24 08:28 Apixaban 5 Mg Tablet PO 5 mg Q12HR DIONICIO Administration Fentanyl Citrate 50 mcg 09/10/24 23:13 Fentanyl Citrate Inj (*Crx) 100 Mcg/2 Ml Vial IV PUSH Q2H PRN Pain Rated 7-10 Phenylephrine HCl 50 mg/ 250 ml in 250 mls @ 9 mls/hr 09/11/24 06:45 09/12/24 08:26 Dextrose IV CONT 30 mcg/min .[id number] DIONICIO 9 mls/hr Titration Protocol 30 MCG/MIN Sodium Chloride 1,000 mls @ 100 mls/hr 09/12/24 08:35 09/12/24 08:44 Normal Saline Iv IV CONT 09/12/24 18:34 100 mls/hr .Q10H DIONICIO Administration Melatonin 5 mg 09/11/24 01:19 Melatonin 5 Mg Tablet PO HS PRN Insomnia Midodrine 10 mg 09/10/24 23:00 09/12/24 08:28 Midodrine Hcl 10 Mg Tablet PO 10 mg TID DIONICIO Administration Ondansetron HCl 4 mg 09/10/24 23:13 09/11/24 02:38 Ondansetron Inj 4 Mg/2 Ml Vial IV PUSH 4 mg Q4H PRN Administration Nausea Pantoprazole Sodium 20 mg 09/11/24 09:00 09/12/24 08:28 Pantoprazole Sod Sesquihydrate 20 Mg Tab PO 20 mg DAILY DIONICIO Administration Prochlorperazine Edisylate 10 mg 09/11/24 01:19 Prochlorperazine Edisylate 10 Mg/2 Ml Vial IV PUSH Q6H PRN Nausea And Vomiting Radiology Results: ITS Impressions Chest X-Ray 09/10/24 17:35 IMPRESSION: No focal infiltrate or effusion. Chest/Abdomen/Pelvis CT 09/10/24 20:24 IMPRESSION: Heterogeneous appearance of the bone marrow for which a systemic disease is suspected and for which clinical correlation is needed. No acute findings within the chest, abdomen or pelvis to account for patient's presenting symptoms. Chest/Abdomen/Pelvis CTA 09/11/24 05:37 Impression: 4.4 cm ascending aortic aneurysm. No aortic dissection. Renal Ultrasound 09/11/24 11:20 IMPRESSION: 1. Normal kidneys. No hydronephrosis. Labs Labs: Laboratory Results - last 24 hr 09/11/24 09/11/24 09/12/24 05:42 11:30 04:30 WBC 7.8 RBC 4.22 L Hgb 10.4 L Hct 33.5 L MCV 79.4 L MCH 24.6 L MCHC 31.0 L RDW 21.6 H Plt Count 196 MPV 10.2 Immature Gran % (Auto) 0.4 Neut % (Auto) 67.5 Lymph % (Auto) 17.2 L Mccreary % (Auto) 14.3 H Eos % (Auto) 0.3 Baso % (Auto) 0.3 Lymph # (Auto) 1.35 Mccreary # (Auto) 1.1 H Eos # (Auto) 0.0 Baso # (Auto) 0.0 Abs Immat Gran (auto) 0.03 Absolute Neuts (auto) 5.3 Absolute Nucleated RBC 0.000 Nucleated RBC % 0.0 Sodium 137 Potassium 4.9 Chloride 101 Carbon Dioxide 21 L Anion Gap 15 H BUN 47 H Creatinine 2.32 H Estim Creat Clear Calc 28 Estimated GFR 28 L Glucose 98 Calcium 9.4 Phosphorus 3.8 Magnesium 1.8 Total Bilirubin 4.8 H AST 33 ALT 17 Alkaline Phosphatase 96 Total Creatine Kinase 63 Total Protein 7.0 Albumin 3.9 Triglycerides 69 Cholesterol 126 LDL Cholesterol Direct 38 HDL Direct 59 Urine Eosinophils None seen Ur Random Sodium 9 Ur Random Potassium 88.7 Urine Creatinine 182.4
[2024-09-12] MEDS: BENZONATATE 100 MG CAPSULE 200 MG PO (20:51)
[2024-09-13] VITALS (16 sets, daily range): BP systolic 90–103; BP diastolic 72–81; PULSE 70–98; RESP 15–22; TEMP 36.4–36.9; O2SAT 93–100
[2024-09-13 04:23] LABS: Basophils Percent Auto 0.5 % (0.2-1.2); Eosinophils Absolute Auto 0.1 K/mm3 (0-0.3); Eosinophils Percent Auto 1.2 % (0-4.4); Hemoglobin 10.3 g/dL (14.0-18.0); Immature Granulocyte Absolute 0.02 K/mm3 (0.00-0.031); Immature Granulocyte Percent A 0.3 % (0-0.5); Lymphocytes Absolute Auto 1.46 K/mm3 (0.9-3.2); Lymphocytes Percent Auto 24.3 % (18.3-44.2); Mean Corpuscular HGB Conc 31.2 g/dl (32-36); Mean Corpuscular Hemoglobin 24.6 pg (26-34); Mean Corpuscular Volume 78.8 fl (80-100); Mean Platelet Volume 10.7 fl (7.4-10.4); Monocytes Absolute Auto 0.8 K/mm3 (0.1-0.6); Monocytes Percent Auto 13.8 % (2.6-8.5); Neutrophils Absolute Auto 3.6 K/mm3 (1.3-6.7); Neutrophils Percent Auto 59.9 % (45.5-73.1); Platelet Count Result 208 k/mm3 (150-375); Red Blood Count 4.19 M/mm3 (4.6-6.20); Red Cell Distribution Width 21.8 % (11.5-14.5)
[2024-09-13 04:35] LABS: Alanine Aminotransferase 18 U/L (6-50); Albumin Level 3.6 g/dL (3.5-5.1); Alkaline Phosphatase 108 U/L (38-126); Anion Gap 15 mmol/L (4-12); Aspartate Amino Transferase 37 U/L (17-59); Blood Urea Nitrogen 50 mg/dL (9-20); Calcium 9.2 mg/dL (8.4-10.2); Carbon Dioxide 18 mmol/L (22-30); Chloride 105 mmol/L (98-107); Estimated CRCL calculation 30 ml/min; Estimated Glomerular Filt Rate 29; Glucose 85 mg/dL (65-110); Magnesium 1.8 mg/dL (1.6-2.3); Phosphorus 3.5 mg/dL (2.5-4.5); Potassium 4.4 mmol/L (3.4-5.0); Sodium 138 mmol/L (137-145)
[2024-09-13] MEDS: HYDROcodone/acetaminophen (*CRX) 5-325 MG TABLET 1 TAB PO (07:25)
[2024-09-13] MEDS: allopurinoL 100 MG TABLET PO (08:36)
[2024-09-13] MEDS: MIDODRINE HCL 10 MG TABLET PO ×3 (08:36→17:22)
[2024-09-13] MEDS: APIXABAN 5 MG TABLET PO ×2 (08:36→20:20)
[2024-09-13] MEDS: PANTOPRAZOLE SOD SESQUIHYDRATE 20 MG TAB PO (08:36)
--- NOTE | 2024-09-13 09:11 | P.PNINT_ITS ---
Progress Note: A&P Assessment and Plan (1) Acute hypotension: Code(s): I95.9 - Hypotension, unspecified Status: Acute Assessment and Plan: Patient initially presented with left shoulder pain, neck pain posteriorly and pain between his shoulder blades -he was found to be hypotensive in the ER -states he had taken his Entresto the day of admission. He has been taking his Lasix but just not on the day of admission. -his blood pressures were in the 60s systolic. Hold Entresto and Lasix and all antihypertensive -patient was given 2.5 L IV fluid bolus, sent to the intermediate Unit, he was again hypotensive over there and was sent over to the ICU -was started on peripheral Mark-Synephrine -09/11: patient currently on room air, will give additional 500ml IV fluid bolus and start him on some albumin for intravascular volume expansion -09/11: patient has been started on midodrine -states that his systolic blood pressures are < 100s -appreciate Cardiology evaluation and recommendation -no signs of infection, UA, CT scan of chest, abdomen, pelvis were negative for any acute infectious cause. Procalcitonin levels were normal, WBC count on admission was normal, afebrile -09/12: will give additional IV fluids normal saline at 100 mL/hour for for a total of 1000 mL 09/13: Has been off Mark-Synephrine since yesterday afternoon, continue midodrine (2) Acute kidney injury: Code(s): N17.9 - Acute kidney failure, unspecified Status: Acute Assessment and Plan: Patient with acute kidney injury, Creatinine is down to 2.24 this morning (2.72 on admission. Baseline creatinine 0.8-1.20) -will check urine lytes, urine eosinophils, CK level -check renal ultrasound for obstructive uropathy -could be related to Entresto causing hypotension, recent increase in diuretics -patient also received contrast on admission, will continue to monitor was NISHANT -appreciate nephrology following the patient - creatinine is stable -continue to monitor (3) Congestive heart failure: Code(s): I50.9 - Heart failure, unspecified Status: Acute Assessment and Plan: History of congestive heart failure, cardiomyopathy, AICD placed -nonischemic cardiomyopathy with LVEF of 25-30% by echo in 2022, cardiac catheterization in 2016 showed normal coronaries -troponins were flat most likely related to hypotension, acute kidney injury -proBNP was 8850, -CT chest was clear -not on GDMT at this time due to hypotension -hold Lasix and Entresto for now (4) AICD (automatic cardioverter/defibrillator) present: Code(s): Z95.810 - Presence of automatic (implantable) cardiac defibrillator Status: Acute Assessment and Plan: Nonischemic Cardiomyopathy with EF of 25-30% by echo in 2022 -AICD in place (5) Mixed hyperlipidemia: Code(s): E78.2 - Mixed hyperlipidemia Status: Acute Assessment and Plan: Lipid panel within normal limits, LDL of 38, total cholesterol 126, HDL 59 (6) Left shoulder pain: Code(s): M25.512 - Pain in left shoulder Status: Acute Assessment and Plan: Left shoulder pain, neck pain posteriorly and pain between the shoulder blade -CTA chest abdomen and pelvis showed 4.4 cm ascending aortic aneurysm, no aortic dissection -cardiology will evaluate the patient -will have to have serial monitoring of the aneurysm (7) Aortic aneurysm: Code(s): I71.9 - Aortic aneurysm of unspecified site, without rupture Status: Acute Assessment and Plan: CTA chest abdomen pelvis showed 4.4 cm ascending aortic aneurysm, no aortic dissection, cardiology has been consulted Plan DVT prophylaxis: Apixaban Stress ulcer prophylaxis: Protonix Nutrition: Heart healthy diet Code Status: Full Critical Care Time Spent: 31 minutes Discussed with patient updated with his condition and plan of care. I answered all his questions. Patient be transferred her out of the ICU if okay with hospitalist Due to a high probability of clinically significant, life threatening deterioration, the patient required my highest level of preparedness to intervene emergently and I personally spent this critical care time directly and personally managing the patient. This critical care time included obtaining a history; examining the patient; pulse oximetry; ordering and review of studies; arranging urgent treatment with development of a management plan; evaluation of patient's response to treatment; frequent reassessment; and discussions with other providers. It was exclusive of separately billable procedures and treating other patients and teaching time. Please see Assessment and Plan section and the rest of the note for further information on patient assessment and treatment This dictation may have been done utilizing a voice recognition system. Attempts have been made to correct errors. However, there may be uncorrected grammatical, spelling, and recognitions errors present. Subjective Date/time seen: 09/13/24 09:11 Interval history: Reason for consult: Hypotension, hypovolemia, acute kidney injury, cardiomyopathy 09/13/2024: Patient seen and examined the ICU this morning, pleasant gentleman in no acute distress. Is awake, alert, oriented. OFF Neosynephrine. Patient denies any shortness of breath, chest pain, abdominal pain, nausea, vomiting. Afebrile Review of Systems Review of Systems: All systems reviewed & are unremarkable except as noted in HPI and below Exam Narrative: General: Pleasant gentleman in no acute distress HEENT:? Pupils are equal and react, sclera is clear, moist oral mucosa Neck:? Supple Respiratory:? Clear to auscultation bilaterally, no wheezing, adequate air entry Cardiac:? Paced rhythm Abdomen:? Soft, nontender, nondistended, normoactive bowel sounds Extremities:? No edema, palpable pedal pulses Neuro:? Patient is awake, alert, oriented x3, nonfocal Skin:? No lesions noted, warm and dry Psych:? Normal mentation and affect Objective Data Vital Signs Vital Signs: Vital Signs - 24 hr 09/12/24 09:30 09/12/24 09:45 09/12/24 10:00 Temperature Pulse Rate 72 75 78 Respiratory Rate Blood Pressure 94/76 L 89/68 L Pulse Oximetry Oxygen Delivery 09/12/24 10:00 09/12/24 11:30 09/12/24 11:45 Temperature Pulse Rate 78 71 71 Respiratory Rate 22 H Blood Pressure 85/54 L 100/67 94/71 L Pulse Oximetry 98 Oxygen Delivery 09/12/24 12:00 09/12/24 12:00 09/12/24 12:22 Temperature 98 F Pulse Rate 71 71 70 Respiratory Rate 21 H Blood Pressure 94/71 L 96/76 L Pulse Oximetry 96 Oxygen Delivery 09/12/24 12:45 09/12/24 14:00 09/12/24 14:00 Temperature Pulse Rate 70 70 70 Respiratory Rate Blood Pressure 92/75 L 91/75 L Pulse Oximetry Oxygen Delivery 09/12/24 14:00 09/12/24 16:00 09/12/24 16:00 Temperature Pulse Rate 70 70 70 Respiratory Rate 17 Blood Pressure 91/75 L 95/74 L Pulse Oximetry 98 Oxygen Delivery 09/12/24 16:00 09/12/24 18:00 09/12/24 18:00 Temperature 97.9 F Pulse Rate 70 70 70 Respiratory Rate 16 15 Blood Pressure 95/74 L 100/83 Pulse Oximetry 95 96 Oxygen Delivery 09/12/24 20:00 09/12/24 20:00 09/12/24 20:00 Temperature 98 F Pulse Rate 70 72 72 Respiratory Rate 15 24 H Blood Pressure 105/83 Pulse Oximetry 96 100 Oxygen Delivery Room Air 09/12/24 22:00 09/12/24 22:00 09/13/24 00:00 Temperature 98 F 98.4 F Pulse Rate 70 70 70 Respiratory Rate 21 H 21 H Blood Pressure 95/67 L 90/72 L Pulse Oximetry 100 97 Oxygen Delivery 09/13/24 00:00 09/13/24 00:00 09/13/24 02:00 Temperature Pulse Rate 70 70 78 Respiratory Rate 21 H 22 H Blood Pressure 99/76 L Pulse Oximetry 97 100 Oxygen Delivery Room Air 09/13/24 02:00 09/13/24 04:00 09/13/24 04:00 Temperature Pulse Rate 70 70 70 Respiratory Rate 22 H Blood Pressure Pulse Oximetry 100 Oxygen Delivery Room Air 09/13/24 04:00 09/13/24 06:00 09/13/24 06:00 Temperature 98.1 F Pulse Rate 76 70 70 Respiratory Rate 16 21 H Blood Pressure 103/77 102/80 Pulse Oximetry 93 98 Oxygen Delivery 09/13/24 08:00 09/13/24 08:00 09/13/24 08:00 Temperature 98.1 F Pulse Rate 76 70 76 Respiratory Rate 15 15 Blood Pressure 102/80 Pulse Oximetry 98 96 Oxygen Delivery Room Air Intake/Output Intake/Output: Intake & Output 09/10/24 09/11/24 09/12/24 09/13/24 23:59 23:59 23:59 23:59 Intake Total 1500 2056.5 1773.7 Output Total 750 75 200 Balance 1500 1306.5 1698.7 -200 Meds/Results Medications: Active Medications Generic Name Dose Route Start Last Admin Trade Name Freq PRN Reason Stop Dose Admin Acetaminophen 650 mg 09/11/24 01:19 Acetaminophen 325 Mg Tablet PO Q4H PRN Mild Pain (1-3) or Fever Hydrocodone Bitart/Acetaminophen 1 tab 09/11/24 01:19 09/13/24 07:25 Hydrocodone/Acetaminophen (*Crx) 5-325 Mg Tablet PO 1 tab Q4H PRN Administration Moderate Pain (4-6) Albuterol 2.5 mg 09/11/24 03:21 Albuterol Sulfate Neb 2.5 Mg/3 Ml Inh INHALATION Q4-6H PRN wheezing Allopurinol 100 mg 09/11/24 08:00 09/13/24 08:36 Allopurinol 100 Mg Tablet PO 100 mg DAILY@0800 DIONICIO Administration Apixaban 5 mg 09/11/24 09:00 09/13/24 08:36 Apixaban 5 Mg Tablet PO 5 mg Q12HR DIONICIO Administration Benzonatate 200 mg 09/12/24 19:33 09/12/24 20:51 Benzonatate 100 Mg Capsule PO 200 mg TID PRN Administration Cough Fentanyl Citrate 50 mcg 09/10/24 23:13 Fentanyl Citrate Inj (*Crx) 100 Mcg/2 Ml Vial IV PUSH Q2H PRN Pain Rated 7-10 Melatonin 5 mg 09/11/24 01:19 Melatonin 5 Mg Tablet PO HS PRN Insomnia Midodrine 10 mg 09/10/24 23:00 09/13/24 08:36 Midodrine Hcl 10 Mg Tablet PO 10 mg TID DIONICIO Administration Ondansetron HCl 4 mg 09/10/24 23:13 09/11/24 02:38 Ondansetron Inj 4 Mg/2 Ml Vial IV PUSH 4 mg Q4H PRN Administration Nausea Pantoprazole Sodium 20 mg 09/11/24 09:00 09/13/24 08:36 Pantoprazole Sod Sesquihydrate 20 Mg Tab PO 20 mg DAILY DIONICIO Administration Prochlorperazine Edisylate 10 mg 09/11/24 01:19 Prochlorperazine Edisylate 10 Mg/2 Ml Vial IV PUSH Q6H PRN Nausea And Vomiting Radiology Results: ITS Impressions Chest X-Ray 09/10/24 17:35 IMPRESSION: No focal infiltrate or effusion. Chest/Abdomen/Pelvis CT 09/10/24 20:24 IMPRESSION: Heterogeneous appearance of the bone marrow for which a systemic disease is suspected and for which clinical correlation is needed. No acute findings within the chest, abdomen or pelvis to account for patient's presenting symptoms. Chest/Abdomen/Pelvis CTA 09/11/24 05:37 Impression: 4.4 cm ascending aortic aneurysm. No aortic dissection. Renal Ultrasound 09/11/24 11:20 IMPRESSION: 1. Normal kidneys. No hydronephrosis. Labs Labs: Laboratory Results - last 24 hr 09/13/24 04:10 WBC 6.0 RBC 4.19 L Hgb 10.3 L Hct 33.0 L MCV 78.8 L MCH 24.6 L MCHC 31.2 L RDW 21.8 H Plt Count 208 MPV 10.7 H Immature Gran % (Auto) 0.3 Neut % (Auto) 59.9 Lymph % (Auto) 24.3 [place] % (Auto) 13.8 H Eos % (Auto) 1.2 Baso % (Auto) 0.5 Lymph # (Auto) 1.46 [place] # (Auto) 0.8 H Eos # (Auto) 0.1 Baso # (Auto) 0.0 Abs Immat Gran (auto) 0.02 Absolute Neuts (auto) 3.6 Absolute Nucleated RBC 0.000 Nucleated RBC % 0.0 Sodium 138 Potassium 4.4 Chloride 105 Carbon Dioxide 18 L Anion Gap 15 H BUN 50 H Creatinine 2.20 H Estim Creat Clear Calc 30 Estimated GFR 29 L Glucose 85 Calcium 9.2 Phosphorus 3.5 Magnesium 1.8 Total Bilirubin 4.0 H AST 37 ALT 18 Alkaline Phosphatase 108 Total Protein 7.0 Albumin 3.6
--- NOTE | 2024-09-13 09:15 | P.PNNP_ITS ---
Progress Note: A&P Assessment and Plan (1) Acute kidney injury: Code(s): N17.9 - Acute kidney failure, unspecified Status: Acute Assessment and Plan: * normal renal function up until June 2024 * June 2024 -- creatinine up to 1.5mg/dl * July 2024-- creatinine up to 1.97mg/ld * early [id number] -- creatinine up to 2.34mg/dl * creatinine 2.7mg/dl on admission * suspect multifactorial etiology: * profound hypotension/hemodynamic instability * prerenal factors * known cardiomyopathy/depressed EF * Entresto and diuretic therapy [employer] * contrast exposure (but creatinine was already elevated prior to this -- however, this might hamper recovery) * other(?) * evaluation to date noted: * renal ultrasound normal * CPK normal * urine eosinophils negative * urine electrolytes prerenal (but his could be a manifestation of his cardiomyopathy/depressed EF as well) * UA with 1+ protein * follow trend of repeat labs and UOP (2) Acute hypotension: Code(s): I95.9 - Hypotension, unspecified Status: Acute Assessment and Plan: * resolving if not resolved * quite significant on presentation - systolic BP in the high 60s range * possibly precipitated by recent increase in outpatient diuretic therapy + Entresto initiation * s/p IVFs in the ER and on medical floor prior to transfer to ICU * however, his hypotension persisted * transferred to ICU and initiated on vasopressor therapy * weaned off vasopressor therapy * s/p volume expansion IV Albumin * on midodrine * holding antibiotic therapy since no evidence of infection (3) Congestive heart failure: Code(s): I50.9 - Heart failure, unspecified Status: Acute Assessment and Plan: * appears compensated despite elevated BNP in ER * known history with associated cardiomyopathy * AICD in place * recent Echo (09/11) noted: * left ventricular systolic function is severely reduced, estimated at20-25% * mild mitral valve regurgitation. * moderate tricuspid valve regurgitation * pulmonary hypertension - estimated pulmonary arterial systolic pressure is 55 mmHg * recent CT imaging without evidence of volume overload or heart failure * Cardiology recommendations noted (4) Aortic aneurysm: Code(s): I71.9 - Aortic aneurysm of unspecified site, without rupture Status: Acute Assessment and Plan: * CTA chest abdomen pelvis showed 4.4 cm ascending aortic aneurysm but no aortic dissection * Cardiology recommendations noted Will continue to follow. L Subjective Date/time seen: 09/13/24 09:15 Interval history: Follow-up for acute kidney injury/acute renal failure (on chronic kidney disease?). Remains in good spirits at the time of my visit; weaned off vasopressor therapy at this time with relative stability in blood pressure readings/MAP; no other acute complaints voiced; no apparent distress noted. Exam 2 Narrative: General: elderly but WD/WN male in NAD Heart: normal S1 and S2; no rub Lungs: clear to auscultation Abdomen: soft, nontender, nondistended, positive bowel sounds Extremities: no cyanosis or clubbing; no edema Skin: warm and intact Objective Data Vital Signs Vital Signs: Vital Signs Temp Pulse Resp BP Pulse Ox O2 Del Method 09/13/24 08:00 98.1 F 76 15 102/80 96 09/13/24 08:00 70 09/13/24 08:00 76 15 98 Room Air 09/13/24 06:00 70 21 H 102/80 98 09/13/24 06:00 70 09/13/24 04:00 98.1 F 76 16 103/77 93 09/13/24 04:00 70 22 H 100 Room Air 09/13/24 04:00 70 09/13/24 02:00 70 09/13/24 02:00 78 22 H 99/76 L 100 09/13/24 00:00 70 21 H 97 Room Air 09/13/24 00:00 70 09/13/24 00:00 98.4 F 70 21 H 90/72 L 97 09/12/24 22:00 98 F 70 21 H 95/67 L 100 09/12/24 22:00 70 09/12/24 20:00 72 09/12/24 20:00 98 F 72 24 H 105/83 100 09/12/24 20:00 70 15 96 Room Air 09/12/24 18:00 70 15 100/83 96 09/12/24 18:00 70 09/12/24 16:00 97.9 F 70 16 95/74 L 95 09/12/24 16:00 70 95/74 L 09/12/24 16:00 70 Intake/Output Intake/Output: Intake & Output 09/10/24 09/11/24 09/12/24 09/13/24 23:59 23:59 23:59 23:59 Intake Total 1500 2056.5 1773.7 340 Output Total 750 75 200 Balance 1500 1306.5 1698.7 140 Meds/Results Medications: Active Medications Generic Name Dose Route Start Last Admin Trade Name Freq PRN Reason Stop Dose Admin Acetaminophen 650 mg 09/11/24 01:19 Acetaminophen 325 Mg Tablet PO Q4H PRN Mild Pain (1-3) or Fever Hydrocodone Bitart/Acetaminophen 1 tab 09/11/24 01:19 09/13/24 07:25 Hydrocodone/Acetaminophen (*Crx) 5-325 Mg Tablet PO 1 tab Q4H PRN Administration Moderate Pain (4-6) Albuterol 2.5 mg 09/11/24 03:21 Albuterol Sulfate Neb 2.5 Mg/3 Ml Inh INHALATION Q4-6H PRN wheezing Allopurinol 100 mg 09/11/24 08:00 09/13/24 08:36 Allopurinol 100 Mg Tablet PO 100 mg DAILY@0800 DIONICIO Administration Apixaban 5 mg 09/11/24 09:00 09/13/24 08:36 Apixaban 5 Mg Tablet PO 5 mg Q12HR DIONICIO Administration Benzonatate 200 mg 09/12/24 19:33 09/12/24 20:51 Benzonatate 100 Mg Capsule PO 200 mg TID PRN Administration Cough Melatonin 5 mg 09/11/24 01:19 Melatonin 5 Mg Tablet PO HS PRN Insomnia Midodrine 10 mg 09/10/24 23:00 09/13/24 13:12 Midodrine Hcl 10 Mg Tablet PO 10 mg TID DIONICIO Administration Ondansetron HCl 4 mg 09/10/24 23:13 09/11/24 02:38 Ondansetron Inj 4 Mg/2 Ml Vial IV PUSH 4 mg Q4H PRN Administration Nausea Pantoprazole Sodium 20 mg 09/11/24 09:00 09/13/24 08:36 Pantoprazole Sod Sesquihydrate 20 Mg Tab PO 20 mg DAILY DIONICIO Administration Prochlorperazine Edisylate 10 mg 09/11/24 01:19 Prochlorperazine Edisylate 10 Mg/2 Ml Vial IV PUSH Q6H PRN Nausea And Vomiting Radiology Results: ITS Impressions Chest X-Ray 09/10/24 17:35 IMPRESSION: No focal infiltrate or effusion. Chest/Abdomen/Pelvis CT 09/10/24 20:24 IMPRESSION: Heterogeneous appearance of the bone marrow for which a systemic disease is suspected and for which clinical correlation is needed. No acute findings within the chest, abdomen or pelvis to account for patient's presenting symptoms. Chest/Abdomen/Pelvis CTA 09/11/24 05:37 Impression: 4.4 cm ascending aortic aneurysm. No aortic dissection. Renal Ultrasound 09/11/24 11:20 IMPRESSION: 1. Normal kidneys. No hydronephrosis. Labs Labs: Laboratory Tests 09/13/24 04:10 09/13/24 04:10 Calcium 9.2 Phosphorus 3.5 Magnesium 1.8 Total Bilirubin 4.0 H AST 37 ALT 18 Alkaline Phosphatase 108 Total Protein 7.0 Albumin 3.6
[2024-09-13 11:58] LABS: Chloride Rand Ur <20 mmol/L (32-290); Creatinine Random Urine 169 mg/dL (20-320)
--- NOTE | 2024-09-13 16:57 | PM.IMPN ---
Progress Note: A&P Assessment and Plan (1) Acute hypotension: Code(s): I95.9 - Hypotension, unspecified Status: Acute (2) Acute kidney injury: Code(s): N17.9 - Acute kidney failure, unspecified Status: Acute (3) Congestive heart failure: Code(s): I50.9 - Heart failure, unspecified Status: Acute (4) AICD (automatic cardioverter/defibrillator) present: Code(s): Z95.810 - Presence of automatic (implantable) cardiac defibrillator Status: Acute (5) Mixed hyperlipidemia: Code(s): E78.2 - Mixed hyperlipidemia Status: Acute Plan initially was admitted to the IMY, patient with severe nonischemic cardiomyopathy with EF of 25-30% developed severe hypotension patient was IVF bolus, there was not improvement in patient BP and patient was transferred to for IV anne marie-synephrine and midodrine which did bring patient BP close to normal and currenlty patient has no complains of CP or dizziness, patient is seen by cardiology recommended to stop the fluids as patient IVC is dilated on ECHO. also recommended to resume GDMT regimen and to keep systolic BP above 100, will continue to monitor. Subjective Date/time seen: 09/13/24 16:57 Interval history: H&P-Narrative: Montrell Thomas is a 74-year-old male with a medical history significant for CHF with reduced ejection fraction, GERD, COPD, AFib Who presents after experiencing neck/back pain, he was advised to visit the ER after he spoke with his PCP. He describes the pain around his neck/back as sharp, aggravated by certain neck movements, but limited by immobility, positive with anxiety, malaise, restriction of his ADLs. He denies shortness of breath, PND, orthopnea, palpitations, pedal swellings, hemoptysis, initially was admitted to the IMY, patient with severe nonischemic cardiomyopathy with EF of 25-30% developed severe hypotension patient was IVF bolus, there was not improvement in patient BP and patient was transferred to for IV anne marie-synephrine and midodrine which did bring patient BP close to normal and currenlty patient has no complains of CP or dizziness, patient is seen by cardiology recommended to stop the fluids as patient IVC is dilated on ECHO. also recommended to resume GDMT regimen and to keep systolic BP above 100, will continue to monitor. Review of Systems Review of Systems: All systems reviewed & are unremarkable except as noted in HPI and below Exam Narrative: Patient is comfortable, NAD HEENT: eyes are clear and none icteric LUNGS:CTA HEART: RR S1S2 ABD: BS+, Soft and nontender Lower extremities: no edema SKIN: nonjaundiced Neuro: grossly intact. Objective Data Vital Signs Vital Signs: Vital Signs - 24 hr 09/12/24 18:00 09/12/24 18:00 09/12/24 20:00 Temperature Pulse Rate 70 70 70 Respiratory Rate 15 15 Blood Pressure 100/83 Pulse Oximetry 96 96 Oxygen Delivery Room Air 09/12/24 20:00 09/12/24 20:00 09/12/24 22:00 Temperature 36.6 C Pulse Rate 72 72 70 Respiratory Rate 24 H Blood Pressure 105/83 Pulse Oximetry 100 Oxygen Delivery 09/12/24 22:00 09/13/24 00:00 09/13/24 00:00 Temperature 36.6 C 36.9 C Pulse Rate 70 70 70 Respiratory Rate 21 H 21 H Blood Pressure 95/67 L 90/72 L Pulse Oximetry 100 97 Oxygen Delivery 09/13/24 00:00 09/13/24 02:00 09/13/24 02:00 Temperature Pulse Rate 70 78 70 Respiratory Rate 21 H 22 H Blood Pressure 99/76 L Pulse Oximetry 97 100 Oxygen Delivery Room Air 09/13/24 04:00 09/13/24 04:00 09/13/24 04:00 Temperature 36.7 C Pulse Rate 70 70 76 Respiratory Rate 22 H 16 Blood Pressure 103/77 Pulse Oximetry 100 93 Oxygen Delivery Room Air 09/13/24 06:00 09/13/24 06:00 09/13/24 08:00 Temperature Pulse Rate 70 70 76 Respiratory Rate 21 H 15 Blood Pressure 102/80 Pulse Oximetry 98 98 Oxygen Delivery Room Air 09/13/24 08:00 09/13/24 08:00 09/13/24 10:00 Temperature 36.7 C Pulse Rate 70 76 70 Respiratory Rate 15 Blood Pressure 102/80 Pulse Oximetry 96 Oxygen Delivery 09/13/24 10:00 09/13/24 11:30 09/13/24 12:00 Temperature 36.7 C Pulse Rate 70 77 Respiratory Rate 18 20 Blood Pressure 98/81 L 91/79 L Pulse Oximetry 97 Oxygen Delivery Room Air 09/13/24 12:00 09/13/24 12:00 09/13/24 14:00 Temperature Pulse Rate 77 77 70 Respiratory Rate 16 Blood Pressure Pulse Oximetry 97 Oxygen Delivery Room Air 09/13/24 16:00 09/13/24 16:00 09/13/24 16:00 Temperature 36.4 C Pulse Rate 76 76 Respiratory Rate 16 Blood Pressure 98/73 L Pulse Oximetry 94 94 Oxygen Delivery Room Air Intake/Output Intake/Output: Intake & Output 09/10/24 09/11/24 09/12/24 09/13/24 23:59 23:59 23:59 23:59 Intake Total 1500 2056.5 1773.7 340 Output Total 750 75 400 Balance 1500 1306.5 1698.7 -60 Meds/Results Medications: Active Medications Generic Name Dose Route Start Last Admin Trade Name Freq PRN Reason Stop Dose Admin Acetaminophen 650 mg 09/11/24 01:19 Acetaminophen 325 Mg Tablet PO Q4H PRN Mild Pain (1-3) or Fever Hydrocodone Bitart/Acetaminophen 1 tab 09/11/24 01:19 09/13/24 07:25 Hydrocodone/Acetaminophen (*Crx) 5-325 Mg Tablet PO 1 tab Q4H PRN Administration Moderate Pain (4-6) Albuterol 2.5 mg 09/11/24 03:21 Albuterol Sulfate Neb 2.5 Mg/3 Ml Inh INHALATION Q4-6H PRN wheezing Allopurinol 100 mg 09/11/24 08:00 09/13/24 08:36 Allopurinol 100 Mg Tablet PO 100 mg DAILY@0800 DIONICIO Administration Apixaban 5 mg 09/11/24 09:00 09/13/24 08:36 Apixaban 5 Mg Tablet PO 5 mg Q12HR DIONICIO Administration Benzonatate 200 mg 09/12/24 19:33 09/12/24 20:51 Benzonatate 100 Mg Capsule PO 200 mg TID PRN Administration Cough Melatonin 5 mg 09/11/24 01:19 Melatonin 5 Mg Tablet PO HS PRN Insomnia Midodrine 10 mg 09/10/24 23:00 09/13/24 13:12 Midodrine Hcl 10 Mg Tablet PO 10 mg TID DIONICIO Administration Ondansetron HCl 4 mg 09/10/24 23:13 09/11/24 02:38 Ondansetron Inj 4 Mg/2 Ml Vial IV PUSH 4 mg Q4H PRN Administration Nausea Pantoprazole Sodium 20 mg 09/11/24 09:00 09/13/24 08:36 Pantoprazole Sod Sesquihydrate 20 Mg Tab PO 20 mg DAILY DIONICIO Administration Prochlorperazine Edisylate 10 mg 09/11/24 01:19 Prochlorperazine Edisylate 10 Mg/2 Ml Vial IV PUSH Q6H PRN Nausea And Vomiting Radiology Results: ITS Impressions Chest X-Ray 09/10/24 17:35 IMPRESSION: No focal infiltrate or effusion. Chest/Abdomen/Pelvis CT 09/10/24 20:24 IMPRESSION: Heterogeneous appearance of the bone marrow for which a systemic disease is suspected and for which clinical correlation is needed. No acute findings within the chest, abdomen or pelvis to account for patient's presenting symptoms. Chest/Abdomen/Pelvis CTA 09/11/24 05:37 Impression: 4.4 cm ascending aortic aneurysm. No aortic dissection. Renal Ultrasound 09/11/24 11:20 IMPRESSION: 1. Normal kidneys. No hydronephrosis. Labs Labs: Laboratory Results - last 24 hr 09/11/24 09/13/24 11:30 04:10 WBC 6.0 RBC 4.19 L Hgb 10.3 L Hct 33.0 L MCV 78.8 L MCH 24.6 L MCHC 31.2 L RDW 21.8 H Plt Count 208 MPV 10.7 H Immature Gran % (Auto) 0.3 Neut % (Auto) 59.9 Lymph % (Auto) 24.3 [place] % (Auto) 13.8 H Eos % (Auto) 1.2 Baso % (Auto) 0.5 Lymph # (Auto) 1.46 [place] # (Auto) 0.8 H Eos # (Auto) 0.1 Baso # (Auto) 0.0 Abs Immat Gran (auto) 0.02 Absolute Neuts (auto) 3.6 Absolute Nucleated RBC 0.000 Nucleated RBC % 0.0 Sodium 138 Potassium 4.4 Chloride 105 Carbon Dioxide 18 L Anion Gap 15 H BUN 50 H Creatinine 2.20 H Estim Creat Clear Calc 30 Estimated GFR 29 L Glucose 85 Calcium 9.2 Phosphorus 3.5 Magnesium 1.8 Total Bilirubin 4.0 H AST 37 ALT 18 Alkaline Phosphatase 108 Total Protein 7.0 Albumin 3.6 Ur Random Creatinine 169 Ur Random Chloride <20 L U Random Chloride/Creat See note
[2024-09-14] VITALS (12 sets, daily range): BP systolic 93–118; BP diastolic 74–100; PULSE 72–91; RESP 16–28; TEMP 36.4–37.1; O2SAT 95–99
[2024-09-14 04:34] LABS: Basophils Percent Auto 0.7 % (0.2-1.2); Eosinophils Absolute Auto 0.1 K/mm3 (0-0.3); Hematocrit 33.1 % (42.0-52.0); Hemoglobin 10.6 g/dL (14.0-18.0); Immature Granulocyte Absolute 0.02 K/mm3 (0.00-0.031); Immature Granulocyte Percent A 0.4 % (0-0.5); Lymphocytes Percent Auto 25.5 % (18.3-44.2); Mean Corpuscular Hemoglobin 25.1 pg (26-34); Mean Corpuscular Volume 78.4 fl (80-100); Monocytes Absolute Auto 0.6 K/mm3 (0.1-0.6); Monocytes Percent Auto 10.4 % (2.6-8.5); Neutrophils Absolute Auto 3.3 K/mm3 (1.3-6.7); Platelet Count Result 234 k/mm3 (150-375); Red Blood Count 4.22 M/mm3 (4.6-6.20); Red Cell Distribution Width 21.9 % (11.5-14.5); White Blood Count 5.5 K/mm3 (4.5-10.0)
[2024-09-14 04:47] LABS: Alanine Aminotransferase 28 U/L (6-50); Albumin Level 3.8 g/dL (3.5-5.1); Alkaline Phosphatase 125 U/L (38-126); Anion Gap 13 mmol/L (4-12); Aspartate Amino Transferase 62 U/L (17-59); Bilirubin,Total 3.5 mg/dL (0.2-1.3); Blood Urea Nitrogen 49 mg/dL (9-20); Calcium 9.6 mg/dL (8.4-10.2); Carbon Dioxide 20 mmol/L (22-30); Chloride 105 mmol/L (98-107); Estimated CRCL calculation 36 ml/min; Estimated Glomerular Filt Rate 37; Glucose 92 mg/dL (65-110); Potassium 4.4 mmol/L (3.4-5.0); Sodium 138 mmol/L (137-145)
[2024-09-14] MEDS: PANTOPRAZOLE SOD SESQUIHYDRATE 20 MG TAB PO (08:44)
[2024-09-14] MEDS: APIXABAN 5 MG TABLET PO ×2 (08:44→21:40)
[2024-09-14] MEDS: MIDODRINE HCL 10 MG TABLET PO ×3 (08:44→17:26)
[2024-09-14] MEDS: allopurinoL 100 MG TABLET PO (08:44)
--- NOTE | 2024-09-14 12:10 | P.PNNP_ITS ---
Progress Note: A&P Assessment and Plan (1) Acute kidney injury: Code(s): N17.9 - Acute kidney failure, unspecified Status: Acute Assessment and Plan: * slow improvement noted * normal renal function up until June 2024 * June 2024 -- creatinine up to 1.5mg/dl * July 2024-- creatinine up to 1.97mg/ld * early Februrary 2024 -- creatinine up to 2.34mg/dl * creatinine 2.7mg/dl on admission * suspect multifactorial etiology: * profound hypotension/hemodynamic instability * prerenal factors * known cardiomyopathy/depressed EF * Entresto and diuretic therapy [employer] * contrast exposure (but creatinine was already elevated prior to this -- however, this might hamper recovery) * other(?) * evaluation to date noted: * renal ultrasound normal * CPK normal * urine eosinophils negative * urine electrolytes prerenal (but his could be a manifestation of his cardiomyopathy/depressed EF as well) * UA with 1+ protein * follow trend of repeat labs and UOP (2) Acute hypotension: Code(s): I95.9 - Hypotension, unspecified Status: Acute Assessment and Plan: * resolving if not resolved * quite significant on presentation - systolic BP in the high 60s range * possibly precipitated by recent increase in outpatient diuretic therapy + Entresto initiation * s/p IVFs in the ER and on medical floor prior to transfer to ICU * however, his hypotension persisted * transferred to ICU and initiated on vasopressor therapy * weaned off vasopressor therapy * s/p volume expansion IV Albumin * on midodrine * holding antibiotic therapy since no evidence of infection (3) Congestive heart failure: Code(s): I50.9 - Heart failure, unspecified Status: Acute Assessment and Plan: * appears compensated despite elevated BNP in ER * known history with associated cardiomyopathy * AICD in place * recent Echo (09/11) noted: * left ventricular systolic function is severely reduced, estimated at20-25% * mild mitral valve regurgitation. * moderate tricuspid valve regurgitation * pulmonary hypertension - estimated pulmonary arterial systolic pressure is 55 mmHg * recent CT imaging without evidence of volume overload or heart failure * Cardiology recommendations noted (4) Aortic aneurysm: Code(s): I71.9 - Aortic aneurysm of unspecified site, without rupture Status: Acute Assessment and Plan: * CTA chest abdomen pelvis showed 4.4 cm ascending aortic aneurysm but no aortic dissection * Cardiology recommendations noted Will continue to follow. L Subjective Date/time seen: 09/14/24 12:10 Interval history: Follow-up for acute kidney injury/acute renal failure (on chronic kidney disease??) Continues to do well in general with slow and steady improvement; stable hemodynamice noted off vasopressors and renal function/creatinine continues to slowly improve as well; no apparent distress voiced at the time of my visit. Exam 2 Narrative: General: elderly but WD/WN male in NAD Heart: normal S1 and S2; no rub Lungs: clear to auscultation Abdomen: soft, nontender, nondistended, positive bowel sounds Extremities: no cyanosis or clubbing; no edema Skin: no rash Objective Data Vital Signs Vital Signs: Vital Signs Temp Pulse Resp BP Pulse Ox O2 Del Method 09/14/24 12:00 77 28 H 105/92 H Room Air 09/14/24 10:00 72 09/14/24 08:00 98.2 F 91 28 H 118/100 H 95 09/14/24 08:00 76 09/14/24 08:00 91 28 H 95 Room Air 09/14/24 06:00 76 09/14/24 06:00 97.6 F 80 16 94/83 L 95 09/14/24 04:00 76 09/14/24 04:00 76 16 96 Room Air 09/14/24 02:00 85 09/14/24 00:00 77 18 101/78 09/13/24 23:57 98 09/13/24 23:55 75 18 96 Room Air 09/13/24 22:00 76 09/13/24 20:00 97.6 F 77 18 93/78 L 96 09/13/24 19:57 72 16 94 Room Air 09/13/24 18:00 72 09/13/24 17:14 72 09/13/24 16:00 97.6 F 76 16 98/73 L 94 09/13/24 16:00 76 09/13/24 16:00 94 Room Air 09/13/24 14:00 70 Intake/Output Intake/Output: Intake & Output 09/11/24 09/12/24 09/13/24 09/14/24 23:59 23:59 23:59 23:59 Intake Total 2056.5 1773.7 440 920 Output Total 750 75 550 300 Balance 1306.5 1698.7 -110 620 Meds/Results Medications: Active Medications Generic Name Dose Route Start Last Admin Trade Name Freq PRN Reason Stop Dose Admin Acetaminophen 650 mg 09/11/24 01:19 Acetaminophen 325 Mg Tablet PO Q4H PRN Mild Pain (1-3) or Fever Hydrocodone Bitart/Acetaminophen 1 tab 09/11/24 01:19 09/13/24 07:25 Hydrocodone/Acetaminophen (*Crx) 5-325 Mg Tablet PO 1 tab Q4H PRN Administration Moderate Pain (4-6) Albuterol 2.5 mg 09/11/24 03:21 Albuterol Sulfate Neb 2.5 Mg/3 Ml Inh INHALATION Q4-6H PRN wheezing Allopurinol 100 mg 09/11/24 08:00 09/14/24 08:44 Allopurinol 100 Mg Tablet PO 100 mg DAILY@0800 DIONICIO Administration Apixaban 5 mg 09/11/24 09:00 09/14/24 08:44 Apixaban 5 Mg Tablet PO 5 mg Q12HR DIONICIO Administration Benzonatate 200 mg 09/12/24 19:33 09/12/24 20:51 Benzonatate 100 Mg Capsule PO 200 mg TID PRN Administration Cough Melatonin 5 mg 09/11/24 01:19 Melatonin 5 Mg Tablet PO HS PRN Insomnia Midodrine 10 mg 09/10/24 23:00 09/14/24 13:17 Midodrine Hcl 10 Mg Tablet PO 10 mg TID DIONICIO Administration Ondansetron HCl 4 mg 09/10/24 23:13 09/11/24 02:38 Ondansetron Inj 4 Mg/2 Ml Vial IV PUSH 4 mg Q4H PRN Administration Nausea Pantoprazole Sodium 20 mg 09/11/24 09:00 09/14/24 08:44 Pantoprazole Sod Sesquihydrate 20 Mg Tab PO 20 mg DAILY DIONICIO Administration Prochlorperazine Edisylate 10 mg 09/11/24 01:19 Prochlorperazine Edisylate 10 Mg/2 Ml Vial IV PUSH Q6H PRN Nausea And Vomiting Radiology Results: ITS Impressions Chest X-Ray 09/10/24 17:35 IMPRESSION: No focal infiltrate or effusion. Chest/Abdomen/Pelvis CT 09/10/24 20:24 IMPRESSION: Heterogeneous appearance of the bone marrow for which a systemic disease is suspected and for which clinical correlation is needed. No acute findings within the chest, abdomen or pelvis to account for patient's presenting symptoms. Chest/Abdomen/Pelvis CTA 09/11/24 05:37 Impression: 4.4 cm ascending aortic aneurysm. No aortic dissection. Renal Ultrasound 09/11/24 11:20 IMPRESSION: 1. Normal kidneys. No hydronephrosis. Labs Labs: Laboratory Tests 09/14/24 04:15 09/14/24 04:15 \ Calcium 9.6 Total Bilirubin 3.5 H AST 62 H ALT 28 Alkaline Phosphatase 125 Total Protein 8.0 Albumin 3.8
--- NOTE | 2024-09-14 18:16 | P.PNIM_ITS ---
Progress Note: A&P Assessment and Plan (1) Acute hypotension: Code(s): I95.9 - Hypotension, unspecified Status: Acute (2) Acute kidney injury: Code(s): N17.9 - Acute kidney failure, unspecified Status: Acute (3) Congestive heart failure: Code(s): I50.9 - Heart failure, unspecified Status: Acute (4) AICD (automatic cardioverter/defibrillator) present: Code(s): Z95.810 - Presence of automatic (implantable) cardiac defibrillator Status: Acute (5) Mixed hyperlipidemia: Code(s): E78.2 - Mixed hyperlipidemia Status: Acute Plan initially was admitted to the IMY, patient with severe nonischemic cardiomyopathy with EF of 25-30% developed severe hypotension patient was IVF bolus, there was not improvement in patient BP and patient was transferred to for IV anne marie-synephrine and midodrine which did bring patient BP close to normal and currenlty patient has no complains of CP or dizziness, patient is seen by cardiology recommended to stop the fluids as patient IVC is dilated on ECHO. also recommended to resume GDMT regimen and to keep systolic BP above 100, will continue to monitor. patient clinical symptoms are improving, patient blood pressure remains soft, will reassess patient again in the morning and follow acute care nurse practitioner recommendations. will transfer patient out of IMU to [facility]. Subjective Date/time seen: 09/14/24 18:16 Interval history: H&P-Narrative: Montrell Thomas is a 74-year-old male with a medical history significant for CHF with reduced ejection fraction, GERD, COPD, AFib Who presents after experiencing neck/back pain, he was advised to visit the ER after he spoke with his PCP. He describes the pain around his neck/back as sharp, aggravated by certain neck movements, but limited by immobility, positive with anxiety, malaise, restriction of his ADLs. He denies shortness of breath, PND, orthopnea, palpitations, pedal swellings, hemoptysis, initially was admitted to the IMY, patient with severe nonischemic cardiomy opathy with EF of 25-30% developed severe hypotension patient was IVF bolus, there was not improvement in patient BP and patient was transferred to for IV anne marie-synephrine and midodrine which did bring patient BP close to normal and currenlty patient has no complains of CP or dizziness, patient is seen by cardiology recommended to stop the fluids as patient IVC is dilated on ECHO. also recommended to resume GDMT regimen and to keep systolic BP above 100, will continue to monitor. patient clinical symptoms are improving, patient blood pressure remains soft, will reassess patient again in the morning and follow acute care nurse practitioner recommendations. will transfer patient out of IMU to [facility]. Review of Systems Review of Systems: All systems reviewed & are unremarkable except as noted in HPI and below Exam Narrative: Patient is comfortable, NAD HEENT: eyes are clear and none icteric LUNGS:CTA HEART: RR S1S2 ABD: BS+, Soft and nontender Lower extremities: no edema SKIN: nonjaundiced Neuro: grossly intact. Objective Data Vital Signs Vital Signs: Vital Signs - 24 hr 09/13/24 19:57 09/13/24 20:00 09/13/24 22:00 Temperature 36.4 C Pulse Rate 72 77 76 Respiratory Rate 16 18 Blood Pressure 93/78 L Pulse Oximetry 94 96 Oxygen Delivery Room Air 09/13/24 23:55 09/13/24 23:57 09/14/24 00:00 Temperature Pulse Rate 75 98 77 Respiratory Rate 18 18 Blood Pressure 101/78 Pulse Oximetry 96 Oxygen Delivery Room Air 09/14/24 02:00 09/14/24 04:00 09/14/24 04:00 Temperature Pulse Rate 85 76 76 Respiratory Rate 16 Blood Pressure Pulse Oximetry 96 Oxygen Delivery Room Air 09/14/24 06:00 09/14/24 06:00 09/14/24 08:00 Temperature 36.4 C Pulse Rate 80 76 91 Respiratory Rate 16 28 H Blood Pressure 94/83 L Pulse Oximetry 95 95 Oxygen Delivery Room Air 09/14/24 08:00 09/14/24 08:00 09/14/24 10:00 Temperature 36.8 C Pulse Rate 76 91 72 Respiratory Rate 28 H Blood Pressure 118/100 H Pulse Oximetry 95 Oxygen Delivery 09/14/24 12:00 09/14/24 12:00 09/14/24 12:00 Temperature Pulse Rate 77 77 77 Respiratory Rate 28 H 28 H Blood Pressure 105/92 H Pulse Oximetry Oxygen Delivery Room Air 09/14/24 14:00 09/14/24 16:00 09/14/24 16:00 Temperature Pulse Rate 74 78 78 Respiratory Rate 25 H Blood Pressure 102/74 Pulse Oximetry Oxygen Delivery 09/14/24 18:00 Temperature Pulse Rate 78 Respiratory Rate Blood Pressure Pulse Oximetry Oxygen Delivery Intake/Output Intake/Output: Intake & Output 09/11/24 09/12/24 09/13/24 09/14/24 23:59 23:59 23:59 23:59 Intake Total 2056.5 1773.7 440 1620 Output Total 750 75 550 300 Balance 1306.5 1698.7 -110 1320 Meds/Results Medications: Active Medications Generic Name Dose Route Start Last Admin Trade Name Freq PRN Reason Stop Dose Admin Acetaminophen 650 mg 09/11/24 01:19 Acetaminophen 325 Mg Tablet PO Q4H PRN Mild Pain (1-3) or Fever Hydrocodone Bitart/Acetaminophen 1 tab 09/11/24 01:19 09/13/24 07:25 Hydrocodone/Acetaminophen (*Crx) 5-325 Mg Tablet PO 1 tab Q4H PRN Administration Moderate Pain (4-6) Albuterol 2.5 mg 09/11/24 03:21 Albuterol Sulfate Neb 2.5 Mg/3 Ml Inh INHALATION Q4-6H PRN wheezing Allopurinol 100 mg 09/11/24 08:00 09/14/24 08:44 Allopurinol 100 Mg Tablet PO 100 mg DAILY@0800 DIONICIO Administration Apixaban 5 mg 09/11/24 09:00 09/14/24 08:44 Apixaban 5 Mg Tablet PO 5 mg Q12HR DIONICIO Administration Benzonatate 200 mg 09/12/24 19:33 09/12/24 20:51 Benzonatate 100 Mg Capsule PO 200 mg TID PRN Administration Cough Melatonin 5 mg 09/11/24 01:19 Melatonin 5 Mg Tablet PO HS PRN Insomnia Midodrine 10 mg 09/10/24 23:00 09/14/24 17:26 Midodrine Hcl 10 Mg Tablet PO 10 mg TID DIONICIO Administration Ondansetron HCl 4 mg 09/10/24 23:13 09/11/24 02:38 Ondansetron Inj 4 Mg/2 Ml Vial IV PUSH 4 mg Q4H PRN Administration Nausea Pantoprazole Sodium 20 mg 09/11/24 09:00 09/14/24 08:44 Pantoprazole Sod Sesquihydrate 20 Mg Tab PO 20 mg DAILY DIONICIO Administration Prochlorperazine Edisylate 10 mg 09/11/24 01:19 Prochlorperazine Edisylate 10 Mg/2 Ml Vial IV PUSH Q6H PRN Nausea And Vomiting Radiology Results: ITS Impressions Chest X-Ray 09/10/24 17:35 IMPRESSION: No focal infiltrate or effusion. Chest/Abdomen/Pelvis CT 09/10/24 20:24 IMPRESSION: Heterogeneous appearance of the bone marrow for which a systemic disease is suspected and for which clinical correlation is needed. No acute findings within the chest, abdomen or pelvis to account for patient's presenting symptoms. Chest/Abdomen/Pelvis CTA 09/11/24 05:37 Impression: 4.4 cm ascending aortic aneurysm. No aortic dissection. Renal Ultrasound 09/11/24 11:20 IMPRESSION: 1. Normal kidneys. No hydronephrosis. Labs Labs: Laboratory Results - last 24 hr 09/14/24 04:15 WBC 5.5 RBC 4.22 L Hgb 10.6 L Hct 33.1 L MCV 78.4 L MCH 25.1 L MCHC 32.0 RDW 21.9 H Plt Count 234 MPV 10.0 Immature Gran % (Auto) 0.4 Neut % (Auto) 61.0 Lymph % (Auto) 25.5 [place] % (Auto) 10.4 H Eos % (Auto) 2.0 Baso % (Auto) 0.7 Lymph # (Auto) 1.40 [place] # (Auto) 0.6 Eos # (Auto) 0.1 Baso # (Auto) 0.0 Abs Immat Gran (auto) 0.02 Absolute Neuts (auto) 3.3 Absolute Nucleated RBC 0.000 Nucleated RBC % 0.0 Sodium 138 Potassium 4.4 Chloride 105 Carbon Dioxide 20 L Anion Gap 13 H BUN 49 H Creatinine 1.80 H Estim Creat Clear Calc 36 Estimated GFR 37 L Glucose 92 Calcium 9.6 Total Bilirubin 3.5 H AST 62 H ALT 28 Alkaline Phosphatase 125 Total Protein 8.0 Albumin 3.8
[2024-09-15] VITALS (13 sets, daily range): BP systolic 105–118; BP diastolic 74–89; PULSE 71–98; RESP 16–23; TEMP 36.4–36.9; O2SAT 96–99
[2024-09-15 03:46] LABS: Basophils Percent Auto 0.8 % (0.2-1.2); Eosinophils Absolute Auto 0.1 K/mm3 (0-0.3); Eosinophils Percent Auto 1.9 % (0-4.4); Hematocrit 35.9 % (42.0-52.0); Hemoglobin 11.1 g/dL (14.0-18.0); Immature Granulocyte Absolute 0.01 K/mm3 (0.00-0.031); Immature Granulocyte Percent A 0.2 % (0-0.5); Lymphocytes Absolute Auto 1.67 K/mm3 (0.9-3.2); Mean Corpuscular HGB Conc 30.9 g/dl (32-36); Mean Corpuscular Hemoglobin 24.5 pg (26-34); Mean Corpuscular Volume 79.2 fl (80-100); Mean Platelet Volume 9.9 fl (7.4-10.4); Monocytes Absolute Auto 0.6 K/mm3 (0.1-0.6); Monocytes Percent Auto 11.1 % (2.6-8.5); Neutrophils Absolute Auto 2.8 K/mm3 (1.3-6.7); Platelet Count Result 272 k/mm3 (150-375); Red Blood Count 4.53 M/mm3 (4.6-6.20); Red Cell Distribution Width 22.1 % (11.5-14.5); White Blood Count 5.2 K/mm3 (4.5-10.0)
[2024-09-15 03:59] LABS: Alanine Aminotransferase 28 U/L (6-50); Albumin Level 3.9 g/dL (3.5-5.1); Alkaline Phosphatase 132 U/L (38-126); Anion Gap 13 mmol/L (4-12); Aspartate Amino Transferase 52 U/L (17-59); Bilirubin,Total 3.6 mg/dL (0.2-1.3); Blood Urea Nitrogen 41 mg/dL (9-20); Calcium 9.6 mg/dL (8.4-10.2); Carbon Dioxide 23 mmol/L (22-30); Chloride 103 mmol/L (98-107); Estimated CRCL calculation 39 ml/min; Estimated Glomerular Filt Rate 42; Glucose 93 mg/dL (65-110); Potassium 4.3 mmol/L (3.4-5.0); Sodium 139 mmol/L (137-145)
[2024-09-15 04:11] LABS: Hypochromasia 1+; Platelet Estimate Adequate (Adequate); Poikilocytosis 1+; Schistocytes None Seen; Target Cells 1+
[2024-09-15 04:12] LABS: Band Neutrophils Percent 0 % (0-6); Ovalocytes 1+
[2024-09-15] MEDS: PANTOPRAZOLE SOD SESQUIHYDRATE 20 MG TAB PO (08:57)
[2024-09-15] MEDS: APIXABAN 5 MG TABLET PO ×2 (08:57→20:52)
[2024-09-15] MEDS: MIDODRINE HCL 10 MG TABLET PO ×3 (08:57→16:45)
[2024-09-15] MEDS: allopurinoL 100 MG TABLET PO (08:57)
--- NOTE | 2024-09-15 09:22 | P.PNNP_ITS ---
Progress Note: A&P Assessment and Plan (1) Acute kidney injury: Code(s): N17.9 - Acute kidney failure, unspecified Status: Acute Assessment and Plan: * slow improvement noted * normal renal function up until June 2024 * June 2024 -- creatinine up to 1.5mg/dl * July 2024-- creatinine up to 1.97mg/ld * early Februrary 2024 -- creatinine up to 2.34mg/dl * creatinine 2.7mg/dl on admission * suspect multifactorial etiology: * profound hypotension/hemodynamic instability * prerenal factors * known cardiomyopathy/depressed EF * Entresto and diuretic therapy [employer] * contrast exposure (but creatinine was already elevated prior to this -- however, this might hamper recovery) * other(?) * evaluation to date noted: * renal ultrasound normal * CPK normal * urine eosinophils negative * urine electrolytes prerenal (but his could be a manifestation of his cardiomyopathy/depressed EF as well) * UA with 1+ protein * follow trend of repeat labs and UOP (2) Acute hypotension: Code(s): I95.9 - Hypotension, unspecified Status: Acute Assessment and Plan: * resolving if not resolved * quite significant on presentation - systolic BP in the high 60s range * possibly precipitated by recent increase in outpatient diuretic therapy + Entresto initiation * s/p IVFs in the ER and on medical floor prior to transfer to ICU * however, his hypotension persisted * transferred to ICU and initiated on vasopressor therapy * weaned off vasopressor therapy * s/p volume expansion IV Albumin * on midodrine * holding antibiotic therapy since no evidence of infection (3) Congestive heart failure: Code(s): I50.9 - Heart failure, unspecified Status: Acute Assessment and Plan: * appears compensated despite elevated BNP in ER * known history with associated cardiomyopathy * AICD in place * recent Echo (09/11) noted: * left ventricular systolic function is severely reduced, estimated at20-25% * mild mitral valve regurgitation. * moderate tricuspid valve regurgitation * pulmonary hypertension - estimated pulmonary arterial systolic pressure is 55 mmHg * recent CT imaging without evidence of volume overload or heart failure * Cardiology recommendations noted (4) Aortic aneurysm: Code(s): I71.9 - Aortic aneurysm of unspecified site, without rupture Status: Acute Assessment and Plan: * CTA chest abdomen pelvis showed 4.4 cm ascending aortic aneurysm but no aortic dissection * Cardiology recommendations noted Will continue to follow. L Subjective Date/time seen: 09/15/24 09:22 Interval history: Follow-up for acute kidney injury/acute renal failure (on chronic kidney disease?) Appears to be doing reasonably well at the time of my visit; renal function/creatinine appear to be slowly improving with ongoing therapy; no apparent distress noted; stable hemodynamics without the need for vasopressor therapy; no other issues/events overnight or earlier this morning. Exam 2 Narrative: General: elderly but WD/WN male in NAD Heart: normal S1 and S2; no rub Lungs: clear to auscultation Abdomen: soft, nontender, nondistended, positive bowel sounds Extremities: no cyanosis or clubbing; no edema Skin: no nodules Objective Data Vital Signs Vital Signs: Vital Signs Temp Pulse Resp BP Pulse Ox O2 Del Method 09/15/24 08:00 97.5 F L 72 16 113/88 98 09/15/24 05:27 81 09/15/24 04:00 98.5 F 73 18 118/89 99 09/15/24 03:38 74 09/15/24 02:00 85 09/15/24 00:00 75 09/14/24 22:00 83 09/14/24 20:00 79 09/14/24 20:00 79 18 99 Room Air 09/14/24 20:00 98.8 F 73 18 93/80 L 99 09/14/24 18:00 78 09/14/24 16:00 78 25 H 102/74 09/14/24 16:00 78 09/14/24 14:00 74 Intake/Output Intake/Output: Intake & Output 09/12/24 09/13/24 09/14/24 09/15/24 23:59 23:59 23:59 23:59 Intake Total 1773.7 440 1620 410 Output Total 75 550 300 200 Balance 1698.7 -110 1320 210 Meds/Results Medications: Active Medications Generic Name Dose Route Start Last Admin Trade Name Freq PRN Reason Stop Dose Admin Acetaminophen 650 mg 09/11/24 01:19 Acetaminophen 325 Mg Tablet PO Q4H PRN Mild Pain (1-3) or Fever Hydrocodone Bitart/Acetaminophen 1 tab 09/11/24 01:19 09/13/24 07:25 Hydrocodone/Acetaminophen (*Crx) 5-325 Mg Tablet PO 1 tab Q4H PRN Administration Moderate Pain (4-6) Albuterol 2.5 mg 09/11/24 03:21 Albuterol Sulfate Neb 2.5 Mg/3 Ml Inh INHALATION Q4-6H PRN wheezing Allopurinol 100 mg 09/11/24 08:00 09/15/24 08:57 Allopurinol 100 Mg Tablet PO 100 mg DAILY@0800 DIONICIO Administration Apixaban 5 mg 09/11/24 09:00 09/15/24 08:57 Apixaban 5 Mg Tablet PO 5 mg Q12HR DIONICIO Administration Benzonatate 200 mg 09/12/24 19:33 09/12/24 20:51 Benzonatate 100 Mg Capsule PO 200 mg TID PRN Administration Cough Melatonin 5 mg 09/11/24 01:19 Melatonin 5 Mg Tablet PO HS PRN Insomnia Midodrine 10 mg 09/10/24 23:00 09/15/24 08:57 Midodrine Hcl 10 Mg Tablet PO 10 mg TID DIONICIO Administration Ondansetron HCl 4 mg 09/10/24 23:13 09/11/24 02:38 Ondansetron Inj 4 Mg/2 Ml Vial IV PUSH 4 mg Q4H PRN Administration Nausea Pantoprazole Sodium 20 mg 09/11/24 09:00 09/15/24 08:57 Pantoprazole Sod Sesquihydrate 20 Mg Tab PO 20 mg DAILY DIONICIO Administration Prochlorperazine Edisylate 10 mg 09/11/24 01:19 Prochlorperazine Edisylate 10 Mg/2 Ml Vial IV PUSH Q6H PRN Nausea And Vomiting Radiology Results: ITS Impressions Chest X-Ray 09/10/24 17:35 IMPRESSION: No focal infiltrate or effusion. Chest/Abdomen/Pelvis CT 09/10/24 20:24 IMPRESSION: Heterogeneous appearance of the bone marrow for which a systemic disease is suspected and for which clinical correlation is needed. No acute findings within the chest, abdomen or pelvis to account for patient's presenting symptoms. Chest/Abdomen/Pelvis CTA 09/11/24 05:37 Impression: 4.4 cm ascending aortic aneurysm. No aortic dissection. Renal Ultrasound 09/11/24 11:20 IMPRESSION: 1. Normal kidneys. No hydronephrosis. Labs Labs: Laboratory Tests 09/15/24 03:24 09/15/24 03:24 Calcium 9.6 Total Bilirubin 3.6 H AST 52 ALT 28 Alkaline Phosphatase 132 H Total Protein 8.0 Albumin 3.9
--- NOTE | 2024-09-15 13:28 | PM.PNCARD ---
Progress Note: A&P Assessment and Plan (1) Nonischemic cardiomyopathy: Code(s): I42.8 - Other cardiomyopathies Status: Acute (2) AICD (automatic cardioverter/defibrillator) present: Code(s): Z95.810 - Presence of automatic (implantable) cardiac defibrillator Status: Acute (3) Ascending aortic aneurysm: Code(s): I71.21 - Aneurysm of the ascending aorta, without rupture Status: Acute (4) HTN (hypertension): Qualifiers: Hypertension type: essential hypertension Qualified Code(s): I10 - Essential (primary) hypertension Code(s): I10 - Essential (primary) hypertension Status: Acute (5) Atrial fibrillation: Code(s): I48.91 - Unspecified atrial fibrillation Status: Acute (6) Mixed hyperlipidemia: Code(s): E78.2 - Mixed hyperlipidemia Status: Acute (7) Obesity (BMI 30-39.9): Code(s): E66.9 - Obesity, unspecified Status: Acute (8) Chronic renal insufficiency, stage III (moderate): Code(s): N18.30 - Chronic kidney disease, stage 3 unspecified Status: Acute (9) Acute kidney injury: Code(s): N17.9 - Acute kidney failure, unspecified Status: Acute (10) Anemia: Code(s): D64.9 - Anemia, unspecified Status: Acute Plan 1. Nonischemic cardiomyopathy with LVEF 25-30% by echo in 2022; cardiac catheterization in 2017 showed normal coronaries 2. Hypotension-improved with SBP in the 110s, off all drips, off of peripheral Mark-Synephrine, remains on midodrine 3. Chronic atrial fibrillation on apixaban for anticoagulation; EKG shows atrial fibrillation 4. Ascending aortic aneurysm of 4.4 cm 5. Elevated troponin (0.038--> 0.030--> 0.030) most likely secondary to hypotension and acute on chronic renal failure; chest pain appears noncardiac given increases with inspiration -patient appears euvolemic on exam. This appears to be his ideal dry weight -start small dose of Lasix 20 mg p.o. daily and continue at discharge. Arrange follow-up with cardiology in 1-2 weeks to adjust dose of diuretics based on exam at that time -EGD MT was held due to hypotension. Now the blood pressure is improved with SBP in the 110s, recommend restarting metoprolol at low dose of 12.5 mg p.o. b.i.d. and up titrate as blood pressure tolerates -do not restart Entresto or spironolactone at discharge. Cardiology follow-up in 1-2 weeks at which time patient's clinical condition can be reassessed and decision can be made whether to restart these meds -continue midodrine at discharge. Patient can be reassessed at cardiology follow-up with the midodrine needs to be continued long-term -continue apixaban at home dose -check and replace electrolytes as needed keeping K greater than 4 and magnesium greater than 2 -check weight, ins and outs daily -monitor size of aortic aneurysm with repeat CT in 3-6 months -above plan was discussed with patient and he is agreeable -arrange follow-up with outpatient cardiology in 1-2 weeks post discharge -cardiology will sign off please call us with any questions Subjective Date/time seen: 09/15/24 13:28 Interval history: Reason for encounter: Hypotension Relevant history: Montrell Thomas is a 74 year old male with past medical history of HFrEF s/p AICD, hyperlipidemia, chronic atrial fibrillation on apixaban for anticoagulation, COPD, aortic aneurysm who presented to the ED on 09/10/2024 with posterior neck pain with radiation to his left shoulder and forward into his anterior chest. The pain in his chest got worse with deep breaths indicating it was noncardiac in nature. The pain resolved with administration of Tylenol in the ER. He was hypotensive at presentation with SBP in the 60s. His home cardiac meds including metoprolol, Entresto, spironolactone were held and he was started on midodrine and Mark-Synephrine with SBP in the 80s to 90s range. Patient remains asymptomatic from this blood pressure. Workup showed troponin was mildly elevated 0.038--> 0.030--> 0.030--> 0.035, creatinine elevated to 2.72 on admission (baseline 0.8-1.20), hemoglobin was 11.8, CTA chest abdomen and pelvis showed 4.4 cm ascending aortic aneurysm and no aortic dissection. Interval history: No chest pain, shortness of breath, diaphoresis, palpitations, dizziness, lightheadedness, nausea, emesis. Blood pressure is improved with SBP in the 110s. He has of peripheral Mark-Synephrine. He continues to be on midodrine. TTE: Severely depressed left ventricular ejection fraction of 20-25% (same as before). Moderate tricuspid regurgitation. Pulmonary hypertension with estimated pulmonary artery systolic pressure of 55 mm Hg. Inferior vena cava is dilated with less than 50% collapse on inspiration. Review of Systems Review of Systems: A complete review of systems was performed and pertinent positives are noted in the HPI Exam Narrative: General: Alert oriented x3, no acute distress Neck: Supple, no JVD Chest: Bilaterally clear to auscultation, no rales or rhonchi Cardiac: S1, S2 +, regular rate, regular rhythm, no murmurs or rubs Extremities: No pedal edema, no skin rash Neurologic: Alert and oriented x3, no focal neurological deficits Objective Data Vital Signs Vital Signs: Vital Signs - 24 hr 09/14/24 14:00 09/14/24 16:00 09/14/24 16:00 Temperature Pulse Rate 74 78 78 Respiratory Rate 25 H Blood Pressure 102/74 Pulse Oximetry Oxygen Delivery 09/14/24 18:00 09/14/24 20:00 09/14/24 20:00 Temperature 37.1 C Pulse Rate 78 73 79 Respiratory Rate 18 18 Blood Pressure 93/80 L Pulse Oximetry 99 99 Oxygen Delivery Room Air 09/14/24 20:00 09/14/24 22:00 09/15/24 00:00 Temperature Pulse Rate 79 83 75 Respiratory Rate Blood Pressure Pulse Oximetry Oxygen Delivery 09/15/24 02:00 09/15/24 03:38 09/15/24 04:00 Temperature 36.9 C Pulse Rate 85 74 73 Respiratory Rate 18 Blood Pressure 118/89 Pulse Oximetry 99 Oxygen Delivery 09/15/24 05:27 09/15/24 08:00 09/15/24 11:51 Temperature 36.4 C L 36.5 C Pulse Rate 81 72 86 Respiratory Rate 16 23 H Blood Pressure 113/88 111/77 Pulse Oximetry 98 97 Oxygen Delivery Intake/Output Intake/Output: Intake & Output 09/12/24 09/13/24 09/14/24 09/15/24 23:59 23:59 23:59 23:59 Intake Total 1773.7 440 1620 410 Output Total 75 550 300 200 Balance 1698.7 -110 1320 210 Meds/Results Medications: Active Medications Generic Name Dose Route Start Last Admin Trade Name Freq PRN Reason Stop Dose Admin Acetaminophen 650 mg 09/11/24 01:19 Acetaminophen 325 Mg Tablet PO Q4H PRN Mild Pain (1-3) or Fever Hydrocodone Bitart/Acetaminophen 1 tab 09/11/24 01:19 09/13/24 07:25 Hydrocodone/Acetaminophen (*Crx) 5-325 Mg Tablet PO 1 tab Q4H PRN Administration Moderate Pain (4-6) Albuterol 2.5 mg 09/11/24 03:21 Albuterol Sulfate Neb 2.5 Mg/3 Ml Inh INHALATION Q4-6H PRN wheezing Allopurinol 100 mg 09/11/24 08:00 09/15/24 08:57 Allopurinol 100 Mg Tablet PO 100 mg DAILY@0800 DIONICIO Administration Apixaban 5 mg 09/11/24 09:00 09/15/24 08:57 Apixaban 5 Mg Tablet PO 5 mg Q12HR DIONICIO Administration Benzonatate 200 mg 09/12/24 19:33 09/12/24 20:51 Benzonatate 100 Mg Capsule PO 200 mg TID PRN Administration Cough Melatonin 5 mg 09/11/24 01:19 Melatonin 5 Mg Tablet PO HS PRN Insomnia Midodrine 10 mg 09/10/24 23:00 09/15/24 13:16 Midodrine Hcl 10 Mg Tablet PO 10 mg TID DIONICIO Administration Ondansetron HCl 4 mg 09/10/24 23:13 09/11/24 02:38 Ondansetron Inj 4 Mg/2 Ml Vial IV PUSH 4 mg Q4H PRN Administration Nausea Pantoprazole Sodium 20 mg 09/11/24 09:00 09/15/24 08:57 Pantoprazole Sod Sesquihydrate 20 Mg Tab PO 20 mg DAILY DIONICIO Administration Prochlorperazine Edisylate 10 mg 09/11/24 01:19 Prochlorperazine Edisylate 10 Mg/2 Ml Vial IV PUSH Q6H PRN Nausea And Vomiting Radiology Results: ITS Impressions Chest X-Ray 09/10/24 17:35 IMPRESSION: No focal infiltrate or effusion. Chest/Abdomen/Pelvis CT 09/10/24 20:24 IMPRESSION: Heterogeneous appearance of the bone marrow for which a systemic disease is suspected and for which clinical correlation is needed. No acute findings within the chest, abdomen or pelvis to account for patient's presenting symptoms. Chest/Abdomen/Pelvis CTA 09/11/24 05:37 Impression: 4.4 cm ascending aortic aneurysm. No aortic dissection. Renal Ultrasound 09/11/24 11:20 IMPRESSION: 1. Normal kidneys. No hydronephrosis. Labs Labs: Laboratory Results - last 24 hr 09/15/24 03:24 WBC 5.2 RBC 4.53 L Hgb 11.1 L Hct 35.9 L MCV 79.2 L MCH 24.5 L MCHC 30.9 L RDW 22.1 H Plt Count 272 MPV 9.9 Immature Gran % (Auto) 0.2 Neut % (Auto) 54.0 Lymph % (Auto) 32.0 [place] % (Auto) 11.1 H Eos % (Auto) 1.9 Baso % (Auto) 0.8 Lymph # (Auto) 1.67 [place] # (Auto) 0.6 Eos # (Auto) 0.1 Baso # (Auto) 0.0 Abs Immat Gran (auto) 0.01 Absolute Neuts (auto) 2.8 Absolute Nucleated RBC 0.000 Band Neutrophils % 0 Nucleated RBC % 0.0 Platelet Estimate Adequate Hypochromasia 1+ Poikilocytosis 1+ Target Cells 1+ Ovalocytes 1+ Schistocytes None seen Sodium 139 Potassium 4.3 Chloride 103 Carbon Dioxide 23 Anion Gap 13 H BUN 41 H Creatinine 1.63 H Estim Creat Clear Calc 39 Estimated GFR 42 L Glucose 93 Calcium 9.6 Total Bilirubin 3.6 H AST 52 ALT 28 Alkaline Phosphatase 132 H Total Protein 8.0 Albumin 3.9
[2024-09-15] MEDS: FUROSEMIDE 20 MG TABLET PO (16:45)
--- NOTE | 2024-09-15 16:54 | PM.IMPN ---
Progress Note: A&P Assessment and Plan (1) Acute hypotension: Code(s): I95.9 - Hypotension, unspecified Status: Acute (2) Acute kidney injury: Code(s): N17.9 - Acute kidney failure, unspecified Status: Acute (3) Congestive heart failure: Code(s): I50.9 - Heart failure, unspecified Status: Acute (4) AICD (automatic cardioverter/defibrillator) present: Code(s): Z95.810 - Presence of automatic (implantable) cardiac defibrillator Status: Acute (5) Mixed hyperlipidemia: Code(s): E78.2 - Mixed hyperlipidemia Status: Acute Plan initially was admitted to the [facility], patient with severe nonischemic cardiomyopathy with EF of 25-30% developed severe hypotension patient was IVF bolus, there was not improvement in patient BP and patient was transferred to for IV anne marie-synephrine and midodrine which did bring patient BP close to normal and currenlty patient has no complains of CP or dizziness, patient is seen by cardiology recommended to stop the fluids as patient IVC is dilated on ECHO. also recommended to resume GDMT regimen and to keep systolic BP above 100, will continue to monitor. patient clinical symptoms are improving, patient blood pressure remains soft, today patient was seen by his health support specialist and recommended to restart some of his medication at a lower dose, will start lasix 2omg and metoprolol 12.5 BID, will monitor overnight if blood pressure remains stable will discharge patient tomorrow. Subjective Date/time seen: 09/15/24 16:54 Interval history: H&P-Narrative: Montrell Thomas is a 74-year-old male with a medical history significant for CHF with reduced ejection fraction, GERD, COPD, AFib Who presents after experiencing neck/back pain, he was advised to visit the ER after he spoke with his PCP. He describes the pain around his neck/back as sharp, aggravated by certain neck movements, but limited by immobility, positive with anxiety, malaise, restriction of his ADLs. He denies shortness of breath, PND, orthopnea, palpitations, pedal swellings, hemoptysis, initially was admitted to the [facility], patient with severe nonischemic cardiomyopathy with EF of 25-30% developed severe hypotension patient was IVF bolus, there was not improvement in patient BP and patient was transferred to for IV anne marie-synephrine and midodrine which did bring patient BP close to normal and currenlty patient has no complains of CP or dizziness, patient is seen by cardiology recommended to stop the fluids as patient IVC is dilated on ECHO. also recommended to resume GDMT regimen and to keep systolic BP above 100, will continue to monitor. patient clinical symptoms are improving, patient blood pressure remains soft, today patient was seen by his health support specialist and recommended to restart some of his medication at a lower dose, will start lasix 2omg and metoprolol 12.5 BID, will monitor overnight if blood pressure remains stable will discharge patient tomorrow. Review of Systems Review of Systems: All systems reviewed & are unremarkable except as noted in HPI and below Exam Narrative: Patient is comfortable, NAD HEENT: eyes are clear and none icteric LUNGS:CTA HEART: RR S1S2 ABD: BS+, Soft and nontender Lower extremities: no edema SKIN: nonjaundiced Neuro: grossly intact. Objective Data Vital Signs Vital Signs: Vital Signs - 24 hr 09/14/24 18:00 09/14/24 20:00 09/14/24 20:00 Temperature 37.1 C Pulse Rate 78 73 79 Respiratory Rate 18 18 Blood Pressure 93/80 L Pulse Oximetry 99 99 Oxygen Delivery Room Air 09/14/24 20:00 09/14/24 22:00 09/15/24 00:00 Temperature Pulse Rate 79 83 75 Respiratory Rate Blood Pressure Pulse Oximetry Oxygen Delivery 09/15/24 02:00 09/15/24 03:38 09/15/24 04:00 Temperature 36.9 C Pulse Rate 85 74 73 Respiratory Rate 18 Blood Pressure 118/89 Pulse Oximetry 99 Oxygen Delivery 09/15/24 05:27 09/15/24 08:00 09/15/24 08:00 Temperature 36.4 C L Pulse Rate 81 72 98 Respiratory Rate 16 Blood Pressure 113/88 Pulse Oximetry 98 Oxygen Delivery 09/15/24 10:00 09/15/24 11:51 09/15/24 12:00 Temperature 36.5 C Pulse Rate 78 86 71 Respiratory Rate 23 H Blood Pressure 111/77 Pulse Oximetry 97 Oxygen Delivery 09/15/24 16:00 Temperature Pulse Rate 75 Respiratory Rate 18 Blood Pressure 105/86 Pulse Oximetry Oxygen Delivery Intake/Output Intake/Output: Intake & Output 09/12/24 09/13/24 09/14/24 09/15/24 23:59 23:59 23:59 23:59 Intake Total 1773.7 440 1620 560 Output Total 75 550 300 200 Balance 1698.7 -110 1320 360 Meds/Results Medications: Active Medications Generic Name Dose Route Start Last Admin Trade Name Freq PRN Reason Stop Dose Admin Acetaminophen 650 mg 09/11/24 01:19 Acetaminophen 325 Mg Tablet PO Q4H PRN Mild Pain (1-3) or Fever Hydrocodone Bitart/Acetaminophen 1 tab 09/11/24 01:19 09/13/24 07:25 Hydrocodone/Acetaminophen (*Crx) 5-325 Mg Tablet PO 1 tab Q4H PRN Administration Moderate Pain (4-6) Albuterol 2.5 mg 09/11/24 03:21 Albuterol Sulfate Neb 2.5 Mg/3 Ml Inh INHALATION Q4-6H PRN wheezing Allopurinol 100 mg 09/11/24 08:00 09/15/24 08:57 Allopurinol 100 Mg Tablet PO 100 mg DAILY@0800 DIONICIO Administration Apixaban 5 mg 09/11/24 09:00 09/15/24 08:57 Apixaban 5 Mg Tablet PO 5 mg Q12HR DIONICIO Administration Benzonatate 200 mg 09/12/24 19:33 09/12/24 20:51 Benzonatate 100 Mg Capsule PO 200 mg TID PRN Administration Cough Furosemide 20 mg 09/15/24 17:00 Furosemide 20 Mg Tablet PO DAILY@1700 DIONICIO Melatonin 5 mg 09/11/24 01:19 Melatonin 5 Mg Tablet PO HS PRN Insomnia Metoprolol Tartrate 12.5 mg 09/15/24 21:00 Metoprolol Tartrate 12.5 Mg Tablet PO Q12HR DIONICIO Midodrine 10 mg 09/10/24 23:00 09/15/24 13:16 Midodrine Hcl 10 Mg Tablet PO 10 mg TID DIONICIO Administration Ondansetron HCl 4 mg 09/10/24 23:13 09/11/24 02:38 Ondansetron Inj 4 Mg/2 Ml Vial IV PUSH 4 mg Q4H PRN Administration Nausea Pantoprazole Sodium 20 mg 09/11/24 09:00 09/15/24 08:57 Pantoprazole Sod Sesquihydrate 20 Mg Tab PO 20 mg DAILY DIONICIO Administration Prochlorperazine Edisylate 10 mg 09/11/24 01:19 Prochlorperazine Edisylate 10 Mg/2 Ml Vial IV PUSH Q6H PRN Nausea And Vomiting Radiology Results: ITS Impressions Chest X-Ray 09/10/24 17:35 IMPRESSION: No focal infiltrate or effusion. Chest/Abdomen/Pelvis CT 09/10/24 20:24 IMPRESSION: Heterogeneous appearance of the bone marrow for which a systemic disease is suspected and for which clinical correlation is needed. No acute findings within the chest, abdomen or pelvis to account for patient's presenting symptoms. Chest/Abdomen/Pelvis CTA 09/11/24 05:37 Impression: 4.4 cm ascending aortic aneurysm. No aortic dissection. Renal Ultrasound 09/11/24 11:20 IMPRESSION: 1. Normal kidneys. No hydronephrosis. Labs Labs: Laboratory Results - last 24 hr 09/15/24 03:24 WBC 5.2 RBC 4.53 L Hgb 11.1 L Hct 35.9 L MCV 79.2 L MCH 24.5 L MCHC 30.9 L RDW 22.1 H Plt Count 272 MPV 9.9 Immature Gran % (Auto) 0.2 Neut % (Auto) 54.0 Lymph % (Auto) 32.0 [place] % (Auto) 11.1 H Eos % (Auto) 1.9 Baso % (Auto) 0.8 Lymph # (Auto) 1.67 [place] # (Auto) 0.6 Eos # (Auto) 0.1 Baso # (Auto) 0.0 Abs Immat Gran (auto) 0.01 Absolute Neuts (auto) 2.8 Absolute Nucleated RBC 0.000 Band Neutrophils % 0 Nucleated RBC % 0.0 Platelet Estimate Adequate Hypochromasia 1+ Poikilocytosis 1+ Target Cells 1+ Ovalocytes 1+ Schistocytes None seen Sodium 139 Potassium 4.3 Chloride 103 Carbon Dioxide 23 Anion Gap 13 H BUN 41 H Creatinine 1.63 H Estim Creat Clear Calc 39 Estimated GFR 42 L Glucose 93 Calcium 9.6 Total Bilirubin 3.6 H AST 52 ALT 28 Alkaline Phosphatase 132 H Total Protein 8.0 Albumin 3.9
--- NOTE | 2024-09-15 17:02 | PC.NURSE ---
This patient, Montrell Thomas, was transferred to [ [facility]] on 09/15/24 at 1702. Personal belongings sent with patient. Report given to [ devaughn ]. Appropriate documentation sent with patient.
--- NOTE | 2024-09-15 19:09 | PC.NURSE ---
This patient, Montrell Thomas, was received from [ [facility]] on 09/15/24 at 1600. Patient/family oriented to unit policies and routines
[2024-09-15] MEDS: METOPROLOL TARTRATE 12.5 MG TABLET PO (20:48)
[2024-09-16] VITALS (7 sets, daily range): BP systolic 96–108; BP diastolic 83–85; PULSE 66–104; RESP 16–20; TEMP 35.7–36.9; O2SAT 97–100
[2024-09-16 06:44] LABS: Basophils Percent Auto 0.4 % (0.2-1.2); Eosinophils Absolute Auto 0.1 K/mm3 (0-0.3); Eosinophils Percent Auto 1.5 % (0-4.4); Hematocrit 36.9 % (42.0-52.0); Hemoglobin 11.6 g/dL (14.0-18.0); Immature Granulocyte Absolute 0.01 K/mm3 (0.00-0.031); Immature Granulocyte Percent A 0.2 % (0-0.5); Lymphocytes Absolute Auto 1.49 K/mm3 (0.9-3.2); Lymphocytes Percent Auto 31.4 % (18.3-44.2); Mean Corpuscular HGB Conc 31.4 g/dl (32-36); Mean Corpuscular Hemoglobin 24.7 pg (26-34); Mean Corpuscular Volume 78.7 fl (80-100); Mean Platelet Volume 9.5 fl (7.4-10.4); Monocytes Absolute Auto 0.5 K/mm3 (0.1-0.6); Monocytes Percent Auto 10.7 % (2.6-8.5); Neutrophils Absolute Auto 2.7 K/mm3 (1.3-6.7); Neutrophils Percent Auto 55.8 % (45.5-73.1); Platelet Count Result 289 k/mm3 (150-375); Red Blood Count 4.69 M/mm3 (4.6-6.20); Red Cell Distribution Width 22.6 % (11.5-14.5); White Blood Count 4.8 K/mm3 (4.5-10.0)
[2024-09-16 06:54] LABS: Alanine Aminotransferase 26 U/L (6-50); Albumin Level 4.2 g/dL (3.5-5.1); Alkaline Phosphatase 144 U/L (38-126); Anion Gap 16 mmol/L (4-12); Aspartate Amino Transferase 40 U/L (17-59); Bilirubin,Total 3.4 mg/dL (0.2-1.3); Blood Urea Nitrogen 39 mg/dL (9-20); Calcium 9.9 mg/dL (8.4-10.2); Carbon Dioxide 21 mmol/L (22-30); Chloride 104 mmol/L (98-107); Estimated CRCL calculation 38 ml/min; Estimated Glomerular Filt Rate 40; Glucose 100 mg/dL (65-110); Potassium 4.6 mmol/L (3.4-5.0); Sodium 141 mmol/L (137-145)
[2024-09-16 07:39] LABS: Hypochromasia 1+; Macrocytosis 1+ (NORMAL); Ovalocytes 1+; Platelet Estimate Adequate (Adequate); Schistocytes None Seen
[2024-09-16] MEDS: polyethylene glycoL 3350 17 GM POWD.PACK PO (08:24)
[2024-09-16] MEDS: METOPROLOL TARTRATE 12.5 MG TABLET PO (08:28)
[2024-09-16] MEDS: MIDODRINE HCL 10 MG TABLET PO ×3 (08:31→16:07)
[2024-09-16] MEDS: PANTOPRAZOLE SOD SESQUIHYDRATE 20 MG TAB PO (08:31)
[2024-09-16] MEDS: allopurinoL 100 MG TABLET PO (08:31)
[2024-09-16] MEDS: APIXABAN 5 MG TABLET PO (08:31)
--- NOTE | 2024-09-16 10:37 | P.PNNP_ITS ---
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 * Okay for discharge but probably should follow-up with nephrology in the office (2) Acute hypotension: Code(s): I95.9 - Hypotension, unspecified Status: Acute Assessment and Plan: * cardiac meds adjusted. * on midodrine * holding antibiotic therapy since no evidence of infection * Blood pressure doing pretty well between 101 20 (3) Congestive heart failure: Code(s): I50.9 - Heart failure, unspecified Status: Acute Assessment and Plan: * appears compensated despite elevated BNP in ER * known history with associated cardiomyopathy * AICD in place * recent Echo (09/11) noted: * left ventricular systolic function is severely reduced, estimated at20-25% * mild mitral valve regurgitation. * moderate tricuspid valve regurgitation * pulmonary hypertension - estimated pulmonary arterial systolic pressure is 55 mmHg * recent CT imaging without evidence of volume overload or heart failure * Cardiology recommendations noted (4) Aortic aneurysm: Code(s): I71.9 - Aortic aneurysm of unspecified site, without rupture Status: Acute Assessment and Plan: * CTA chest abdomen pelvis showed 4.4 cm ascending aortic aneurysm but no aortic dissection * Cardiology recommendations noted Subjective Date/time seen: 09/16/24 10:37 Interval history: patient is awake. Eager for discharge. No shortness of breath. No more neck pain Exam Narrative: General: elderly but WD/WN male in NAD Heart: normal S1 and S2; no rub or gallop Lungs: clear to auscultation Abdomen: soft, nontender, nondistended, positive bowel sounds Extremities: no cyanosis or clubbing; no edema Skin: no nodules or rash Objective Data Vital Signs Vital Signs: Vital Signs - 24 hr 09/15/24 11:51 09/15/24 12:00 09/15/24 16:00 Temperature 97.7 F Pulse Rate 86 71 75 Respiratory Rate 23 H 18 Blood Pressure 111/77 105/86 Pulse Oximetry 97 Oxygen Delivery 09/15/24 19:55 09/15/24 20:02 09/15/24 20:48 Temperature 97.6 F Pulse Rate 75 83 75 Respiratory Rate 18 Blood Pressure 112/74 Pulse Oximetry 96 Oxygen Delivery 09/15/24 20:48 09/16/24 00:02 09/16/24 00:50 Temperature 98.4 F Pulse Rate 70 66 Respiratory Rate 20 Blood Pressure 100/83 Pulse Oximetry 97 Oxygen Delivery Room Air 09/16/24 04:02 09/16/24 05:05 09/16/24 08:00 Temperature 96.2 F L 97.8 F Pulse Rate 104 H 80 72 Respiratory Rate 16 18 Blood Pressure 100/85 108/84 Pulse Oximetry 100 99 Oxygen Delivery 09/16/24 08:28 Temperature Pulse Rate 75 Respiratory Rate Blood Pressure Pulse Oximetry Oxygen Delivery Intake/Output Intake/Output: Intake & Output 09/13/24 09/14/24 09/15/24 09/16/24 23:59 23:59 23:59 23:59 Intake Total 440 1620 800 530 Output Total 550 300 200 Balance -110 1320 600 530 Meds/Results Medications: Active Medications Generic Name Dose Route Start Last Admin Trade Name Freq PRN Reason Stop Dose Admin Acetaminophen 650 mg 09/11/24 01:19 Acetaminophen 325 Mg Tablet PO Q4H PRN Mild Pain (1-3) or Fever Hydrocodone Bitart/Acetaminophen 1 tab 09/11/24 01:19 09/13/24 07:25 Hydrocodone/Acetaminophen (*Crx) 5-325 Mg Tablet PO 1 tab Q4H PRN Administration Moderate Pain (4-6) Albuterol 2.5 mg 09/11/24 03:21 Albuterol Sulfate Neb 2.5 Mg/3 Ml Inh INHALATION Q4-6H PRN wheezing Allopurinol 100 mg 09/11/24 08:00 09/16/24 08:31 Allopurinol 100 Mg Tablet PO 100 mg DAILY@0800 DIONICIO Administration Apixaban 5 mg 09/11/24 09:00 09/16/24 08:31 Apixaban 5 Mg Tablet PO 5 mg Q12HR DIONICIO Administration Benzonatate 200 mg 09/12/24 19:33 09/12/24 20:51 Benzonatate 100 Mg Capsule PO 200 mg TID PRN Administration Cough Furosemide 20 mg 09/15/24 17:00 09/15/24 16:45 Furosemide 20 Mg Tablet PO 20 mg DAILY@1700 [facility] Administration Melatonin 5 mg 09/11/24 01:19 Melatonin 5 Mg Tablet PO HS PRN Insomnia Metoprolol Tartrate 12.5 mg 09/15/24 21:00 09/16/24 08:28 Metoprolol Tartrate 12.5 Mg Tablet PO 12.5 mg Q12HR DIONICIO Administration Midodrine 10 mg 09/10/24 23:00 09/16/24 08:31 Midodrine Hcl 10 Mg Tablet PO 10 mg TID DIONICIO Administration Ondansetron HCl 4 mg 09/10/24 23:13 09/11/24 02:38 Ondansetron Inj 4 Mg/2 Ml Vial IV PUSH 4 mg Q4H PRN Administration Nausea Pantoprazole Sodium 20 mg 09/11/24 09:00 09/16/24 08:31 Pantoprazole Sod Sesquihydrate 20 Mg Tab PO 20 mg DAILY DIONICIO Administration Polyethylene Glycol 17 gm 09/16/24 09:00 09/16/24 08:24 Polyethylene Glycol 3350 17 Gm Powd.Pack PO 17 gm QAM DIONICIO Administration Prochlorperazine Edisylate 10 mg 09/11/24 01:19 Prochlorperazine Edisylate 10 Mg/2 Ml Vial IV PUSH Q6H PRN Nausea And Vomiting Radiology Results: ITS Impressions Chest X-Ray 09/10/24 17:35 IMPRESSION: No focal infiltrate or effusion. Chest/Abdomen/Pelvis CT 09/10/24 20:24 IMPRESSION: Heterogeneous appearance of the bone marrow for which a systemic disease is suspected and for which clinical correlation is needed. No acute findings within the chest, abdomen or pelvis to account for patient's presenting symptoms. Chest/Abdomen/Pelvis CTA 09/11/24 05:37 Impression: 4.4 cm ascending aortic aneurysm. No aortic dissection. Renal Ultrasound 09/11/24 11:20 IMPRESSION: 1. Normal kidneys. No hydronephrosis. Labs Labs: Laboratory Results - last 24 hr 09/16/24 06:37 WBC 4.8 RBC 4.69 Hgb 11.6 L Hct 36.9 L MCV 78.7 L MCH 24.7 L MCHC 31.4 L RDW 22.6 H Plt Count 289 MPV 9.5 Immature Gran % (Auto) 0.2 Neut % (Auto) 55.8 Lymph % (Auto) 31.4 Wallace % (Auto) 10.7 H Eos % (Auto) 1.5 Baso % (Auto) 0.4 Lymph # (Auto) 1.49 Wallace # (Auto) 0.5 Eos # (Auto) 0.1 Baso # (Auto) 0.0 Abs Immat Gran (auto) 0.01 Absolute Neuts (auto) 2.7 Absolute Nucleated RBC 0.000 Band Neutrophils % Not Reportable Nucleated RBC % 0.0 Platelet Estimate Adequate Hypochromasia 1+ Macrocytosis 1+ Ovalocytes 1+ Schistocytes None seen Sodium 141 Potassium 4.6 Chloride 104 Carbon Dioxide 21 L Anion Gap 16 H BUN 39 H Creatinine 1.68 H Estim Creat Clear Calc 38 Estimated GFR 40 L Glucose 100 Calcium 9.9 Total Bilirubin 3.4 H AST 40 ALT 26 Alkaline Phosphatase 144 H Total Protein 8.0 Albumin 4.2
--- NOTE | 2024-09-16 14:51 | PM.DS ---
DS: Admitting Diagnosis Discharge Date 09/16/24 Admitting Diagnosis Neck pain, left arm pain DS: Discharge Diagnosis Discharge Diagnosis (1) Acute hypotension: Code(s): I95.9 - Hypotension, unspecified Status: Acute (2) Acute kidney injury: Code(s): N17.9 - Acute kidney failure, unspecified Status: Acute (3) Congestive heart failure: Code(s): I50.9 - Heart failure, unspecified Status: Acute (4) AICD (automatic cardioverter/defibrillator) present: Code(s): Z95.810 - Presence of automatic (implantable) cardiac defibrillator Status: Acute (5) Mixed hyperlipidemia: Code(s): E78.2 - Mixed hyperlipidemia Status: Acute DS: Summary Hospital Course Hospital Course: initially was admitted to the IMU, patient with severe nonischemic cardiomyopathy with EF of 25-30% developed severe hypotension patient was IVF bolus, there was not improvement in patient BP and patient was transferred to for IV anne marie-synephrine and midodrine which did bring patient BP close to normal and currenlty patient has no complains of CP or dizziness, patient is seen by cardiology recommended to stop the fluids as patient IVC is dilated on ECHO. also recommended to resume GDMT regimen and to keep systolic BP above 100, will continue to monitor. 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 Today patient is clinically stable his blood pressure is baseline will discharge the patient today. Time Spent with Patient Time attestation: Total time spent providing and/or coordinating discharge services: DS: Data Data Completed and Pending Labs on day of discharge: Labs from last 24 hours 09/16/24 06:37 WBC 4.8 RBC 4.69 Hgb 11.6 L Hct 36.9 L MCV 78.7 L MCH 24.7 L MCHC 31.4 L RDW 22.6 H Plt Count 289 MPV 9.5 Immature Gran % (Auto) 0.2 Neut % (Auto) 55.8 Lymph % (Auto) 31.4 [place] % (Auto) 10.7 H Eos % (Auto) 1.5 Baso % (Auto) 0.4 Lymph # (Auto) 1.49 [place] # (Auto) 0.5 Eos # (Auto) 0.1 Baso # (Auto) 0.0 Abs Immat Gran (auto) 0.01 Absolute Neuts (auto) 2.7 Absolute Nucleated RBC 0.000 Band Neutrophils % Not Reportable Nucleated RBC % 0.0 Platelet Estimate Adequate Hypochromasia 1+ Macrocytosis 1+ Ovalocytes 1+ Schistocytes None seen Sodium 141 Potassium 4.6 Chloride 104 Carbon Dioxide 21 L Anion Gap 16 H BUN 39 H Creatinine 1.68 H Estim Creat Clear Calc 38 Estimated GFR 40 L Glucose 100 Calcium 9.9 Total Bilirubin 3.4 H AST 40 ALT 26 Alkaline Phosphatase 144 H Total Protein 8.0 Albumin 4.2 Discharge Plan Discharge Attending physician on discharge: David Banda Consulting providers: Melania Bender; Dominik De La Cruz; Franca Reddy; Jase Simental; Wale Campbell; Domingo Castro; Elvin Orlando; Jewels Dumont; Fabián Lemos; Arnlo Causey V. Discharging Clinician: Zeke Bowers Patient Disposition: Home, Self-Care Activity: as tolerated Diet: heart healthy Discharge Instructions: patient to follow discharge care instruction from his sanitary landfill operator and follow up as scheduled, patient is instructed not to take any of his other blood pressure medications until seen by sanitary landfill operator, patient to follow up with his primary care provider as soon as possible. patient is instructed if any symptoms worsen to go to nearest ER. Patient Instructions: Antibiotic Form, Apixaban (By mouth), Heart Failure (DC), Hypotension (DC) Patient Language: Italian Stand Alone Forms: General Discharge Information Follow-up/Referrals: Radha Toro MD [Primary Care Provider] - Melania Bender MD [Physician] - Ashli Mccall DO [Physician] - Discharge Medications: New benzonatate 100 mg Capsule 200 mg PO TID PRN (Reason: Cough) Qty: 30 0RF hydrocodone-acetaminophen 5-325 mg Tablet 1 tablet PO Q4H PRN (Reason: Moderate Pain (4-6)) Qty: 15 0RF furosemide 20 mg Tablet 20 mg PO DAILY@1700 Qty: 30 0RF melatonin 5 mg Tablet 5 mg PO HS PRN (Reason: Insomnia) Qty: 30 0RF metoprolol tartrate 25 mg tablet 12.5 mg PO BID Qty: 60 0RF polyethylene glycol 3350 [Miralax] 17 gram Powder In Packet 17 g PO QAM Qty: 14 0RF midodrine 10 mg Tablet 10 mg PO TID Qty: 90 0RF Continued Eliquis 5 mg tablet 5 mg PO BID acetaminophen [Acetaminophen Extra Strength] 500 mg tablet 1,000 mg PO Q6H PRN (Reason: fever or pain) pantoprazole 20 mg tablet,delayed release (DR/EC) 20 mg PO DAILY albuterol sulfate 2.5 mg /3 mL (0.083 %) solution for nebulization 2.5 mg inhalation Q4-6H PRN (Reason: wheezing) Qty: 180 1RF allopurinol 100 mg tablet 100 mg PO DAILY Qty: 90 1RF Held Entresto 49-51 mg tablet 1 tablet PO BID Hold Instructions: until seen by sanitary landfill operator tadalafil [Cialis] 20 mg tablet 20 mg PO .COMPLEX PRN (Reason: sexual activity) Qty: 18 6RF Hold Instructions: until seen by sanitary landfill operator Rx Instructions: 20 mg PO QD 1 hour prior to intercourse PRN; metoprolol succinate 100 mg tablet extended release 24 hr 100 mg PO DAILY Hold Instructions: until seen by sanitary landfill operator spironolactone 25 mg tablet 25 mg PO DAILY Hold Instructions: until seen by sanitary landfill operator furosemide 40 mg tablet 40 mg PO QAM Qty: 90 2RF Hold Instructions: until seen by sanitary landfill operator Discontinued hydroxyzine HCl 25 mg tablet 25 mg PO DAILY PRN (Reason: itching) Qty: 30 0RF Date of admission: 09/10/24 23:13 Primary Care Provider: Radha Toro Admitting Provider: David Banda Attending physician on admission: Zeke Bowers Condition: Stable
[2024-09-16] MEDS: FUROSEMIDE 20 MG TABLET PO (16:07)
== END 2024-09-16 16:45 | disposition home or self-care (01) | DRG 315 ==
LOC: ANHED 23:13 → ANHIMU 09-11 01:59 → ANHICU 09-11 11:18 → ANH3MEDSUR 09-16 14:45 → ANHICU 09-19 13:34 → ANHIMU 09-19 13:34
PROVIDERS: Internal Medicine; Admitting Provider Internal Medicine; Emergency Provider Emergency Medicine; PCP Family Medicine; Visit Provider Family Medicine
DX: I95.9 Hypotension, unspecified (principal); E87.1 Hypo-osmolality and hyponatremia; I48.20 Chronic atrial fibrillation, unspecified; N17.9 Acute kidney failure, unspecified; I42.8 Other cardiomyopathies; I50.22 Chronic systolic (congestive) heart failure; E78.2 Mixed hyperlipidemia; E66.9 Obesity, unspecified; I48.91 Unspecified atrial fibrillation; I08.1 Rheumatic disorders of both mitral and tricuspid valves; I27.20 Pulmonary hypertension, unspecified; I71.21 Aneurysm of the ascending aorta, without rupture; J44.9 Chronic obstructive pulmonary disease, unspecified; K21.9 Gastro-esophageal reflux disease without esophagitis; M25.512 Pain in left shoulder; Z87.891 Personal history of nicotine dependence; Z68.30 Body mass index [BMI] 30.0-30.9, adult; Z95.810 Presence of automatic (implantable) cardiac defibrillator; Z20.822 Contact with and (suspected) exposure to COVID-19; Z79.01 Long term (current) use of anticoagulants
CPT/HCPCS: 36415; 71045; 71250; 71275; 74174; 74176; 76775; 80053; 80061; 81001; 82436; 82550; 82570; 83605; 83690; 83735; 83880; 84100; 84133; 84145; 84300; 84484; 85025; 85610; 85730; 85999; 87637; 93005; 96361; 96374; 96375; 96376; 97161; 99285; A9270; C8929; J2371; J2405; J3010; J7030; J7040; J7050; J7060; J7120; P9047; Q9957; Q9967

== ENCOUNTER 2024-12-07 14:45 | Emergency (ER) | payer MEDICARE, OTHER, SELFPAY ==
[2024-12-07] VITALS (59 sets, daily range): BP systolic 83–131; BP diastolic 45–108; PULSE 69–84; RESP 12–25; TEMP 34.4–36.6; O2SAT 92–100
--- NOTE | ~2024-12-07 | US_ITS ---
EXAM: ABDOMEN ULTRASOUND HISTORY: elevated bilirubin . Painless jaundice COMPARISON: Contrast-enhanced CT examination of the abdomen and pelvis performed 09/10/2024 FINDINGS: LIVER: The liver is heterogeneous in echogenicity and unremarkable in size. Phasic bidirectional flow is identified within the portal vein - markedly abnormal. The hepatic veins are distended and demonstrate hepatofugal flow. GALLBLADDER: The gallbladder is distended and filled with dense, avascular immobile material. BILE DUCTS: Common bile duct measures 2.9mm. PANCREAS: Limited evaluation of the pancreas secondary to overlying bowel gas IMPRESSION: Markedly abnormal imaging of the right upper quadrant demonstrating phasic bidirectional flow within the portal vein. The liver demonstrates heterogeneous echogenicity. In addition, the gallbladder is distended with dense avascular immobile material. Unfortunately, no cine interrogation of the distended hepatic veins were performed. Reviewed, dictated and finalized at location A. IMPRESSION: Markedly abnormal imaging of the right upper quadrant demonstrating phasic bidi rectional flow within the portal vein. The liver demonstrates heterogeneous echogenicity. In addition, the gallbladder is distended with dense avascular immobile materia l. Unfortunately, no cine interrogation of the distended hepatic veins were perfor med.
--- NOTE | ~2024-12-07 | XR_ITS ---
CHEST RADIOGRAPH CLINICAL HISTORY: repeat; persistent hypotension, diuresis paused . COMPARISON: 12/07/2024 TECHNIQUE: Single portable view of the chest. FINDINGS The cardiomediastinal silhouette is enlarged, unchanged. The left mid lung is partially obscured due to pacemaker/AICD generator. Wires project over the right atrium and right ventricle. Small bilateral pleural effusions. The remainder of the visualized lung george are clear. IMPRESSION: Small bilateral pleural effusions without focal infiltrate. Reviewed, dictated and finalized at location A.
--- NOTE | ~2024-12-07 | XR_ITS ---
XR chest 2V Ordering provider: Rafael Garcia III, DO History: 74 years Male with . weakness . Comparison: September 10, 2024 FINDINGS: MEDIASTINUM: The cardiac silhouette is moderately enlarged. Left bipolar pacemaker. LUNGS: No pneumothorax. Bilateral pleural effusion. Minimal opacification in the lower lobes suggesti ve of atelectasis versus pneumonia. OTHER: No free air under the diaphragm. IMPRESSION: Bilateral basilar atelectasis versus pneumonia with bilateral pleural effusion. Cardiomegaly. Reviewed, dictated and finalized at location A.
--- OUTSIDE RECORDS SUMMARY | 2024-12-07 14:49 | XMS_ITS | Clinical Summary ---
Author Organization [facility] Address [address] [place], [address] [address] Phone Care Team Providers Care Biofu[employer] Research Scientist Name Role Phone Juan Miguel Washington MD Primary Care Provider [phone] Ken Jarvis DO Unavailable [phone] Allergies No known active allergies Medications Diltiazem [...] Lnp-s, Pf, 30 Mcg/0.3 Ml Dose (P fizer) 10/12/2020,09/14/2020 Social History Tobacco Use Types Packs/Day Years Used Date Smoking Tobacco: Never Assessed Sex and Gender Information Value Date Recorded Sex Assigned at Not on file 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
--- OUTSIDE RECORDS SUMMARY | 2024-12-07 14:49 | XMS_ITS | Data Portability ---
Author Organization [facility] Debbie Ambrose Address [address] [place] [address] Care Team Providers Care Marketing Operations Associate Name Role Phone JHON RENEE Primary Care Provider Assessment Encounter Date Assessment Date Assessment LastModified by Organization Details LastModified Time 04/20/2023 04/20/2023 Will establish care at f/u appt. [email or web address] Not available 04/20/2023 21:11:49 07/02/2023 07/02/2023 UTD on pneumonia, shingles, and flu vaccines. F/u in 6 months. [email or web address] Not available 07/02/2023 14:59:18 Plan of Treatment Reminders Order Date Submit Date Provider Last Modified By Organization Details Last Modified Time Details Appointments None recorded. Lab CMP, serum or plasma 2022 023 [facility], [address], [place], [address], 3 20:09:03 lipid panel, serum 2022 023 [facility], [address], [place], [address], 3 20:09:03 CBC w/ auto diff 2022 023 [facility], [address], [place], [address], 3 20:09:04 TSH + free T4, serum 2022 023 [facility], [address], [place], [address], 08:20:05 HbA1c (hemoglobin A1c), blood 2022 023 [facility], [address], [place], [address], 08:20:05 chlamydia trachomatis + neisseria gonorrhoeae + trichomonas vaginalis DNA panel, SHANIKA+probe, unspecified specimen 2022 023 [facility], [address], [address], [place], [address], 09:14:44 Referral None recorded. Procedures None recorded. Surgeries None recorded. Imaging None recorded. Medication Orders pantoprazol e 20 mg tablet,elisabeth yed release 2022 023 [id number], [address] [place], [address], 11:48:15 Patient TargetsNo targets recorded. Patient Instructions Encounter Date Encounter Id Patient Instructions Last Modified By Organization Details Last Modified Time 07/02/2023 [id number] A healthy lifestyle: care instructions [email or web address] Not available 07/02/2023 11:50:15 Reason for Referral None Reported. Results Created Date Observation Date Name Description Value Unit Range Abnormal Flag Note LastModifiedBy Organization Detail LastModifiedTime 04/20/2004/22/2023 CT, NG, TRICH VAG BY SHANIKA chlamydia by SHANIKA Negati ve negati ve Not Available [facility] ([facility]) [address] [place], [address], 04/22/2023 09:14:44 04/20/2004/22/2023 CT, NG, TRICH VAG BY SHANIKA gonococcus by SHANIKA Negati ve negati ve Not Available [facility] ([facility]) [address] [place], [address], 04/22/2023 09:14:44 04/20/2004/22/2023 CT, NG, TRICH VAG BY SHANIKA trich vag by SHANIKA Positi ve negati ve abnormal Not Available [facility] ([facility]) [address] [facility], [place], [address], 04/22/2023 09:14:44 07/02/20 23 07/02/2023 LIPID PANEL WITH LDL/H DL RATIO cholesterol, total 196 mg/dL 100-19 9 Not Available [facility] [address] [place] [address], [address], 07/02/2023 20:09:03 07/02/20 23 07/02/2023 LIPID PANEL WITH LDL/H DL RATIO triglyceride s 65 mg/dL 0-149 Not Available [facility] [address] [place] [address], [address], 07/02/2023 20:09:03 07/02/20 23 07/02/2023 LIPID PANEL WITH LDL/H DL RATIO HDL cholesterol 113 mg/dL 40-999 Not Available [facility] [address] [place], [address], 07/02/2023 20:09:03 07/02/20 23 07/02/2023 LIPID PANEL WITH LDL/H DL RATIO VLDL cholesterol ruth 13 mg/dL 5-40 Not Available [facility] [address] [place], [address], 07/02/2023 20:09:03 07/02/20 23 07/02/2023 LIPID PANEL WITH LDL/H DL RATIO LDL chol calc ([facility]) 79 mg/dL 0-99 Not Available [facility] [address] [place], [address], 07/02/2023 20:09:03 07/02/20 23 07/02/2023 LIPID PANEL WITH LDL/H DL RATIO LDL/HDL ratio 0.7 0-3.6 Not Available [facility] [address] [place] [address], [address], 07/02/2023 20:09:03 07/02/20 23 07/02/2023 COMP. METAB OLIC PANEL (14) glucose 104 mg/dL 70-99 above high normal Not Available [facility] [address] [place] [address], [address], 07/02/2023 20:09:03 07/02/20 23 07/02/2023 COMP. METAB OLIC PANEL (14) BUN 16 mg/dL 8-27 Not Available [facility] [address] [place] [address], [address], 07/02/2023 20:09:03 07/02/20 23 07/02/2023 COMP. METAB OLIC PANEL (14) creatinine 1.20 mg/dL 0.76-1 .27 Not Available [facility] [address] [place] [address], [address], 07/02/2023 20:09:03 07/02/20 23 07/02/2023 COMP. METAB OLIC PANEL (14) eGFR 64 >=60 Units for eGFR value s are mL/mi n/1.7 3 The eGFR Calcu latio n has not been valid ated for patie nts under the age of 18. If test resul ts are displ ayed for a patie nt under the age of 18, disre colton that value . Not Available [facility] [address] [place] [address], [address], 07/02/2023 20:09:03 07/02/20 23 07/02/2023 COMP. METAB OLIC PANEL (14) BUN/creatini ne ratio 14 10-24 Not Available [facility] [address] [place] [address], [address], 07/02/2023 20:09:03 07/02/20 23 07/02/2023 COMP. METAB OLIC PANEL (14) sodium 141 mmol/ L 134-14 4 Not Available [facility] [address] [place], [address], 07/02/2023 20:09:03 07/02/20 23 07/02/2023 COMP. METAB OLIC PANEL (14) potassium 4.4 mmol/ L 3.5-5. 2 Not Available [facility] [address] [place], [address], 07/02/2023 20:09:03 07/02/20 23 07/02/2023 COMP. METAB OLIC PANEL (14) chloride 102 mmol/ L 96-106 Not Available [facility] [address] [place] [address], [address], 07/02/2023 20:09:03 07/02/20 23 07/02/2023 COMP. METAB OLIC PANEL (14) carbon dioxide, total 27 mmol/ L 20-29 Not Available [facility] [address] [place], [address], 07/02/2023 20:09:03 07/02/20 23 07/02/2023 COMP. METAB OLIC PANEL (14) calcium 9.2 mg/dL 8.6-10 .2 Not Available [facility] [address] [place], [address], 07/02/2023 20:09:03 07/02/20 23 07/02/2023 COMP. METAB OLIC PANEL (14) protein, total 7.7 g/dL 6.0-8. 5 Not Available [facility] [address] [place], [address], 07/02/2023 20:09:03 07/02/20 23 07/02/2023 COMP. METAB OLIC PANEL (14) albumin 4.3 g/dL 3.8-4. 8 Not Available [facility] [address] [place], [address], 07/02/2023 20:09:03 07/02/20 23 07/02/2023 COMP. METAB OLIC PANEL (14) globulin, total 3.4 g/dL 1.5-4. 5 Not Available [facility] [address] [place], [address], 07/02/2023 20:09:03 07/02/20 23 07/02/2023 COMP. METAB OLIC PANEL (14) A/G ratio 1.0 1.2-2. 2 below low normal Not Available [facility] [address] [place], [address], 07/02/2023 20:09:03 07/02/20 23 07/02/2023 COMP. METAB OLIC PANEL (14) bilirubin, total 0.6 mg/dL 0.0-1. 2 Not Available [facility] [address] [place], [address], 07/02/2023 20:09:03 07/02/20 23 07/02/2023 COMP. METAB OLIC PANEL (14) alkaline phosphatase 70 IU/L 44-121 Not Available [facility] [address] [place], [address], 07/02/2023 20:09:03 07/02/20 23 07/02/2023 COMP. METAB OLIC PANEL (14) AST (SGOT) 48 IU/L 0-40 above high normal Not Available [facility] [address] [place], [address], 07/02/2023 20:09:03 07/02/20 23 07/02/2023 COMP. METAB OLIC PANEL (14) ALT (SGPT) 20 IU/L 0-44 Not Available [facility] [address] [place], [address], 07/02/2023 20:09:03 07/02/20 23 07/02/2023 CBC WITH DIFFE RENTI AL/PL ATELE T WBC 3.3 x10e3 /uL 3.4-10 .8 below low normal Not Available [facility] [address] [place], [address], 07/02/2023 20:09:04 07/02/2007/02/2023 CBC WITH DIFFE RENTI AL/PL ATELE T RBC 4.23 x10e6 /uL 4.14-5 .80 Not Available [facility] [address] [place], [address], 07/02/2023 20:09:04 07/02/20 23 07/02/2023 CBC WITH DIFFE RENTI AL/PL ATELE T hemoglobin 12.0 g/dL 13.0-1 7.7 below low normal Not Available [facility] [address] [place], [address], 07/02/2023 20:09:04 07/02/20 23 07/02/2023 CBC WITH DIFFE RENTI AL/PL ATELE T hematocrit 37.7 % 37.5-5 1.0 Not Available [facility] [address] [place], [address], 07/02/2023 20:09:04 07/02/20 23 07/02/2023 CBC WITH DIFFE RENTI AL/PL ATELE T MCV 89 fL 79-97 Not Available [facility] [address] [place], [address], 07/02/2023 20:09:04 07/02/20 23 07/02/2023 CBC WITH DIFFE RENTI AL/PL ATELE T MCH 28.4 pg 26.6-3 3.0 Not Available [facility] [address] [place], [address], 07/02/2023 20:09:04 07/02/2007/02/2023 CBC WITH DIFFE RENTI AL/PL ATELE T MCHC 31.8 g/dL 31.5-3 5.7 Not Available [facility] [address] [place], [address], 07/02/2023 20:09:04 07/02/20 23 07/02/2023 CBC WITH DIFFE RENTI AL/PL ATELE T RDW 14.0 % 11.5-1 4.5 Not Available [facility] [address] [place], [address], 07/02/2023 20:09:04 07/02/20 23 07/02/2023 CBC WITH DIFFE RENTI AL/PL ATELE T platelets 206 x10e3 /uL 150-45 0 Not Available [facility] [address] [place], [address], 07/02/2023 20:09:04 07/02/20 23 07/02/2023 CBC WITH DIFFE RENTI AL/PL ATELE T neutrophils 56 % notest b. Not Available [facility] [address] [place], [address], 07/02/2023 20:09:04 07/02/20 23 07/02/2023 CBC WITH DIFFE RENTI AL/PL ATELE T lymphs 30 % notest b. Not Available [facility] [address] [place], [address], 07/02/2023 20:09:04 07/02/20 23 07/02/2023 CBC WITH DIFFE RENTI AL/PL ATELE T monocytes 9 % notest b. Not Available [facility] [address] [place], [address], 07/02/2023 20:09:04 07/02/20 23 07/02/2023 CBC WITH DIFFE RENTI AL/PL ATELE T eos 4 % notest b. Not Available [facility] [address] [place], [address], 07/02/2023 20:09:04 07/02/20 23 07/02/2023 CBC WITH DIFFE RENTI AL/PL ATELE T basos 1 % notest b. Not Available [facility] [address] [place], [address], 07/02/2023 20:09:04 07/02/20 23 07/02/2023 CBC WITH DIFFE RENTI AL/PL ATELE T neutrophils (absolute) 1.9 x10e3 /uL 1.4-7. 0 Not Available [facility] [address] [place], [address], 07/02/2023 20:09:04 07/02/20 23 07/02/2023 CBC WITH DIFFE RENTI AL/PL ATELE T lymphs (absolute) 1.0 x10e3 /uL 0.7-3. 1 Not Available [facility] [address] [place], [address], 07/02/2023 20:09:04 07/02/20 23 07/02/2023 CBC WITH DIFFE RENTI AL/PL ATELE T monocytes(ab solute) 0.3 x10e3 /uL 0.1-0. 9 Not Available [facility] [address] [place], [address], 07/02/2023 20:09:04 07/02/20 23 07/02/2023 CBC WITH DIFFE RENTI AL/PL ATELE T eos (absolute) 0.1 x10e3 /uL 0.0-0. 4 Not Available [facility] [address] [place], [address], 07/02/2023 20:09:04 07/02/20 23 07/02/2023 CBC WITH DIFFE RENTI AL/PL ATELE T baso (absolute) 0.0 x10e3 /uL 0.0-0. 2 Not Available [facility] [address] [place], [address], 07/02/2023 20:09:04 07/02/20 23 07/02/2023 CBC WITH DIFFE RENTI AL/PL ATELE T immature granulocytes 0 % notest b. Not Available [facility] [address] [place], [address], 07/02/2023 20:09:04 07/02/20 23 07/02/2023 CBC WITH DIFFE RENTI AL/PL ATELE T immature grans (abs) 0.0 x10e3 /uL 0.0-0. 1 Not Available [facility] [address] [place], [address], 07/02/2023 20:09:04 07/02/20 23 07/02/2023 CBC WITH DIFFE RENTI AL/PL ATELE T NRBC 0 % 0-0 Not Available [facility] [address] [place], [address], 07/02/2023 20:09:04 07/02/20 23 07/03/2023 TSH+F REE T4 TSH 0.982 uIU/m L 0.450- 4.500 Not Available [facility] ([facility]) [address] [place], [address], 07/03/2023 08:20:05 07/02/2007/03/2023 TSH+F REE T4 T4,free(dire ct) 1.44 NG/dL 0.82-1 .77 Not Available [facility] ([facility]) [address] [place], [address], 07/03/2023 08:20:05 07/02/2007/03/2023 HEMOG LOBIN A1C hemoglobin A1C 5.8 % 4.8-5. 6 above high normal Predi abete s: 5.7 - 6.4 Diabe sweta: >6.4 Glyce kecia contr ol for adult s with diabe sweta: <7.0 Not Available [facility] ([facility]) [address] [place], [address], 07/03/2023 08:20:05 08/26/19 24 08/26/2023 CT, chest + abdom en + pelvi s, w/ contr ast No observ ation record ed. [facility] [address], [place], [address], 08/27/2023 08:17:42 Result Notes None recorded. Problems Name Problem SNOMED Code Status Onset Date Resolution Date Notes Provider Name and Address Organization Details Recorded Time Gastroesophag eal reflux disease without esophagitis 828675469 Active 2022 LUIS JOSHI Attn: Tricia diez,[address] [facility], [place], [address], [place] [facility] 3 14:50:10 Automatic implantable cardiac defibrillator in situ 564709515 Active 2022 ICD placed 05/23/20 20, RV, RA LEAD LUIS JOSHI Attn: Tricia diez,[address] [facility], [place], [address], [place] [facility] 3 14:50:40 Congestive heart failure 30259621 Active 2022 LUIS JOSHI Attn: Tricia diez,[address] [facility], [place], [address], [place] [facility] 3 14:50:06 Erectile dysfunction 850142520 Active 2022 LIUS JOSHI Attn: Tricia diez,[address] [facility], [place], [address], [place] [facility] 3 14:50:07 History of gout 094966413 Active 2022 LUIS JOSHI Attn: Tricia g,[address] [facility], [place], [address], [place] [facility] 3 14:50:11 Essential hypertension 92676123 Active 2022 LUIS JOSHI Attn: Tricia diez,[address] [facility], [place], [address], [place] [facility] 3 14:50:09 Problem Notes None recorded. Procedures Surgical History Date Name Laterality Status Provider Name and Address Organization Details Recorded Time 0 repair of multiple tears of rotator cuff of left shoulder completed LUIS JOSHI Attn: Accounting,[address] [facility], [place], [address], [facility] - [facility] 07/02/2023 11:53:50 Imaging Results None recorded. Procedure Notes None recorded. Medical Equipment None Reported. Allergies No known drug allergies Medications Name Sig Start Date Stop Date Status Note LastModified by Organization Details LastModified Time furosemide 40 mg tablet TAKE 1 TABLET BY MOUTH EVERY MORNING 10/02 completed Not Available Not Available Not Available metolazone 2.5 mg tablet TAKE 1 TABLET (2.5 MG TOTAL) BY MOUTH DAILY FOR 10 DOSES 09/27 completed Not Available Not Available Not Available carvedilol 25 mg tablet TAKE 1 TABLET BY MOUTH TWICE A DAY WITH FOOD 09/22 completed Not Available Not Available Not Available prednisone 10 mg tablet PLEASE SEE ATTACHED FOR DETAILED DIRECTION S 04/20 completed Not Available Not Available Not Available doxycycline hyclate 100 mg capsule TAKE 1 CAPSULE BY MOUTH TWICE A DAY FOR 10 DAYS 04/20 completed Not Available Not Available Not Available albuterol sulfate 2.5 mg/3 mL (0.083 %) solution for nebulizatio n 2.5 MG (3 ML) INHALED EVERY 4 - 6 HOURS NEEDED FOR WHEEZING active Not Available Not Available No t Available metoprolol succinate ER 100 mg tablet,exte nded release 24 hr TAKE 1.5 TABLETS (150MG TOTAL) BY MOUTH DAILY active Not Available Not Available No t Available metronidazo le 500 mg tablet TAKE 4 TABLETS FOR 1 TIME DOSE WITH FOOD 07/02 completed Not Available Not Available Not Available allopurinol 100 mg tablet TAKE 1/2 TAB BY MOUTH ONCE DAILY active Not Available Not Available No t Available sildenafil 100 mg tablet 100 MG ORALLY DAILY NEEDED FOR SEXUAL ACTIVITY ADMINISTE R 30 MINUTES TO 4 HOURS BEFORE ACTIVITY active Not Available Not Available No t Available spironolact one 25 mg tablet TAKE 1 TABLET (25 MG TOTAL) BY MOUTH DAILY. active Not Available Not Available No t Available pantoprazol e 20 mg tablet,elisabeth yed release TAKE 1 TABLET BY MOUTH EVERY DAY AT DINNER FOR 30 DAYS active Not Available Not Available No t Available benzonatate 100 mg capsule TAKE 2 CAPSULES BY MOUTH 3 TIMES A DAY NEEDED FOR COUGH active Not Available Not Available No t Available doxazosin 4 mg tablet 4 MG ORALLY DAILY 09/22 completed Not Available Not Available Not Available hydroxyzine HCl 25 mg tablet TAKE 1 TABLET BY MOUTH DAILY NEEDED FOR ITCHING active Not Available Not Available No t Available furosemide 20 mg tablet TAKE 1 TABLET BY MOUTH EVERY DAY AT 5PM active Not Available Not Available No t Available albuterol sulfate HFA 90 mcg/actuati on aerosol inhaler INHALE 2 PUFFS FOUR TIMES A DAY NEEDED FOR SHORTNESS OF BREATH OR WHEEZING 04/20 completed Not Available Not Available Not Available colchicine 0.6 mg tablet TAKE 1 TABLET BY MOUTH TWICE A DAY 04/20 completed Not Available Not Available Not Available hydroxyzine pamoate 25 mg capsule TAKE 1 CAPSULE BY MOUTH EVERY DAY AT BEDTIME FOR 30 DAYS 09/27 completed Not Available Not Available Not Available midodrine 10 mg tablet Take 1 tablet 3 times a day by oral route as directed for 30 days. active Not Available Not Available No t Available Klor-Con M20 mEq tablet,exte nded release TAKE 1 TABLET (20 MEQ TOTAL) BY MOUTH DAILY FOR 5 DAYS TAKE WITH FOOD 09/27 completed Not Available Not Available Not Available tadalafil 20 mg tablet TAKE 1 TABLET BY MOUTH NEEDED FOR SEXUAL ACTIVITY, 1 HOUR PRIOR TO INTERCOUR SE NEEDED active Not Available Not Available No t Available metoprolol tartrate 25 mg tablet TAKE 1/2 TABLET BY MOUTH TWICE A DAY active Not Available Not Available No t Available Eliquis 5 mg tablet TAKE 1 TABLET BY MOUTH TWICE A DAY active Not Available Not Available No t Available Jardiance 10 mg tablet TAKE 1 TABLET BY MOUTH EVERY DAY active Not Available Not Available No t Available Entresto 97 mg-103 mg tablet TAKE 1 TABLET BY MOUTH TWICE A DAY 09/27 completed Not Available Not Available Not Available Entresto 49 mg-51 mg tablet TAKE 1 TABLET BY MOUTH TWICE A DAY 10/02 completed Not Available Not Available Not Available Vitals Date Recorded Body height Body mass index (BMI) Body weight Oxygen saturation Oxygen saturation in Arterial blood by Pulse oximetry Heart rate Respiratory rate Systolic blood pressure Diastolic blood pressure Provider Name and Address Organization Details Last Updated DateTime 3 182.88 cm 31.5 kg/m2 709151. 43 g 99 % 99 % 88 /min 16 /min 126 mm[Hg] 84 mm[Hg] Sharee Mcrae MA [facility] 3 09:54:54 Date Recorded Body height Body mass index (BMI) Body weight Heart rate Oxygen saturation Oxygen saturation in Arterial blood by Pulse oximetry Systolic blood pressure Diastolic blood pressure Provider Name and Address Organization Details Last Updated DateTime 3 181.61 cm 32.2 kg/m2 932707. 61 g 71 /min 99 % 99 % 112 mm[Hg] 76 mm[Hg] Yina Contreras MA [facility] 3 11:24:14 Date Recorded Respiratory rate Provider Name a mn Address Organization Details Last Updated DateTime 07/02/2023 18 /min LUIS JOSHI Attn: Accounting,[address] [place], [address], [facility] 07/02/2023 12:01:09 Date Recorded Body height Body mass index (BMI) Body weight Body temperature Respiratory rate Oxygen saturation Oxygen saturation in Arterial blood by Pulse oximetry Heart rate Systolic blood pressure Diastolic blood pressure Provider Name and Address Organization Details Last Updated DateTime 3 181.61 cm 32.2 kg/m2 385405. 61 g 98 [degF] 17 /min 99 % 99 % 86 /min 124 mm[Hg] 72 mm[Hg] Genia Mancini MA [facility] 3 15:47:21 Date Recorded Body height Body mass index (BMI) Body weight Oxygen saturation Oxygen saturation in Arterial blood by Pulse oximetry Heart rate Respiratory rate Systolic blood pressure Diastolic blood pressure Provider Name and Address Organization Details Last Updated DateTime 5 181.61 cm 27.3 kg/m2 99254.6 9 g 98 % 98 % 87 /min 17 /min 95 mm[Hg] 68 mm[Hg] Ketty Clark MA [facility] 5 14:47:08 Social History Question Answer Notes LastModified by Organizat ion Details LastModified Time Tobacco Smoking Status Former Smoker cigars Ketty Clark MA null, [facility] 09/27/2024 14:47:55 What Is Your Level Of Caffeine Consumption? Moderate Coffee & Soda Now And Then Information not available 07/02/2023 What Was The Date Of Your Most Recent Tobacco Screening? 09/27/2024 Information not available 09/27/2024 Do You Have Smoke And Carbon Monoxide Detectors In Your Home? Yes Information not available 07/02/2023 At What Age Did You Start Smoking Tobacco? 20 20's - 30's Information not available 07/02/2023 Are You Passively Exposed To Smoke? Yes Information not available 07/02/2023 How Much Tobacco Do You Smoke? No Information not available 07/02/2023 Has Tobacco Cessation Counseling Been Provided? Yes Information not available 07/02/2023 On What Date Was Tobacco Cessation Counseling Provided? 09/27/2024 Information not available 09/27/2024 Sex: Unknown Functional Status Question Answer Note LastModified by Organizat ion Details LastModified Time Do you use any illicit or recreational drugs? No Information not available 07/02/2023 Do you or have you ever used any other forms of tobacco or nicotine? Yes Information not available 07/02/2023 What is your level of alcohol consumption? None Information not available 09/27/2024 Do you or have you ever used e-cigarettes or vape? Never used electronic cigarettes Information not available 07/02/2023 Mental Status None recorded. Family History Relationship Description Onset Age of this Age Resolved Age Notes LastModified by Organization Details LastModified Time Father No current problems or disability Not available 07/02 11:16:33 Mother No current problems or disability Not available 07/02 11:16:33 Medical History Condition Response Coronary Artery Disease N Other N High Blood Pressure N Atrial Fibrillation N Thyroid Problems N Kidney or Bladder Problems N GI Problems N Depression N COPD N Blood Clots N Skin Problems N Eating Disorder N Anemia N Heart Attack ([place]) N Anxiety Disorder N Diabetes N Muscle, Joint, or Bone Problems N Arthritis N Seizures/Epilepsy N Acid Reflux (GERD) N Cancer N Stroke N Asthma N Allergies N ADHD N Substance Abuse N High Cholesterol N Hepatitis N Liver Disease N Schizophrenia N Headaches N Heart Failure N Osteoporosis N Immunizations Vaccine Type Date Status Note Provider Nam e and Address Organization Details Recorded Time Influenza, MDCK, quadrivalent, preservative 8 completed Yina Contreras [place], [place] [facility] 07/02/2023 11:22:18 zoster recombinant 3 completed Yina Contre[place] [facility] 07/02/2023 11:22:18 Influenza, high-dose, quadrivalent, PF 2 completed Yina Contre[place] [facility] 07/02/2023 11:22:19 Influenza, adjuvanted, quadrivalent, PF 3 completed [place]ina Contre[place] [facility] 07/02/2023 11:22:19 Influenza, adjuvanted, quadrivalent, PF 0 completed [place]ina Contre[place] [facility] 07/02/2023 11:22:19 Influenza, adjuvanted, quadrivalent, PF 1 completed [place] Contre[place] [facility] 07/02/2023 11:22:19 COVID-19, mRNA, LNP-S, PF, 30 mcg/0.3 mL dose 1 completed [place] [facility] 07/02/2023 11:22:19 COVID-19, mRNA, LNP-S, PF, 30 mcg/0.3 mL dose 1 completed [place]ina Contre[place] [facility] 07/02/2023 11:22:19 COVID-19, mRNA, LNP-S, PF, 30 mcg/0.3 mL dose 1 completed [place]ina Contre[place] [facility] 07/02/2023 11:22:19 pneumococcal polysaccharide PPV23 6 completed [place]ina Contre[place] [facility] 07/02/2023 11:22:19 Tdap 2 completed [place]ina Contre[place] [facility] 07/02/2023 11:22:19 Pneumococcal conjugate PCV 13 7 completed Yina Contre[place] [facility] 07/02/2023 11:22:19 Tdap 3 completed LUIS JOSHI Attn: Accounting,[address], [place], [address], [facility] - [facility] 07/02/2023 14:48:46 Past Encounters Encounter ID Performer Location Encounter Start Date Encounter Closed Date Diagnosis/Indication Diagnosis SNOMED-CT Code Diagnosis ICD10 Code Diagnosis Note [id number] LUIS JOSHI [facility] [address] [place] [address] 04/20/2023 09:49:42 04/20/2023 10:17:32 Venereal disease screening [id number] Z11.3 partner tested positive for trichomoni asisno symptomsch emily STD screen [id number] Clint mendez MD [facility] [address] [place] [address] 07/02/2023 11:08:14 07/02/2023 15:27:35 Gastroesophageal reflux disease without esophagitis [id number] K21.9 x1 wktakes meds in the morning, has heart burn, coughs/spi ts up frothy/hitesh ar/salty fluid and then sx resolveonl y occurs in the morningtri al pantoprazo le 20 Obesity [id number] E66.9 BMI 32.2discus sed increasing exercise and healthier food options, high protein, low fat diet Screening for malignant neoplasm of colon 688336084 Z12.11 [place] at f/u visit Administra tion of tetanus vaccine [id number] Z23 Automatic implantable cardiac defibrillator in situ [id number] Z95.810 placed 05/23/2020o n luz marina pt does not know indication for blood thinner Congestive heart failure 58010508 I50.9 diagnosed in 2017follow s with Dr. Adrián coffey and farzaneh appt next monthc/o increased SOB with walking long distances x1 wkno chest pain, palpitatio ns, or SOB at restno SOB with peloton workout or lifting weightsPEx - nl, no LE edemarec'd to discuss with Dr. Lin at f/u apptPatien t was advised to go to the ED for worsening signs or symptoms including chest pain, SOB, fever, or unable to keep down food or liquids. Erectile dysfunction 860 247129 F52.21 cialis PRN History of gout [id number] 4 Z87.39 on allopurino l Depression screening 171 207554 Z13.31 0 Essential hypertension 27076875 I10 on doxazosin, carvedilol Anterior epistaxis 53325 4002 R04.0 L naresside effect from Eliquisocc urs once a monthrec'd apply lubricant/ moisturize r to L nares QD [id number] Clint mendez MD [facility] [address] [place] [address] 07/16/2023 15:33:11 2023 10:54:13 Insect bite reaction [id number] T63.481A 1 wk ago, woke up with swelling and soreness to R upper armunknown causative factorsliv es on 5 acres and has pest control spray every 3 monthssymp toms have improved, no pain or decreased ROM to R shoulder/e lbowpt is on eliquisPEx - see pictures in chart, FROM R elbow and shoulder joint, 9 in L x 3 in W ecchymosis to R bicep area, non-TTP without edema, erythema, warmthreas sured ptmost likely insect bite due to unknown cause [id number] Fabián Davila MD [facility] [address] [place] [address] 09/27/2024 14:09:36 09/27/2024 15:43:09 Hospital inpatient stay within past 30 days [id number] 106 Z76.89 Admitted to [facility] for chest/back pain.State s that he was admitted for 1 wk a discharged 09/23/24. Discharge summary still in draft from [place] Pt's cardio increased his lasix and entresto, pt found to be hypotensiv e at 69/58, maintainin g good mentation, not any acute distress. Pt provided fluid boluses for suspicion of over diuresis after medication changes of entresto and lasix. CT angio chest/abdo men showed ectatic aorta 4.5 cm no aneurysm dilatation . EKG shows bifascicul ar block but no evidence of an acute ischemic event. Blood pressure improved with gentle fluid hydration to 92/55. Hospitalis t rec'd midodrine. Per hospital note, pt was told to hold entresto for 2 wksdiscuss ed med list and changes with patienthas appt with cardio 10/09/24adv ised pt to continue to check blood pressure, weight check, and leg swelling dailycall Cardio if systolic BP continues to be in the 90s Depression screening 171 911478 Z13.31 0 Health Concerns Section Related Observation LastModified by Organization Detai ls LastModified Time None Recorded Concern Status LastModified by Organization Details LastModified Time None Recorded Advance Directives Directive None Recorded Payers Encounter Date Sequence Insurance Name Policy Number Policy Morillo Covered Member ID Morillo Member ID Guarantor Name 04/20/2023 1 [place] [facility] - FQ Montrell Mckeonrod [id number] Montrell Thomas 07/02/2023 1 [place] [facility] [place] Montrell Thomas [id number] Montrell Thomas 07/16/2023 1 [place] [facility] [place] Montrell Thomas [id number] Montrell Thomas 07/16/2023 2 [employer] Montrell Thomas [id number] Montrell Thomas 09/27/2024 1 [place] [facility] [place] Montrell Kan William [id number] Montrell Thomas 09/27/2024 2 [employer] (MEDICARE SUPPLEMENT) Montrell Thomas [id number] Montrell Thomas Notes Date Note Type Note Provider Name and Address Organization Details Recorded Time 04/20/2023 text/html Pt presents for STD testing. Reports that his partner tested positive for trichomoniasis. No h/o prior STDs. Denies penile discharge or lesions. LUIS JOSHI Attn: Accounting[address] [place], [address], [place] [facility] 04/20/2023 21:12:27 07/02/2023 text/html Pt presents to establish care as a new patient. Previous PCP retired. H/o heart failure, cardiomegaly, HTN, pacemaker, gout and erectile dysfunction. Follows with Dr. Lin, Cardiology, and has upcoming appt next month. States that he developed SOB in 2017 and was diagnosed with heart failure.C/o increased SOB with walking long distances x1 wk. No SOB at rest. Describes as I have to slow down and take a couple deep breaths, then I'm fine. Pt lifts weights and does peloton workouts 3x/wk without SOB. States that he does cardio on the bike for 25 to 30 minutes. Denies chest pain or palpitations.Repor ts that he has intermittent nose bleeds from his L nostril x2 yrs. Onset when he started Eliquis. Pt endorses that it is unknown why he is on eliquis. Denies h/o blood clots or A fib. LUIS JOSHI Attn: Accounting, [address] [place], [address], [place] [facility] 07/02/2023 15:00:08 07/16/2023 text/html Pt presents with bruise to R upper arm x1 wk. States that he woke up 1 wk ago and upper R arm was sore and swollen. Symptoms have improved, no pain with lifting R arm or ROM. Denies any trauma or injury to R arm. Denies sleep walking, h/o PTSD, vivid dreams. Pt denies weight lifting. Reports that he lives on [address] [place] and has his house sprayed every 3 months for pest control. Pt is on eliquis and states that bruise is thinning out. LUIS JOSHI Attn: Accounting, [address] [place], [address], [place] [facility] 2023 10:35:47 09/27/2024 text/html Pt presents for hospital f/u. Reports that he was admitted to [place] due to neck/back pain and found to have abnormal EKG, low blood pressure, and NSTEMI. Pt's daughter is present. Pt admits that he does not know what meds or doses he should be taking. LUIS JOSHI Attn: Accounting, [address] [place], [address], [place] [facility] 10/02/2024 09:34:03
--- OUTSIDE RECORDS SUMMARY | 2024-12-07 14:49 | XMS_ITS | Referral Summary ---
Author Organization [facility] Address [facility] [place] [address] Care Team Providers Care Tape Transferrer Name Role Phone Miscellaneous, Not In File Unavailable Unava Toya Gonzalez Primary Care Provider [phone] Encounters Date Type Department Care Team Description 11/13/2024 1:15 PM CDT Office Visit [facility] Cardiology [address] [place] [address] [place] [phone] Mona Petty MD ICD (implantable cardioverter-defibrilla tor), dual, in situ (Primary Dx); Nonischemic cardiomyopathy (HCC); Aneurysm of ascending aorta without rupture; Persistent atrial fibrillation (HCC); Chronic anticoagulation 10/09/2024 11:00 AM CDT Office Visit [facility] Cardiology [address] [place] [address] [place] [phone] Mona Petty MD ICD (implantable cardioverter-defibrilla tor), dual, in situ (Primary Dx); Persistent atrial fibrillation (HCC); Nonischemic cardiomyopathy (HCC); Aneurysm of ascending aorta without rupture; Pulmonary HTN (HCC); Non-rheumatic tricuspid valve insufficiency; Chronic anticoagulation 09/20/2024 Orders Only [facility] Cardiology [address] [place] [address] [address] [place] [phone] Franca Reddy MD 09/19/2024 7:45 AM BENZOL STILL OPERATOR Ancillary Procedure [facility] Cardiology [address] [facility] [address] [place], [place] [address] [place] [phone] ICD (implantable cardioverter-defibrilla tor), dual, in situ (Primary Dx); Nonischemic cardiomyopathy (HCC) from Last 3 Months Allergies No known active allergies Medications allopurinoL (ZYLOPRIM) 100 mg tablet Take 1 tablet (100 mg total) by mouth daily 3 Active albuterol 2.5 mg /3 mL (0.083 %) nebulizer solution Take 3 mL (2.5 mg total) by nebulization every 4 (four) hours as needed 4 Active Eliquis 5 mg tablet TAKE 1 TABLET BY MOUTH TWICE A DAY 60 tablet 11 4 Active tadalafiL (CIALIS) 20 mg tablet TAKE 1 TABLET BY MOUTH NEEDED FOR SEXUAL ACTIVITY, 1 HOUR PRIOR TO INTERCOURSE NEEDED 4 Active hydrOXYzine (ATARAX) 25 mg tablet Take 1 tablet (25 mg total) by mouth every 4 (four) hours as needed 5 Active benzonatate (TESSALON) 100 mg capsule TAKE 2 CAPSULES BY MOUTH 3 TIMES A DAY NEEDED FOR COUGH 5 Active melatonin tablet Take 5 mg by mouth Active polyethylene glycol (MIRALAX) 17 gram/dose bulk powder Take 17 g by mouth daily Active midodrine (PROAMATINE) 10 mg tablet Take 1 tablet (10 mg total) by mouth 3 (three) times a day 5 Active metoprolol tartrate (LOPRESSOR) 25 mg immediate release tablet Take 0.5 tablets (12.5 mg total) by mouth 2 (two) times a day [address] (PROTONIX) 20 mg EC tablet Take 1 tablet (20 mg total) by mouth daily Active furosemide (LASIX) 20 mg tablet Take 1 tablet (20 mg total) by mouth daily Active empagliflozin (JARDIANCE) 10 mg tablet Take 1 tablet (10 mg total) by mouth daily 30 tablet 11 5 Active Active Problems Problem Noted Date Diagnosed Date KATHRYN (acute kidney injury) 10/08/2023 Anemia 10/08/2023 Moderate protein-calorie malnutrition 10/08/2023 Hypokalemia 09/21/2023 Assessment & Plan (09/21/2023 10:41 AM BENZOL STILL OPERATOR): Replaced Monitor BMP with IV lasix BID RSV infection 09/21/2023 Assessment & Plan (09/24/2023 2:26 PM BENZOL STILL OPERATOR): Supportive care Diurese for HFrEF exacerbation Acute bronchitis due to respiratory syncytial vi justice (RSV) 09/21/2023 Assessment & Plan (09/21/2023 10:42 AM BENZOL STILL OPERATOR): Supportive care. No history of lung disease Not hypoxic monitor for worsening respiratory status Atrial fibrillation 09/15/2023 Assessment & Plan (09/21/2023 10:37 AM BENZOL STILL OPERATOR): Presented with RVR 2/2 RSV infection Rate now controlled 80s with V pacing Continue Eliquis Diuresing with IV lasix for fluid overload 2/2 to RVR last few days Cardiology consulted continue metoprolol Pain in joint of left shoulder 12/24/2021 Raynaud's phenomenon without gangrene 08/04/2021 Chronic anticoagulation 04/23/2021 Ascending aortic aneurysm (CMS/HCC) 07/22/2020 ICD (implantable cardioverter-defibrillator), brian rosado, in situ 05/23/2020 Overview (03/02/2024): Cardoza Dual Fortify Assura ICD implanted on 05/23/20 for NICM. Shama Vela Non-rheumatic tricuspid valve insufficiency 11/16 Nonischemic cardiomyopathy 07/09/2017 Pulmonary HTN 07/09/2017 Resolved Problems Problem Noted Date Diagnosed Date Resolved Date Hypotension 10/07/2023 05/29/2024 CHF (congestive heart failur e), NYHA class II, acute on chronic, diastolic 09/20/2023 10/10/19 25 PAYAN (dyspnea on exertion) 08/12/2023 Paroxysmal atrial fibrillation 04/23/2021 10/09/2024 HTN (hypertension) 07/09/2017 Abnormal echocardiogram 07/09/201705/19 Acute on chronic systolic co ngestive heart failure 07/09/2017 05/29/2024 Assessment & Plan (09/24/2023 2:25 PM BENZOL STILL OPERATOR): Exacerbated by Afib RVR. NT proBNP [...] drink = 0.6 oz pu re alcohol) [facility] Utilities Answer Date Recorded In the past 12 months has [employer], [employer], [employer], or water [employer] threatened to shut off services in your [...] 09/22/2023 How often do you attend chur or muslim services? Never 09/22/2023 Do you belong to any clubs o r organizations such as evangelical groups, unions, fraternal or athletic groups, or [...] place to sleep or slept in a usp (including now)? No 09/22/2023 Personal Safety Answer [...] Sign Reading Time Taken Comments Blood Pressure 85/60 11/13/2024 2:10 PM CDT Pulse 74 11/13/2024 2:10 PM CDT Temperature 35.6 C (96.1 F) 07/22/2024 2:16 PM BENZOL STILL OPERATOR Respiratory Rate 16 07/22/2024 6:30 PM BENZOL STILL OPERATOR Oxygen Saturation 93% 08/16/2024 10:22 AM BENZOL STILL OPERATOR Inhaled Oxygen Concentration - - Weight 91.2 kg (201 lb) 10/09/2024 12:07 PM CDT Height 182.9 cm (6') 10/09/2024 12:07 PM CDT Body Mass Index 27.26 10/09/2024 12:07 PM CDT Plan of Treatment Not on file Medical Devices Implanted Type Area Power Press Supervisor Device Identifier Shelf Expiration Date Model / Serial / Lot [employer] [id number] Fortify Assura [id number] 2 Chamber Df4 Is-1 Connector [id number] - [id number] - [id number] Implanted:Qty: 1 on 05/23/2020 by Salbador Sesay MD at [facility] ICD [employer] [id number] 04/17/2022 [id number] / [id number] / [employer] 7120q/65 Durata 7fr 65cm 2 Coil Df-4 True Bipolar Active Fixation - [id number] - [id number] Implanted:Qty: 1 on 05/23/2020 by Salbador Sesay MD at [facility] Lead [employer] [id number] 02/15/2023 7120Q/65 / [id number] / [employer] 2088tc/52 Tendril Sts 6fr 52cm Is-1 Connector Active Fixation Bipolar Soft - [id number] - [id number] Implanted:Qty: 1 on 05/23/2020 by Salbador Sesay MD at [facility] Lead [employer] [id number] 04/17/2023 208TC/52 / [id number] / Procedures Procedure Name Priority Date/Time Associated Diagnosis Comments DEVICE CHECK - REMOTE Routine 09/19/2024 7:12 AM BENZOL STILL OPERATOR Nonischemic cardiomyopathy (HCC) CARDIOLOGY DOCUMENT SCAN Routine 09/12/2024 2:00 PM BENZOL STILL OPERATOR CARDIOLOGY DOCUMENT SCAN Routine 09/11/2024 1:[address]PER[address] CT ABDOMEN WO CONTRAST Schedule Routine, Read Routine (OP Routine) 01/12/2018 8:43 AM CDT Hypertensive encephalopathy from Last 3 Months or Most Recently Relevant to Health Maintenance Results * DEVICE CHECK - REMOTE (09/19/2024 7:12 AM BENZOL STILL OPERATOR) Anatomical Region Laterality Modality Other Narrative 09/22/2024 7:46 AM BENZOL STILL OPERATOR Cardoza Dual Fortify Assura ICD implanted on 05/23/20 for NICM. [facility] Routine DDD ICD Remote. Transmission attached. Battery status 54%, 4.1-4.3 years remaining battery life to RAMON. Stable Charge time and Shock impedance. Stable lead impedances, pacing, and sensing threshold. Presenting rhythm: AFib/VS-CHEMICAL STRENGTH TESTER AP-< 1 %, CHEMICAL STRENGTH TESTER-78 % (49) AMS episodes noted. IEGM demonstrates AFib. Longest episode was > 40 hours. AFib burden > 99% (2) Ventricular tachy arrhythmias detected. IEGM demonstrates AFib with RVR with the longest episode being 14 seconds in duration and a median V rate of 192 beats per minute. Medication: Eliquis 5 mg, Toprol-XL 100 mg, Entresto 49-51 mg Follow up: Office Pacemaker/ICD scheduled 03/28/25 [place] remote 12/19/24 Rico Witt, RIAZ Ralph Fang MD [facility] PRO CEDURES Final Result * Cardiology Document Scan (09/12/2024 2:00 PM BENZOL STILL OPERATOR) Anatomical Region Laterality Modality Other Franca Reddy MD [facility] PROCEDU RES Final Result * Cardiology Document Scan (09/11/2024 1:58 PM BENZOL STILL OPERATOR) Anatomical Region Laterality Modality Other us Franca Reddy MD [facility] PROCEDU RES Final Result * CT Abdomen WO Contrast [...] fective 2020-Present) Name:Montrell Thomas Relation to Subscriber:Self Name:WilliamMontrell Lucius Payer ID:[id number] Group ID:Not on file Type:COMMERCIAL Address: [facility] [address] [place], [place] [employer] Member Subscriber Plan / Payer (Ef fective 2020-Present) Name:Montrell Thomas Relation to Subscriber:Self Name:Montrell Thomas Payer ID:[id number] Group ID:Not on file Type:COMMERCIAL Address: [facility] [address] [place], [place] MEDICARE MEDICARE [employer] [place] [employer] Advance Directives For more information, please contact: [phone] * Full Code (Latest Code Status on File) Date Activated Date Inactivated Comments 10/08/2023 7:07 AM 10/08/2023 6:02 PM * Full Code Date Activated Date Inactivated Comments 09/20/2023 6:32 PM 09/24/2023 10:27 PM Care Teams Tape Transferrer Relationship Specialty Start Date End Date Toya Sauceda PA [address] [place] [id number] PCP - General Physician Voucher Clerk 08/12/23 Miscellaneous, Not In File 05/23/20
--- OUTSIDE RECORDS SUMMARY | 2024-12-07 14:49 | XMS_ITS | Clinical Summary ---
Author Organization [facility] Address [address] [place] [address] Care Team Providers Care [employer]person [employer] Name Role Phone Miscellaneous, Not In File Unavailable Unava Toya Gonzalez Primary Care Provider [phone] Allergies No known active allergies Medications allopurinoL [...] by mouth 2 (two) times a day Active pantoprazole DR (PROTONIX) 20 mg EC [...] 09/21/2023 Assessment & Plan (09/21/2023 10:41 AM MICROSOFT DYNAMICS CONSULTANT): Replaced Monitor BMP with IV lasix BID RSV infection 09/21/2023 Assessment & Plan (09/24/2023 2:26 PM MICROSOFT DYNAMICS CONSULTANT): Supportive care Diurese for HFrEF exacerbation Acute bronchitis due to respiratory syncytial vi justice (RSV) 09/21/2023 Assessment & Plan (09/21/2023 10:42 AM MI[employer]OSOFT DYNAMICS CONSULTANT): Supportive care. No history of lung disease Not hypoxic monitor for worsening respiratory status Atrial fibrillation 09/15/2023 Assessment & Plan (09/21/2023 10:37 AM MICROSOFT DYNAMICS CONSULTANT): Presented with RVR 2/2 RSV infection Rate now controlled 80s with V pacing Continue Eliquis Diuresing with IV lasix for fluid overload 2/2 to RVR last few days Cardiology consulted continue metoprolol Pain in joint of left shoulder 12/24/2021 Raynaud's phenomenon without gangrene 08/04/2021 Chronic anticoagulation 04/23/2021 Ascending aortic aneurysm (CMS/HCC) 07/22/2020 ICD (implantable cardioverter-defibrillator)brian, in situ 05/23/2020 Overview (03/02/2024): Cardoza Dual [...] 05/29/2024 Assessment & Plan (09/24/2023 2:25 PM MI[employer]OSOFT DYNAM[employer] CONSULTANT): Exacerbated by Afib RVR. NT proBNP 8043. [...] Description 11/13/2024 1:15 PM CDT Office Visit [facility] Cardiology [address] [place] [address] Mona Petty MD ICD (implantable cardioverter-defibrilla tor), dual, in situ (Primary Dx); Nonischemic cardiomyopathy (HCC); Aneurysm of ascending aorta without rupture; Persistent atrial fibrillation (HCC); Chronic anticoagulation 10/09/2024 11:00 AM CDT Office Visit [facility] Medical [facility] Cardiology [address] [place] [address] Mona Petty MD ICD (implantable cardioverter-defibrilla tor), dual, in situ (Primary Dx); Persistent atrial fibrillation (HCC); Nonischemic cardiomyopathy (HCC); Aneurysm of ascending aorta without rupture; Pulmonary HTN (HCC); Non-rheumatic tricuspid valve insufficiency; Chronic anticoagulation 09/20/2024 Orders Only [facility] Medical [facility] Cardiology [address] [place] [address] Franca Reddy MD 09/19/2024 7:45 AM [employer]OS[employer] DYNAM[employer] CONSULTANT Ancillary Procedure [facility] Cardiology [address] [address] ICD (implantable cardioverter-defibrilla tor), dual, in situ (Primary Dx); Nonischemic cardiomyopathy (HCC) from Last 3 Months Immunizations Immunization Administration Dates Next Due Influenza, Quad, Adjuvantated, Intramuscular 07/2019 Influenza, Quadrivalent, Peyton l Culture-based MDCK, Antibiotic Free, Intramuscular 04/18/2018 Pneumococcal Conjugate PCV 13 03/04/2017 Pneumococcal Polysaccharide PPV23 03/02/2016 Tdap 11/25/2011 Surgical History Surgery Date Site/Laterality Comments CARDIOVERSION 12/18/2023 - 01/16/2024 Medical History Medical History Date Comments Hypertension Gout Cardiomyopathy (HCC) CHF (congestive heart failure) (HCC) Family History Medical History Relation Name Comments Cancer Mother Relation Name Status Comments Father (Age 74) Mother (Age 77) Social History Tobacco Use Types Packs/Day Years Used Date Smoking Tobacco: Former Cigars Smokeless Tobacco: Never Tobacco Cessation:Counseling Given: Not Answered Comments:occassional use Alcohol Use Standard Drinks/Week Comments Yes 14 (1 standard drink = 0.6 oz pu re alcohol) [facility] Utilities Answer Date Recorded In the past 12 months has e [employer], gas, oil, or water company threatened to shut off services in your [...] often do you attend chur ch or episcopalian services? Never 09/22/2023 Do you belong to any clubs o r organizations such as cheondoism groups, unions, fraternal or athletic groups, or [...] place to sleep or slept in a snf (including now)? No 09/22/2023 Personal Safety Answer [...] 35.6 C (96.1 F) 07/22/2024 2:16 PM [employer] D[employer] CONSULTANT Respiratory Rate 16 07/22/2024 6:30 PM [employer] D[employer] CONSULTANT Oxygen Saturation 93% 08/16/2024 10:22 AM [employer] D[employer] CONSULTANT Inhaled Oxygen Concentration - - Weight 91.2 kg (201 lb) 10/09/2024 12:07 PM CDT Height 182.9 cm (6') 10/09/2024 12:07 PM CDT Body Mass Index 27.26 10/09/2024 12:07 PM CDT Plan of Treatment Health Maintenance Due Date Last Done Comments Colon Cancer Screening-Colonoscopy 1950 Depression Screening 1950 Hepatitis C Screening 1950 Prostate Cancer Screening-PSA 1950 Hepatitis B Screening 1968 Zoster Vaccine (1 of 2) 2000 Well Visit 65+ 2015 DTaP/Tdap/Td Vaccine (2 - Td or Tdap) 11/24/202103/2012 Covid-19 Vaccine (3 - season) 2024, 09/14/2020 Fall Risk Assessment 10/07/2024 10/08/2023 Influenza Vaccine (Season Ended) 2025 04/18/20 20, 04/18/2018 Pneumococcal vaccine 65+ Completed 03/04/2017, 02/16 Abdominal Aortic Aneurysm (AAA) Screen Completed Medical Devices Implanted Type Area Esthetician Facialist Device Identifier Shelf Expiration Date Model / Serial / Lot [employer] [id number] Fortify Assura [id number] 2 Chamber Df4 Is-1 Connector [id number] - [id number] - [id number] Implanted:Qty: 1 on 05/23/2020 by Salbador Sesay MD at [facility] ICD [employer] [id number] 04/17/2022 [id number] / [id number] / [employer] 7120q/65 Durata 7fr 65cm 2 Coil Df-4 True Bipolar Active Fixation - [id number] - [id number] Implanted:Qty: 1 on 05/23/2020 by Salbador Sesay MD at [facility] Lead [employer] [id number] 02/15/2023 7120Q/65 / [id number] / [employer] 2087tc/52 Tendril Sts 6fr 52cm Is-1 Connector Active Fixation Bipolar Soft - [id number] - [id number] Implanted:Qty: 1 on 05/23/2020 by Salbador Sesay MD at [facility] Lead [employer] [id number] 04/17/20232087TC/52 / [id number] / Procedures Procedure Name Priority Date/Time Associated Diagnosis Comments DEVICE CHECK - REMOTE Routine 09/19/2024 7:12 AM [employer] DYNAM[employer] CONSULTANT Nonischemic cardiomyopathy (HCC) CARDIOLOGY DOCUMENT SCAN Routine 09/12/2024 2:00 PM [employer] DYNAM[employer] CONSULTANT CARDIOLOGY DOCUMENT SCAN Routine 09/11/2024 1:[address]FT DYNAM[employer] CONSULT[address] ABDOMEN WO CONTRAST Schedule Routine, Read Routine (OP Routine) 01/12/2018 8:43 AM CDT Hypertensive encephalopathy from Last 3 Months or Most Recently Relevant to Health Maintenance Results * DEVICE CHECK - REMOTE (09/19/2024 7:12 AM MI[employer]OSOFT DYNAMICS CONSULTANT) Anatomical Region Laterality Modality Other Narrative 09/22/2024 7:46 AM MI[employer]OSOFT DYNAM[employer] CONSULTANT Cardoza Dual Fortify Assura ICD implanted on 05/23/20 for NICM. Shama Vela Routine DDD ICD Remote. Transmission attached. Battery status 54%, 4.1-4.3 years remaining battery life to RAMON. Stable Charge time and Shock impedance. Stable lead impedances, pacing, and sensing threshold. Presenting rhythm: AFib/VS-BRONC BREAKER AP-< 1 %, BRONC BREAKER-78 % (49) AMS episodes noted. IEGM demonstrates AFib. Longest episode was > 40 hours. AFib burden > 99% (2) Ventricular tachy arrhythmias detected. IEGM demonstrates AFib with RVR with the longest episode being 14 seconds in duration and a median V rate of 192 beats per minute. Medication: Eliquis 5 mg, Toprol-XL 100 mg, Entresto 49-51 mg Follow up: Office Pacemaker/ICD scheduled 03/28/25 [place] remote 12/19/24 Rico Witt, RN Ralph Fang MD [facility] PRO CEDURES Final Result * Cardiology Document Scan (09/12/2024 2:00 PM MI[employer]OSOFT DYNAM[employer] CONSULTANT) Anatomical Region Laterality Modality Other Franca Reddy MD [facility] PROCEDU RES Final Result * Cardiology Document Scan (09/11/2024 1:58 PM MI[employer]OSOFT DYNAMICS CONSULTANT) Anatomical Region Laterality Modality Other Result [facility] Franca Reddy MD CV CARDIAC SERVICES PROCEDU [...] Thomas Relation to Subscriber:Self Name:Montrell Thomas Payer ID:[id number] Group ID:Not on file Type:[email or web address] Address: [facility] [address] [place], [place] MEDICARE MEDICARE PHYSICIANS [facility] Member Subscriber Plan / Payer (Ef fective 2020-Present) Name:Montrell Thomas Lucius Relation to Subscriber:Self Name:Montrell Thomas Payer ID:[id number] Group ID:Not on file Type:COMMERCIAL Address: [facility] [address] [place], [place] Advance Directives For more information, please contact: [phone] * Full Code (Latest Code Status on File) Date Activated Date Inactivated Comments 10/08/2023 7:07 AM 10/08/2023 6:02 PM * Full Code Date Activated Date Inactivated Comments 09/20/2023 6:32 PM 09/24/2023 10:27 PM Care Teams [employer]person [employer] Relationship Specialty Start Date End Date Toya Sauceda PA [address] [place] [id number] PCP - General Physician Staff Home Therapy Rn 08/12/23 Miscellaneous, Not In File 05/23/20
--- NOTE | 2024-12-07 15:34 | ECG_ITS ---
Test Date: 2024-12-07 15:58:05 Measurements Intervals [place] Rate: 70 P: 0 [place]: 0 QRS: -67 QRSD: 238 T: 107 QT: 575 QTc: 621 Interpretive Statements ELECTRONIC VENTRICULAR PACEMAKER Compared to ECG 09/10/2024 22:58:14 VENTRICULAR PACED RHYTHM NOW PRESENT Electronically Signed On 12-08-2024 12:38:27 CDT by Domingo Castro M.D.
[2024-12-07 16:02] LABS: Basophils Percent Auto 0.6 % (0.2-1.2); Eosinophils Absolute Auto 0.1 K/mm3 (0-0.3); Eosinophils Percent Auto 2.2 % (0-4.4); Hematocrit 32.7 % (42.0-52.0); Hemoglobin 11.7 g/dL (14.0-18.0); Immature Granulocyte Absolute 0.02 K/mm3 (0.00-0.031); Immature Granulocyte Percent A 0.6 % (0-0.5); Immature Platelet Fraction Pct 2.7 % (0.9-11.2); Lymphocytes Absolute Auto 0.63 K/mm3 (0.9-3.2); Lymphocytes Percent Auto 17.6 % (18.3-44.2); Mean Corpuscular HGB Conc 35.8 g/dl (32-36); Mean Corpuscular Hemoglobin 27.8 pg (26-34); Mean Corpuscular Volume 77.7 fl (80-100); Monocytes Absolute Auto 0.3 K/mm3 (0.1-0.6); Monocytes Percent Auto 8.1 % (2.6-8.5); Neutrophils Absolute Auto 2.5 K/mm3 (1.3-6.7); Neutrophils Percent Auto 70.9 % (45.5-73.1); Nucleated Red Blood Cells Perc 0.8 % (0.0-0.2); Platelet Count Result 128 k/mm3 (150-375); Red Blood Count 4.21 M/mm3 (4.6-6.20); White Blood Count 3.6 K/mm3 (4.5-10.0)
[2024-12-07 16:13] LABS: Platelet Estimate Decreased (Adequate)
[2024-12-07 16:14] LABS: Anisocytosis 1+; Ovalocytes 1+; Poikilocytosis 1+; Schistocytes None Seen; Target Cells 2+
[2024-12-07 16:34] LABS: Alanine Aminotransferase 51 U/L (6-50); Albumin Level 3.3 g/dL (3.5-5.1); Alkaline Phosphatase 150 U/L (38-126); Anion Gap 10 mmol/L (4-12); Aspartate Amino Transferase 90 U/L (17-59); Blood Urea Nitrogen 58 mg/dL (9-20); Calcium 9.1 mg/dL (8.4-10.2); Carbon Dioxide 24 mmol/L (22-30); Chloride 108 mmol/L (98-107); Estimated CRCL calculation 21 ml/min; Estimated Glomerular Filt Rate 20; Glucose 108 mg/dL (65-110); Potassium 3.9 mmol/L (3.4-5.0); Sodium 142 mmol/L (137-145)
[2024-12-07 17:14] LABS: Bilirubin Direct 19.7 mg/dL (0-0.3); Bilirubin Indirect 3.3 mg/dL (0-1.1)
--- NOTE | 2024-12-07 17:20 | ED.GENADULT ---
HPI - General Adult General Chief complaint: Weakness <Ralph Martins MD - Last Filed: 12/07/24 22:14> Stated complaint: Eyes turned yellow , weakness,-Sent by PMD <Ralph Martins MD - Last Filed: 12/07/24 22:14> Time Seen by Provider: 12/07/24 16:20 <Ralph Martins MD - Last Filed: 12/07/24 22:14> History of Present Illness HPI narrative: Patient is a 74-year-old male who presents ER with progressive weakness. Ongoing for several weeks. He has developed increased jaundice to his eyes and skin. Patient has had some mildly elevated bilirubins over last few months. Recently he had bilirubin of 7 and was given a referral to GI. No chest pain. Has exertional weakness and fatigue. Loss of appetite. Only eating fruit and a few ensures for protein. He does have lower extremity edema. Reports that he has seen Dr. Arambula in the past for Cardiology but his care was transferred went to [facility]. <Ralph Martins MD - Last Filed: 12/07/24 22:14> Related Data Home medications: Home Medications ?Medication ?Instructions ?Recorded ?Confirmed ?Last Taken ?Type apixaban 5 mg tablet (Eliquis) 5 mg PO BID 11/11/21 12/07/24 09/10/24 08:00 History pantoprazole 20 mg tablet,delayed 20 mg PO DAILY 01/05/24 10/17/24 09/09/24 History release furosemide 40 mg tablet mg 12/07/24 Unknown History metoprolol succinate 100 mg mg PO 12/07/24 Unknown History tablet,extended release 24 hr <Ralph Martins MD - Last Filed: 12/07/24 22:14> Allergies/adverse reactions: Allergies Allergy/AdvReac Type Severity Reaction Status Date / Time No Known Allergies Allergy Verified 12/07/24 21:25 <Ralph Martins MD - Last Filed: 12/07/24 22:14> Review of Systems Review of Systems: All systems reviewed & are unremarkable except as noted in HPI and below <Ralph Martins MD - Last Filed: 12/07/24 22:14> Constitutional: Constitutional: Reports no additional constitutional complaints <Ralph Martins MD - Last Filed: 12/07/24 22:14> ENT: Reports system reviewed and no additional complaints, except as documented <Ralph Martins MD - Last Filed: 12/07/24 22:14> Cardiovascular: Cardiovascular: Reports no additional cardiovascular complaints <Ralph Martins MD - Last Filed: 12/07/24 22:14> Respiratory: Respiratory: Reports no additional respiratory complaints <Ralph Martins MD - Last Filed: 12/07/24 22:14> Gastrointestinal: Gastrointestinal: Reports no additional gastrointestinal complaints <Ralph Martins MD - Last Filed: 12/07/24 22:14> [facility] Past Medical History Medical History: Medical History (Updated 12/11/24 @ 00:00 by Simon Marcelo) SOB (shortness of breath) Obesity (BMI 30-39.9) Mixed hyperlipidemia ICD (implantable cardioverter-defibrillator) in place Hx of angiography Cardiomyopathy CHF (congestive heart failure) <Ralph Martins MD - Last Filed: 12/07/24 22:14> Surgical History Surgical History: Surgical History S/P cardiac cath <Ralph Martins MD - Last Filed: 12/07/24 22:14> Family History Family History: Family History Mother Ovarian cancer Diabetes mellitus Cancer Father Unknown family medical history Sibling ESRD on dialysis Hypertension Sibling Unknown family medical history Sibling No active medical problems Sibling No active medical problems Sibling Heart problem Sibling Unknown family medical history Sibling Unknown family medical history Sibling Unknown family medical history Sibling Unknown family medical history Sibling Unknown family medical history <aRlph Martins MD - Last Filed: 12/07/24 22:14> Social History Social History: Social History (Updated 10/17/24 @ 14:45 by Adrianna Anthony MA) Smoking status: Never smoker Tobacco type: cigars Second hand tobacco smoke exposure: Yes Additional smoking assessment comments: smoked 1 cigar per day Alcohol intake: never Drinks per week: 15 Substance use: never Substance use type: does not use Other substance usage details: 2xweek Do You Feel Safe in your Home?: Yes Lack of Transportation: No Lack of Food: Never True Current Housing: I Have Housing Concerned About Future Housing: No Difficulty Paying Gas/Electric Bills: No Difficulty Paying for Meds: YES Currently Unemployed: No Education: Grade School Difficulty w/ Childcare or Family Care: No Living arrangements: with family Gender identity (if verbalized by the patient): Male Spiritual care concerns: No <Ralph Martins MD - Last Filed: 12/07/24 22:14> Exam Narrative: GENERAL: Well-appearing, well-nourished, and in no acute distress. HEAD: Normocephalic, atraumatic. EYES: PERRL and EOMI. Scleral icterus present. ENT: Mucous membranes moist. CHEST: Clear to auscultation. No respiratory distress. HEART: Regular rate and rhythm. Normal peripheral pulses. ABDOMEN: Soft, nontender, nondistended. EXTREMITIES: Normal range of motion. 3+ edema. SKIN: Warm, dry, no rash. Jaundice skin NEURO: Alert and oriented x3. PSYCH: Normal mood and affect. <Ralph Martins MD - Last Filed: 12/07/24 22:14> Course Course Emergency Course: Patient resting comfortably. Discussed with GI and Cardiology here. Patient with multi system are in failure, possible need for hepatobiliary, brain likely have decompensated heart failure, recommend transfer to tertiary care center. Dr. Arce with the Heart failure team at [facility] his accepted the patient for transfer. He would like the patient to have his beta-luz and Eliquis held. He would like the patient started on a dobutamine drip at 5 micrograms/kilogram, he would also like the patient to receive Lasix 80 mg IV x1 and then to be started on a Lasix drip at 20 milligrams/hour. This has been communicated to pharmacy. Patient is a high priority transfer to [facility]. <Ralph Martins MD - Last Filed: 12/07/24 22:14> Patient resting comfortably. Discussed with GI and Cardiology here. Patient with multi system are in failure, possible need for hepatobiliary, brain likely have decompensated heart failure, recommend transfer to tertiary care center. Dr. Arce with the Heart failure team at [facility] his accepted the patient for transfer. He would like the patient to have his beta-luz and Eliquis held. He would like the patient started on a dobutamine drip at 5 micrograms/kilogram, he would also like the patient to receive Lasix 80 mg IV x1 and then to be started on a Lasix drip at 20 milligrams/hour. This has been communicated to pharmacy. Patient is a high priority transfer to [facility]. Patient signed out to me at 22:00 on 12/07/24. Patient on Lasix and dobutamine drips as recommended by [facility] team. He has been accepted but is pending a bed. He is to avoid beta-luz or Eliquis therapy. Patient is noted to be hypothermic/borderline hypothermic overnight. Oralia hugger applied and TSH obtained (normal). Temp srivastava placed and had 325ml out (in addition to earlier UOP, not measured). He remained hypotensive overnight but mentating appropriately, not short of breath, no complaints. Due to temperature change, status update was called to [facility] and I spoke with hospitalist at approximately 01:15 on 12/08/24 who recommends continuing the treatment as advised by Dr Arce. For persistent hypotension/borderline hypotension, repeat lactic acid was obtained, essentially unchanged at 2.1. Patient with MAPs consistently 50-55mmHg so Lasix paused at 3:00am. MAPs remain 60-70s with this. Echo ordered to be performed in the morning to best assess patient's specific hemodynamic needs moving forward. Patient signed out to me at 1900 on 12/09/24. Overnight, I did order a repeat chest xray. Lasix gtt resumed. Discussed patient with hospitalist Dr Hunter who declines admission. Notes that day time hospitalist may consider given additional staffing. Recommends repleting potassium based on earlier labs. This is done and magnesium ordered as well as lactic which is normal. I did call and discuss with CCU attending (Dr Pollard) at [facility] who concurs with management as it has been and that his hypotension has seemed appropriate. MAPs stable. Given this picture, he actually believes patient no longer needing CCU level care and can be a floor patient. program coordinator to make the change. [employer] Clerk does make AM call on 12/10; still no bed. Confirms that patient being downgraded back to floor status does not affect his place on the bed list. Patient received a bed overnight the evening of 12/10/24 - AM 12/11/25. EMS transportation arranged. <Aubrie Sánchez MD - Last Filed: 12/11/24 18:17> Vital Signs Vital signs: Vital Signs Temperature 97.9 F 12/07/24 14:50 Respiratory Rate 16 12/07/24 14:50 Blood Pressure 131/108 H 12/07/24 14:50 Pulse Oximetry 96 12/07/24 14:50 Temperature 96.9 F L 12/10/24 19:46 Pulse Rate 84 12/10/24 19:46 Respiratory Rate 16 12/10/24 19:46 Blood Pressure 95/62 L 12/10/24 19:46 Pulse Oximetry 95 12/10/24 19:01 <Ralph Martins MD - Last Filed: 12/07/24 22:14> Vital Signs Temperature 97.9 F 12/07/24 14:50 Respiratory Rate 16 12/07/24 14:50 Blood Pressure 131/108 H 12/07/24 14:50 Pulse Oximetry 96 12/07/24 14:50 Temperature 96.9 F L 12/10/24 19:46 Pulse Rate 84 12/10/24 19:46 Respiratory Rate 16 12/10/24 19:46 Blood Pressure 95/62 L 12/10/24 19:46 Pulse Oximetry 95 12/10/24 19:01 <Aubrie Sánchez MD - Last Filed: 12/11/24 18:17> Medical Decision Making Vital Signs Vital Signs: Vital Signs Temperature 97.9 F 12/07/24 14:50 Respiratory Rate 16 12/07/24 14:50 Blood Pressure 131/108 H 12/07/24 14:50 Pulse Oximetry 96 12/07/24 14:50 Temperature 96.9 F L 12/10/24 19:46 Pulse Rate 84 12/10/24 19:46 Respiratory Rate 16 12/10/24 19:46 Blood Pressure 95/62 L 12/10/24 19:46 Pulse Oximetry 95 12/10/24 19:01 <Ralph Martins MD - Last Filed: 12/07/24 22:14> Vital Signs Temperature 97.9 F 12/07/24 14:50 Respiratory Rate 16 12/07/24 14:50 Blood Pressure 131/108 H 12/07/24 14:50 Pulse Oximetry 96 12/07/24 14:50 Temperature 96.9 F L 12/10/24 19:46 Pulse Rate 84 12/10/24 19:46 Respiratory Rate 16 12/10/24 19:46 Blood Pressure 95/62 L 12/10/24 19:46 Pulse Oximetry 95 12/10/24 19:01 <Aubrie Sánchez MD - Last Filed: 12/11/24 18:17> Lab Data Result diagrams: 12/09/24 07:36 12/09/24 07:36 <Ralph Martins MD - Last Filed: 12/07/24 22:14> Labs: Lab Results 12/07/24 12/07/24 12/07/24 Range/Units 15:49 17:58 21:51 WBC 3.6 L (4.5-10.0) K/mm3 RBC 4.21 L (4.6-6.20) M/mm3 Hgb 11.7 L (14.0-18.0) g/dL Hct 32.7 L (42.0-52.0) % MCV 77.7 L (80-100) fl MCH 27.8 (26-34) pg MCHC 35.8 (32-36) g/dl RDW 31.0 H (11.5-14.5) % Plt Count 128 L D (150-375) k/mm3 MPV Not Reportable Immature Gran % (Auto) 0.6 H (0-0.5) % Neut % (Auto) 70.9 (45.5-73.1) % Lymph % (Auto) 17.6 L (18.3-44.2) % Crook % (Auto) 8.1 (2.6-8.5) % Eos % (Auto) 2.2 (0-4.4) % Baso % (Auto) 0.6 (0.2-1.2) % Lymph # (Auto) 0.63 L (0.9-3.2) K/mm3 Crook # (Auto) 0.3 (0.1-0.6) K/mm3 Eos # (Auto) 0.1 (0-0.3) K/mm3 Baso # (Auto) 0.0 (0.0-0.1) K/mm3 Abs Immat Gran (auto) 0.02 (0.00-0.031) K/mm3 Absolute Neuts (auto) 2.5 (1.3-6.7) K/mm3 Absolute Nucleated RBC 0.030 H (0.0-0.012) K/mm3 Band Neutrophils % Not Reportable Nucleated RBC % 0.8 H (0.0-0.2) % Platelet Estimate Decreased (Adequate) % Immature Plt Fraction 2.7 (0.9-11.2) % Hypochromasia Poikilocytosis 1+ Anisocytosis 1+ Microcytosis (NORMAL) Macrocytosis (NORMAL) Target Cells 2+ Ovalocytes 1+ Schistocytes None seen PT 21.8 H (11.1-14.7) Seconds INR 1.8 APTT 39.6 H (22.3-36.8) Seconds Methemoglobin (0-1.5) %THb Sodium 142 (137-145) mmol/L Potassium 3.9 (3.4-5.0) mmol/L Chloride 108 H (98-107) mmol/L Carbon Dioxide 24 (22-30) mmol/L Anion Gap 10 (4-12) mmol/L BUN 58 H D (9-20) mg/dL Creatinine 3.11 H (0.7-1.3) mg/dL Estim Creat Clear Calc 21 ml/min Estimated GFR 20 L (59 - ) Glucose 108 (65-110) mg/dL Lactic Acid 2.0 (0.7-2.0) mmol/L Calcium 9.1 (8.4-10.2) mg/dL Magnesium (1.6-2.3) mg/dL Total Bilirubin 34.0 H (0.2-1.3) mg/dL Direct Bilirubin 19.7 H (0-0.3) mg/dL Indirect Bilirubin 3.3 H (0-1.1) mg/dL AST 90 H (17-59) U/L ALT 51 H (6-50) U/L Alkaline Phosphatase 150 H (38-126) U/L Ammonia (9-30) umol/L Lactate Dehydrogenase 313 H (120-246) U/L NT-Pro-B Natriuret Pep 68575 H (19.9-100) pg/mL Total Protein 8.0 (6.3-8.2) g/dL Albumin 3.3 L (3.5-5.1) g/dL Lipase (23-300) U/L TSH 4.290 (0.465-4.680) uIU/mL Urine Color Dark yellow (Yellow) Urine Appearance Cloudy H (Clear) Urine pH 5.5 (5.0-9.0) Ur Specific [place] 1.019 (1.001-1.035) Urine Protein 1+ H (Negative) mg/dL Urine Glucose (UA) 2+ H (Negative) mg/dL Urine Ketones Negative (Negative) mg/dL Ur Blood (Man) Negative (Negative) Urine Nitrate Positive H (Negative) Urine Bilirubin 3+ H (Negative) Urine Urobilinogen 2.0 H (<2.0) mg/dL Add Ur Microanalysis Reviewed Leukocyte Esterase Rfl 1+ H (Negative) MOO/UL Urine RBC 6-10 H (0-2) /hpf Urine WBC 0-5 (0-3) /hpf Ur Squamous Epith Cells Few (Few) /hpf Urine Bacteria None seen /hpf Urine Casts 11-20 Hyaline Casts Present (None) /lpf Urine Mucus Present /lpf 12/08/24 12/08/24 12/09/24 Range/Units 02:12 10:38 07:36 WBC 6.5 6.1 (4.5-10.0) K/mm3 RBC 3.61 L 3.61 L (4.6-6.20) M/mm3 Hgb 9.9 L 10.0 L (14.0-18.0) g/dL Hct 28.1 L 27.7 L (42.0-52.0) % MCV 77.8 L 76.7 L (80-100) fl MCH 27.4 27.7 (26-34) pg MCHC 35.2 36.1 H (32-36) g/dl RDW 30.9 H 30.7 H (11.5-14.5) % Plt Count 109 L 115 L (150-375) k/mm3 MPV TNP TNP Immature Gran % (Auto) 0.5 0.7 H (0-0.5) % Neut % (Auto) 87.0 H 85.0 H (45.5-73.1) % Lymph % (Auto) 5.3 L 6.4 L (18.3-44.2) % Crook % (Auto) 6.5 7.4 (2.6-8.5) % Eos % (Auto) 0.2 0.3 (0-4.4) % Baso % (Auto) 0.5 0.2 (0.2-1.2) % Lymph # (Auto) 0.34 L 0.39 L (0.9-3.2) K/mm3 Crook # (Auto) 0.4 0.5 (0.1-0.6) K/mm3 Eos # (Auto) 0.0 0.0 (0-0.3) K/mm3 Baso # (Auto) 0.0 0.0 (0.0-0.1) K/mm3 Abs Immat Gran (auto) 0.03 0.04 H (0.00-0.031) K/mm3 Absolute Neuts (auto) 5.6 5.2 (1.3-6.7) K/mm3 Absolute Nucleated RBC 0.030 H 0.020 H (0.0-0.012) K/mm3 Band Neutrophils % Not Reportable Not Reportable Nucleated RBC % 0.5 H 0.3 H (0.0-0.2) % Platelet Estimate Decreased Decreased (Adequate) % Immature Plt Fraction 2.2 2.7 (0.9-11.2) % Hypochromasia 2+ Poikilocytosis Anisocytosis 1+ 2+ Microcytosis 1+ (NORMAL) Macrocytosis 1+ (NORMAL) Target Cells 2+ 2+ Ovalocytes Schistocytes None seen None seen PT (11.1-14.7) Seconds INR APTT (22.3-36.8) Seconds Methemoglobin (0-1.5) %THb Sodium 141 142 (137-145) mmol/L Potassium 4.5 3.3 L (3.4-5.0) mmol/L Chloride 109 H 107 (98-107) mmol/L Carbon Dioxide 23 27 (22-30) mmol/L Anion Gap 9 8 (4-12) mmol/L BUN 61 H 60 H (9-20) mg/dL Creatinine 2.95 H 3.21 H (0.7-1.3) mg/dL Estim Creat Clear Calc 22 20 ml/min Estimated GFR 21 L 19 L (59 - ) Glucose 97 98 (65-110) mg/dL Lactic Acid 2.1 H 2.0 (0.7-2.0) mmol/L Calcium 8.5 8.7 (8.4-10.2) mg/dL Magnesium (1.6-2.3) mg/dL Total Bilirubin 28.6 H 29.9 H (0.2-1.3) mg/dL Direct Bilirubin 16.4 H (0-0.3) mg/dL Indirect Bilirubin (0-1.1) mg/dL AST 107 H 82 H (17-59) U/L ALT 49 45 (6-50) U/L Alkaline Phosphatase 117 120 (38-126) U/L Ammonia 15 (9-30) umol/L Lactate Dehydrogenase (120-246) U/L NT-Pro-B Natriuret Pep (19.9-100) pg/mL Total Protein 7.0 7.0 (6.3-8.2) g/dL Albumin 2.9 L 2.7 L (3.5-5.1) g/dL Lipase 207 (23-300) U/L TSH (0.465-4.680) uIU/mL Urine Color (Yellow) Urine Appearance (Clear) Urine pH (5.0-9.0) Ur Specific [place] (1.001-1.035) Urine Protein (Negative) mg/dL Urine Glucose (UA) (Negative) mg/dL Urine Ketones (Negative) mg/dL Ur Blood (Man) (Negative) Urine Nitrate (Negative) Urine Bilirubin (Negative) Urine Urobilinogen (<2.0) mg/dL Add Ur Microanalysis Leukocyte Esterase Rfl (Negative) MOO/UL Urine RBC (0-2) /hpf Urine WBC (0-3) /hpf Ur Squamous Epith Cells (Few) /hpf Urine Bacteria /hpf Urine Casts Hyaline Casts (None) /lpf Urine Mucus /lpf 12/09/24 12/09/24 Range/Units 08:06 21:52 WBC (4.5-10.0) K/mm3 RBC (4.6-6.20) M/mm3 Hgb (14.0-18.0) g/dL Hct (42.0-52.0) % MCV (80-100) fl MCH (26-34) pg MCHC (32-36) g/dl RDW (11.5-14.5) % Plt Count (150-375) k/mm3 MPV Immature Gran % (Auto) (0-0.5) % Neut % (Auto) (45.5-73.1) % Lymph % (Auto) (18.3-44.2) % Crook % (Auto) (2.6-8.5) % Eos % (Auto) (0-4.4) % Baso % (Auto) (0.2-1.2) % Lymph # (Auto) (0.9-3.2) K/mm3 Crook # (Auto) (0.1-0.6) K/mm3 Eos # (Auto) (0-0.3) K/mm3 Baso # (Auto) (0.0-0.1) K/mm3 Abs Immat Gran (auto) (0.00-0.031) K/mm3 Absolute Neuts (auto) (1.3-6.7) K/mm3 Absolute Nucleated RBC (0.0-0.012) K/mm3 Band Neutrophils % Nucleated RBC % (0.0-0.2) % Platelet Estimate (Adequate) % Immature Plt Fraction (0.9-11.2) % Hypochromasia Poikilocytosis Anisocytosis Microcytosis (NORMAL) Macrocytosis (NORMAL) Target Cells Ovalocytes Schistocytes PT (11.1-14.7) Seconds INR APTT (22.3-36.8) Seconds Methemoglobin 0.3 (0-1.5) %THb Sodium (137-145) mmol/L Potassium (3.4-5.0) mmol/L Chloride (98-107) mmol/L Carbon Dioxide (22-30) mmol/L Anion Gap (4-12) mmol/L BUN (9-20) mg/dL Creatinine (0.7-1.3) mg/dL Estim Creat Clear Calc ml/min Estimated GFR (59 - ) Glucose (65-110) mg/dL Lactic Acid 1.5 (0.7-2.0) mmol/L Calcium (8.4-10.2) mg/dL Magnesium 2.4 H (1.6-2.3) mg/dL Total Bilirubin (0.2-1.3) mg/dL Direct Bilirubin (0-0.3) mg/dL Indirect Bilirubin (0-1.1) mg/dL AST (17-59) U/L ALT (6-50) U/L Alkaline Phosphatase (38-126) U/L Ammonia (9-30) umol/L Lactate Dehydrogenase (120-246) U/L NT-Pro-B Natriuret Pep (19.9-100) pg/mL Total Protein (6.3-8.2) g/dL Albumin (3.5-5.1) g/dL Lipase (23-300) U/L TSH (0.465-4.680) uIU/mL Urine Color (Yellow) Urine Appearance (Clear) Urine pH (5.0-9.0) Ur Specific [place] (1.001-1.035) Urine Protein (Negative) mg/dL Urine Glucose (UA) (Negative) mg/dL Urine Ketones (Negative) mg/dL Ur Blood (Man) (Negative) Urine Nitrate (Negative) Urine Bilirubin (Negative) Urine Urobilinogen (<2.0) mg/dL Add Ur Microanalysis Leukocyte Esterase Rfl (Negative) MOO/UL Urine RBC (0-2) /hpf Urine WBC (0-3) /hpf Ur Squamous Epith Cells (Few) /hpf Urine Bacteria /hpf Urine Casts Hyaline Casts (None) /lpf Urine Mucus /lpf <Ralph Martins MD - Last Filed: 12/07/24 22:14> Lab Results 12/07/24 12/07/24 12/07/24 Range/Units 15:49 17:58 21:51 WBC 3.6 L (4.5-10.0) K/mm3 RBC 4.21 L (4.6-6.20) M/mm3 Hgb 11.7 L (14.0-18.0) g/dL Hct 32.7 L (42.0-52.0) % MCV 77.7 L (80-100) fl MCH 27.8 (26-34) pg MCHC 35.8 (32-36) g/dl RDW 31.0 H (11.5-14.5) % Plt Count 128 L D (150-375) k/mm3 MPV Not Reportable Immature Gran % (Auto) 0.6 H (0-0.5) % Neut % (Auto) 70.9 (45.5-73.1) % Lymph % (Auto) 17.6 L (18.3-44.2) % Crook % (Auto) 8.1 (2.6-8.5) % Eos % (Auto) 2.2 (0-4.4) % Baso % (Auto) 0.6 (0.2-1.2) % Lymph # (Auto) 0.63 L (0.9-3.2) K/mm3 Cro[place] # (Auto) 0.3 (0.1-0.6) K/mm3 Eos # (Auto) 0.1 (0-0.3) K/mm3 Baso # (Auto) 0.0 (0.0-0.1) K/mm3 Abs Immat Gran (auto) 0.02 (0.00-0.031) K/mm3 Absolute Neuts (auto) 2.5 (1.3-6.7) K/mm3 Absolute Nucleated RBC 0.030 H (0.0-0.012) K/mm3 Band Neutrophils % Not Reportable Nucleated RBC % 0.8 H (0.0-0.2) % Platelet Estimate Decreased (Adequate) % Immature Plt Fraction 2.7 (0.9-11.2) % Hypochromasia Poikilocytosis 1+ Anisocytosis 1+ Microcytosis (NORMAL) Macrocytosis (NORMAL) Target Cells 2+ Ovalocytes 1+ Schistocytes None seen PT 21.8 H (11.1-14.7) Seconds INR 1.8 APTT 39.6 H (22.3-36.8) Seconds Methemoglobin (0-1.5) %THb Sodium 142 (137-145) mmol/L Potassium 3.9 (3.4-5.0) mmol/L Chloride 108 H (98-107) mmol/L Carbon Dioxide 24 (22-30) mmol/L Anion Gap 10 (4-12) mmol/L BUN 58 H D (9-20) mg/dL Creatinine 3.11 H (0.7-1.3) mg/dL Estim Creat Clear Calc 21 ml/min Estimated GFR 20 L (59 - ) Glucose 108 (65-110) mg/dL Lactic Acid 2.0 (0.7-2.0) mmol/L Calcium 9.1 (8.4-10.2) mg/dL Magnesium (1.6-2.3) mg/dL Total Bilirubin 34.0 H (0.2-1.3) mg/dL Direct Bilirubin 19.7 H (0-0.3) mg/dL Indirect Bilirubin 3.3 H (0-1.1) mg/dL AST 90 H (17-59) U/L ALT 51 H (6-50) U/L Alkaline Phosphatase 150 H (38-126) U/L Ammonia (9-30) umol/L Lactate Dehydrogenase 313 H (120-246) U/L NT-Pro-B Natriuret Pep 33358 H (19.9-100) pg/mL Total Protein 8.0 (6.3-8.2) g/dL Albumin 3.3 L (3.5-5.1) g/dL Lipase (23-300) U/L TSH 4.290 (0.465-4.680) uIU/mL Urine Color Dark yellow (Yellow) Urine Appearance Cloudy H (Clear) Urine pH 5.5 (5.0-9.0) Ur Specific [place] 1.019 (1.001-1.035) Urine Protein 1+ H (Negative) mg/dL Urine Glucose (UA) 2+ H (Negative) mg/dL Urine Ketones Negative (Negative) mg/dL Ur Blood (Man) Negative (Negative) Urine Nitrate Positive H (Negative) Urine Bilirubin 3+ H (Negative) Urine Urobilinogen 2.0 H (<2.0) mg/dL Add Ur Microanalysis Reviewed Leukocyte Esterase Rfl 1+ H (Negative) MOO/UL Urine RBC 6-10 H (0-2) /hpf Urine WBC 0-5 (0-3) /hpf Ur Squamous Epith Cells Few (Few) /hpf Urine Bacteria None seen /hpf Urine Casts 11-20 Hyaline Casts Present (None) /lpf Urine Mucus Present /lpf 12/08/24 12/08/24 12/09/24 Range/Units 02:12 10:38 07:36 WBC 6.5 6.1 (4.5-10.0) K/mm3 RBC 3.61 L 3.61 L (4.6-6.20) M/mm3 Hgb 9.9 L 10.0 L (14.0-18.0) g/dL Hct 28.1 L 27.7 L (42.0-52.0) % MCV 77.8 L 76.7 L (80-100) fl MCH 27.4 27.7 (26-34) pg MCHC 35.2 36.1 H (32-36) g/dl RDW 30.9 H 30.7 H (11.5-14.5) % Plt Count 109 L 115 L (150-375) k/mm3 MPV TNP TNP Immature Gran % (Auto) 0.5 0.7 H (0-0.5) % Neut % (Auto) 87.0 H 85.0 H (45.5-73.1) % Lymph % (Auto) 5.3 L 6.4 L (18.3-44.2) % [place] % (Auto) 6.5 7.4 (2.6-8.5) % Eos % (Auto) 0.2 0.3 (0-4.4) % Baso % (Auto) 0.5 0.2 (0.2-1.2) % Lymph # (Auto) 0.34 L 0.39 L (0.9-3.2) K/mm3 [place] # (Auto) 0.4 0.5 (0.1-0.6) K/mm3 Eos # (Auto) 0.0 0.0 (0-0.3) K/mm3 Baso # (Auto) 0.0 0.0 (0.0-0.1) K/mm3 Abs Immat Gran (auto) 0.03 0.04 H (0.00-0.031) K/mm3 Absolute Neuts (auto) 5.6 5.2 (1.3-6.7) K/mm3 Absolute Nucleated RBC 0.030 H 0.020 H (0.0-0.012) K/mm3 Band Neutrophils % Not Reportable Not Reportable Nucleated RBC % 0.5 H 0.3 H (0.0-0.2) % Platelet Estimate Decreased Decreased (Adequate) % Immature Plt Fraction 2.2 2.7 (0.9-11.2) % Hypochromasia 2+ Poikilocytosis Anisocytosis 1+ 2+ Microcytosis 1+ (NORMAL) Macrocytosis 1+ (NORMAL) Target Cells 2+ 2+ Ovalocytes Schistocytes None seen None seen PT (11.1-14.7) Seconds INR APTT (22.3-36.8) Seconds Methemoglobin (0-1.5) %THb Sodium 141 142 (137-145) mmol/L Potassium 4.5 3.3 L (3.4-5.0) mmol/L Chloride 109 H 107 (98-107) mmol/L Carbon Dioxide 23 27 (22-30) mmol/L Anion Gap 9 8 (4-12) mmol/L BUN 61 H 60 H (9-20) mg/dL Creatinine 2.95 H 3.21 H (0.7-1.3) mg/dL Estim Creat Clear Calc 22 20 ml/min Estimated GFR 21 L 19 L (59 - ) Glucose 97 98 (65-110) mg/dL Lactic Acid 2.1 H 2.0 (0.7-2.0) mmol/L Calcium 8.5 8.7 (8.4-10.2) mg/dL Magnesium (1.6-2.3) mg/dL Total Bilirubin 28.6 H 29.9 H (0.2-1.3) mg/dL Direct Bilirubin 16.4 H (0-0.3) mg/dL Indirect Bilirubin (0-1.1) mg/dL AST 107 H 82 H (17-59) U/L ALT 49 45 (6-50) U/L Alkaline Phosphatase 117 120 (38-126) U/L Ammonia 15 (9-30) umol/L Lactate Dehydrogenase (120-246) U/L NT-Pro-B Natriuret Pep (19.9-100) pg/mL Total Protein 7.0 7.0 (6.3-8.2) g/dL Albumin 2.9 L 2.7 L (3.5-5.1) g/dL Lipase 207 (23-300) U/L TSH (0.465-4.680) uIU/mL Urine Color (Yellow) Urine Appearance (Clear) Urine pH (5.0-9.0) Ur Specific [place] (1.001-1.035) Urine Protein (Negative) mg/dL Urine Glucose (UA) (Negative) mg/dL Urine Ketones (Negative) mg/dL Ur Blood (Man) (Negative) Urine Nitrate (Negative) Urine Bilirubin (Negative) Urine Urobilinogen (<2.0) mg/dL Add Ur Microanalysis Leukocyte Esterase Rfl (Negative) MOO/UL Urine RBC (0-2) /hpf Urine WBC (0-3) /hpf Ur Squamous Epith Cells (Few) /hpf Urine Bacteria /hpf Urine Casts Hyaline Casts (None) /lpf Urine Mucus /lpf 12/09/24 12/09/24 Range/Units 08:06 21:52 WBC (4.5-10.0) K/mm3 RBC (4.6-6.20) M/mm3 Hgb (14.0-18.0) g/dL Hct (42.0-52.0) % MCV (80-100) fl MCH (26-34) pg MCHC (32-36) g/dl RDW (11.5-14.5) % Plt Count (150-375) k/mm3 MPV Immature Gran % (Auto) (0-0.5) % Neut % (Auto) (45.5-73.1) % Lymph % (Auto) (18.3-44.2) % [place] % (Auto) (2.6-8.5) % Eos % (Auto) (0-4.4) % Baso % (Auto) (0.2-1.2) % Lymph # (Auto) (0.9-3.2) K/mm3 [place] # (Auto) (0.1-0.6) K/mm3 Eos # (Auto) (0-0.3) K/mm3 Baso # (Auto) (0.0-0.1) K/mm3 Abs Immat Gran (auto) (0.00-0.031) K/mm3 Absolute Neuts (auto) (1.3-6.7) K/mm3 Absolute Nucleated RBC (0.0-0.012) K/mm3 Band Neutrophils % Nucleated RBC % (0.0-0.2) % Platelet Estimate (Adequate) % Immature Plt Fraction (0.9-11.2) % Hypochromasia Poikilocytosis Anisocytosis Microcytosis (NORMAL) Macrocytosis (NORMAL) Target Cells Ovalocytes Schistocytes PT (11.1-14.7) Seconds INR APTT (22.3-36.8) Seconds Methemoglobin 0.3 (0-1.5) %THb Sodium (137-145) mmol/L Potassium (3.4-5.0) mmol/L Chloride (98-107) mmol/L Carbon Dioxide (22-30) mmol/L Anion Gap (4-12) mmol/L BUN (9-20) mg/dL Creatinine (0.7-1.3) mg/dL Estim Creat Clear Calc ml/min Estimated GFR (59 - ) Glucose (65-110) mg/dL Lactic Acid 1.5 (0.7-2.0) mmol/L Calcium (8.4-10.2) mg/dL Magnesium 2.4 H (1.6-2.3) mg/dL Total Bilirubin (0.2-1.3) mg/dL Direct Bilirubin (0-0.3) mg/dL Indirect Bilirubin (0-1.1) mg/dL AST (17-59) U/L ALT (6-50) U/L Alkaline Phosphatase (38-126) U/L Ammonia (9-30) umol/L Lactate Dehydrogenase (120-246) U/L NT-Pro-B Natriuret Pep (19.9-100) pg/mL Total Protein (6.3-8.2) g/dL Albumin (3.5-5.1) g/dL Lipase (23-300) U/L TSH (0.465-4.680) uIU/mL Urine Color (Yellow) Urine Appearance (Clear) Urine pH (5.0-9.0) Ur Specific [place] (1.001-1.035) Urine Protein (Negative) mg/dL Urine Glucose (UA) (Negative) mg/dL Urine Ketones (Negative) mg/dL Ur Blood (Man) (Negative) Urine Nitrate (Negative) Urine Bilirubin (Negative) Urine Urobilinogen (<2.0) mg/dL Add Ur Microanalysis Leukocyte Esterase Rfl (Negative) MOO/UL Urine RBC (0-2) /hpf Urine WBC (0-3) /hpf Ur Squamous Epith Cells (Few) /hpf Urine Bacteria /hpf Urine Casts Hyaline Casts (None) /lpf Urine Mucus /lpf <Aubrie Sánchez MD - Last Filed: 12/11/24 18:17> ABG Data ABG results: 12/09/24 08:06 Puncture Site Left radial ABG pH 7.440 ABG pCO2 36.6 ABG pO2 77.0 L ABG PO2/FiO2 Ratio 3.67 ABG HCO3 24.3 ABG O2 Saturation 95.9 ABG O2 Content 13.7 L ABG Base Excess 0.3 A-a Gradient 28.9 Oxyhemoglobin 92.9 Carboxyhemoglobin 2.7 H Reduced Hemoglobin 4.1 Total Hemoglobin 10.4 L O2 Delivery Device Room air O2 Liters/Min 0.0 FiO2 21 <Ralph Martins MD - Last Filed: 12/07/24 22:14> 12/09/24 08:06 Puncture Site Left radial ABG pH 7.440 ABG pCO2 36.6 ABG pO2 77.0 L ABG PO2/FiO2 Ratio 3.67 ABG HCO3 24.3 ABG O2 Saturation 95.9 ABG O2 Content 13.7 L ABG Base Excess 0.3 A-a Gradient 28.9 Oxyhemoglobin 92.9 Carboxyhemoglobin 2.7 H Reduced Hemoglobin 4.1 Total Hemoglobin 10.4 L O2 Delivery Device Room air O2 Liters/Min 0.0 FiO2 21 <Aubrie Sánchez MD - Last Filed: 12/11/24 18:17> Imaging Data Radiologist's impression: ITS Impressions Chest X-Ray 12/07/24 16:34 IMPRESSION: Bilateral basilar atelectasis versus pneumonia with bilateral pleural effusion. Cardiomegaly. Abdomen Ultrasound 12/07/24 17:25 IMPRESSION: Markedly abnormal imaging of the right upper quadrant demonstrating phasic bidirectional flow within the portal vein. The liver demonstrates heterogeneous echogenicity. In addition, the gallbladder is distended with dense avascular immobile material. Unfortunately, no cine interrogation of the distended hepatic veins were performed. <Ralph Martins MD - Last Filed: 12/07/24 22:14> ECG Data EKG #1: ECG completion date: 12/07/24 <Ralph Martins MD - Last Filed: 12/07/24 22:14> ECG completion time: 15:58 <Ralph Martins MD - Last Filed: 12/07/24 22:14> EKG Interpretation: normal rate (70), widened QRS, left axis and other (Electronic ventricular pacemaker) <Ralph Martins MD - Last Filed: 12/07/24 22:14> Critical Care Time Critical Care Time Critical Care Time: Yes <Ralph Martins MD - Last Filed: 12/07/24 22:14> Total Critical Care Time: 45 <Ralph Martins MD - Last Filed: 12/07/24 22:14> Discharge Plan Discharge Clinical Impression: Decompensated heart failure, Renal failure (ARF), acute on chronic, Hepatic congestion, Hyperbilirubinemia <Ralph Martins MD - Last Filed: 12/07/24 22:14> Patient Disposition: [facility] <Ralph Martins MD - Last Filed: 12/07/24 22:14> Condition: Stable <Ralph Martins MD - Last Filed: 12/07/24 22:14> Patient Language: Urdu <Ralph Martins MD - Last Filed: 12/07/24 22:14> Prescriptions: No Action Eliquis 5 mg tablet 5 mg PO BID Jardiance 10 mg tablet 10 mg PO DAILY Qty: 1 0RF allopurinol 100 mg tablet 50 mg PO DAILY Qty: 90 0RF benzonatate 100 mg Capsule 200 mg PO TID PRN (Reason: Cough) Qty: 30 0RF hydrocodone-acetaminophen 5-325 mg Tablet 1 tablet PO Q4H PRN (Reason: Moderate Pain (4-6)) Qty: 15 0RF furosemide 20 mg Tablet 20 mg PO DAILY@1700 Qty: 30 0RF melatonin 5 mg Tablet 5 mg PO HS PRN (Reason: Insomnia) Qty: 30 0RF metoprolol tartrate 25 mg tablet 12.5 mg PO BID Qty: 60 0RF polyethylene glycol 3350 [Miralax] 17 gram Powder In Packet 17 g PO QAM Qty: 14 0RF midodrine 10 mg Tablet 10 mg PO TID Qty: 90 0RF furosemide 40 mg tablet metoprolol succinate 100 mg tablet extended release 24 hr PO pantoprazole 20 mg tablet,delayed release (DR/EC) 20 mg PO DAILY albuterol sulfate 2.5 mg /3 mL (0.083 %) solution for nebulization 2.5 mg inhalation Q4-6H PRN (Reason: wheezing) Qty: 180 1RF hydroxyzine HCl 25 mg tablet 25 mg PO DAILY PRN (Reason: itching) Qty: 30 0RF <Ralph Martins MD - Last Filed: 12/07/24 22:14> Follow-up/Referrals: Radha Toro MD [Primary Care Provider] - <Ralph Martins MD - Last Filed: 12/07/24 22:14>
--- OUTSIDE RECORDS SUMMARY | 2024-12-07 17:31 | XMS_ITS | Clinical Summary ---
Author Organization [facility] Address [address], [address] [address] Phone Care Team Providers Care Agricultural Crop Farm Manager Name Role Phone Juan Miguel Washington MD Primary Care Provider [phone] Ken Jarvis DO Unavailable [phone] Allergies No known active allergies Medications [...] on file Legal Sex Male 8:12 AM CARD DOFFER Gender Identity Not on file Sexual Orientation [...] Recently Relevant to Health Maintenance Care Teams Agricultural Crop Farm Manager Relationship Specialty Start Date End Date Juan Miguel Washington MD [address] [place] [address] PCP - General Family Medicine 08/28/15 Ken Jarvis DO [address] [place] [address] Gastroenterology 08/28/15
--- OUTSIDE RECORDS SUMMARY | 2024-12-07 17:31 | XMS_ITS | Referral Summary ---
Author Organization [facility] Address [facility] [place] [address] Care Team Providers Care Ed Case Manager Name Role Phone Miscellaneous, Not In File Unavailable Unava Toya Gonzalez Primary Care Provider [phone] Encounters Date Type Department Care Team Description 11/13/2024 1:15 PM CDT Office Visit [facility]iology [address] [place] [address] [place] [phone] Mona Petty MD ICD (implantable cardioverter-defibrilla tor), dual, in situ (Primary Dx); Nonischemic cardiomyopathy (HCC); Aneurysm of ascending aorta without rupture; Persistent atrial fibrillation (HCC); Chronic anticoagulation 10/09/2024 11:00 AM CDT Office Visit [facility]iology [address] [place] [address] [place] [phone] Mona Petty MD ICD (implantable cardioverter-defibrilla tor), dual, in situ (Primary Dx); Persistent atrial fibrillation (HCC); Nonischemic cardiomyopathy (HCC); Aneurysm of ascending aorta without rupture; Pulmonary HTN (HCC); Non-rheumatic tricuspid valve insufficiency; Chronic anticoagulation 09/20/2024 Orders Only [facility] [address] [place] [address] [address] [place] [phone] Franca Reddy MD 09/19/2024 7:45 AM MISSION PLANNER Ancillary Procedure [facility] Cardiology [address] [facility] [address] [place], [place] [address] [place] [phone] ICD (implantable cardioverter-defibrilla tor), dual, in situ [...] 09/21/2023 Assessment & Plan (09/21/2023 10:41 AM MISSION PLANNER): Replaced Monitor BMP with IV lasix BID RSV infection 09/21/2023 Assessment & Plan (09/24/2023 2:26 PM MISSION PLANNER): Supportive care Diurese for HFrEF exacerbation Acute bronchitis due to respiratory syncytial vi justice (RSV) 09/21/2023 Assessment & Plan (09/21/2023 10:42 AM MISSION PLANNER): Supportive care. No history of lung disease Not hypoxic monitor for worsening respiratory status Atrial fibrillation 09/15/2023 Assessment & Plan (09/21/2023 10:37 AM MISSION PLANNER): Presented with RVR 2/2 RSV infection Rate [...] 05/29/2024 Assessment & Plan (09/24/2023 2:25 PM MISSION PLANNER): Exacerbated by Afib RVR. NT proBNP 8043. [...] drink = 0.6 oz pu re alcohol) [facility] Utilities Answer Date Recorded In the past 12 months has [employer], [employer], [employer], or water [employer] threatened to shut off services in your [...] How often do you attend chur or sabianism services? Never 09/22/2023 Do you belong to any clubs o r organizations such as hindu groups, unions, fraternal or athletic groups, or [...] place to sleep or slept in a residential (including now)? No 09/22/2023 Personal Safety Answer [...] 35.6 C (96.1 F) 07/22/2024 2:16 PM MISSION PLANNER Respiratory Rate 16 07/22/2024 6:30 PM MISSION PLANNER Oxygen Saturation 93% 08/16/2024 10:22 AM MISSION PLANNER Inhaled Oxygen Concentration - - Weight 91.2 kg (201 lb) 10/09/2024 12:07 PM CDT Height 182.9 cm (6') 10/09/2024 12:07 PM CDT Body Mass Index 27.26 10/09/2024 12:07 PM CDT Plan of Treatment Not on file Medical Devices Implanted Type Area International Banker Device Identifier Shelf Expiration Date Model / Serial / Lot [employer] [id number] Fortify Assura [id number] 2 Chamber Df4 Is-1 Connector [id number] 40j - [id number] - [id number] Implanted:Qty: 1 on 05/23/2020 by Salbador Sesay MD at [facility] ICD [employer] [id number] 04/17/2022 [id number] / [id number] / [employer] 7120q/65 Durata 7fr 65cm 2 Coil Df-4 True Bipolar Active Fixation - [id number] - [id number] Implanted:Qty: 1 on 05/23/2020 by Salbador Sesay MD at [facility] Lead [employer] [id number] 02/15/2023 7120Q/65 / [id number] / [employer] 2088tc/52 Tendril Sts 6fr 52cm Is-1 Connector Active Fixation Bipolar Soft - [id number] - [id number] Implanted:Qty: 1 on 05/23/2020 by Salbador Sesay MD at [facility] Lead [employer] [id number] 04/17/2023 208TC/52 / [id number] / Procedures Procedure Name Priority Date/Time Associated Diagnosis Comments DEVICE CHECK - REMOTE Routine 09/19/2024 7:12 AM MISSION PLANNER Nonischemic cardiomyopathy (HCC) CARDIOLOGY DOCUMENT SCAN Routine 09/12/2024 2:00 PM MISSION PLANNER CARDIOLOGY DOCUMENT SCAN Routine 09/11/2024 1:[address] ABDOMEN WO CONTRAST Schedule Routine, Read Routine (OP Routine) 01/12/2018 8:43 AM CDT Hypertensive encephalopathy from Last 3 Months or Most Recently Relevant to Health Maintenance Results * DEVICE CHECK - REMOTE (09/19/2024 7:12 AM MISSION PLANNER) Anatomical Region Laterality Modality Other Narrative 09/22/2024 7:46 AM MISSION PLANNER Cardoza Dual Fortify Assura ICD implanted on 05/23/20 for NICM. [facility] [place] [facility] Routine DDD ICD Remote. Transmission attached. Battery status 54%, 4.1-4.3 years remaining battery life to RAMON. Stable Charge time and Shock impedance. Stable lead impedances, pacing, and sensing threshold. Presenting rhythm: AFib/VS-ACID PURIFIER AP-< 1 %, ACID PURIFIER-78 % (49) AMS episodes noted. IEGM demonstrates AFib. Longest episode was > 40 hours. AFib burden > 99% (2) Ventricular tachy arrhythmias detected. IEGM demonstrates AFib with RVR with the longest episode being 14 seconds in duration and a median V rate of 192 beats per minute. Medication: Eliquis 5 mg, Toprol-XL 100 mg, Entresto 49-51 mg Follow up: Office Pacemaker/ICD scheduled 03/28/25 [place] remote 12/19/24 Rico Witt, RIAZ Ralph Fang MD CV CARDIAC SERVICES PRO CEDURES Final Result * Cardiology Document Scan (09/12/2024 2:00 PM MISSION PLANNER) Anatomical Region Laterality Modality Other Franca Reddy MD CV CARDIAC SERVICES PROCEDU RES Final Result * Cardiology Document Scan (09/11/2024 1:58 PM MISSION PLANNER) Anatomical Region Laterality Modality Other us Franca [...] Thomas Relation to Subscriber:Self Name:WilliamMontrell Lucius Payer ID:[id number] Group ID:Not on file Type:COMMERCIAL Address: [facility] [address] [place], [place] [employer] Member Subscriber Plan / Payer (Ef fective 2020-Present) Name:Montrell Thomas Relation to Subscriber:Self Name:Montrell Thomas Payer ID:[id number] Group ID:Not on file Type:COMMERCIAL Address: [facility] [address] [place], [place] MEDICARE MEDICARE [employer] Advance Directives For more information, please contact: [phone] * Full Code (Latest Code Status on File) Date Activated Date Inactivated Comments 10/08/2023 7:07 AM 10/08/2023 6:02 PM * Full Code Date Activated Date Inactivated Comments 09/20/2023 6:32 PM 09/24/2023 10:27 PM Care Teams Ed Case Manager Relationship Specialty Start Date End Date Toya Sauceda PA [address] [place] [id number] PCP - General Physician Fur Dry Cleaner Hand 08/12/23 Miscellaneous, Not In File 05/23/20
--- OUTSIDE RECORDS SUMMARY | 2024-12-07 17:31 | XMS_ITS | Clinical Summary ---
Author Organization [facility] Address [address] [place] [address] Care Team Providers Care Landcare Officer Name Role Phone Miscellaneous, Not In File Unavailable Unava Toya Gonzalez Primary Care Provider Allergies No known active allergies Medications allopurinoL [...] 09/21/2023 Assessment & Plan (09/21/2023 10:41 AM FORMULA WEIGHER): Replaced Monitor BMP with IV lasix BID RSV infection 09/21/2023 Assessment & Plan (09/24/2023 2:26 PM FORMULA WEIGHER): Supportive care Diurese for HFrEF exacerbation Acute bronchitis due to respiratory syncytial vi justice (RSV) 09/21/2023 Assessment & Plan (09/21/2023 10:42 AM FORMULA WEIGHER): Supportive care. No history of lung disease Not hypoxic monitor for worsening respiratory status Atrial fibrillation 09/15/2023 Assessment & Plan (09/21/2023 10:37 AM FORMULA WEIGHER): Presented with RVR 2/2 RSV infection Rate [...] 05/29/2024 Assessment & Plan (09/24/2023 2:25 PM FORMULA WEIGHER): Exacerbated by Afib RVR. NT proBNP 8043. [...] Description 11/13/2024 1:15 PM CDT Office Visit [facility] Cardiology [address] [facility] [address] [place] [address] Mona Petty MD ICD (implantable cardioverter-defibrilla tor), dual, in situ (Primary Dx); Nonischemic cardiomyopathy (HCC); Aneurysm of ascending aorta without rupture; Persistent atrial fibrillation (HCC); Chronic anticoagulation 10/09/2024 11:00 AM CDT Office Visit [facility] Cardiology [address] [place] [address] Mona Petty MD ICD (implantable cardioverter-defibrilla tor), dual, in situ (Primary Dx); Persistent atrial fibrillation (HCC); Nonischemic cardiomyopathy (HCC); Aneurysm of ascending aorta without rupture; Pulmonary HTN (HCC); Non-rheumatic tricuspid valve insufficiency; Chronic anticoagulation 09/20/2024 Orders Only [facility] Cardiology [address] [place] [address] Franca Reddy MD 09/19/2024 7:45 AM FORMULA WEIGHER Ancillary Procedure [facility] Cardiology [address] [facility] [address], [place] [address] ICD (implantable cardioverter-defibrilla tor), dual, [...] drink = 0.6 oz pu re alcohol) [facility] Utilities Answer Date Recorded In the past 12 months has e [employer], gas, oil, or water company threatened to [...] often do you attend chur ch or nondenominational services? Never 09/22/2023 Do you belong to any clubs o r organizations such as congregational groups, unions, fraternal or athletic groups, or [...] place to sleep or slept in a senior living (including now)? No 09/22/2023 Personal Safety Answer [...] 35.6 C (96.1 F) 07/22/2024 2:16 PM FORMULA WEIGHER Respiratory Rate 16 07/22/2024 6:30 PM FORMULA WEIGHER Oxygen Saturation 93% 08/16/2024 10:22 AM FORMULA WEIGHER Inhaled Oxygen Concentration - - Weight 91.2 [...] Screen Completed Medical Devices Implanted Type Area Account Receivable Associate Device Identifier Shelf Expiration Date Model / Serial / Lot [employer] [id number] Fortify Assura [id number] 2 Chamber Df4 Is-1 Connector [id number] 40j - [id number] - [id number] Implanted:Qty: 1 on 05/23/2020 by Salbador Sesay MD at [facility] ICD [employer] [id number] 04/17/2022 [id number] / [id number] / [employer] 7120q/65 Durata 7fr 65cm 2 Coil Df-4 True Bipolar Active Fixation - [id number] - [id number] Implanted:Qty: 1 on 05/23/2020 by Salbador Sesay MD at [facility] Lead [employer] [id number] 02/15/2023 7120Q/65 / [id number] / [employer] 2087tc/52 Tendril Sts 6fr 52cm Is-1 Connector Active Fixation Bipolar Soft - [id number] - [id number] Implanted:Qty: 1 on 05/23/2020 by Salbador Sesay MD at [facility] Lead [employer] [id number] 04/17/20232087TC/52 / [id number] / Procedures Procedure Name Priority Date/Time Associated Diagnosis Comments DEVICE CHECK - REMOTE Routine 09/19/2024 7:12 AM FORMULA WEIGHER Nonischemic cardiomyopathy (HCC) CARDIOLOGY DOCUMENT SCAN Routine 09/12/2024 2:00 PM FORMULA WEIGHER CARDIOLOGY DOCUMENT SCAN Routine 09/11/2024 1:[address] ABDOMEN WO CONTRAST Schedule Routine, Read Routine (OP Routine) 01/12/2018 8:43 AM CDT Hypertensive encephalopathy from Last 3 Months or Most Recently Relevant to Health Maintenance Results * DEVICE CHECK - REMOTE (09/19/2024 7:12 AM FORMULA WEIGHER) Anatomical Region Laterality Modality Other Narrative 09/22/2024 7:46 AM FORMULA WEIGHER Cardoza Dual Fortify Assura ICD implanted on 05/23/20 for NICM. [facility] Routine DDD ICD Remote. Transmission attached. Battery status 54%, 4.1-4.3 years remaining battery life to RAMON. Stable Charge time and Shock impedance. Stable lead impedances, pacing, and sensing threshold. Presenting rhythm: AFib/VS-BROODMARE FOREMAN AP-< 1 %, BROODMARE FOREMAN-78 % (49) AMS episodes noted. IEGM demonstrates AFib. Longest episode was > 40 hours. AFib burden > 99% (2) Ventricular tachy arrhythmias detected. IEGM demonstrates AFib with RVR with the longest episode being 14 seconds in duration and a median V rate of 192 beats per minute. Medication: Eliquis 5 mg, Toprol-XL 100 mg, Entresto 49-51 mg Follow up: Office Pacemaker/ICD scheduled 03/28/25 [place] remote 12/19/24 Rico Witt, RN Ralph Fang MD CV CARDIAC SERVICES PRO CEDURES Final Result * Cardiology Document Scan (09/12/2024 2:00 PM FORMULA WEIGHER) Anatomical Region Laterality Modality Other Franca Reddy MD CV CARDIAC SERVICES PROCEDU RES Final Result * Cardiology Document Scan (09/11/2024 1:58 PM FORMULA WEIGHER) Anatomical Region Laterality Modality Other Result [facility] Franca Reddy MD CV CARDIAC [...] Thomas Relation to Subscriber:Self Name:Montrell Thomas Payer ID:[id number] Group ID:Not on file Type:i[employer]Time Address: [facility] [address] [place], [place] MEDICARE MEDICARE [facility] [facility] [employer] Member Subscriber Plan / Payer (Ef fective 2020-Present) Name:Montrell Thomas Lucius Relation to Subscriber:Self Name:Montrell Thomas Payer ID:[id number] Group ID:Not on file Type:COMMERCIAL Address: [place] [facility] [address] [place], [place] Advance Directives For more information, please contact: [phone] * Full Code (Latest Code Status on File) Date Activated Date Inactivated Comments 10/08/2023 7:07 AM 10/08/2023 6:02 PM * Full Code Date Activated Date Inactivated Comments 09/20/2023 6:32 PM 09/24/2023 10:27 PM Care Teams Landcare Officer Relationship Specialty Start Date End Date Toya Sauceda PA [address] [place] [address] PCP - General Physician Cutter Gas 08/12/23 Miscellaneous, Not In File 05/23/20
[2024-12-07 17:34] LABS: NT Pro B Type Natriuretic Pept 21100 pg/mL (19.9-100)
[2024-12-07 17:48] LABS: INR 1.8; Prothrombin Time 21.8 Seconds (11.1-14.7)
[2024-12-07 17:49] LABS: Partial Thromboplastin Time 39.6 Seconds (22.3-36.8)
[2024-12-07 17:54] LABS: Lactate Dehydrogenase 313 U/L (120-246)
[2024-12-07 18:23] LABS: Add Urine Microscopic? YES; Appearance Urine Cloudy (Clear); Bacteria Urine None Seen /hpf; Bilirubin Urine 3+ (Negative); Blood Urine Negative (Negative); Color Urine Dark Yellow (Yellow); Glucose Urine UA 2+ mg/dL (Negative); Hyaline Casts Urine Present /lpf; Ketones Urine Negative (Negative); Leukocyte Esterase Ur 1+ LEU/UL (Negative); Mucus Urine Present /lpf; Need Manual Microscopic Reviewed; Nitrate Urine Positive (Negative); Protein Urine 1+ mg/dL (Negative); Specific Grav Ur 1.019 (1.001-1.035); Squamous Epithelial Cell Urine Few /hpf (Few); WBC Urine 0-5 /hpf (0-3); pH Urine 5.5 (5.0-9.0)
--- NOTE | 2024-12-07 18:26 | PC.NURSE ---
this RN has tried 4 different methods to obtain a pulse ox on pt. each method will give a pulse ox read for a split second then not bulk picker. pt is in NAD
[2024-12-07] MEDS: DOBUTamine 250 MG/D5W 250 ML 250 MG/250 ML BAG 27.27 MG IV CONT (21:43)
[2024-12-07] MEDS: FUROSEMIDE INJ 100 MG/10 ML VIAL 80 MG IV PUSH (21:44)
[2024-12-07] MEDS: FUROSEMIDE INJ 100 MG in SODIUM CHLORIDE 0.9% IV 90 ML 20 MG IV CONT (21:44)
--- NOTE | 2024-12-07 22:00 | PC.NURSE ---
rn double check pump settings per rn marlena benavides.
--- NOTE | 2024-12-07 22:01 | PC.NURSE ---
pharmacy double checked and furosemide and dobutamine are not able to be ran together.
--- NOTE | 2024-12-07 23:50 | PC.NURSE ---
edp dr muñoz notified of pt low temp. Temp srivastava placed, juan antonio moulton also placed.
[2024-12-08] VITALS (171 sets, daily range): BP systolic 62–114; BP diastolic 35–81; PULSE 68–90; RESP 10–24; TEMP 34.8–36.3; O2SAT 42–100
--- NOTE | 2024-12-08 | ECHO_ITS ---
Patient Info Name: Montrell Thomas Age: 74 years : 1950 Gender: Male Ht: 72 in Wt: 200 lbs BSA: 2.16 m2 HR: 78 bpm BP: 82 / 55 mmHg Heart Rhythm: Atrial Fibrillation Technical Quality: Good Exam Date: 12/08/2024 9:07 AM Patient Status: E Admit Date: 12/07/2024 Exam Type: CA echo doppler color flow Complete two-dimensional, color flow and Doppler transthoracic echocardiogram is performed. Staff Referring Physician: Ralph Martins MD Business Development Consultant: Marylou Peralta Attending Provider: Ralph Martins MD Summary 1. Left ventricular chamber dimension is severely enlarged. 2. Left ventricular systolic function is severely reduced, estimated at 20-25. 3. There is mildly increased left ventricular wall thickness. 4. Right ventricular chamber dimension is moderately enlarged. 5. Right ventricular systolic function is normal. 6. Left atrial chamber dimension is severely enlarged. 7. Right atrial chamber dimension is severely enlarged. 8. There is mild aortic valve regurgitation. 9. There is mild to moderate mitral valve regurgitation. 10. There is at least moderate tricuspid valve regurgitation, which may be underestimated due to eccentricity of the jet. 11. There is mild pulmonic regurgitation. Left Ventricle Left ventricular chamber dimension is severely enlarged. Left ventricular systolic function is severely reduced, estimated at 20-25. There is mildly increased left ventricular wall thickness. The left ventricular diastolic function is abnormal. Right Ventricle Linear artifact in right ventricle suggestive of catheter(s), pacemaker lead(s), or ICD lead(s). Right ventricular chamber dimension is moderately enlarged. Right ventricular systolic function is normal. Left Atria Left atrial chamber dimension is severely enlarged. Right Atria Linear artifact in the right atrium suggestive of catheter(s), pacemaker lead(s), or ICD lead(s). Right atrial chamber dimension is severely enlarged. Atrial Septum Intact interatrial septum visualized by color flow imaging. Aortic Valve The aortic valve is trileaflet. There is no aortic valve stenosis. There is mild aortic valve regurgitation. Pulmonic Valve The pulmonic valve is not well visualized. There is mild pulmonic regurgitation. Mitral Valve There is mild to moderate mitral valve regurgitation. Tricuspid Valve There is at least moderate tricuspid valve regurgitation, which may be underestimated due to eccentricity of the jet. Pericardium/Pleural There is no pericardial effusion. Inferior Vena Cava Dilated inferior vena cava with <50% collapse upon inspiration consistent with elevated right atrial pressure, 15 mmHg. Aorta The aortic root size at the sinus of Valsalva is normal. Left Ventricular Outflow Tract Name Value Normal LVOT 2D LVOT Diameter 2.0 cm LVOT Doppler LVOT Peak Velocity 112 cm/s LVOT Peak Gradient 5 mmHg LVOT Mean Gradient 3 mmHg LVOT VTI 20 cm LVOT VTI/AV VTI Ratio 0.9 LVOT Stroke Volume 67 ml LVOT CO 4.6 l/min LVOT CI 2.1 l/min/m2 Pulmonic Valve Name Value Normal RVOT Doppler RVOT Peak Velocity 68 cm/s RVOT Peak Gradient 2 mmHg PV Doppler PV Peak Velocity 93 cm/s PV Peak Gradient 3 mmHg Mitral Valve Name Value Normal MV Diastolic Function MV E Peak Velocity 104 cm/s MV A Peak Velocity 1 cm/s MV E/A 103.2 MV Decel Time (PW) 155 ms MV Annular TDI MV E/e' (Septal) 23.2 MV E/e' (Lateral) 13.9 MV E/e' (Average) 18.6 Tricuspid Valve Name Value Normal TV Regurgitation Doppler TR Peak Velocity 306 cm/s TR Peak Gradient 37 mmHg Estimated PAP/RSVP RA Pressure 15 mmHg <=5 PA Systolic Pressure 52 mmHg <36 RV Systolic Pressure 52 mmHg <36 TV Annular TDI TV Lateral Callie s' Velocity 12.6 cm/s >=9.5 Aortic Valve Name Value Normal AV Doppler AV Peak Velocity 150 cm/s AV Peak Gradient 9 mmHg AV Mean Gradient 4 mmHg AV VTI 23 cm AV Area (Cont Eq VTI) 2.9 cm2 >=3.0 AV Area (Cont Eq Jorge A) 2.4 cm2 AV DI (Jorge A) 0.74 AV Regurgitation 2D LVOT Area 3.3 cm2 Ventricles Name Value Normal LV Dimensions 2D/MM IVS Diastolic Thickness (2D) 1.1 cm 0.6-1.0 LVID Diastole (2D) 7.7 cm 4.2-5.8 LVIW Diastolic Thickness (2D) 0.9 cm 0.6-1.0 LVID Systole (2D) 6.5 cm 2.5-4.0 LVOT Diameter 2.0 cm LV Mass (2D Cubed) 374.50 g 88.00-224.00 LV Mass Index (2D Cubed) 173 g/m2 49-115 Relative Wall Thickness (2D) 0.22 <=0.42 LV Fractional Shortening/Ejection Fraction 2D/MM LV Fractional Shortening (2D) 15 % 25-43 LV EF (2D Teichholz) 31 % LV Diastolic Volume (4C MOD) 236 ml LV EF (4C MOD) 34 % LV Diastolic Volume (2C MOD) 356 ml LV EF (2C MOD) 31 % LV Diastolic Volume (BP MOD) 300 ml 62-150 LV Diastolic Volume Index (BP MOD) 139 ml/m2 34-74 LV Systolic Volume (BP MOD) 210 ml 21-61 LV Systolic Volume Index (BP MOD) 97 ml/m2 11-31 LV EF (BP MOD) 30 % 52-72 LV Diastolic Length (4C) 9.1 cm LV Systolic Length (4C) 8.4 cm LV Stroke Volume (4C MOD) 80 ml Atria Name Value Normal LA Dimensions LA Volume (4C A-L) 221 ml LA Volume (BP A-L) 215 ml RA Dimensions RA Systolic Major [place] Length (4C) 7.8 cm 2.1-2.7 RA Area (4C) 37.3 cm2 <=18.0 Report Signatures
--- NOTE | 2024-12-08 00:58 | PC.NURSE ---
Erna - Significant Othe [phone]
--- NOTE | 2024-12-08 00:59 | PC.NURSE ---
[facility] transfer line [phone] lui updated at this time.
[2024-12-08 02:28] LABS: Lactic Acid Reflex 2.1 mmol/L (0.7-2.0)
[2024-12-08] MEDS: FUROSEMIDE INJ 100 MG in SODIUM CHLORIDE 0.9% IV 90 ML 20 MG IV CONT (02:29)
--- NOTE | 2024-12-08 03:47 | PC.NURSE ---
temp 97.2 - ok to pause juan antonio moulton per galina muñoz
[2024-12-08 04:16] LABS: Reflex Lactic Acid Yes or No Add Lactic
--- NOTE | 2024-12-08 06:21 | PC.NURSE ---
Pt continues to have leakage around catheter. Pt pad replaced with new clean pad.
[2024-12-08] MEDS: DOBUTamine 250 MG/D5W 250 ML 250 MG/250 ML BAG 27.27 MG IV CONT ×2 (08:10→17:49)
--- NOTE | 2024-12-08 10:14 | PC.NURSE ---
MD Jose verbally ordered labs for patient. RN called vascular access to assess patient for another IV and draw labs.
[2024-12-08 10:47] LABS: Basophils Percent Auto 0.5 % (0.2-1.2); Eosinophils Percent Auto 0.2 % (0-4.4); Hematocrit 28.1 % (42.0-52.0); Hemoglobin 9.9 g/dL (14.0-18.0); Immature Granulocyte Absolute 0.03 K/mm3 (0.00-0.031); Immature Granulocyte Percent A 0.5 % (0-0.5); Immature Platelet Fraction Pct 2.2 % (0.9-11.2); Lymphocytes Absolute Auto 0.34 K/mm3 (0.9-3.2); Lymphocytes Percent Auto 5.3 % (18.3-44.2); Mean Corpuscular HGB Conc 35.2 g/dl (32-36); Mean Corpuscular Hemoglobin 27.4 pg (26-34); Mean Corpuscular Volume 77.8 fl (80-100); Monocytes Absolute Auto 0.4 K/mm3 (0.1-0.6); Monocytes Percent Auto 6.5 % (2.6-8.5); Neutrophils Absolute Auto 5.6 K/mm3 (1.3-6.7); Nucleated Red Blood Cells Perc 0.5 % (0.0-0.2); Platelet Count Result 109 k/mm3 (150-375); Red Blood Count 3.61 M/mm3 (4.6-6.20); Red Cell Distribution Width 30.9 % (11.5-14.5); White Blood Count 6.5 K/mm3 (4.5-10.0)
[2024-12-08 11:16] LABS: Alanine Aminotransferase 49 U/L (6-50); Albumin Level 2.9 g/dL (3.5-5.1); Alkaline Phosphatase 117 U/L (38-126); Anion Gap 9 mmol/L (4-12); Aspartate Amino Transferase 107 U/L (17-59); Bilirubin Direct 16.4 mg/dL (0-0.3); Blood Urea Nitrogen 61 mg/dL (9-20); Calcium 8.5 mg/dL (8.4-10.2); Carbon Dioxide 23 mmol/L (22-30); Chloride 109 mmol/L (98-107); Estimated CRCL calculation 22 ml/min; Estimated Glomerular Filt Rate 21; Glucose 97 mg/dL (65-110); Lipase 207 U/L (23-300); Potassium 4.5 mmol/L (3.4-5.0); Sodium 141 mmol/L (137-145)
[2024-12-08 11:23] LABS: Bilirubin,Total 28.6 mg/dL (0.2-1.3)
[2024-12-08 11:28] LABS: Platelet Estimate Decreased (Adequate)
[2024-12-08 11:29] LABS: Anisocytosis 1+; Hypochromasia 2+; Microcytosis 1+ (NORMAL); Target Cells 2+
[2024-12-08 11:30] LABS: Schistocytes None Seen
--- NOTE | 2024-12-08 15:12 | PC.NURSE ---
lasix drip placed on hold per GORDO Martins
--- NOTE | 2024-12-08 19:20 | PC.NURSE ---
Report received from RIAZ Ortiz. Assumed care of patient at this time.
--- NOTE | 2024-12-08 21:54 | PC.NURSE ---
1151 Jewels with [facility] transfer center calls to get update on patient. Update given. Jewels states patient is awaiting ICU bed at [facility] but no bed available at this time but she will call with an update when one becomes available.
--- NOTE | 2024-12-08 23:22 | PC.NURSE ---
This RN went to check on patient and patient requested to speak with ERP. ERP notified. Patient given wash cloths to wash face and hands. Patient has call light within reach.
[2024-12-09] VITALS (289 sets, daily range): BP systolic 71–179; BP diastolic 42–147; PULSE 66–98; RESP 9–27; TEMP 35.7–36.4; O2SAT 92–100
[2024-12-09] MEDS: ONDANSETRON INJ 4 MG/2 ML VIAL IV PUSH (00:26)
[2024-12-09] MEDS: DOBUTamine 250 MG/D5W 250 ML 250 MG/250 ML BAG 27.27 MG IV CONT ×3 (03:21→22:12)
--- NOTE | 2024-12-09 06:52 | PC.NURSE ---
[id number] Called Patients family member Erna, and gave update.
--- NOTE | 2024-12-09 07:20 | PC.NURSE ---
Bedside report given to RIAZ Leslie.
[2024-12-09 07:53] LABS: Basophils Percent Auto 0.2 % (0.2-1.2); Eosinophils Percent Auto 0.3 % (0-4.4); Hematocrit 27.7 % (42.0-52.0); Immature Granulocyte Absolute 0.04 K/mm3 (0.00-0.031); Immature Granulocyte Percent A 0.7 % (0-0.5); Immature Platelet Fraction Pct 2.7 % (0.9-11.2); Lymphocytes Absolute Auto 0.39 K/mm3 (0.9-3.2); Lymphocytes Percent Auto 6.4 % (18.3-44.2); Mean Corpuscular HGB Conc 36.1 g/dl (32-36); Mean Corpuscular Hemoglobin 27.7 pg (26-34); Mean Corpuscular Volume 76.7 fl (80-100); Monocytes Absolute Auto 0.5 K/mm3 (0.1-0.6); Monocytes Percent Auto 7.4 % (2.6-8.5); Neutrophils Absolute Auto 5.2 K/mm3 (1.3-6.7); Nucleated Red Blood Cells Perc 0.3 % (0.0-0.2); Platelet Count Result 115 k/mm3 (150-375); Red Blood Count 3.61 M/mm3 (4.6-6.20); Red Cell Distribution Width 30.7 % (11.5-14.5); White Blood Count 6.1 K/mm3 (4.5-10.0)
[2024-12-09 08:02] LABS: Ammonia 15 umol/L (9-30)
[2024-12-09 08:10] LABS: Alveolar/Arterial O2 Gradient 28.9 mmHg; Base Excess ABG 0.3 mEq/l (+/-2.0); Carboxyhemoglobin 2.7 % THb (0-2.0); Fractional Inspired Oxygen 21 %; HCO3 ABG 24.3 mEq/l (22.0-26.0); Methemoglobin ABG 0.3 %THb (0-1.5); Oxygen Content ABG 13.7 %vol (16.0-22.0); Oxygen Saturation ABG 95.9 % (95.0-100.0); Oxyhemoglobin 92.9 % THb (90.0-100.0); PCO2 ABG 36.6 mmHg (35.0-45.0); PO2 FiO2 Ratio Arterial Blood 3.67 %; Reduced Hemoglobin 4.1 %THb (0-5.0); Total Hemoglobin 10.4 g/dL (12.0-18.0)
[2024-12-09 08:11] LABS: Device ROOM AIR; Site Drawn LEFT RADIAL
[2024-12-09 08:12] LABS: Alanine Aminotransferase 45 U/L (6-50); Albumin Level 2.7 g/dL (3.5-5.1); Alkaline Phosphatase 120 U/L (38-126); Anion Gap 8 mmol/L (4-12); Aspartate Amino Transferase 82 U/L (17-59); Bilirubin,Total 29.9 mg/dL (0.2-1.3); Blood Urea Nitrogen 60 mg/dL (9-20); Calcium 8.7 mg/dL (8.4-10.2); Carbon Dioxide 27 mmol/L (22-30); Chloride 107 mmol/L (98-107); Estimated CRCL calculation 20 ml/min; Estimated Glomerular Filt Rate 19; Glucose 98 mg/dL (65-110); Potassium 3.3 mmol/L (3.4-5.0); Sodium 142 mmol/L (137-145)
[2024-12-09 08:32] LABS: Platelet Estimate Decreased (Adequate)
[2024-12-09 08:33] LABS: Anisocytosis 2+; Macrocytosis 1+ (NORMAL); Schistocytes None Seen; Target Cells 2+
--- NOTE | 2024-12-09 09:45 | PC.NURSE ---
[facility] transfer center called for an update. Pt cont to be on [facility] Cardiology waiting list.
--- NOTE | 2024-12-09 15:38 | P.PNED_ITS ---
Subjective Date/time seen: 12/09/24 15:38 Interval history: 74 old male awaiting transfer to [place]. At 1:00 p.m. we are still awaiting transfer. Patient's vital signs are similar he currently has a heart rate of 78 blood pressure 102 systolic and saturating at 98%. Patient has been follow a clear liquid diet for the day and does feel improved. Patient denies any complaints at time of re-evaluation. Review of Systems Review of Systems All systems reviewed & are unremarkable except as noted in HPI and below Exam Narrative APPEARANCE: Well appearing, no pain, no distress, well-nourished. HEAD: normocephalic, atraumatic. EYES: Scleral icterus NOSE: Normal no drainage EARS:TMS clear with good light reflex. THROAT: Pharynx clear, no exudate. NECK: Supple. No adenopathy, no masses. RESPIRATORY: Airway patent, respirations nonlabored. Clear to auscultation bilaterally, no rales, rhonchi, wheezing. CARDIOVASCULAR: Regular rate and rhythm without murmurs rubs or gallops. ABDOMINAL: Soft, nontender, nondistended, normal bowel sounds NEURO: Alert. Cranial nerves II through XII intact. Good gait. Good coordination SKIN: Warm, dry. Normal Color PSYCHIATRIC: Normal affect/mood. Objective Data Vital Signs Vital Signs: Vital Signs - 24 hr 12/08/24 17:49 12/08/24 18:05 12/08/24 18:11 Temperature 96.7 F L 96.7 F L Pulse Rate 79 74 87 Respiratory Rate 13 18 Blood Pressure 91/61 L 84/60 L 91/72 L Pulse Oximetry 100 100 12/08/24 18:15 12/08/24 18:20 12/08/24 18:25 Temperature 96.7 F L 96.6 F L 96.6 F L Pulse Rate 75 78 72 Respiratory Rate 14 19 13 Blood Pressure 84/60 L 97/81 L 90/49 L Pulse Oximetry 98 98 96 12/08/24 18:35 12/08/24 19:05 12/08/24 19:10 Temperature 96.5 F L 96.5 F L 96.5 F L Pulse Rate 77 71 81 Respiratory Rate 14 13 24 H Blood Pressure 85/57 L 84/66 L 83/60 L Pulse Oximetry 98 97 98 12/08/24 19:15 12/08/24 19:16 12/08/24 19:20 Temperature 96.5 F L 96.5 F L 96.5 F L Pulse Rate 77 76 82 Respiratory Rate 14 13 22 H Blood Pressure 83/68 L 89/65 L Pulse Oximetry 96 96 93 12/08/24 19:26 12/08/24 19:27 12/08/24 19:30 Temperature 96.5 F L 96.5 F L 96.5 F L Pulse Rate 84 77 72 Respiratory Rate 15 14 13 Blood Pressure 101/57 L 88/55 L Pulse Oximetry 98 98 97 12/08/24 19:31 12/08/24 19:35 12/08/24 19:46 Temperature 96.4 F L 96.4 F L 96.4 F L Pulse Rate 78 78 77 Respiratory Rate 12 14 14 Blood Pressure 93/60 L Pulse Oximetry 96 97 100 12/08/24 19:50 12/08/24 19:55 12/08/24 20:00 Temperature 96.4 F L 96.4 F L 96.4 F L Pulse Rate 77 72 79 Respiratory Rate 14 13 14 Blood Pressure 96/61 L 87/55 L 90/56 L Pulse Oximetry 98 98 98 12/08/24 20:01 12/08/24 20:05 12/08/24 20:29 Temperature 96.4 F L 96.4 F L 96.4 F L Pulse Rate 74 78 80 Respiratory Rate 13 14 16 Blood Pressure 95/53 L Pulse Oximetry 98 99 97 12/08/24 20:30 12/08/24 20:32 12/08/24 20:36 Temperature 96.4 F L 96.4 F L 96.4 F L Pulse Rate 79 77 78 Respiratory Rate 13 13 14 Blood Pressure 85/55 L 99/57 L Pulse Oximetry 97 97 97 12/08/24 20:53 12/08/24 21:05 12/08/24 21:06 Temperature 96.3 F L 96.4 F L 96.4 F L Pulse Rate 81 84 84 Respiratory Rate 15 18 13 Blood Pressure 94/65 L Pulse Oximetry 98 94 96 12/08/24 21:11 12/08/24 21:15 12/08/24 21:16 Temperature 96.4 F L 96.3 F L 96.3 F L Pulse Rate 85 79 73 Respiratory Rate 12 12 13 Blood Pressure 92/61 L 82/56 L Pulse Oximetry 94 94 93 12/08/24 21:17 12/08/24 21:22 12/08/24 21:26 Temperature 96.3 F L 96.4 F L 96.3 F L Pulse Rate 81 79 78 Respiratory Rate 13 19 11 L Blood Pressure 96/61 L 93/59 L Pulse Oximetry 95 100 95 12/08/24 21:30 12/08/24 21:31 12/08/24 21:36 Temperature 96.3 F L 96.3 F L 96.3 F L Pulse Rate 77 75 72 Respiratory Rate 10 L 18 14 Blood Pressure 93/58 L 87/57 L Pulse Oximetry 97 98 97 12/08/24 21:41 12/08/24 21:45 12/08/24 21:46 Temperature 96.3 F L 96.3 F L 96.4 F L Pulse Rate 76 76 80 Respiratory Rate 15 13 12 Blood Pressure 91/60 L 86/60 L Pulse Oximetry 94 92 92 12/08/24 22:00 12/08/24 22:30 12/08/24 23:00 Temperature 96.4 F L 96.4 F L 96.4 F L Pulse Rate Respiratory Rate Blood Pressure Pulse Oximetry 12/08/24 23:12 12/08/24 23:30 12/08/24 23:44 Temperature 96.3 F L 96.4 F L 96.4 F L Pulse Rate 81 86 Respiratory Rate 10 L 15 Blood Pressure Pulse Oximetry 100 98 12/08/24 23:45 12/08/24 23:46 12/08/24 23:51 Temperature 96.4 F L 96.4 F L 96.4 F L Pulse Rate 75 78 78 Respiratory Rate 13 12 12 Blood Pressure 91/57 L 89/57 L Pulse Oximetry 98 99 99 12/09/24 00:00 12/09/24 00:00 12/09/24 00:07 Temperature 96.4 F L 96.4 F L 96.4 F L Pulse Rate 84 92 Respiratory Rate 15 20 Blood Pressure 95/77 L Pulse Oximetry 97 12/09/24 00:11 12/09/24 00:15 12/09/24 00:16 Temperature 96.5 F L 96.4 F L 96.4 F L Pulse Rate 93 92 87 Respiratory Rate 15 20 24 H Blood Pressure 90/42 L 91/73 L Pulse Oximetry 100 96 95 12/09/24 00:21 12/09/24 00:27 12/09/24 00:30 Temperature 96.5 F L 96.5 F L 96.4 F L Pulse Rate 94 74 Respiratory Rate 15 15 Blood Pressure 87/76 L 90/61 L Pulse Oximetry 99 96 12/09/24 00:30 12/09/24 00:32 12/09/24 00:36 Temperature 96.5 F L 96.5 F L 96.6 F L Pulse Rate 85 80 94 Respiratory Rate 23 H Blood Pressure 100/70 113/82 Pulse Oximetry 96 97 12/09/24 00:37 12/09/24 00:42 12/09/24 00:45 Temperature 96.6 F L 96.6 F L 96.6 F L Pulse Rate 84 88 83 Respiratory Rate 12 14 13 Blood Pressure 92/62 L Pulse Oximetry 97 99 12/09/24 00:46 12/09/24 00:51 12/09/24 00:56 Temperature 96.6 F L 96.7 F L 96.7 F L Pulse Rate 84 75 79 Respiratory Rate 14 13 12 Blood Pressure 88/58 L 95/64 L 92/50 L Pulse Oximetry 100 97 97 12/09/24 01:00 12/09/24 01:00 12/09/24 01:01 Temperature 96.4 F L 96.7 F L 96.7 F L Pulse Rate 79 76 Respiratory Rate 14 11 L Blood Pressure 81/62 L Pulse Oximetry 97 98 12/09/24 01:06 12/09/24 01:11 12/09/24 01:15 Temperature 96.7 F L 96.7 F L 96.7 F L Pulse Rate 82 72 80 Respiratory Rate 11 L 13 10 L Blood Pressure 82/51 L 90/66 L Pulse Oximetry 98 98 97 12/09/24 01:16 12/09/24 01:21 12/09/24 01:27 Temperature 96.7 F L 96.7 F L 96.6 F L Pulse Rate 79 79 83 Respiratory Rate 10 L 12 12 Blood Pressure 87/59 L 94/67 L 92/64 L Pulse Oximetry 98 98 96 12/09/24 01:30 12/09/24 01:30 12/09/24 01:31 Temperature 97.6 F 96.6 F L 96.6 F L Pulse Rate 82 78 Respiratory Rate 11 L 11 L Blood Pressure 88/56 L Pulse Oximetry 98 97 12/09/24 01:36 12/09/24 01:41 12/09/24 01:45 Temperature 96.6 F L 96.7 F L 96.6 F L Pulse Rate 82 81 79 Respiratory Rate 12 12 11 L Blood Pressure 93/64 L 99/53 L Pulse Oximetry 97 98 95 12/09/24 01:46 12/09/24 01:51 12/09/24 01:57 Temperature 96.7 F L 96.7 F L 96.7 F L Pulse Rate 86 83 98 Respiratory Rate 12 13 15 Blood Pressure 90/60 L 91/58 L 83/56 L Pulse Oximetry 97 96 92 12/09/24 02:00 12/09/24 02:00 12/09/24 02:06 Temperature 96.6 F L 96.7 F L 96.6 F L Pulse Rate 80 Respiratory Rate 18 Blood Pressure 98/65 L Pulse Oximetry 95 96 12/09/24 02:11 12/09/24 02:15 12/09/24 02:17 Temperature 96.6 F L 96.6 F L 96.7 F L Pulse Rate 87 79 88 Respiratory Rate 15 11 L Blood Pressure 93/65 L 91/54 L Pulse Oximetry 97 97 96 12/09/24 02:21 12/09/24 02:26 12/09/24 02:30 Temperature 96.7 F L 96.7 F L 96.5 F L Pulse Rate 79 79 Respiratory Rate 10 L 13 Blood Pressure 84/57 L 86/52 L Pulse Oximetry 96 96 12/09/24 02:30 12/09/24 02:31 12/09/24 02:36 Temperature 96.7 F L 96.7 F L 96.7 F L Pulse Rate 80 84 79 Respiratory Rate 12 10 L 11 L Blood Pressure 86/54 L 87/63 L Pulse Oximetry 96 96 97 12/09/24 02:41 12/09/24 02:45 12/09/24 02:46 Temperature 96.7 F L 96.7 F L 96.7 F L Pulse Rate 91 85 82 Respiratory Rate 17 10 L 14 Blood Pressure 91/60 L 91/53 L Pulse Oximetry 97 95 96 12/09/24 02:51 12/09/24 02:56 12/09/24 03:00 Temperature 96.7 F L 96.7 F L 96.6 F L Pulse Rate 81 81 Respiratory Rate 11 L 10 L Blood Pressure 81/56 L 82/56 L Pulse Oximetry 95 98 12/09/24 03:00 12/09/24 03:01 12/09/24 03:02 Temperature 96.8 F L 96.7 F L 96.7 F L Pulse Rate 76 77 78 Respiratory Rate 13 14 12 Blood Pressure 87/54 L Pulse Oximetry 97 97 96 12/09/24 03:06 12/09/24 03:11 12/09/24 03:15 Temperature 96.7 F L 96.8 F L 96.7 F L Pulse Rate 78 84 79 Respiratory Rate 11 L 11 L 13 Blood Pressure 94/56 L 82/56 L Pulse Oximetry 98 98 97 12/09/24 03:16 12/09/24 03:19 12/09/24 03:20 Temperature 96.7 F L 96.7 F L Pulse Rate 79 74 79 Respiratory Rate 12 11 L Blood Pressure 76/54 L 90/48 L 90/48 L Pulse Oximetry 97 97 12/09/24 03:21 12/09/24 03:30 12/09/24 03:30 Temperature 96.8 F L 96.7 F L Pulse Rate 83 85 Respiratory Rate 13 Blood Pressure 88/70 L Pulse Oximetry 95 12/09/24 03:41 12/09/24 03:45 12/09/24 03:46 Temperature 96.7 F L 96.8 F L 96.8 F L Pulse Rate 84 78 86 Respiratory Rate 13 14 27 H Blood Pressure 95/57 L 92/60 L Pulse Oximetry 97 96 95 12/09/24 03:51 12/09/24 03:52 12/09/24 03:57 Temperature 96.8 F L 96.8 F L 96.8 F L Pulse Rate 91 88 81 Respiratory Rate 15 13 9 L Blood Pressure 105/76 97/53 L Pulse Oximetry 97 95 12/09/24 04:00 12/09/24 04:00 12/09/24 04:01 Temperature 96.8 F L 96.8 F L 96.8 F L Pulse Rate 83 77 Respiratory Rate 14 11 L Blood Pressure 85/60 L Pulse Oximetry 96 96 12/09/24 04:06 12/09/24 04:11 12/09/24 04:15 Temperature 96.8 F L 96.9 F L 96.9 F L Pulse Rate 78 86 76 Respiratory Rate 13 11 L 15 Blood Pressure 86/54 L 82/61 L Pulse Oximetry 97 96 96 12/09/24 04:16 12/09/24 04:21 12/09/24 04:26 Temperature 96.8 F L 96.8 F L 96.8 F L Pulse Rate 91 91 87 Respiratory Rate 12 12 15 Blood Pressure 87/58 L 87/58 L 91/54 L Pulse Oximetry 96 97 96 12/09/24 04:30 12/09/24 04:30 12/09/24 04:31 Temperature 96.8 F L 96.8 F L 96.8 F L Pulse Rate 81 80 Respiratory Rate 14 13 Blood Pressure 92/53 L Pulse Oximetry 95 95 12/09/24 04:36 12/09/24 04:41 12/09/24 04:42 Temperature 96.8 F L 96.8 F L 96.8 F L Pulse Rate 81 77 77 Respiratory Rate 11 L 12 12 Blood Pressure 87/49 L 81/52 L Pulse Oximetry 96 97 96 12/09/24 04:45 12/09/24 04:46 12/09/24 04:51 Temperature 96.8 F L 96.8 F L 96.8 F L Pulse Rate 80 80 76 Respiratory Rate 12 16 13 Blood Pressure 84/62 L 79/55 L Pulse Oximetry 97 97 97 12/09/24 04:56 12/09/24 05:00 12/09/24 05:00 Temperature 96.8 F L 96.7 F L 96.7 F L Pulse Rate 74 78 Respiratory Rate 12 12 Blood Pressure 92/52 L Pulse Oximetry 97 97 12/09/24 05:01 12/09/24 05:06 12/09/24 05:11 Temperature 96.7 F L 96.7 F L 96.7 F L Pulse Rate 79 77 75 Respiratory Rate 11 L 12 12 Blood Pressure 74/50 L 77/57 L 82/52 L Pulse Oximetry 97 98 97 12/09/24 05:15 12/09/24 05:16 12/09/24 05:21 Temperature 96.7 F L 96.7 F L 96.7 F L Pulse Rate 89 81 86 Respiratory Rate 14 18 12 Blood Pressure 97/56 L 90/61 L Pulse Oximetry 98 98 97 12/09/24 05:26 12/09/24 05:30 12/09/24 05:32 Temperature 96.7 F L 96.8 F L 96.7 F L Pulse Rate 81 76 Respiratory Rate 12 11 L Blood Pressure 90/61 L Pulse Oximetry 97 96 12/09/24 05:36 12/09/24 05:41 12/09/24 05:57 Temperature 96.7 F L 96.7 F L 96.7 F L Pulse Rate 90 85 83 Respiratory Rate 13 12 14 Blood Pressure 85/55 L 90/59 L Pulse Oximetry 93 97 97 12/09/24 06:00 12/09/24 06:00 12/09/24 06:01 Temperature 96.8 F L 96.8 F L 96.8 F L Pulse Rate 76 80 Respiratory Rate 11 L 10 L Blood Pressure 91/60 L Pulse Oximetry 97 98 12/09/24 06:06 12/09/24 06:11 12/09/24 06:15 Temperature 96.8 F L 96.8 F L 96.8 F L Pulse Rate 81 78 77 Respiratory Rate 12 11 L 12 Blood Pressure 88/57 L 87/61 L Pulse Oximetry 97 97 97 12/09/24 06:16 12/09/24 06:30 12/09/24 06:31 Temperature 96.7 F L 96.6 F L 96.8 F L Pulse Rate 82 91 Respiratory Rate 15 14 Blood Pressure 89/51 L Pulse Oximetry 97 96 12/09/24 06:32 12/09/24 06:36 12/09/24 06:41 Temperature 96.8 F L 96.7 F L 96.7 F L Pulse Rate 86 81 93 Respiratory Rate 10 L 15 15 Blood Pressure 93/54 L 91/57 L 77/57 L Pulse Oximetry 96 96 96 12/09/24 06:42 12/09/24 06:45 12/09/24 06:46 Temperature 96.7 F L 96.8 F L 96.7 F L Pulse Rate 91 79 84 Respiratory Rate 17 11 L 11 L Blood Pressure 93/58 L Pulse Oximetry 97 95 96 12/09/24 06:51 12/09/24 06:56 12/09/24 07:00 Temperature 96.7 F L 96.7 F L 96.7 F L Pulse Rate 81 80 Respiratory Rate 9 L 11 L Blood Pressure 92/57 L 91/56 L Pulse Oximetry 96 96 12/09/24 07:00 12/09/24 07:01 12/09/24 07:02 Temperature 96.7 F L 96.7 F L 96.7 F L Pulse Rate 75 79 77 Respiratory Rate 11 L 12 Blood Pressure 104/56 L Pulse Oximetry 96 96 97 12/09/24 07:12 12/09/24 07:15 12/09/24 07:18 Temperature 96.7 F L 96.8 F L 96.8 F L Pulse Rate 80 86 Respiratory Rate 12 16 Blood Pressure 71/50 L 82/57 L Pulse Oximetry 97 97 96 12/09/24 07:21 12/09/24 07:27 12/09/24 07:43 Temperature 96.8 F L 96.8 F L 96.8 F L Pulse Rate 79 85 84 Respiratory Rate 12 14 10 L Blood Pressure 84/62 L 96/57 L Pulse Oximetry 95 98 98 12/09/24 07:45 12/09/24 07:46 12/09/24 07:52 Temperature 96.7 F L 96.7 F L 96.7 F L Pulse Rate 83 79 93 Respiratory Rate 13 10 L 17 Blood Pressure 89/58 L 93/60 L Pulse Oximetry 97 96 98 12/09/24 07:56 12/09/24 08:00 12/09/24 08:01 Temperature 96.7 F L 96.7 F L 96.7 F L Pulse Rate 83 89 88 Respiratory Rate 10 L 13 11 L Blood Pressure 90/63 L 83/54 L Pulse Oximetry 99 99 12/09/24 08:07 12/09/24 08:42 12/09/24 09:02 Temperature 96.8 F L 96.7 F L 96.7 F L Pulse Rate 95 79 82 Respiratory Rate 12 13 13 Blood Pressure 91/66 L Pulse Oximetry 96 98 12/09/24 09:19 12/09/24 09:21 12/09/24 09:26 Temperature 96.7 F L 96.7 F L 96.6 F L Pulse Rate 84 78 74 Respiratory Rate 12 13 12 Blood Pressure 90/57 L 88/60 L Pulse Oximetry 99 100 99 12/09/24 09:30 12/09/24 09:31 12/09/24 09:36 Temperature 96.7 F L 96.7 F L 96.7 F L Pulse Rate 77 74 76 Respiratory Rate 11 L 11 L 11 L Blood Pressure 89/56 L 84/57 L Pulse Oximetry 97 100 96 12/09/24 09:41 12/09/24 09:45 12/09/24 09:46 Temperature 96.6 F L 96.6 F L 96.6 F L Pulse Rate 81 78 96 Respiratory Rate 14 21 H 15 Blood Pressure 82/62 L 93/63 L Pulse Oximetry 97 98 98 12/09/24 09:51 12/09/24 09:56 12/09/24 10:00 Temperature 96.6 F L 96.6 F L 96.5 F L Pulse Rate 90 79 86 Respiratory Rate 19 16 13 Blood Pressure 94/59 L 90/63 L Pulse Oximetry 96 98 97 12/09/24 10:01 12/09/24 10:07 12/09/24 10:11 Temperature 96.5 F L 96.5 F L 96.4 F L Pulse Rate 86 77 79 Respiratory Rate 14 11 L 20 Blood Pressure 85/55 L 84/58 L 82/59 L Pulse Oximetry 97 97 96 12/09/24 10:15 12/09/24 10:16 12/09/24 10:21 Temperature 96.3 F L 96.3 F L 96.2 F L Pulse Rate 79 77 70 Respiratory Rate 14 14 14 Blood Pressure 89/62 L 82/60 L Pulse Oximetry 100 97 98 12/09/24 10:26 12/09/24 10:30 12/09/24 10:31 Temperature 96.2 F L 96.2 F L 96.2 F L Pulse Rate 82 84 90 Respiratory Rate 11 L 14 10 L Blood Pressure 77/56 L 84/65 L Pulse Oximetry 98 94 97 12/09/24 10:36 12/09/24 10:41 12/09/24 10:45 Temperature 96.2 F L 96.2 F L 96.2 F L Pulse Rate 75 81 83 Respiratory Rate 10 L 13 9 L Blood Pressure 79/67 L 83/53 L Pulse Oximetry 97 98 97 12/09/24 10:46 12/09/24 10:51 12/09/24 10:57 Temperature 96.2 F L 96.2 F L 96.2 F L Pulse Rate 77 87 82 Respiratory Rate 11 L 12 20 Blood Pressure 78/65 L 76/65 L 83/64 L Pulse Oximetry 98 98 100 12/09/24 11:00 12/09/24 11:01 12/09/24 11:06 Temperature 96.2 F L 96.2 F L 96.2 F L Pulse Rate 86 80 82 Respiratory Rate 9 L 11 L 14 Blood Pressure 88/56 L 81/62 L Pulse Oximetry 100 97 97 12/09/24 11:11 12/09/24 11:16 12/09/24 11:25 Temperature 96.2 F L 96.3 F L 96.3 F L Pulse Rate 84 87 83 Respiratory Rate 11 L 20 13 Blood Pressure 89/63 L 84/67 L 134/114 H Pulse Oximetry 97 98 99 12/09/24 11:30 12/09/24 11:31 12/09/24 11:35 Temperature 96.3 F L 96.3 F L 96.4 F L Pulse Rate 84 78 73 Respiratory Rate 11 L 10 L 11 L Blood Pressure 93/81 L 89/52 L Pulse Oximetry 97 98 97 12/09/24 11:40 12/09/24 11:45 12/09/24 11:46 Temperature 96.4 F L 96.5 F L 96.5 F L Pulse Rate 80 82 86 Respiratory Rate 11 L 11 L 13 Blood Pressure 93/59 L 91/52 L Pulse Oximetry 98 97 96 12/09/24 11:50 12/09/24 11:55 12/09/24 12:00 Temperature 96.5 F L 96.5 F L 96.4 F L Pulse Rate 80 81 77 Respiratory Rate 12 13 11 L Blood Pressure 84/46 L 82/54 L 80/61 L Pulse Oximetry 96 97 98 12/09/24 12:01 12/09/24 12:05 12/09/24 12:10 Temperature 96.4 F L 96.4 F L 96.4 F L Pulse Rate 84 72 72 Respiratory Rate 19 10 L 11 L Blood Pressure 78/58 L 81/57 L Pulse Oximetry 98 98 97 12/09/24 12:32 12/09/24 12:47 12/09/24 13:10 Temperature 96.5 F L Pulse Rate 77 77 78 Respiratory Rate 13 Blood Pressure 89/56 L 89/56 L 86/64 L Pulse Oximetry 96 12/09/24 13:11 12/09/24 13:15 12/09/24 13:16 Temperature 96.5 F L 96.5 F L 96.5 F L Pulse Rate 79 87 82 Respiratory Rate 12 11 L 12 Blood Pressure 84/61 L Pulse Oximetry 97 98 96 12/09/24 13:20 12/09/24 13:59 12/09/24 14:00 Temperature 96.5 F L 96.5 F L 96.5 F L Pulse Rate 74 75 76 Respiratory Rate 9 L 10 L 11 L Blood Pressure 86/66 L 84/54 L Pulse Oximetry 97 97 97 12/09/24 14:01 12/09/24 14:05 12/09/24 14:10 Temperature 96.5 F L 96.5 F L 96.4 F L Pulse Rate 78 76 80 Respiratory Rate 11 L 10 L 11 L Blood Pressure 83/54 L 83/59 L Pulse Oximetry 97 96 97 12/09/24 14:15 12/09/24 14:16 12/09/24 14:20 Temperature 96.4 F L 96.4 F L 96.3 F L Pulse Rate 80 87 72 Respiratory Rate 13 15 11 L Blood Pressure 82/53 L 80/62 L Pulse Oximetry 97 98 97 12/09/24 14:25 Temperature 96.3 F L Pulse Rate 82 Respiratory Rate 10 L Blood Pressure 90/59 L Pulse Oximetry 98 Intake/Output Intake/Output: Intake & Output 12/06/24 12/07/24 12/08/24 12/09/24 23:59 23:59 23:59 23:59 Intake Total 604.7 500 Output Total 1575 700 Balance -970.3 -200 Meds/Results Medications: Active Medications Generic Name Dose Route Start Last Admin Trade Name Freq PRN Reason Stop Dose Admin Dobutamine HCl/Dextrose 250 mg in 250 mls @ 27.27 mls/hr 12/07/24 21:05 12/09/24 12:47 Dobutamine 250 Mg/D5w 250 Ml IV CONT 5 mcg/kg/min .[id number] DIONICIO 27.27 mls/hr Administration 5 MCG/KG/MIN Furosemide 100 mg/ Sodium 100 mls @ 20 mls/hr 12/07/24 21:10 12/08/24 02:58 Chloride IV CONT 0 mg/hr .Q5H DIONICIO 0 mls/hr Infusion 20 MG/HR Perflutren Lipid Microsphere 0 ml 12/08/24 05:22 Perflutren Lipid Microspheres 1.5 Ml Vial Diluted To 10 Ml Total Volume IV PUSH 12/11/24 05:22 ONCE PRN adequate visualization Protocol Radiology Results: ITS Impressions Chest X-Ray 12/07/24 16:34 IMPRESSION: Bilateral basilar atelectasis versus pneumonia with bilateral pleural effusion. Cardiomegaly. Abdomen Ultrasound 12/07/24 17:25 IMPRESSION: Markedly abnormal imaging of the right upper quadrant demonstrating phasic bidirectional flow within the portal vein. The liver demonstrates heterogeneous echogenicity. In addition, the gallbladder is distended with dense avascular immobile material. Unfortunately, no cine interrogation of the distended hepatic veins were performed. Labs Labs: Laboratory Results - last 24 hr 12/09/24 12/09/24 07:36 08:06 WBC 6.1 RBC 3.61 L Hgb 10.0 L Hct 27.7 L MCV 76.7 L MCH 27.7 MCHC 36.1 H RDW 30.7 H Plt Count 115 L MPV TNP Immature Gran % (Auto) 0.7 H Neut % (Auto) 85.0 H Lymph % (Auto) 6.4 L [place] % (Auto) 7.4 Eos % (Auto) 0.3 Baso % (Auto) 0.2 Lymph # (Auto) 0.39 L [place] # (Auto) 0.5 Eos # (Auto) 0.0 Baso # (Auto) 0.0 Abs Immat Gran (auto) 0.04 H Absolute Neuts (auto) 5.2 Absolute Nucleated RBC 0.020 H Band Neutrophils % Not Reportable Nucleated RBC % 0.3 H Platelet Estimate Decreased % Immature Plt Fraction 2.7 Anisocytosis 2+ Macrocytosis 1+ Target Cells 2+ Schistocytes None seen Puncture Site Left radial ABG pH 7.440 ABG pCO2 36.6 ABG pO2 77.0 L ABG PO2/FiO2 Ratio 3.67 ABG HCO3 24.3 ABG O2 Saturation 95.9 ABG O2 Content 13.7 L ABG Base Excess 0.3 A-a Gradient 28.9 Oxyhemoglobin 92.9 Carboxyhemoglobin 2.7 H Methemoglobin 0.3 Reduced Hemoglobin 4.1 Total Hemoglobin 10.4 L O2 Delivery Device Room air O2 Liters/Min 0.0 FiO2 21 Sodium 142 Potassium 3.3 L Chloride 107 Carbon Dioxide 27 Anion Gap 8 BUN 60 H Creatinine 3.21 H Estim Creat Clear Calc 20 Estimated GFR 19 L Glucose 98 Calcium 8.7 Total Bilirubin 29.9 H AST 82 H ALT 45 Alkaline Phosphatase 120 Ammonia 15 Total Protein 7.0 Albumin 2.7 L Progress Note: A&P Assessment and Plan (1) Chronic renal insufficiency, stage III (moderate): Code(s): N18.30 - Chronic kidney disease, stage 3 unspecified Status: Acute (2) Renal failure (ARF), acute on chronic: Code(s): N17.9 - Acute kidney failure, unspecified; N18.9 - Chronic kidney disease, unspecified Status: Acute (3) Anemia: Code(s): D64.9 - Anemia, unspecified Status: Acute (4) Congestive heart failure: Code(s): I50.9 - Heart failure, unspecified Status: Acute (5) Chronic systolic heart failure: Code(s): I50.22 - Chronic systolic (congestive) heart failure Status: Acute (6) Cardiomyopathy: Code(s): I42.9 - Cardiomyopathy, unspecified Status: Acute Plan Still waiting bed had [place], will continue the dobutamine. Lasix was held due to hypotension. Patient continues to follow his clear liquid diet and does feel improved. Still awaiting bed at [place]. Time Spent With Patient Time: 15 min
--- NOTE | 2024-12-09 19:34 | PC.NURSE ---
Assumed care of patient. Patient resting on bed in NAD. Reports no needs at this time and attempting to go back to sleep. He has various clear liquids at bedside. He remains on full monitor, VS as charted- currently maintaining MAP > 60. Pt is awaiting transfer to [place] ICU. Dobutamine gtt continues to infuse. Denies further needs at this time.Call light in reach
[2024-12-09 22:08] LABS: Lactic Acid Reflex 1.5 mmol/L (0.7-2.0); Magnesium 2.4 mg/dL (1.6-2.3)
--- NOTE | 2024-12-09 22:31 | PC.NURSE ---
2212: Dobutamine bag changed and continues to infuse. Patient remains on full monitor, VS as charted. Patient resting on bed in NAD. Labs were completed. Patient provided ice chips per request. Denies further needs at this time. Call light in reach. Continues to await ICU bed at [facility].
--- NOTE | 2024-12-09 22:50 | PC.NURSE ---
[facility] transfer center called, patient remains on list. Patients family called for update. Patient sleeping, unable to verify if ok to relay information. Will ask when patient awakes.
[2024-12-09] MEDS: POTASSIUM BICARBONATE 25 MEQ TABEF PO (23:24)
[2024-12-09] MEDS: FUROSEMIDE INJ 100 MG in SODIUM CHLORIDE 0.9% IV 90 ML 20 MG IV CONT (23:38)
[2024-12-10] VITALS (101 sets, daily range): BP systolic 76–102; BP diastolic 48–77; PULSE 74–104; RESP 8–20; TEMP 35.7–36.1; O2SAT 93–100
--- NOTE | 2024-12-10 00:10 | PC.NURSE ---
Patient family called for update. Discussed with patient, he requests that I do not call her back at this time.
--- NOTE | 2024-12-10 00:11 | PC.NURSE ---
Furosemide gtt restarted as per order from Dr. Sánchez. Patient remains on full monitor, VS as charted.
[2024-12-10] MEDS: FUROSEMIDE INJ 100 MG in SODIUM CHLORIDE 0.9% IV 90 ML 20 MG IV CONT ×4 (02:17→18:15)
--- NOTE | 2024-12-10 02:23 | PC.NURSE ---
Lasix gtt bag changed early d/t waste while starting it.
--- NOTE | 2024-12-10 03:40 | PC.NURSE ---
Report received from RIAZ Aquino. Assumed care of patient at this time.
[2024-12-10] MEDS: DOBUTamine 250 MG/D5W 250 ML 250 MG/250 ML BAG 27.27 MG IV CONT ×2 (07:10→16:23)
--- NOTE | 2024-12-10 07:32 | PC.NURSE ---
Pharmacy called for a bag of furosemide to be tubed to bedside.
--- NOTE | 2024-12-10 09:04 | PC.NURSE ---
Daughter at bedside and updated by this RN. All questions answered.
--- NOTE | 2024-12-10 09:36 | PC.NURSE ---
[facility] updated over the phone by this RN. Per public relations representative with [facility], pt. does not yet have a bed.
--- NOTE | 2024-12-10 10:25 | PC.NURSE ---
Pt. c/o burning and tingling to the sole of bilateral feet. Bilateral ankles are swollen. Wedge placed under bilateral feet, elevating lower legs. Pt. verbalized appreciation and states that helps with the pain. Daughter at bedside. Additional questions answered by this RN.
--- NOTE | 2024-12-10 11:43 | PC.NURSE ---
Dietary called to order lunch and dinner tray.
--- NOTE | 2024-12-10 12:43 | PC.NURSE ---
Pharmacy called to tube lasix bag to bedside.
--- NOTE | 2024-12-10 15:42 | PC.NURSE ---
clear liquid diet ordered
--- NOTE | 2024-12-10 17:18 | PC.NURSE ---
Pt. daughter provided with update over the phone.
--- NOTE | 2024-12-10 18:09 | PC.NURSE ---
Pt. requesting pain medication for 10/10 pain to the sole of bilateral feet. Describes it as a tingling and burning sensation. Dr. Urbano notified. See MAR for intervention.
[2024-12-10] MEDS: HYDROcodone/acetaminophen (*CRX) 5-325 MG TABLET 1 TAB PO (18:16)
--- NOTE | 2024-12-10 19:19 | PC.NURSE ---
Miya from [facility] transfer center calling for update on patient condition. Most recent VS given as well as medications currently infusing. Miya will call back after receiving update from floor.
--- NOTE | 2024-12-10 19:51 | PC.NURSE ---
Miya calling from transfer center with bed for patient. Patient will be going to [facility] room # [id number] Arce is the accepting MD. [phone] is the number to call report.
--- NOTE | 2024-12-10 21:24 | PC.NURSE ---
this rn spoke with Erna patient significant other per patient and family request about giving update about when patient was leaving via ems.
== END 2024-12-10 21:32 | disposition short-term general hospital (02) ==
PROVIDERS: Emergency Medicine; Student in an Organized Health Care Education/Training Program; Emergency Provider Emergency Medicine; PCP Family Medicine
DX: N18.30 Chronic kidney disease, stage 3 unspecified (principal); N17.9 Acute kidney failure, unspecified; I50.22 Chronic systolic (congestive) heart failure; I42.9 Cardiomyopathy, unspecified; D64.9 Anemia, unspecified; I51.7 Cardiomegaly; Z95.0 Presence of cardiac pacemaker; R93.2 Abnormal findings on diagnostic imaging of liver and biliary tract
CPT/HCPCS: 36415; 36600; 71045; 71046; 76705; 80053; 81001; 82140; 82248; 82375; 82805; 83050; 83605; 83615; 83690; 83735; 83880; 84443; 85018; 85025; 85055; 85610; 85730; 87086; 93005; 93306; 96365; 96375; 99285; A9270; J1250; J1938; J2405